=== PATIENT | female | born 1950 | race Caucasian/White ===

== ENCOUNTER 2017-11-01 16:57 | Observation (INO) | payer MEDICARE, OTHER ==
[2017-11-01] MEDS ORDERED: ASPIRIN 81 MG PO STA (17:28)
[2017-11-01] MEDS ORDERED: NITROGLYCERIN OINT 1 INCH/GM PACKET TOPICAL STA (17:28)
--- NOTE | 2017-11-01 17:31 | ED ---
General Adult HPI - General Chief complaint: Chest Pain Stated complaint: Chest Pain x 2 days Time Seen by Provider: 11/01/17 17:06 Source: patient, RN notes reviewed Mode of arrival: wheelchair Limitations: no limitations - History of Present Illness Initial comments: Patient is a pleasant 66-year-old female presenting to the emergency Department with chest discomfort. Symptoms have been asked and waning over the past 2 days. Discomfort is mild at this time. Discomfort is somewhat positional however also get somewhat worse with exertion. No associated dyspnea, nausea, or diaphoresis. No history of similar symptoms previously. Discomfort is described as dull. Discomfort is left sternal region. There is occasional radiation towards the sternum. - Related Data Home Medications Medication Instructions Recorded Confirmed Rosuvastatin Calcium [Crestor] 5 mg PO MOWEFR 08/02/14 11/01/17 Ascorbic Acid [Vitamin C] 500 mg PO DAILY 11/01/17 11/01/17 Aspirin [Adult Low Dose Aspirin EC] 81 mg PO HS 11/01/17 11/01/17 Cholecalciferol (Vitamin D3) 2,000 unit PO HS 11/01/17 11/01/17 [Vitamin D3] Dapagliflozin Propanediol [Farxiga] 10 mg PO DAILY 11/01/17 11/01/17 Glimepiride [Amaryl] 1 mg PO HS 11/01/17 11/01/17 Hydrochlorothiazide [Hydrodiuril] 25 mg PO DAILY 11/01/17 11/01/17 Linagliptin [Tradjenta] 5 mg PO DAILY 11/01/17 11/01/17 Ubidecarenone [Co Q-10] 100 mg PO BID 11/01/17 11/01/17 metFORMIN HCL 1,000 mg PO BID 11/01/17 11/01/17 Allergies Allergy/AdvReac Type Severity Reaction Status Date / Time canagliflozin [From Invokana] AdvReac Unknown Verified 11/01/17 17:28 hydromorphone HCl AdvReac Nausea Verified 11/01/17 17:10 [From Dilaudid] sulfamethoxazole AdvReac Nausea & Verified 11/01/17 17:28 [From Bactrim] Vomiting trimethoprim [From Bactrim] AdvReac Nausea & Verified 11/01/17 17:28 Vomiting Review of Systems ROS Statement: Those systems with pertinent positive or pertinent negative responses have been documented in the HPI. ROS Other: All systems not noted in ROS Statement are negative. Constitutional: Denies: fever Eyes: Denies: eye pain ENT: Denies: ear pain Respiratory: Denies: cough, dyspnea Cardiovascular: Reports: chest pain Endocrine: Denies: fatigue Gastrointestinal: Denies: abdominal pain Genitourinary: Denies: dysuria Musculoskeletal: Denies: back pain Skin: Denies: rash Neurological: Denies: weakness Past Medical History Past Medical History: Diabetes Mellitus, Hyperlipidemia, Hypertension, Osteoarthritis (OA) History of Any Multi-Drug Resistant Organisms: None Reported Past Surgical History: Hysterectomy, Tonsillectomy Additional Past Surgical History / Comment(s): enterocele Past Psychological History: No Psychological Hx Reported Smoking Status: Never smoker Past Alcohol Use History: Rare Past Drug Use History: None Reported General Exam Limitations: no limitations General appearance: alert, in no apparent distress Head exam: Present: atraumatic Eye exam: Present: normal appearance, PERRL ENT exam: Present: normal oropharynx Neck exam: Present: normal inspection Respiratory exam: Present: normal lung sounds bilaterally. Absent: chest wall tenderness Cardiovascular Exam: Present: regular rate, normal rhythm Expanded Peripheral pulses: 2+: Radial (R), Radial (L), Dorsalis Pedis (R), Dorsalis Pedis (L) GI/Abdominal exam: Present: soft. Absent: tenderness Extremities exam: Present: normal inspection. Absent: pedal edema, calf tenderness Neurological exam: Present: alert Psychiatric exam: Present: normal affect, normal mood Skin exam: Present: normal color Course Vital Signs 11/01/17 11/01/17 11/01/17 17:07 18:42 19:07 Temperature 97.8 F Pulse Rate 91 78 85 Respiratory 18 16 16 Rate Blood Pressure 174/91 182/84 159/97 O2 Sat by Pulse 95 98 98 Oximetry EKG Findings - EKG Comments: EKG Findings:: Normal sinus rhythm 90. MS 136. QRS 84. QT 354. QTC 433. Normal axis. Inferior Q waves. No acute ST change. Medical Decision Making - Medical Decision Making Patient reevaluated and resting comfortably in bed. Patient updated on results and plan. Case was discussed in detail with Dr. Turner, who will admit for Dr. Corbett. - Lab Data Result diagrams: 11/01/17 17:20 11/01/17 17:20 Lab Results 11/01/17 11/01/17 11/01/17 Range/Units 17:20 17:20 17:20 WBC 10.3 (3.8-10.6) k/uL RBC 5.36 (3.80-5.40) m/uL Hgb 14.7 (11.4-16.0) gm/dL Hct 46.3 H (34.0-46.0) % MCV 86.4 (80.0-100.0) fL MCH 27.5 (25.0-35.0) pg MCHC 31.8 (31.0-37.0) g/dL RDW 13.5 (11.5-15.5) % Plt Count 312 (150-450) k/uL Neutrophils % 59 % Lymphocytes % 32 % Monocytes % 7 % Eosinophils % 2 % Basophils % 0 % Neutrophils # 6.0 (1.3-7.7) k/uL Lymphocytes # 3.3 (1.0-4.8) k/uL Monocytes # 0.7 (0-1.0) k/uL Eosinophils # 0.2 (0-0.7) k/uL Basophils # 0.0 (0-0.2) k/uL PT (9.0-12.0) sec INR (<1.2) APTT (22.0-30.0) sec Sodium 138 (137-145) mmol/L Potassium 3.7 (3.5-5.1) mmol/L Chloride 96 L (98-107) mmol/L Carbon Dioxide 29 (22-30) mmol/L Anion Gap 13 mmol/L BUN 16 (7-17) mg/dL Creatinine 0.63 (0.52-1.04) mg/dL Est GFR (CKD-EPI)AfAm >90 (>60 ml/min/1.73 sqM) Est GFR (CKD-EPI)NonAf >90 (>60 ml/min/1.73 sqM) Glucose 115 H (74-99) mg/dL Calcium 10.0 (8.4-10.2) mg/dL Magnesium 1.8 (1.6-2.3) mg/dL Total Bilirubin 0.6 (0.2-1.3) mg/dL AST 19 (14-36) U/L ALT 30 (9-52) U/L Alkaline Phosphatase 87 (38-126) U/L Total Creatine Kinase 39 (30-135) U/L CK-MB (CK-2) 0.4 (0.0-2.4) ng/mL CK-MB (CK-2) Rel Index 1.0 Troponin I <0.012 (0.000-0.034) ng/mL Total Protein 6.7 (6.3-8.2) g/dL Albumin 4.2 (3.5-5.0) g/dL 11/01/17 Range/Units 17:20 WBC (3.8-10.6) k/uL RBC (3.80-5.40) m/uL Hgb (11.4-16.0) gm/dL Hct (34.0-46.0) % MCV (80.0-100.0) fL MCH (25.0-35.0) pg MCHC (31.0-37.0) g/dL RDW (11.5-15.5) % Plt Count (150-450) k/uL Neutrophils % % Lymphocytes % % Monocytes % % Eosinophils % % Basophils % % Neutrophils # (1.3-7.7) k/uL Lymphocytes # (1.0-4.8) k/uL Monocytes # (0-1.0) k/uL Eosinophils # (0-0.7) k/uL Basophils # (0-0.2) k/uL PT 9.9 (9.0-12.0) sec INR 1.0 (<1.2) APTT 22.5 (22.0-30.0) sec Sodium (137-145) mmol/L Potassium (3.5-5.1) mmol/L Chloride (98-107) mmol/L Carbon Dioxide (22-30) mmol/L Anion Gap mmol/L BUN (7-17) mg/dL Creatinine (0.52-1.04) mg/dL Est GFR (CKD-EPI)AfAm (>60 ml/min/1.73 sqM) Est GFR (CKD-EPI)NonAf (>60 ml/min/1.73 sqM) Glucose (74-99) mg/dL Calcium (8.4-10.2) mg/dL Magnesium (1.6-2.3) mg/dL Total Bilirubin (0.2-1.3) mg/dL AST (14-36) U/L ALT (9-52) U/L Alkaline Phosphatase (38-126) U/L Total Creatine Kinase (30-135) U/L CK-MB (CK-2) (0.0-2.4) ng/mL CK-MB (CK-2) Rel Index Troponin I (0.000-0.034) ng/mL Total Protein (6.3-8.2) g/dL Albumin (3.5-5.0) g/dL - Radiology Data Radiology results: image reviewed (Chest x-ray shows no acute process.) Disposition Clinical Impression: Chest pain Disposition: ADMITTED IP TO THIS HOSP Referrals: Sandrine Corbett MD [Primary Care Provider] - 1-2 days Decision Time: 19:55
[2017-11-01 17:47] LABS: Basophils % (A) 0 %; Eosinophils # (A) 0.2 k/uL (0-0.7); Eosinophils % (A) 2 %; HCT 46.3 % (34.0-46.0); HGB 14.7 gm/dL (11.4-16.0); Lymphocytes # (A) 3.3 k/uL (1.0-4.8); Lymphocytes % (A) 32 %; MCH 27.5 pg (25.0-35.0); MCHC 31.8 g/dL (31.0-37.0); MCV 86.4 fL (80.0-100.0); Monocytes # (A) 0.7 k/uL (0-1.0); Monocytes % (A) 7 %; Neutrophils % (A) 59 %; Platelet Count 312 k/uL (150-450); RBC 5.36 m/uL (3.80-5.40); RDW 13.5 % (11.5-15.5); WBC 10.3 k/uL (3.8-10.6)
--- NOTE | 2017-11-01 17:52 | XR ---
EXAMINATION TYPE: XR chest 2V DATE OF EXAM: 11/01/2017 COMPARISON: 08/02/2014 HISTORY: Shortness of breath TECHNIQUE: Frontal and lateral views of the chest are obtained. FINDINGS: Scattered senescent parenchymal changes noted. No evidence for infiltrate. No evidence for atelectasis. Heart size is stable. Mediastinal structures are stable and grossly unremarkable. No evidence for hilar prominence. Degenerative changes dorsal spine. IMPRESSION: 1. No evidence for acute pulmonary disease.
[2017-11-01 17:57] LABS: Partial Thromboplastin Time 22.5 sec (22.0-30.0); Prothrombin Time 9.9 sec (9.0-12.0)
[2017-11-01 18:00] LABS: ALT 30 U/L (9-52); AST 19 U/L (14-36); Albumin 4.2 g/dL (3.5-5.0); Alkaline Phosphatase 87 U/L (38-126); Anion Gap 13 mmol/L; Blood Urea Nitrogen 16 mg/dL (7-17); Carbon Dioxide 29 mmol/L (22-30); Chloride 96 mmol/L (98-107); Glucose 115 mg/dL (74-99); Magnesium 1.8 mg/dL (1.6-2.3); Potassium 3.7 mmol/L (3.5-5.1); Sodium 138 mmol/L (137-145); Total Bilirubin 0.6 mg/dL (0.2-1.3); Total Protein 6.7 g/dL (6.3-8.2)
[2017-11-01 18:34] LABS: Creatine Kinase 39 U/L (30-135)
[2017-11-01 18:47] LABS: Creatine Kinase MB 0.4 ng/mL (0.0-2.4); Troponin I <0.012 ng/mL (0.000-0.034)
[2017-11-01] MEDS ORDERED: NITROGLYCERIN SL TABS 0.4 MG TAB SUBLINGUAL PRN (19:55)
[2017-11-01 20:51] LABS: Glucose,Whole Blood 195 mg/dL (75-99)
[2017-11-01 21:06] VITALS: BMI 31.8
[2017-11-01] MEDS ORDERED: NON-FORMULARY DRUG (Ubidecarenone [Co Q-10] 100 MG) PO SCH (21:30)
[2017-11-01] MEDS ORDERED: CHOLECALCIFEROL 1,000 UNIT TAB PO SCH (21:30)
[2017-11-01] MEDS: NITROGLYCERIN OINT 1 INCH/GM PACKET TOPICAL SCH (23:49)
[2017-11-01 23:58] LABS: Creatine Kinase 34 U/L (30-135)
[2017-11-02 00:11] LABS: Creatine Kinase MB 0.4 ng/mL (0.0-2.4); Troponin I <0.012 ng/mL (0.000-0.034)
[2017-11-02] MEDS: NITROGLYCERIN OINT 1 INCH/GM PACKET TOPICAL SCH ×3 (05:50→17:43)
[2017-11-02 06:21] LABS: Glucose,Whole Blood 132 mg/dL (75-99)
[2017-11-02 06:45] LABS: Cholesterol 160 mg/dL (<200); HDL Cholesterol 47 mg/dL (40-60); LDL Cholesterol,Calculated 80 mg/dL (0-99); Triglycerides 164 mg/dL (<150)
[2017-11-02 07:03] LABS: Creatine Kinase 30 U/L (30-135)
[2017-11-02 07:15] LABS: Creatine Kinase MB 0.2 ng/mL (0.0-2.4); Troponin I <0.012 ng/mL (0.000-0.034)
[2017-11-02] MEDS ORDERED: LINAGLIPTIN 5 MG TABLET PO SCH (09:00)
[2017-11-02] MEDS ORDERED: ASCORBIC ACID 500 MG TAB PO SCH (09:00)
[2017-11-02] MEDS ORDERED: ASPIRIN 325 MG TAB PO SCH (09:00)
[2017-11-02] MEDS ORDERED: ATORVASTATIN 10 MG TAB PO SCH (09:00)
[2017-11-02 09:29] VITALS: TEMP 98.1
--- NOTE | 2017-11-02 10:53 | P.HPIM ---
History of Present Illness H&P Date: 11/02/17 Chief Complaint: Chest pain This is a 66-year-old female, patient of Dr. Corbett. She has a known past medical history of diabetes mellitus, hyperlipidemia, hypertension, vertigo and osteoarthritis. Over the last 4 days patient has had symptoms of chest pain on the left side of her chest and under the left breast. She reports relief in the symptoms with changing positions. The pain has been consistent for the past 4 days. She reports the pain is mild. She denies any shortness of breath , nausea, diaphoresis, dizziness or lightheadedness. Patient reports that she went to her PCP yesterday and PCP did an EKG in the office. She's patient was told that there was no new changes on EKG. However, PCP encouraged her to go to the emergency room. EKG in the ER shows a normal sinus rhythm inferior infarct age undetermined. Troponins are negative 3 sets. Cardiology has been consulted. Patient has had no improvement with chest pain with the nitro patch or aspirin. Last stress test was in July 2016 and was negative. Patient also reports that she has brothers and sisters with known heart disease. She is scheduled for a stress echo today. Patient denies any cough, fever, chills, sweats. Denies any nausea or vomiting. Denies any bowel movement changes or urinary symptoms. Denies any heartburn or indigestion. She does report that the pain sometimes moves to the epigastric area. Amylase and lipase have been ordered. LFTs are normal. Review of Systems Please refer to HPI otherwise unremarkable Past Medical History Past Medical History: Diabetes Mellitus, Hyperlipidemia, Hypertension, Osteoarthritis (OA) Additional Past Medical History / Comment(s): vertigo History of Any Multi-Drug Resistant Organisms: None Reported Past Surgical History: Hysterectomy, Tonsillectomy Additional Past Surgical History / Comment(s): enterocele Past Psychological History: No Psychological Hx Reported Smoking Status: Never smoker Past Alcohol Use History: Rare Past Drug Use History: None Reported Medications and Allergies Home Medications Medication Instructions Recorded Confirmed Type Rosuvastatin Calcium [Crestor] 5 mg PO MOWEFR 08/02/14 11/01/17 History Ascorbic Acid [Vitamin C] 500 mg PO DAILY 11/01/17 11/01/17 History Aspirin [Adult Low Dose Aspirin EC] 81 mg PO HS 11/01/17 11/01/17 History Cholecalciferol (Vitamin D3) 2,000 unit PO HS 11/01/17 11/01/17 History [Vitamin D3] Dapagliflozin Propanediol [Farxiga] 10 mg PO DAILY 11/01/17 11/01/17 History Glimepiride [Amaryl] 1 mg PO HS 11/01/17 11/01/17 History Hydrochlorothiazide [Hydrodiuril] 25 mg PO DAILY 11/01/17 11/01/17 History Linagliptin [Tradjenta] 5 mg PO DAILY 11/01/17 11/01/17 History Ubidecarenone [Co Q-10] 100 mg PO BID 11/01/17 11/01/17 History metFORMIN HCL 1,000 mg PO BID 11/01/17 11/01/17 History Allergies Allergy/AdvReac Type Severity Reaction Status Date / Time canagliflozin [From Invokana] AdvReac Unknown Verified 11/01/17 17:28 hydromorphone HCl AdvReac Nausea Verified 11/01/17 17:10 [From Dilaudid] sulfamethoxazole AdvReac Nausea & Verified 11/01/17 17:28 [From Bactrim] Vomiting trimethoprim [From Bactrim] AdvReac Nausea & Verified 11/01/17 17:28 Vomiting Physical Exam Vitals: Vital Signs Temp Pulse Pulse Resp BP BP Pulse Ox 11/02/17 08:00 98.1 F 81 16 144/70 95 11/02/17 04:00 97.9 F 89 18 124/70 96 11/02/17 00:00 97.7 F 82 18 135/74 99 11/01/17 20:50 97.9 F 90 19 144/72 96 11/01/17 20:30 97.9 F 90 19 144/72 96 11/01/17 20:20 85 16 149/71 95 11/01/17 20:01 89 18 166/90 96 11/01/17 19:07 85 16 159/97 98 11/01/17 18:42 78 16 182/84 98 11/01/17 17:07 97.8 F 91 18 174/91 95 Intake and Output 11/01/17 11/02/17 11/02/17 22:59 06:59 14:59 Intake Total 100 300 10 Balance 100 300 10 Intake: IV 10 Invasive Line 1 10 Oral 100 300 0 Other: Voiding Method Toilet Toilet Toilet # Voids 1 Weight 69 kg 69.2 kg Head normocephalic Neck supple Lungs clear to auscultation bilaterally no wheezing or crackles Heart regular rate and rhythm S1-S2, no rub or gallop. No tenderness to palpation of the chest wall no rashes or lesions noted. Abdomen is soft nontender nondistended positive bowel sounds no hepatosplenomegaly Extremities no edema Neuro alert and orientated to 3 Results CBC & Chem 7: 11/01/17 17:20 11/01/17 17:20 Labs: Abnormal Lab Results - Last 24 Hours (Table) 11/01/17 11/01/17 11/01/17 Range/Units 17:20 17:20 20:49 Hct 46.3 H (34.0-46.0) % Chloride 96 L (98-107) mmol/L Glucose 115 H (74-99) mg/dL POC Glucose (mg/dL) 195 H (75-99) mg/dL Triglycerides (<150) mg/dL 11/02/17 11/02/17 Range/Units 05:24 06:19 Hct (34.0-46.0) % Chloride (98-107) mmol/L Glucose (74-99) mg/dL POC Glucose (mg/dL) 132 H (75-99) mg/dL Triglycerides 164 H (<150) mg/dL Thrombosis Risk Factor Assmnt - Choose All That Apply Any of the Below Risk Factors Present?: Yes Each Factor Represents 1 point: Obesity (BMI >25) Other Risk Factors: Yes Each Risk Factor Represents 2 Points: Age 61-74 years Thrombosis Risk Factor Assessment Total Risk Factor Score: 3 Thrombosis Risk Factor Assessment Level: Moderate Risk Assessment and Plan Assessment: 1. Chest pain: EKG showing a normal sinus rhythm with inferior infarct age undetermined. Troponins are negative 3 sets. Chest x-ray negative. Cardiology consulted patient scheduled for a stress echo today. Also will check an amylase and lipase. Patient reports that sometimes the pain had moved to the epigastric area 2. Diabetes mellitus type 2: Resume patient's Tradjenta add sliding scale coverage 3. Essential hypertension: Patient had evidence of accelerated hypertension on admission. Blood pressures have shown improvement. Resume hydrochlorothiazide 4. Hyperlipidemia: Resume Crestor GI prophylaxis Pepcid and DVT prophylaxis subcu heparin Time with Patient: Greater than 30 (Greater than 50% of the total time spent in counseling and coordination of care.I performed an examination of the patient and discussed their management with the physician Litigation Claim Representative. I have reviewed the Physician Litigation Claim Representative's notes and agree with the documented findings and plan of care)
--- NOTE | 2017-11-02 10:56 | CONS ---
CONSULTATION CHIEF COMPLAINT: Chest pain. Silvia is a 66-year-old lady with multiple coronary risk factors including hypertension, diabetes, and dyslipidemia who presents to hospital complaining of chest discomfort. Her chest pain is sharp, precordial, located in 1 place, mild intensity that has been going on for the last several days. It gets worse with movement and is reproducible. It has been on and off for the last several days. At the time of my evaluation, she appears comfortable at rest and is free of symptoms. EKG on her shows sinus rhythm with evidence of prior inferior wall myocardial infarction. Patient had a negative stress test in July of 2016 that showed normal myocardial perfusion and function. There is no prior history of coronary artery disease or congestive heart failure. PAST MEDICAL HISTORY: Significant for hypertension, diabetes, dyslipidemia. MEDICATIONS: Include Crestor, aspirin, metformin, Co-Q10, HydroDIURIL, Amaryl, Tradjenta, vitamin C. ALLERGIES: HYDROMORPHONE, SULFAMETHOXAZOLE, BACTRIM, and INVOKANA. FAMILY HISTORY: Significant for premature coronary artery disease in her sisters and brothers. SOCIAL HISTORY: Negative for smoking, EtOH use or drug abuse. REVIEW OF SYSTEMS: HEENT is unremarkable. CARDIAC: As described above. RESPIRATORY: Negative. GI: Negative. GENITOURINARY: Negative. ALLERGY/IMMUNOLOGY: Negative. SKIN: Negative. MUSCULOSKELETAL: Significant for arthritis. PSYCHOSOCIAL: Negative. ENDOCRINE: Negative. DERM: Negative. CONSTITUTIONAL: Negative. ONCOLOGICAL: Negative. The rest of the system review is not relevant. PHYSICAL EXAM: Comfortable at rest. Vital signs are stable. There is no jugular venous distention. Carotid upstroke is normal. There is no bruit. Chest exam reveals good air entry bilaterally. Heart exam reveals first and second heart sounds. No gallop. No murmur. No rub. Abdomen is soft, nontender. Exam of extremities did not reveal edema. Peripheral pulses are felt. LABS: Show a hemoglobin of 14.7, platelet count is 312. Potassium is 3.7, creatinine is 0.6. Three sets of troponins are negative. LDL cholesterol is 80. EKG does not reveal acute ischemic changes. ASSESSMENT: 1. Chest pain is atypical, probably noncardiac. 2. Hypertension. 3. diabetes. PLAN: Given the multiple coronary risk factors, I am going to obtain a stress echo on this patient. If this is abnormal, I will consider cardiac catheterization. If not, she will continue with medical therapy and will have workup for her musculoskeletal pain through Dr. Corbett in the outpatient setting. Thank you for allowing us to participate in this pleasant lady. NAIDA / RORO: [id number] /
[2017-11-02 11:08] LABS: Amylase 44 U/L (30-110); Lipase 89 U/L (23-300)
--- NOTE | 2017-11-02 11:26 | ECHOF ---
Referral Reason:chest pain MEASUREMENTS -------- HEIGHT: 147.3 cm WEIGHT: 68.9 kg BP: 124/70 RVIDd: 2.5 cm (< 3.3) IVSd: 1.2 cm (0.6 - 1.1) LVIDd: 4.0 cm (3.9 - 5.3) LVPWd: 1.0 cm (0.6 - 1.1) IVSs: 1.5 cm LVIDs: 2.6 cm LVPWs: 1.3 cm LA Diam: 3.0 cm (2.7 - 3.8) LAESV Index (A-L): 17.32 ml/m Ao Diam: 2.9 cm (2.0 - 3.7) AV Cusp: 1.9 cm (1.5 - 2.6) MV EXCURSION: 14.273 mm (> 18.000) MV EF SLOPE: 14 mm/s (70 - 150) EPSS: 0.1 cm MV E Christiano: 0.59 m/s MV DecT: 268 ms MV A Christiano: 0.86 m/s MV E/A Ratio: 0.69 FINDINGS -------- Sinus rhythm. This was a technically adequate study. The left ventricular size is normal. There is borderline concentric left ventricular hypertrophy. Overall left ventricular systolic function is normal with, an EF between 55 - 60 %. The right ventricle is normal in size. Normal LA size by volume 22+/-6 ml/m2. The right atrium is normal in size. The aortic valve is trileaflet and appears structurally normal. The mitral valve leaflets are mildly thickened. The tricuspid valve appears structurally normal. The pulmonic valve was not well visualized. The aortic root size is normal. IVC Not well visulized. There is no pericardial effusion. CONCLUSIONS -------- 1. Sinus rhythm. 2. This was a technically adequate study. 3. The left ventricular size is normal. 4. There is borderline concentric left ventricular hypertrophy. 5. Overall left ventricular systolic function is normal with, an EF between 55 - 60 %. 6. The right ventricle is normal in size. 7. Normal LA size by volume 22+/-6 ml/m2. 8. The right atrium is normal in size. 9. The aortic valve is trileaflet and appears structurally normal. 10. The mitral valve leaflets are mildly thickened. 11. The tricuspid valve appears structurally normal. 12. The pulmonic valve was not well visualized. 13. The aortic root size is normal. 14. IVC Not well visulized. 15. There is no pericardial effusion. CONCRETE BUCKET HOOKER: Brielle Brown RDCS
[2017-11-02 12:29] LABS: Glucose,Whole Blood 156 mg/dL (75-99)
[2017-11-02] MEDS: INSULIN ASPART 100 UNIT/ML 1 ML 10 ML VIAL SQ SCH ×2 (12:30→17:38)
--- NOTE | 2017-11-02 12:47 | ECHOS ---
STRESS ECHOCARDIOGRAM INDICATIONS: Chest pain. BASELINE HEART RATE: 103 BASELINE BLOOD PRESSURE: 131/79 MAXIMUM HEART RATE: 153 MAXIMUM BLOOD PRESSURE: 177/86 85% MPHR: 132 100% MPHR: 155 METS: 8.5 MAXIMUM STAGE REACHED: 3 TOTAL EXERCISE TIME: 7:00 CLINICAL INFORMATION: Baseline EKG revealed normal sinus rhythm without significant ST-T changes. Patient walked on standard Delfino protocol for 7 minutes, achieved a maximal heart rate of 153 beats per minute which is well above 85% of predicted maximal. She developed fatigue and shortness of breath and therefore stress test was stopped. By EKG criteria, this is a negative stress test with fair exercise capacity. Baseline echo images were suboptimal. Lumason was injected to improve echo contrast. Baseline echo images revealed normal wall motion and wall thickening of all segments. At peak exercise, there was good augmentation of left ventricular wall motion and wall thickening of all segments. However, this is an overall suboptimal stress echo because of inadequate images even with contrast administration. IMPRESSION: 1. Limited exercise capacity with a negative stress test by EKG criteria. 2. Normal stress echocardiogram with somewhat suboptimal images. MMODL / IJN: [id number] /
[2017-11-02 16:33] LABS: Glucose,Whole Blood 122 mg/dL (75-99)
[2017-11-02 17:01] VITALS: BP 130/70; PULSE 99; RESP 18
[2017-11-02 18:47] LABS: Hemoglobin A1C 6.9 % (4.0-6.0)
[2017-11-02] MEDS ORDERED: HEPARIN SODIUM,PORCINE 5,000 UNIT/ML 1 ML VIAL SQ SCH (21:00)
[2017-11-02] MEDS ORDERED: ASPIRIN 81 MG PO SCH (21:00)
[2017-11-03] MEDS ORDERED: HYDROCHLOROTHIAZIDE 25 MG TAB PO SCH (09:00)
[2017-11-03] MEDS ORDERED: FAMOTIDINE 20 MG TAB PO SCH (09:00)
== END 2017-11-02 18:28 | disposition home or self-care (01) ==
LOC: EC 16:57 → 6SEL 19:55
PROVIDERS: ADMIT Internal Medicine; ATTEND Internal Medicine
DX: R07.89 Other chest pain (principal); I10 Essential (primary) hypertension; E11.9 Type 2 diabetes mellitus without complications; E78.5 Hyperlipidemia, unspecified; M19.90 Unspecified osteoarthritis, unspecified site; E66.9 Obesity, unspecified; I25.2 Old myocardial infarction; Z68.31 Body mass index [BMI] 31.0-31.9, adult; Z79.82 Long term (current) use of aspirin; Z79.84 Long term (current) use of oral hypoglycemic drugs; Z79.899 Other long term (current) drug therapy; Z88.1 Allergy status to other antibiotic agents; Z88.2 Allergy status to sulfonamides; Z88.5 Allergy status to narcotic agent; Z88.8 Allergy status to other drugs, medicaments and biological substances; Z82.49 Family history of ischemic heart disease and other diseases of the circulatory system; R42 Dizziness and giddiness
CPT/HCPCS: 99285 ×2; 36415; 93005; 93017; 93306; 80061; 80053; 82150; 82550 ×2; 82553 ×2; 83690; 83735; 84484 ×2; 85025; 85610; 85730; 83036; 71046; G0378 ×2; C8928; Q9950; 93350

== ENCOUNTER 2019-10-31 11:19 | Emergency (ER) | payer MEDICARE, OTHER ==
[2019-10-31] MEDS ORDERED: HYDROmorphone 0.5 MG/0.5 ML SYRINGE IVP STA (11:29)
[2019-10-31] MEDS ORDERED: PANTOPRAZOLE 40 MG/10 ML VIAL IVP STA (11:29)
[2019-10-31] MEDS ORDERED: ONDANSETRON 4 MG/2 ML VIAL IVP STA (11:29)
[2019-10-31] MEDS ORDERED: SODIUM CHLORIDE 0.9% 1,000 ML IV STA (11:29)
[2019-10-31 11:33] VITALS: RESP 18
[2019-10-31 12:04] LABS: Basophils % (A) 0 %; Eosinophils # (A) 0.2 k/uL (0-0.7); Eosinophils % (A) 1 %; HCT 48.5 % (34.0-46.0); HGB 15.8 gm/dL (11.4-16.0); Lymphocytes # (A) 0.8 k/uL (1.0-4.8); Lymphocytes % (A) 4 %; MCH 29.1 pg (25.0-35.0); MCHC 32.6 g/dL (31.0-37.0); MCV 89.3 fL (80.0-100.0); Mean Platelet Volume 7.8; Monocytes # (A) 0.7 k/uL (0-1.0); Monocytes % (A) 4 %; Neutrophils # (A) 17.2 k/uL (1.3-7.7); Neutrophils % (A) 90 %; Platelet Count 300 k/uL (150-450); RBC 5.43 m/uL (3.80-5.40); RDW 13.3 % (11.5-15.5); WBC 19.1 k/uL (3.8-10.6)
[2019-10-31 12:17] LABS: ALT 28 U/L (4-34); AST 25 U/L (14-36); African American GFR (CKD) >90 (>60 ml/min/1.73 sqM); Albumin 4.1 g/dL (3.5-5.0); Alkaline Phosphatase 93 U/L (38-126); Amylase 62 U/L (30-110); Anion Gap 9 mmol/L; Blood Urea Nitrogen 16 mg/dL (7-17); Calcium 9.8 mg/dL (8.4-10.2); Carbon Dioxide 25 mmol/L (22-30); Chloride 105 mmol/L (98-107); Glucose 192 mg/dL (74-99); Non-African American GFR(CKD) >90 (>60 ml/min/1.73 sqM); Potassium 4.3 mmol/L (3.5-5.1); Sodium 139 mmol/L (137-145); Total Bilirubin 0.7 mg/dL (0.2-1.3); Total Protein 6.9 g/dL (6.3-8.2)
--- NOTE | 2019-10-31 12:20 | ED ---
Abdominal Pain HPI - General Chief Complaint: Abdominal Pain Stated Complaint: abd pain Source: patient, EMS Mode of arrival: EMS Limitations: no limitations - History of Present Illness Initial Comments: Patient is 68-year-old female presenting to emergency Department with chief complaint of abdominal pain. Patient reports symptoms began early this morning and epigastric region that have now migrated to the lower abdomen. Patient does report nausea with several episodes of nonbilious, nonbloody vomiting. Patient does report irregular bowel movements but states that is her baseline. States the pain alternates between dull and sharp and is constant. Not related to by mouth intake. Denies any urinary or vaginal symptoms. Denies any fever or chills. Denies any chest pain or shortness of breath headaches. Does report history of intestinal adhesions after a hysterectomy. Denies any alleviating or aggravating factors. Denies hematuria, hematochezia or melena. - Related Data Home Medications Medication Instructions Recorded Confirmed Rosuvastatin Calcium [Crestor] 5 mg PO MOWEFR 08/02/14 11/01/17 Ascorbic Acid [Vitamin C] 500 mg PO DAILY 11/01/17 11/01/17 Aspirin [Adult Low Dose Aspirin EC] 81 mg PO HS 11/01/17 11/01/17 Cholecalciferol (Vitamin D3) 2,000 unit PO HS 11/01/17 11/01/17 [Vitamin D3] Dapagliflozin Propanediol [Farxiga] 10 mg PO DAILY 11/01/17 11/01/17 Glimepiride [Amaryl] 1 mg PO HS 11/01/17 11/01/17 Hydrochlorothiazide [Hydrodiuril] 25 mg PO DAILY 11/01/17 11/01/17 Linagliptin [Tradjenta] 5 mg PO DAILY 11/01/17 11/01/17 Ubidecarenone [Co Q-10] 100 mg PO BID 11/01/17 11/01/17 metFORMIN HCL 1,000 mg PO BID 11/01/17 11/01/17 Previous Rx's Medication Instructions Recorded Ondansetron Odt [Zofran Odt] 4 mg PO Q8HR PRN #20 tab 10/31/19 Allergies Allergy/AdvReac Type Severity Reaction Status Date / Time canagliflozin [From Invokana] AdvReac Unknown Verified 11/01/17 17:28 hydromorphone HCl AdvReac Nausea Verified 11/01/17 17:10 [From Dilaudid] sulfamethoxazole AdvReac Nausea & Verified 11/01/17 17:28 [From Bactrim] Vomiting trimethoprim [From Bactrim] AdvReac Nausea & Verified 11/01/17 17:28 Vomiting Review of Systems ROS Statement: Those systems with pertinent positive or pertinent negative responses have been documented in the HPI. ROS Other: All systems not noted in ROS Statement are negative. Past Medical History Past Medical History: Diabetes Mellitus, Hyperlipidemia, Hypertension, Osteoarthritis (OA) Additional Past Medical History / Comment(s): vertigo History of Any Multi-Drug Resistant Organisms: None Reported Past Surgical History: Hysterectomy, Tonsillectomy Additional Past Surgical History / Comment(s): enterocele Past Psychological History: No Psychological Hx Reported Smoking Status: Never smoker Past Alcohol Use History: Rare Past Drug Use History: None Reported General Exam Limitations: no limitations General appearance: alert, in no apparent distress, obese Head exam: Present: atraumatic, normocephalic, normal inspection Eye exam: Present: normal appearance, EOMI Pupils: Present: normal accommodation ENT exam: Present: normal exam Neck exam: Present: normal inspection, full ROM Respiratory exam: Present: normal lung sounds bilaterally Cardiovascular Exam: Present: regular rate, normal rhythm, normal heart sounds GI/Abdominal exam: Present: soft, tenderness (Right lower quadrant. Suprapubic. Positive McBurney point tenderness. Negative psoas, Rovsing or obturator.). Absent: distended, guarding, rebound Extremities exam: Present: normal inspection, full ROM Back exam: Present: normal inspection, full ROM Neurological exam: Present: alert, oriented X3 Psychiatric exam: Present: normal affect, normal mood Skin exam: Present: warm, dry, intact, normal color Course Vital Signs 10/31/19 10/31/19 10/31/19 11:22 13:08 14:00 Temperature 98.1 F Pulse Rate 112 H 94 Respiratory 18 18 Rate Blood Pressure 160/97 152/83 O2 Sat by Pulse 93 L 94 L Oximetry Medical Decision Making - Medical Decision Making Patient is 68-year-old male presenting to emergency Department with a chief complaint abdominal pain. Patient brought to the ED via EMS. On exam patient does have lower abdominal tenderness with positive McBurney point. Patient does have leukocytosis of 19,000 which I suspect this is from the multiple episodes of vomiting. UA showing plus for glucose and +2 ketones. I suspect the patient is dehydrated. Patient was given antibiotics, fluids and analgesia. CT abdomen and pelvis reveals enteritis, diverticulosis without diverticulitis. On reevaluation patient reports improvement in symptoms and states she is ready go home. Patient given antibiotics to go home. Patient advised to drink fluids. Return parameters thoroughly discussed with patient was up standing agreeable. Case discussed with physician. - Lab Data Result diagrams: 10/31/19 11:50 10/31/19 11:50 Lab Results 10/31/19 10/31/19 10/31/19 Range/Units 11:50 11:50 13:21 WBC 19.1 H (3.8-10.6) k/uL RBC 5.43 H (3.80-5.40) m/uL Hgb 15.8 (11.4-16.0) gm/dL Hct 48.5 H (34.0-46.0) % MCV 89.3 (80.0-100.0) fL MCH 29.1 (25.0-35.0) pg MCHC 32.6 (31.0-37.0) g/dL RDW 13.3 (11.5-15.5) % Plt Count 300 (150-450) k/uL Neutrophils % 90 % Lymphocytes % 4 % Monocytes % 4 % Eosinophils % 1 % Basophils % 0 % Neutrophils # 17.2 H (1.3-7.7) k/uL Lymphocytes # 0.8 L (1.0-4.8) k/uL Monocytes # 0.7 (0-1.0) k/uL Eosinophils # 0.2 (0-0.7) k/uL Basophils # 0.0 (0-0.2) k/uL Sodium 139 (137-145) mmol/L Potassium 4.3 (3.5-5.1) mmol/L Chloride 105 (98-107) mmol/L Carbon Dioxide 25 (22-30) mmol/L Anion Gap 9 mmol/L BUN 16 (7-17) mg/dL Creatinine 0.61 (0.52-1.04) mg/dL Est GFR (CKD-EPI)AfAm >90 (>60 ml/min/1.73 sqM) Est GFR (CKD-EPI)NonAf >90 (>60 ml/min/1.73 sqM) Glucose 192 H (74-99) mg/dL Calcium 9.8 (8.4-10.2) mg/dL Total Bilirubin 0.7 (0.2-1.3) mg/dL AST 25 (14-36) U/L ALT 28 (4-34) U/L Alkaline Phosphatase 93 (38-126) U/L Total Protein 6.9 (6.3-8.2) g/dL Albumin 4.1 (3.5-5.0) g/dL Amylase 62 (30-110) U/L Lipase 105 (23-300) U/L Urine Color Yellow Urine Appearance Clear (Clear) Urine pH 7.0 (5.0-8.0) Ur Specific [place] 1.040 H (1.001-1.035) Urine Protein Negative (Negative) Urine Glucose (UA) 4+ H (Negative) Urine Ketones 2+ H (Negative) Urine Blood Negative (Negative) Urine Nitrite Negative (Negative) Urine Bilirubin Negative (Negative) Urine Urobilinogen <2.0 (<2.0) mg/dL Ur Leukocyte Esterase Negative (Negative) Disposition Clinical Impression: Abdominal pain, Enteritis, Nausea & vomiting Disposition: HOME SELF-CARE Condition: Stable Instructions (If sedation given, give patient instructions): Enteritis (ED) Additional Instructions: Please take prescribed medication as directed. Make sure to drink a lot of fluids. Return to emergency department if symptoms worsen. Follow-up with primary care. Prescriptions: Ondansetron Odt [Zofran Odt] 4 mg PO Q8HR PRN #20 tab PRN Reason: Nausea Is patient prescribed a controlled substance at d/c from ED?: No Referrals: Sandrine Corbett MD [Primary Care Provider] - 1-2 days Time of Disposition: 14:42
[2019-10-31 13:08] VITALS: TEMP 98.1
[2019-10-31 13:39] LABS: Appearance,Urine Clear (Clear); Bilirubin,Urine Negative (Negative); Blood,Urine Negative (Negative); Color,Urine Yellow; Glucose,Urine (UA) 4+ (Negative); Leukocyte Esterase,Urine Negative (Negative); Nitrite,Urine Negative (Negative); Protein,Urine Negative (Negative); Urobilinogen,Urine <2.0 mg/dL (<2.0)
[2019-10-31 13:45] LABS: Ketones,Urine 2+ (Negative)
[2019-10-31 14:01] VITALS: BP 152/83; PULSE 94
--- NOTE | 2019-10-31 14:05 | CT ---
EXAMINATION TYPE: CT abdomen pelvis w con DATE OF EXAM: 10/31/2019 COMPARISON: HISTORY: RLQ pain with nausea, vomiting and diarrhea CT DLP: 1049.1 mGycm Automated exposure control for dose reduction was used. TECHNIQUE: Helical acquisition of images from the lung bases through the pelvis have been completed. CONTRAST: Performed without Oral Contrast and with IV Contrast, patient injected with 100 mL of Isovue 300. FINDINGS: Small hiatal hernia present LUNG BASES: There is some dependent atelectatic changes. AORTA: No significant abnormality is appreciated. LIVER/GB: Liver shows low attenuation likely due to hepatic steatosis. Gallbladder is normal. PANCREAS: No significant abnormality is seen. SPLEEN: No significant abnormality is seen. ADRENALS: No significant abnormality is seen. KIDNEYS: No significant interval change is seen, bilateral parapelvic cysts are present, there are bi lateral cortical cysts, punctate 2 mm lower pole nonobstructive calculus associated with the left kid dell is again noted. REPRODUCTIVE ORGANS: Uterus is not seen, suspect ovaries are present along the pelvic sidewalls BOWEL: There is abnormal inflammatory change associated with jejunum towards the inferior midline ne ar the level of the aortic bifurcation, inflammatory changes with increased density within the mesent gabriella fat at this level, extensive diverticular changes are present within the colon The appendix is n ormal. FREE AIR: No Free Air visible. ASCITES: None visible. PELVIC ADENOPATHY: None visualized. RETROPERITONEAL ADENOPATHY: No Retroperitoneal Adenopathy visible. URINARY BLADDER: No significant abnormality is seen. OSSEOUS STRUCTURES: No significant abnormality is seen. IMPRESSION: NONSPECIFIC INFLAMMATORY CHANGE IS PRESENT WITHIN THE JEJUNUM, CORRELATE FOR ENTERITIS, FOLLOW-UP INDICATED. DIVERTICULOSIS AND POSTOP CHANGES. HEPATIC STEATOSIS. ADDITIONAL FINDINGS ABOVE.
[2019-10-31] MEDS ORDERED: ONDANSETRON 4 MG ODT STARTER PACK 2 TAB BTL PO STA (14:41)
== END 2019-10-31 14:52 | disposition home or self-care (01) ==
LOC: EC 11:19
DX: K52.9 Noninfective gastroenteritis and colitis, unspecified (principal); D72.829 Elevated white blood cell count, unspecified; K57.90 Diverticulosis of intestine, part unspecified, without perforation or abscess without bleeding; E11.9 Type 2 diabetes mellitus without complications; E78.5 Hyperlipidemia, unspecified; I10 Essential (primary) hypertension; Z90.710 Acquired absence of both cervix and uterus; Z79.82 Long term (current) use of aspirin; Z79.84 Long term (current) use of oral hypoglycemic drugs; Z79.899 Other long term (current) drug therapy; Z88.5 Allergy status to narcotic agent; Z88.2 Allergy status to sulfonamides; Z88.8 Allergy status to other drugs, medicaments and biological substances
CPT/HCPCS: 36415; 80053; 82150; 83690; 85025; 81003; 74177; 99284; 96374; 96375 ×2; 96361; J2405; S0119; C9113; J1170; Q9967

== ENCOUNTER → 2020-02-04 | Outpatient (CLI) | payer MEDICARE, OTHER ==
--- NOTE | 2020-02-05 10:55 | MM ---
Reason for exam: screening (asymptomatic). Last mammogram was performed 3 years and 7 months ago. History: Patient is postmenopausal. Physical Findings: A clinical breast exam by your physician is recommended on an annual basis and results should be correlated with mammographic findings. MG 3D Screening Mammo W/Cad Bilateral CC and MLO view(s) were taken. Prior study comparison: June 28, 2016, bilateral MG 3d screening mammo w/cad. April 03, 2014, mammogram, performed at [facility]. There are scattered fibroglandular densities. There is chronic nodularity in the left breast. Focal asymmetry right upper outer quadrant is stable. No significant changes when compared with prior studies. ASSESSMENT: Benign, BI-RAD 2 RECOMMENDATION: Routine screening mammogram of both breasts in 1 year. Manage on a clinical basis with regard to right axillay lump. Consider ultrasound.
== END | disposition home or self-care (01) ==
LOC: RADMAMWWP 14:49
PROVIDERS: ATTEND Family Medicine
DX: Z12.31 Encounter for screening mammogram for malignant neoplasm of breast (principal)
CPT/HCPCS: 77063; 77067

== ENCOUNTER 2020-06-26 21:15 | Observation (INO) | payer MEDICARE, OTHER ==
[2020-06-26] MEDS ORDERED: ACETAMINOPHEN TAB 500 MG TAB PO STA (22:20)
[2020-06-26] MEDS ORDERED: SODIUM CHLORIDE 0.9% 1,000 ML IV STA (22:20)
[2020-06-26 22:51] LABS: Basophils # (A) 0.1 k/uL (0-0.2); Basophils % (A) 1 %; Eosinophils % (A) 0 %; HCT 43.2 % (34.0-46.0); HGB 14.6 gm/dL (11.4-16.0); Lymphocytes # (A) 0.5 k/uL (1.0-4.8); Lymphocytes % (A) 6 %; MCHC 33.8 g/dL (31.0-37.0); MCV 88.7 fL (80.0-100.0); Mean Platelet Volume 7.9; Monocytes # (A) 0.3 k/uL (0-1.0); Monocytes % (A) 4 %; Neutrophils % (A) 88 %; Platelet Count 230 k/uL (150-450); RBC 4.87 m/uL (3.80-5.40); RDW 13.3 % (11.5-15.5)
--- NOTE | 2020-06-26 23:03 | XR ---
EXAMINATION TYPE: XR chest 2V DATE OF EXAM: 06/26/2020 COMPARISON: 11/01/2017 HISTORY: Fever TECHNIQUE: FINDINGS: There is a mild infiltrate in the right upper lobe that is interstitial. The other lung fie lds are fairly clear. There is no heart failure. Heart size is normal. There are chest leads. Bony th orax is intact. There is no pleural effusion. IMPRESSION: There is a new minimal infiltrate right upper lobe compared to old exam.
[2020-06-26 23:08] LABS: Partial Thromboplastin Time 24.5 sec (22.0-30.0)
[2020-06-26 23:13] LABS: ALT 25 U/L (4-34); AST 34 U/L (14-36); African American GFR (CKD) >90 (>60 ml/min/1.73 sqM); Albumin 3.6 g/dL (3.5-5.0); Alkaline Phosphatase 73 U/L (38-126); Anion Gap 10 mmol/L; Blood Urea Nitrogen 15 mg/dL (7-17); Calcium 8.6 mg/dL (8.4-10.2); Carbon Dioxide 20 mmol/L (22-30); Chloride 106 mmol/L (98-107); Glucose 235 mg/dL (74-99); Lipase 91 U/L (23-300); Non-African American GFR(CKD) >90 (>60 ml/min/1.73 sqM); Potassium 4.1 mmol/L (3.5-5.1); Sodium 136 mmol/L (137-145); Total Bilirubin 0.5 mg/dL (0.2-1.3); Total Protein 6.3 g/dL (6.3-8.2)
[2020-06-26 23:23] LABS: Appearance,Urine Clear (Clear); Bilirubin,Urine Negative (Negative); Blood,Urine Negative (Negative); Color,Urine Yellow; Glucose,Urine (UA) 4+ (Negative); Leukocyte Esterase,Urine Negative (Negative); Nitrite,Urine Negative (Negative); Protein,Urine Trace (Negative); Specific Gravity,Urine 1.041 (1.001-1.035); Urobilinogen,Urine <2.0 mg/dL (<2.0)
--- NOTE | 2020-06-26 23:26 | ED ---
Fever HPI - General Chief Complaint: Fever Stated Complaint: Fever Time Seen by Provider: 06/26/20 21:45 Source: patient, EMS Mode of arrival: EMS Limitations: no limitations - History of Present Illness Initial Comments: Patient is a 61-year-old female past medical history of diabetes who presents emergency room with reported weakness, nausea and decreased oral intake for the past 4 days. Patient states that she's had diffuse body aches. Denies any sick contacts or recent travel. Admits to a mild nonproductive cough. No Chest pain. No abdominal pain. She was found to be febrile upon presentation to the emergency room. Due to the persistence of her symptoms she came in to the emergency room for further evaluation - Related Data Home Medications Medication Instructions Recorded Confirmed Ascorbic Acid [Vitamin C] 500 mg PO DAILY 11/01/17 07/01/20 Cholecalciferol (Vitamin D3) 2,000 unit PO HS 11/01/17 07/01/20 [Vitamin D3] Dapagliflozin Propanediol [Farxiga] 10 mg PO DAILY 11/01/17 07/01/20 Linagliptin [Tradjenta] 5 mg PO HS 11/01/17 07/01/20 metFORMIN HCL 1,000 mg PO BID 11/01/17 07/01/20 Cyanocobalamin (Vitamin B-12) 1,000 mcg PO DAILY 06/27/20 07/01/20 [Vitamin B-12] Glimepiride [Amaryl] 2 mg PO [id number] 06/27/20 07/01/20 Allergies Allergy/AdvReac Type Severity Reaction Status Date / Time canagliflozin [From Invokana] AdvReac Unknown Verified 07/01/20 11:11 hydromorphone HCl AdvReac Nausea Verified 07/01/20 11:11 [From Dilaudid] sulfamethoxazole AdvReac Nausea & Verified 07/01/20 11:11 [From Bactrim] Vomiting trimethoprim [From Bactrim] AdvReac Nausea & Verified 07/01/20 11:11 Vomiting Review of Systems ROS Statement: Those systems with pertinent positive or pertinent negative responses have been documented in the HPI. ROS Other: All systems not noted in ROS Statement are negative. Past Medical History Past Medical History: Diabetes Mellitus, Hyperlipidemia, Hypertension, Osteoarthritis (OA) Additional Past Medical History / Comment(s): vertigo History of Any Multi-Drug Resistant Organisms: None Reported Past Surgical History: Hysterectomy, Tonsillectomy Additional Past Surgical History / Comment(s): enterocele Past Psychological History: No Psychological Hx Reported Smoking Status: Former smoker Past Alcohol Use History: Rare Past Drug Use History: None Reported General Exam Limitations: no limitations General appearance: alert, in no apparent distress Head exam: Present: atraumatic, normocephalic, normal inspection Eye exam: Present: normal appearance, PERRL, EOMI. Absent: scleral icterus, conjunctival injection, periorbital swelling ENT exam: Present: normal exam, mucous membranes moist Neck exam: Present: normal inspection. Absent: tenderness, meningismus, lymphadenopathy Respiratory exam: Present: normal lung sounds bilaterally. Absent: respiratory distress, wheezes, rales, rhonchi, stridor Cardiovascular Exam: Present: regular rate, normal rhythm, normal heart sounds. Absent: systolic murmur, diastolic murmur, rubs, gallop, clicks GI/Abdominal exam: Present: soft, normal bowel sounds. Absent: distended, tenderness, guarding, rebound, rigid Extremities exam: Present: normal inspection, full ROM, normal capillary refill. Absent: tenderness, pedal edema, joint swelling, calf tenderness Back exam: Present: normal inspection Neurological exam: Present: alert, oriented X3, CN II-XII intact Psychiatric exam: Present: normal affect, normal mood Skin exam: Present: warm, dry, intact, normal color. Absent: rash Course Vital Signs 06/26/20 06/26/20 06/27/20 21:45 23:00 00:00 Temperature 100.3 F H 97.9 F Pulse Rate 90 87 89 Respiratory 20 18 18 Rate Blood Pressure 146/56 177/91 175/98 O2 Sat by Pulse 92 L 96 97 Oximetry 06/27/20 00:34 Temperature Pulse Rate Respiratory Rate Blood Pressure 135/82 O2 Sat by Pulse Oximetry Medical Decision Making - Medical Decision Making Upon arrival patient is placed into room 3. A thorough history and physical exam was performed. Peripheral IV is established. Patient was given a liter bolus of normal saline. Laboratory studies were conducted. Patient is positive for 4+ ketones. Coronavirus is also detected. Chest x-ray was performed which demonstrates an infiltrate in the right upper lobe. Results are discussed with the patient. Due to her profound dehydration I did recommend hospital admission for which patient did agree to. Patient is admitted [facility]. She remained in stable condition awaiting a bed on the floor - Lab Data Result diagrams: 06/27/20 06:41 06/27/20 06:41 Lab Results 06/26/20 06/26/20 06/26/20 Range/Units 22:35 22:35 22:35 WBC 8.0 (3.8-10.6) k/uL RBC 4.87 (3.80-5.40) m/uL Hgb 14.6 (11.4-16.0) gm/dL Hct 43.2 (34.0-46.0) % MCV 88.7 (80.0-100.0) fL MCH 30.0 (25.0-35.0) pg MCHC 33.8 (31.0-37.0) g/dL RDW 13.3 (11.5-15.5) % Plt Count 230 (150-450) k/uL MPV 7.9 Neutrophils % 88 % Lymphocytes % 6 % Monocytes % 4 % Eosinophils % 0 % Basophils % 1 % Neutrophils # 7.0 (1.3-7.7) k/uL Lymphocytes # 0.5 L (1.0-4.8) k/uL Monocytes # 0.3 (0-1.0) k/uL Eosinophils # 0.0 (0-0.7) k/uL Basophils # 0.1 (0-0.2) k/uL PT (9.0-12.0) sec INR (<1.2) APTT (22.0-30.0) sec Sodium 136 L (137-145) mmol/L Potassium 4.1 (3.5-5.1) mmol/L Chloride 106 (98-107) mmol/L Carbon Dioxide 20 L (22-30) mmol/L Anion Gap 10 mmol/L BUN 15 (7-17) mg/dL Creatinine 0.48 L (0.52-1.04) mg/dL Est GFR (CKD-EPI)AfAm >90 (>60 ml/min/1.73 sqM) Est GFR (CKD-EPI)NonAf >90 (>60 ml/min/1.73 sqM) Glucose 235 H (74-99) mg/dL Plasma Lactic Acid John (0.7-2.0) mmol/L Calcium 8.6 (8.4-10.2) mg/dL Total Bilirubin 0.5 (0.2-1.3) mg/dL AST 34 (14-36) U/L ALT 25 (4-34) U/L Alkaline Phosphatase 73 (38-126) U/L Troponin I (0.000-0.034) ng/mL Total Protein 6.3 (6.3-8.2) g/dL Albumin 3.6 (3.5-5.0) g/dL Lipase 91 (23-300) U/L Urine Color Yellow Urine Appearance Clear (Clear) Urine pH 5.0 (5.0-8.0) Ur Specific [place] 1.041 H (1.001-1.035) Urine Protein Trace H (Negative) Urine Glucose (UA) 4+ H (Negative) Urine Ketones 4+ H (Negative) Urine Blood Negative (Negative) Urine Nitrite Negative (Negative) Urine Bilirubin Negative (Negative) Urine Urobilinogen <2.0 (<2.0) mg/dL Ur Leukocyte Esterase Negative (Negative) Coronavirus (PCR) (Not Detectd) Influenza Type A RNA (Not Detectd) Influenza Type B (PCR) (Not Detectd) 06/26/20 06/26/20 06/26/20 Range/Units 22:35 22:35 22:35 WBC (3.8-10.6) k/uL RBC (3.80-5.40) m/uL Hgb (11.4-16.0) gm/dL Hct (34.0-46.0) % MCV (80.0-100.0) fL MCH (25.0-35.0) pg MCHC (31.0-37.0) g/dL RDW (11.5-15.5) % Plt Count (150-450) k/uL MPV Neutrophils % % Lymphocytes % % Monocytes % % Eosinophils % % Basophils % % Neutrophils # (1.3-7.7) k/uL Lymphocytes # (1.0-4.8) k/uL Monocytes # (0-1.0) k/uL Eosinophils # (0-0.7) k/uL Basophils # (0-0.2) k/uL PT (9.0-12.0) sec INR (<1.2) APTT (22.0-30.0) sec Sodium (137-145) mmol/L Potassium (3.5-5.1) mmol/L Chloride (98-107) mmol/L Carbon Dioxide (22-30) mmol/L Anion Gap mmol/L BUN (7-17) mg/dL Creatinine (0.52-1.04) mg/dL Est GFR (CKD-EPI)AfAm (>60 ml/min/1.73 sqM) Est GFR (CKD-EPI)NonAf (>60 ml/min/1.73 sqM) Glucose (74-99) mg/dL Plasma Lactic Acid John 0.8 (0.7-2.0) mmol/L Calcium (8.4-10.2) mg/dL Total Bilirubin (0.2-1.3) mg/dL AST (14-36) U/L ALT (4-34) U/L Alkaline Phosphatase (38-126) U/L Troponin I (0.000-0.034) ng/mL Total Protein (6.3-8.2) g/dL Albumin (3.5-5.0) g/dL Lipase (23-300) U/L Urine Color Urine Appearance (Clear) Urine pH (5.0-8.0) Ur Specific [place] (1.001-1.035) Urine Protein (Negative) Urine Glucose (UA) (Negative) Urine Ketones (Negative) Urine Blood (Negative) Urine Nitrite (Negative) Urine Bilirubin (Negative) Urine Urobilinogen (<2.0) mg/dL Ur Leukocyte Esterase (Negative) Coronavirus (PCR) Detected A (Not Detectd) Influenza Type A RNA Not Detected (Not Detectd) Influenza Type B (PCR) Not Detected (Not Detectd) 06/26/20 06/26/20 Range/Units 22:35 22:35 WBC (3.8-10.6) k/uL RBC (3.80-5.40) m/uL Hgb (11.4-16.0) gm/dL Hct (34.0-46.0) % MCV (80.0-100.0) fL MCH (25.0-35.0) pg MCHC (31.0-37.0) g/dL RDW (11.5-15.5) % Plt Count (150-450) k/uL MPV Neutrophils % % Lymphocytes % % Monocytes % % Eosinophils % % Basophils % % Neutrophils # (1.3-7.7) k/uL Lymphocytes # (1.0-4.8) k/uL Monocytes # (0-1.0) k/uL Eosinophils # (0-0.7) k/uL Basophils # (0-0.2) k/uL PT 10.0 (9.0-12.0) sec INR 1.0 (<1.2) APTT 24.5 (22.0-30.0) sec Sodium (137-145) mmol/L Potassium (3.5-5.1) mmol/L Chloride (98-107) mmol/L Carbon Dioxide (22-30) mmol/L Anion Gap mmol/L BUN (7-17) mg/dL Creatinine (0.52-1.04) mg/dL Est GFR (CKD-EPI)AfAm (>60 ml/min/1.73 sqM) Est GFR (CKD-EPI)NonAf (>60 ml/min/1.73 sqM) Glucose (74-99) mg/dL Plasma Lactic Acid John (0.7-2.0) mmol/L Calcium (8.4-10.2) mg/dL Total Bilirubin (0.2-1.3) mg/dL AST (14-36) U/L ALT (4-34) U/L Alkaline Phosphatase (38-126) U/L Troponin I 0.025 (0.000-0.034) ng/mL Total Protein (6.3-8.2) g/dL Albumin (3.5-5.0) g/dL Lipase (23-300) U/L Urine Color Urine Appearance (Clear) Urine pH (5.0-8.0) Ur Specific [place] (1.001-1.035) Urine Protein (Negative) Urine Glucose (UA) (Negative) Urine Ketones (Negative) Urine Blood (Negative) Urine Nitrite (Negative) Urine Bilirubin (Negative) Urine Urobilinogen (<2.0) mg/dL Ur Leukocyte Esterase (Negative) Coronavirus (PCR) (Not Detectd) Influenza Type A RNA (Not Detectd) Influenza Type B (PCR) (Not Detectd) - EKG Data EKG Comments: EKG demonstrates normal sinus rhythm with a ventricular rate of 88. IN interval 132. QRS 76. QTC 457. No acute ST segment elevations or depressions con cerning for ischemic changes Disposition Clinical Impression: Shortness of breath, Fever Disposition: ADMITTED IP TO THIS HOSP Condition: Stable Is patient prescribed a controlled substance at d/c from ED?: No Decision to Admit Reason: Admit from EC Decision Date: 06/26/20 Decision Time: 23:49
[2020-06-26 23:31] LABS: Ketones,Urine 4+ (Negative)
[2020-06-26] MEDS ORDERED: ONDANSETRON 4 MG/2 ML VIAL IVP PRN (23:50)
[2020-06-26] MEDS ORDERED: ACETAMINOPHEN TAB 325 MG TAB PO PRN (23:50)
[2020-06-26] MEDS ORDERED: NALOXONE 0.4 MG/ML 1 ML VIAL IV PRN (23:50)
[2020-06-26] MEDS ORDERED: IBUPROFEN 400 MG TAB PO PRN (23:50)
[2020-06-26] MEDS ORDERED: AZITHROMYCIN 500 MG in SODIUM CHLORIDE 0.9% 250 ML IVPB STA (23:51)
[2020-06-26] MEDS ORDERED: cefTRIAXone IN SWFI 1,000 MG/10 ML SYRINGE IVP STA (23:51)
[2020-06-27 00:02] LABS: Glucose,Whole Blood 213 mg/dL (75-99)
[2020-06-27] MEDS: SODIUM CHLORIDE 0.9% 1,000 ML IV SCH ×2 (00:18→08:04)
[2020-06-27 06:47] LABS: Glucose,Whole Blood 166 mg/dL (75-99)
[2020-06-27 07:13] LABS: Basophils % (A) 0 %; Eosinophils % (A) 0 %; HCT 40.7 % (34.0-46.0); HGB 13.4 gm/dL (11.4-16.0); Lymphocytes # (A) 1.6 k/uL (1.0-4.8); Lymphocytes % (A) 28 %; MCH 29.5 pg (25.0-35.0); MCHC 32.9 g/dL (31.0-37.0); MCV 89.8 fL (80.0-100.0); Mean Platelet Volume 7.8; Monocytes # (A) 0.4 k/uL (0-1.0); Monocytes % (A) 7 %; Neutrophils # (A) 3.6 k/uL (1.3-7.7); Neutrophils % (A) 63 %; Platelet Count 210 k/uL (150-450); RBC 4.53 m/uL (3.80-5.40); RDW 13.4 % (11.5-15.5); WBC 5.7 k/uL (3.8-10.6)
[2020-06-27 07:25] LABS: African American GFR (CKD) >90 (>60 ml/min/1.73 sqM); Anion Gap 5 mmol/L; Blood Urea Nitrogen 15 mg/dL (7-17); Calcium 8.4 mg/dL (8.4-10.2); Carbon Dioxide 25 mmol/L (22-30); Chloride 108 mmol/L (98-107); Glucose 174 mg/dL (74-99); Non-African American GFR(CKD) >90 (>60 ml/min/1.73 sqM); Potassium 3.9 mmol/L (3.5-5.1); Sodium 138 mmol/L (137-145)
[2020-06-27] MEDS: INSULIN ASPART (NovoLOG) 100 UNIT/ML VIAL SQ SCH ×2 (08:03→12:29)
[2020-06-27 08:27] VITALS: BP 138/62; PULSE 65; RESP 14; TEMP 98.3
[2020-06-27 11:57] LABS: Glucose,Whole Blood 187 mg/dL (75-99)
--- NOTE | 2020-06-27 12:01 | P.HPIM ---
History of Present Illness 61-year-old female past medical history of diabetes who presents emergency room with reported weakness, nausea and decreased oral intake for the past 5 days. Patient states that she's had diffuse body aches. Denies any sick contacts or recent travel. Admits to a mild nonproductive cough. No Chest pain. No abdominal pain. She was found to be febrile upon presentation to the emergency room. Due to the persistence of her symptoms she came in to the emergency room for further evaluation. Patient doesn't have any significant shortness of breath today still having some body aches still having some headache. Review of Systems REVIEW OF SYSTEMS: CONSTITUTIONAL: As mentioned in HPI HEENT: No recent visual problems or hearing problems. Denied any sore throat. CARDIOVASCULAR: No chest pain, orthopnea, PND, no palpitations, no syncope. PULMONARY: No shortness of breath, no cough, no hemoptysis. GASTROINTESTINAL: No diarrhea, no nausea, no vomiting, no abdominal pain. NEUROLOGICAL: No headaches, no weakness, no numbness. HEMATOLOGICAL: Denies any bleeding or petechiae. GENITOURINARY: Denies any burning micturition, frequency, or urgency. MUSCULOSKELETAL/RHEUMATOLOGICAL: Denies any joint pain, swelling, or any muscle pain. ENDOCRINE: Denies any polyuria or polydipsia. The rest of the 14-point review of systems is negative. Past Medical History Past Medical History: Diabetes Mellitus, Hyperlipidemia, Hypertension, Osteoarthritis (OA) Additional Past Medical History / Comment(s): vertigo History of Any Multi-Drug Resistant Organisms: None Reported Past Surgical History: Hysterectomy, Tonsillectomy Additional Past Surgical History / Comment(s): enterocele Past Anesthesia/Blood Transfusion Reactions: No Reported Reaction Past Psychological History: No Psychological Hx Reported Smoking Status: Former smoker Past Alcohol Use History: Rare Past Drug Use History: None Reported Medications and Allergies Home Medications Medication Instructions Recorded Confirmed Type Ascorbic Acid [Vitamin C] 500 mg PO DAILY 11/01/17 06/27/20 History Cholecalciferol (Vitamin D3) 2,000 unit PO HS 11/01/17 06/27/20 History [Vitamin D3] Dapagliflozin Propanediol [Farxiga] 10 mg PO DAILY 11/01/17 06/27/20 History Linagliptin [Tradjenta] 5 mg PO HS 11/01/17 06/27/20 History metFORMIN HCL 1,000 mg PO BID 11/01/17 06/27/20 History Cyanocobalamin (Vitamin B-12) 1,000 mcg PO DAILY 06/27/20 06/27/20 History [Vitamin B-12] Glimepiride [Amaryl] 2 mg PO AC-BRKFST 06/27/20 06/27/20 History Allergies Allergy/AdvReac Type Severity Reaction Status Date / Time canagliflozin [From Invokana] AdvReac Unknown Verified 06/27/20 09:07 hydromorphone HCl AdvReac Nausea Verified 06/27/20 09:07 [From Dilaudid] sulfamethoxazole AdvReac Nausea & Verified 06/27/20 09:07 [From Bactrim] Vomiting trimethoprim [From Bactrim] AdvReac Nausea & Verified 06/27/20 09:07 Vomiting Physical Exam Vitals: Vital Signs Temp Pulse Pulse Resp BP BP Pulse Ox 06/27/20 08:25 98.3 F 65 14 138/62 95 06/27/20 01:30 98.4 F 78 16 112/60 95 06/27/20 00:34 135/82 06/27/20 00:00 97.9 F 89 18 175/98 97 06/26/20 23:00 87 18 177/91 96 06/26/20 21:45 100.3 F H 90 20 146/56 92 L Intake and Output 06/26/20 06/27/20 06/27/20 22:59 06:59 14:59 Intake Total 250 Balance 250 Intake: Intake, IV Titration 250 Amount Azithromycin 500 mg In 250 Sodium Chloride 0.9% 250 ml @ 250 mls/hr IVPB ONCE STA Rx#:[id number] Other: Voiding Method Toilet Weight 62.596 kg 62.596 kg PHYSICAL EXAMINATION: GENERAL: The patient is alert and oriented x3, not in any acute distress. Well developed, well nourished. HEENT: Pupils are round and equally reacting to light. EOMI. No scleral icterus. No conjunctival pallor. Normocephalic, atraumatic. No pharyngeal erythema. No thyromegaly. CARDIOVASCULAR: S1 and S2 present. No murmurs, rubs, or gallops. PULMONARY: Chest is clear to auscultation, no wheezing or crackles. ABDOMEN: Soft, nontender, nondistended, normoactive bowel sounds. No palpable organomegaly. MUSCULOSKELETAL: No joint swelling or deformity. EXTREMITIES: No cyanosis, clubbing, or pedal edema. NEUROLOGICAL: Gross neurological examination did not reveal any focal deficits. SKIN: No rashes. Note: Because of COVID 19 isolation, some of the history and physical exam findings are indirect and obtained from nursing staff, and other physician examinations to avoid unnecessary contact with the patient. Results CBC & Chem 7: 06/27/20 06:41 06/27/20 06:41 Labs: Abnormal Lab Results - Last 24 Hours (Table) 06/26/20 06/26/20 06/26/20 Range/Units 22:35 22:35 22:35 Lymphocytes # 0.5 L (1.0-4.8) k/uL Sodium 136 L (137-145) mmol/L Chloride (98-107) mmol/L Carbon Dioxide 20 L (22-30) mmol/L Creatinine 0.48 L (0.52-1.04) mg/dL Glucose 235 H (74-99) mg/dL POC Glucose (mg/dL) (75-99) mg/dL Ur Specific [place] 1.041 H (1.001-1.035) Urine Protein Trace H (Negative) Urine Glucose (UA) 4+ H (Negative) Urine Ketones 4+ H (Negative) Coronavirus (PCR) (Not Detectd) 06/26/20 06/27/20 06/27/20 Range/Units 22:35 00:01 06:41 Lymphocytes # (1.0-4.8) k/uL Sodium (137-145) mmol/L Chloride 108 H (98-107) mmol/L Carbon Dioxide (22-30) mmol/L Creatinine 0.49 L (0.52-1.04) mg/dL Glucose 174 H (74-99) mg/dL POC Glucose (mg/dL) 213 H (75-99) mg/dL Ur Specific [place] (1.001-1.035) Urine Protein (Negative) Urine Glucose (UA) (Negative) Urine Ketones (Negative) Coronavirus (PCR) Detected A (Not Detectd) 06/27/20 06/27/20 Range/Units 06:46 11:47 Lymphocytes # (1.0-4.8) k/uL Sodium (137-145) mmol/L Chloride (98-107) mmol/L Carbon Dioxide (22-30) mmol/L Creatinine (0.52-1.04) mg/dL Glucose (74-99) mg/dL POC Glucose (mg/dL) 166 H 187 H (75-99) mg/dL Ur Specific [place] (1.001-1.035) Urine Protein (Negative) Urine Glucose (UA) (Negative) Urine Ketones (Negative) Coronavirus (PCR) (Not Detectd) Thrombosis Risk Factor Assmnt - Choose All That Apply Any of the Below Risk Factors Present?: Yes Each Factor Represents 1 point: Obesity (BMI >25) Other Risk Factors: Yes Each Risk Factor Represents 2 Points: Age 61-74 years Other congenital or acquired thrombophilia - If yes, enter type in comment: No Thrombosis Risk Factor Assessment Total Risk Factor Score: 3 Thrombosis Risk Factor Assessment Level: Moderate Risk Assessment and Plan Plan: -Covid 19 pneumonia: The patient is not hypoxic at this time not requiring any oxygen patient will be discharged today symptomatic treatment at home. If patient the has worsening symptoms patient was asked to come back to the hospital. -Type 2 diabetes mellitus -Hypertension Hyperlipidemia Because of her mild clinical dehydration and holding off on hydrochlorothiazide.
--- NOTE | 2020-06-27 12:01 | P.DS ---
Providers Date of admission: 06/26/20 23:50 Attending physician: Tamia Spears Primary care physician: Sandrine Corbett [place] [facility] Course: Please refer to my hpi further details Patient Condition at Discharge: Stable Plan - Discharge Summary New Discharge Prescriptions: Continue Ascorbic Acid [Vitamin C] 500 mg PO DAILY Linagliptin [Tradjenta] 5 mg PO HS metFORMIN HCL 1,000 mg PO BID Dapagliflozin Propanediol [Farxiga] 10 mg PO DAILY Cholecalciferol (Vitamin D3) [Vitamin D3] 2,000 unit PO HS Cyanocobalamin (Vitamin B-12) [Vitamin B-12] 1,000 mcg PO DAILY Discontinued hydroCHLOROthiazide [Hydrodiuril] 25 mg PO DAILY No Action Glimepiride [Amaryl] 2 mg PO AC-BRKFST Discharge Medication List Ascorbic Acid [Vitamin C] 500 mg PO DAILY 11/01/17 [History] Cholecalciferol (Vitamin D3) [Vitamin D3] 2,000 unit PO HS 11/01/17 [History] Dapagliflozin Propanediol [Farxiga] 10 mg PO DAILY 11/01/17 [History] Linagliptin [Tradjenta] 5 mg PO HS 11/01/17 [History] metFORMIN HCL 1,000 mg PO BID 11/01/17 [History] Cyanocobalamin (Vitamin B-12) [Vitamin B-12] 1,000 mcg PO DAILY 06/27/20 [History] Glimepiride [Amaryl] 2 mg PO AC-BRKFST 06/27/20 [History] Follow up Appointment(s)/Referral(s): Sandrine Corbett MD [Primary Care Provider] - 3 Days Patient Instructions/Handouts: Dehydration (DC) Activity/Diet/Wound Care/Special Instructions: activity as tolerated consistent carb diet as tolerated follow CDC recommendations Discharge Disposition: HOME SELF-CARE
== END 2020-06-27 14:22 | disposition home or self-care (01) ==
LOC: EC 21:15 → 1SOBS 23:50
PROVIDERS: ADMIT Hospitalist; ATTEND Hospitalist
DX: U07.1 COVID-19 (principal); R50.9 Fever, unspecified; R05 Cough; E86.0 Dehydration; R53.1 Weakness; R11.0 Nausea; R63.8 Other symptoms and signs concerning food and fluid intake; E11.9 Type 2 diabetes mellitus without complications; E78.5 Hyperlipidemia, unspecified; I10 Essential (primary) hypertension; M19.90 Unspecified osteoarthritis, unspecified site; R42 Dizziness and giddiness; Z90.710 Acquired absence of both cervix and uterus; Z98.890 Other specified postprocedural states; Z87.891 Personal history of nicotine dependence; Z79.84 Long term (current) use of oral hypoglycemic drugs; Z88.5 Allergy status to narcotic agent; Z88.2 Allergy status to sulfonamides; Z88.8 Allergy status to other drugs, medicaments and biological substances
CPT/HCPCS: 96361 ×2; 96365; 96375; 99285; 36415 ×2; 93005; 80053; 80048; 83605; 83690; 84484; 85025 ×2; 85610; 85730; 81003; 87040; 87502; 87635; 71046; G0378; J0456; J0696

== ENCOUNTER 2020-07-01 09:49 | Inpatient (IN) | payer MEDICARE, OTHER ==
[2020-07-01] MEDS ORDERED: ACETAMINOPHEN TAB 325 MG TAB PO STA (10:45)
--- NOTE | 2020-07-01 10:45 | ED ---
Weakness HPI - General Source: patient, EMS Mode of arrival: EMS <Ariadne Abdullahi - Last Filed: 07/01/20 12:58> <Kira Horton Rafaela - Last Filed: 07/03/20 12:45> - General Chief complaint: Weakness Stated complaint: [place] Fever+Covid Time Seen by Provider: 07/01/20 10:00 - History of Present Illness Initial comments: 61-year-old female presenting for nausea fevers, sob x 1-2 days. Patient states that she recently tested positive approximately 5 days ago for [place] 19 she states her symptoms started the day prior. She states she had generalized weakness and fatigue. Patient denies any significant cough states she has had worsening shortness of breath as well as chest pains on and off none currently. described as sharp, aching. Patient denies hemoptysis, leg swelling. Denies blood in stools or vomit. Patient appears in no respiratory distress on arrival (Ariadne Abdullahi) - Related Data Home Medications Medication Instructions Recorded Confirmed Ascorbic Acid [Vitamin C] 500 mg PO DAILY 11/01/17 07/01/20 Cholecalciferol (Vitamin D3) 2,000 unit PO HS 11/01/17 07/01/20 [Vitamin D3] Dapagliflozin Propanediol [Farxiga] 10 mg PO DAILY 11/01/17 07/01/20 Linagliptin [Tradjenta] 5 mg PO HS 11/01/17 07/01/20 metFORMIN HCL 1,000 mg PO BID 11/01/17 07/01/20 Cyanocobalamin (Vitamin B-12) 1,000 mcg PO DAILY 06/27/20 07/01/20 [Vitamin B-12] Glimepiride [Amaryl] 2 mg PO AC-BRKFST 06/27/20 07/01/20 Allergies Allergy/AdvReac Type Severity Reaction Status Date / Time canagliflozin [From Invokana] AdvReac Unknown Verified 07/01/20 11:11 hydromorphone HCl AdvReac Nausea Verified 07/01/20 11:11 [From Dilaudid] sulfamethoxazole AdvReac Nausea & Verified 07/01/20 11:11 [From Bactrim] Vomiting trimethoprim [From Bactrim] AdvReac Nausea & Verified 07/01/20 11:11 Vomiting Review of Systems ROS Other: All systems not noted in ROS Statement are negative. <Ariadne Abdullahi - Last Filed: 07/01/20 12:58> ROS Other: All systems not noted in ROS Statement are negative. <Kira Horton - Last Filed: 07/03/20 12:45> ROS Statement: Those systems with pertinent positive or pertinent negative responses have been documented in the HPI. Past Medical History Past Medical History: Diabetes Mellitus, Hyperlipidemia, Hypertension, Osteoarthritis (OA) Additional Past Medical History / Comment(s): vertigo History of Any Multi-Drug Resistant Organisms: None Reported Past Surgical History: Hysterectomy, Tonsillectomy Additional Past Surgical History / Comment(s): enterocele Past Anesthesia/Blood Transfusion Reactions: No Reported Reaction Past Psychological History: No Psychological Hx Reported Smoking Status: Former smoker Past Alcohol Use History: Rare Past Drug Use History: None Reported <Ariadne Abdullahi - Last Filed: 07/01/20 12:58> General Exam <[email or web address] L - Last Filed: 07/01/20 12:58> - General Exam Comments Initial Comments: General: The patient is awake and alert, in no distress Eye: Pupils are equal, round and reactive to light, extra-ocular movements are intact. No nystagmus. There is normal conjunctiva bilaterally. No signs of icterus. Ears, nose, mouth and throat: There are moist mucous membranes and no oral lesions. Neck: The neck is supple, there is no tenderness or JVD. Cardiovascular: There is a regular rate and rhythm. No murmur, rub or gallop is appreciated. Respiratory: Respirations are non-labored, breath sounds are equal. No wheezes, stridor. Rhonchi and rales appreciated throughout. Gastrointestinal: Soft, non-distended, non-tender abdomen without masses or organomegaly noted. There is no rebound or guarding present Musculoskeletal: Normal ROM, no tenderness. Strength 5/5. Sensation intact. Radial pulses equal bilaterally 2+. Neurological: A&O x 3. CN II-XII intact, There are no obvious motor or sensory deficits. Coordination appears grossly intact. Speech is normal. Skin: Skin is warm and dry and no rashes or lesions are noted. No calf pain or LE edema. Psychiatric: Cooperative, appropriate mood & affect, normal judgment. (Ariadne Abdullahi) Course Vital Signs 07/01/20 07/01/20 07/01/20 09:57 12:50 13:28 Temperature 100.5 F H 98.9 F Pulse Rate 92 69 Respiratory 20 18 Rate Blood Pressure 150/68 149/81 O2 Sat by Pulse 92 L 100 Oximetry Medical Decision Making - Lab Data Result diagrams: 07/01/20 11:00 07/01/20 11:00 <Ariadne Abdullahi - Last Filed: 07/01/20 12:58> - Lab Data Result diagrams: 07/01/20 11:00 07/01/20 11:00 <Kira Horton - Last Filed: 07/03/20 12:45> - Medical Decision Making 69yo covid pt. presented hypoxic. patient complaining of occasional chest pain, SOB. CTA (-). PE EKG no acute changed.Patient has no current pain. Patietn has a covid pnuemonia. Patient is agreeable to admission for oxygen saturation monitoring and hydration. Dr. Horton agreeable to care plan. (Ariadne Abdullahi) I was available for consultation in the emergency department. The history and physical exam were done by the midlevel provider. I was consulted for this patients care. I reviewed the case with the midlevel provider and based on their presentation of the patient, I agree with the assessment, medical decision making and plan of care as documented. Chart was dictated using [employer] dictation software. Attempts were made to correct any dictation errors however some typographical errors may persist. Patient was seen during a national state of emergency due to the Covid-19 pandemic. (Kira Horton) - Lab Data Lab Results 07/01/20 07/01/20 07/01/20 Range/Units 11:00 11:00 11:00 WBC 4.6 (3.8-10.6) k/uL RBC 4.88 (3.80-5.40) m/uL Hgb 14.2 (11.4-16.0) gm/dL Hct 42.7 (34.0-46.0) % MCV 87.6 (80.0-100.0) fL MCH 29.2 (25.0-35.0) pg MCHC 33.3 (31.0-37.0) g/dL RDW 12.8 (11.5-15.5) % Plt Count 262 (150-450) k/uL MPV 7.9 Neutrophils % 74 % Lymphocytes % 18 % Monocytes % 5 % Eosinophils % 0 % Basophils % 1 % Neutrophils # 3.4 (1.3-7.7) k/uL Lymphocytes # 0.8 L (1.0-4.8) k/uL Monocytes # 0.3 (0-1.0) k/uL Eosinophils # 0.0 (0-0.7) k/uL Basophils # 0.1 (0-0.2) k/uL PT 9.7 (9.0-12.0) sec INR 0.9 (<1.2) APTT 19.8 L (22.0-30.0) sec D-Dimer 0.61 H (<0.60) mg/L FEU Sodium 137 (137-145) mmol/L Potassium 3.9 (3.5-5.1) mmol/L Chloride 105 (98-107) mmol/L Carbon Dioxide 24 (22-30) mmol/L Anion Gap 8 mmol/L BUN 14 (7-17) mg/dL Creatinine 0.42 L (0.52-1.04) mg/dL Est GFR (CKD-EPI)AfAm >90 (>60 ml/min/1.73 sqM) Est GFR (CKD-EPI)NonAf >90 (>60 ml/min/1.73 sqM) Glucose 282 H (74-99) mg/dL Plasma Lactic Acid John (0.7-2.0) mmol/L Calcium 8.9 (8.4-10.2) mg/dL Magnesium 1.8 (1.6-2.3) mg/dL Ferritin 367.5 H (10.0-291.0) ng/mL Total Bilirubin 0.5 (0.2-1.3) mg/dL AST 35 (14-36) U/L ALT 19 (4-34) U/L Alkaline Phosphatase 70 (38-126) U/L Lactate Dehydrogenase 834 H (313-618) U/L C-Reactive Protein 170.1 H (<10.0) mg/L Total Protein 5.9 L (6.3-8.2) g/dL Albumin 3.1 L (3.5-5.0) g/dL Procalcitonin (0.02-0.09) ng/mL 07/01/20 07/01/20 Range/Units 11:00 11:00 WBC (3.8-10.6) k/uL RBC (3.80-5.40) m/uL Hgb (11.4-16.0) gm/dL Hct (34.0-46.0) % MCV (80.0-100.0) fL MCH (25.0-35.0) pg MCHC (31.0-37.0) g/dL RDW (11.5-15.5) % Plt Count (150-450) k/uL MPV Neutrophils % % Lymphocytes % % Monocytes % % Eosinophils % % Basophils % % Neutrophils # (1.3-7.7) k/uL Lymphocytes # (1.0-4.8) k/uL Monocytes # (0-1.0) k/uL Eosinophils # (0-0.7) k/uL Basophils # (0-0.2) k/uL PT (9.0-12.0) sec INR (<1.2) APTT (22.0-30.0) sec D-Dimer (<0.60) mg/L FEU Sodium (137-145) mmol/L Potassium (3.5-5.1) mmol/L Chloride (98-107) mmol/L Carbon Dioxide (22-30) mmol/L Anion Gap mmol/L BUN (7-17) mg/dL Creatinine (0.52-1.04) mg/dL Est GFR (CKD-EPI)AfAm (>60 ml/min/1.73 sqM) Est GFR (CKD-EPI)NonAf (>60 ml/min/1.73 sqM) Glucose (74-99) mg/dL Plasma Lactic Acid John 1.0 (0.7-2.0) mmol/L Calcium (8.4-10.2) mg/dL Magnesium (1.6-2.3) mg/dL Ferritin (10.0-291.0) ng/mL Total Bilirubin (0.2-1.3) mg/dL AST (14-36) U/L ALT (4-34) U/L Alkaline Phosphatase (38-126) U/L Lactate Dehydrogenase (313-618) U/L C-Reactive Protein (<10.0) mg/L Total Protein (6.3-8.2) g/dL Albumin (3.5-5.0) g/dL Procalcitonin 0.10 H (0.02-0.09) ng/mL Disposition Is patient prescribed a controlled substance at d/c from ED?: No Time of Disposition: 12:58 Decision to Admit Reason: Admit from EC Decision Date: 07/01/20 Decision Time: 12:58 <Ariadne Abdullahi - Last Filed: 07/01/20 12:58> <Kira Horton - Last Filed: 07/03/20 12:45> Clinical Impression: COVID-19, Hypoxia, Dyspnea Disposition: ADMITTED IP TO THIS HOSP Condition: Stable
[2020-07-01 11:13] LABS: Basophils # (A) 0.1 k/uL (0-0.2); Basophils % (A) 1 %; Eosinophils % (A) 0 %; HCT 42.7 % (34.0-46.0); HGB 14.2 gm/dL (11.4-16.0); Lymphocytes # (A) 0.8 k/uL (1.0-4.8); Lymphocytes % (A) 18 %; MCH 29.2 pg (25.0-35.0); MCHC 33.3 g/dL (31.0-37.0); MCV 87.6 fL (80.0-100.0); Mean Platelet Volume 7.9; Monocytes # (A) 0.3 k/uL (0-1.0); Monocytes % (A) 5 %; Neutrophils # (A) 3.4 k/uL (1.3-7.7); Neutrophils % (A) 74 %; Platelet Count 262 k/uL (150-450); RBC 4.88 m/uL (3.80-5.40); RDW 12.8 % (11.5-15.5); WBC 4.6 k/uL (3.8-10.6)
[2020-07-01 11:28] LABS: ALT 19 U/L (4-34); AST 35 U/L (14-36); African American GFR (CKD) >90 (>60 ml/min/1.73 sqM); Albumin 3.1 g/dL (3.5-5.0); Alkaline Phosphatase 70 U/L (38-126); Anion Gap 8 mmol/L; Blood Urea Nitrogen 14 mg/dL (7-17); Calcium 8.9 mg/dL (8.4-10.2); Carbon Dioxide 24 mmol/L (22-30); Chloride 105 mmol/L (98-107); Glucose 282 mg/dL (74-99); LDH 834 U/L (313-618); Magnesium 1.8 mg/dL (1.6-2.3); Non-African American GFR(CKD) >90 (>60 ml/min/1.73 sqM); Potassium 3.9 mmol/L (3.5-5.1); Sodium 137 mmol/L (137-145); Total Bilirubin 0.5 mg/dL (0.2-1.3); Total Protein 5.9 g/dL (6.3-8.2)
[2020-07-01 11:40] LABS: C Reactive Protein 170.1 mg/L (<10.0)
--- NOTE | 2020-07-01 11:41 | XR ---
EXAMINATION TYPE: XR chest 1V portable DATE OF EXAM: 07/01/2020 COMPARISON: 06/26/2020 HISTORY: Chest pain and shortness of breath TECHNIQUE: Single frontal view of the chest is obtained. FINDINGS: Multifocal areas of infiltrate. Heart size normal. No pleural effusion or pneumothorax. Ar thropathy of the shoulders. IMPRESSION: Multifocal areas of infiltrate correlate for pneumonia.
[2020-07-01 12:06] LABS: INR 0.9 (<1.2)
[2020-07-01 12:07] LABS: Prothrombin Time 9.7 sec (9.0-12.0)
[2020-07-01 12:12] LABS: Partial Thromboplastin Time 19.8 sec (22.0-30.0)
[2020-07-01 12:15] LABS: D-Dimer 0.61 mg/L FEU (<0.60)
--- NOTE | 2020-07-01 12:23 | CT ---
CT CHEST FOR PULMONARY EMBOLISM. EXAMINATION TYPE: CT chest angio for PE DATE OF EXAM: 07/01/2020 INDICATION: chest pain CT DLP: 315.3 mGycm, Automated exposure control for dose reduction was used. CONTRAST: Patient injected with 100 mL of Isovue 300. COMPARISON: None TECHNIQUE: CT of the chest is performed on a spiral scan at 2 mm thick sections. Study is performed with intravenous contrast timed for evaluation for pulmonary embolism. This will limit additional po rtions of the evaluation. 3-D MIP images reconstructed by the technologist are reviewed on the compu ter in the coronal and sagittal planes. FINDINGS: No persistent filling defects are evident to suggest an acute pulmonary embolism. No right heart stra in. No mediastinal or hilar adenopathy enlarged by CT criteria is evident. The ascending aorta diameter at the level of the main pulmonary artery is 3.1 cm. The main pulmonary artery diameter at the bifur cation is 2.0 cm. Right apical thickening is present. Scattered bilateral lung infiltrates are present greater on the r ight. Findings are nonspecific. Atypical pneumonia such as Covid [address] considered[address] Limited CT section through the upper abdomen. There may be mild fatty infiltration the liver. Cyst in the posterior superior pole right kidney measuring 1.8 cm and 2 Hounsfield units IMPRESSIONS: 1. Scattered infiltrates greater on the right compatible with reported Covid pneumonia. 2. No acute pulmonary embolism
[2020-07-01] MEDS ORDERED: NALOXONE 0.4 MG/ML 1 ML VIAL IV PRN (12:41)
[2020-07-01] MEDS ORDERED: SODIUM CHLORIDE 0.9% 500 ML 500 ML IV ONE (12:45)
[2020-07-01] MEDS: SODIUM CHLORIDE 0.9% 1,000 ML IV SCH ×3 (13:27→22:31)
[2020-07-01 16:44] LABS: Glucose,Whole Blood 201 mg/dL (75-99)
[2020-07-01] MEDS: dexAMETHasone 2 MG TAB PO SCH (17:56)
[2020-07-01] MEDS: ASCORBIC ACID 500 MG TAB PO SCH (17:56)
[2020-07-01 19:56] LABS: Ferritin 367.5 ng/mL (10.0-291.0)
[2020-07-01 20:32] LABS: Glucose,Whole Blood 326 mg/dL (75-99)
[2020-07-01] MEDS: CHOLECALCIFEROL 1,000 UNIT TAB PO SCH (20:52)
[2020-07-01] MEDS: ACETAMINOPHEN TAB 325 MG TAB PO PRN (20:52)
[2020-07-01] MEDS: LINAGLIPTIN 5 MG TABLET PO SCH (20:53)
[2020-07-01] MEDS: INSULIN ASPART (NovoLOG) 100 UNIT/ML VIAL SQ SCH (20:53)
--- NOTE | 2020-07-01 21:37 | P.HPIM ---
History of Present Illness H&P Date: 07/01/20 Chief Complaint: Weakness Patient is a 69-year-old female with a known history of hypertension, diabetes type 2 tji-ripndgz-mvvwogoqk, osteoarthritis who was recently seen at [facility] on 06/26/2020 with Covid pneumonia came to hospital with the complaints of generalized weakness. Patient says that he has been having fevers and exertional dyspnea for the past 1 to 2 days. Patient was tested positive for COVID-19 virus approximately 5 days ago. For the past 2 days patient has been having generalized weakness and fatigue. No diarrhea no vomiting. Patient does have cough without sputum production and has been having worsening shortness of breath. On and off chest pains as well. Sharp aching type without any radiation. Denied any leg swelling or palpitations. No hematemesis or melena. Chest x-ray showed multifocal areas of infiltrate correlate for pneumonia CT angiogram showed scattered infiltrates greater on the right compatible with reported Covid pneumonia. No acute pulmonary embolism. Laboratory data showed D-dimer 0.61, lymphocyte 0.8, ferritin 367.5, LDH 834, CRP 170, procalcitonin 0.1 On admission T-max 100.3 and pulse ox 92% on 2 L oxygen. Review of Systems Constitutional: Patient Does have fever, no chills. Generalized weakness. Abdomen: Patient denied nausea vomiting and diarrhea and abdominal pain. Cardiovascular: Patient denies any chest pain or short of breath no palpitations. Respiratory: patient does have with no sputum production. +shortness of breath Neurologic: Patient denied any numbness or tingling headache. Musculoskeletal: Patient denies any complaints of joint swelling or deformity. Skin: Negative Psychiatric: Negative Endocrine: No heat or cold intolerance. No recent weight gain. Genitourinary: No dysuria or hematuria. All other 14 point ROS negative except the above Past Medical History Past Medical History: Diabetes Mellitus, Hyperlipidemia, Hypertension, Osteoarthritis (OA) Additional Past Medical History / Comment(s): Pt recently admitted to [facility] on 06/26/20 with covid pneumonia/dehydration. Pt states her hydrochlorothiazide was placed on hold during that stay. Other hx: NIDDM type II, vertigo, arthritis bilateral hands, chronic low back pain, headaches, past head injury-no deficits, bronchitis, anemia, sinus problems/seasonal allergies, diverticular disease, hemorrhoids, past L lower leg cellulitis d/t cat bite. History of Any Multi-Drug Resistant Organisms: None Reported Past Surgical History: Hysterectomy, Tonsillectomy Additional Past Surgical History / Comment(s): Rectocele, interstinal cyst removed along with adhesions, colonoscopy, bilateral cataract removals, Past Anesthesia/Blood Transfusion Reactions: Postoperative Nausea & Vomiting (PONV) Smoking Status: Never smoker - Past Family History Mother Family Medical History: Diabetes Mellitus Additional Family Medical History / Comment(s): IDDM. Mother is . Father Family Medical History: Diabetes Mellitus Additional Family Medical History / Comment(s): IDDM. Father is . Medications and Allergies Home Medications Medication Instructions Recorded Confirmed Type Ascorbic Acid [Vitamin C] 500 mg PO DAILY 11/01/17 07/01/20 History Cholecalciferol (Vitamin D3) 2,000 unit PO HS 11/01/17 07/01/20 History [Vitamin D3] Dapagliflozin Propanediol [Farxiga] 10 mg PO DAILY 11/01/17 07/01/20 History Linagliptin [Tradjenta] 5 mg PO HS 11/01/17 07/01/20 History metFORMIN HCL 1,000 mg PO BID 11/01/17 07/01/20 History Cyanocobalamin (Vitamin B-12) 1,000 mcg PO DAILY 06/27/20 07/01/20 History [Vitamin B-12] Glimepiride [Amaryl] 2 mg PO AC-BRKFST 06/27/20 07/01/20 History Allergies Allergy/AdvReac Type Severity Reaction Status Date / Time canagliflozin [From Invokana] AdvReac Unknown Verified 07/01/20 11:11 hydromorphone HCl AdvReac Nausea Verified 07/01/20 11:11 [From Dilaudid] sulfamethoxazole AdvReac Nausea & Verified 07/01/20 11:11 [From Bactrim] Vomiting trimethoprim [From Bactrim] AdvReac Nausea & Verified 07/01/20 11:11 Vomiting Physical Exam Vitals: Vital Signs Temp Pulse Pulse Resp BP BP Pulse Ox 07/01/20 14:28 98.3 F 66 16 128/77 96 07/01/20 13:28 69 18 149/81 100 07/01/20 12:50 98.9 F 07/01/20 09:57 100.5 F H 92 20 150/68 92 L Intake and Output 07/01/20 07/01/20 07/01/20 06:59 14:59 22:59 Intake Total 300 Balance 300 Intake: Oral 300 Other: Weight 50.8 kg PHYSICAL EXAMINATION: Patient is lying in the bed comfortably, no acute distress, awake alert and oriented.. HEENT: Normocephalic. Neck is supple. Pupils reactive. Nostrils clear. Oral cavity is moist. Ears reveal no drainage. Neck reveals no JVD, carotid bruits, or thyromegaly. CHEST EXAMINATION: Trachea is central. Symmetrical expansion. Lung storey clear to auscultation and percussion. CARDIAC: Normal S1, S2 with no gallops. No murmurs ABDOMEN: Soft. Bowel sounds normal. No organomegaly. No abdominal bruits. Extremities: reveal no edema. No clubbing or cyanosis Neurologically awake, alert, oriented x3 with well-coordinated movements. No focal deficits noted Skin: No rash or skin lesions. Psychiatric: Coperative. Nonsuicidal Musculoskeletal: No joint swelling or deformity. Normal range of motion. Results CBC & Chem 7: 07/01/20 11:00 07/01/20 11:00 Labs: Abnormal Lab Results - Last 24 Hours (Table) 07/01/20 07/01/20 07/01/20 Range/Units 11:00 11:00 11:00 Lymphocytes # 0.8 L (1.0-4.8) k/uL APTT 19.8 L (22.0-30.0) sec D-Dimer 0.61 H (<0.60) mg/L FEU Creatinine 0.42 L (0.52-1.04) mg/dL Glucose 282 H (74-99) mg/dL Lactate Dehydrogenase 834 H (313-618) U/L C-Reactive Protein 170.1 H (<10.0) mg/L Total Protein 5.9 L (6.3-8.2) g/dL Albumin 3.1 L (3.5-5.0) g/dL Thrombosis Risk Factor Assmnt - DVT/VTE Prophylaxis DVT/VTE Prophylaxis: Pharmacologic Prophylaxis ordered - Choose All That Apply Any of the Below Risk Factors Present?: Yes Each Factor Represents 1 point: Serious lung disease incl. pneumonia (< 1month) Other Risk Factors: Yes Each Risk Factor Represents 2 Points: Age 61-74 years Other congenital or acquired thrombophilia - If yes, enter type in comment: No Thrombosis Risk Factor Assessment Total Risk Factor Score: 3 Thrombosis Risk Factor Assessment Level: Moderate Risk Assessment and Plan Assessment: Acute COVID-19 viral infection. Acute hypoxic respiratory failure secondary to above Elevated inflammatory markers Hyperglycemia with uncontrolled diabetes type 2 Hypertension Osteoarthritis History of hemorrhoids and diverticular disease. DVT prophylaxis Plan: Patient will be continued oxygen therapy and will start on dexamethasone and Lovenox. Pulmonary will be consulted. Continue with contact and droplet precautions. We will add Levemir 15 units at bedtime along with insulin sliding scale and oral hypoglycemics. Continue to follow closely and further recommendations based on the clinical course. Time with Patient: Greater than 30
[2020-07-01] MEDS: INSULIN DETEMIR (LEVEMIR) 100 UNIT/ML SYR SQ SCH (22:30)
[2020-07-01] MEDS: FAMOTIDINE 20 MG TAB PO SCH (22:30)
[2020-07-02 06:58] LABS: Glucose,Whole Blood 257 mg/dL (75-99)
[2020-07-02] MEDS: INSULIN ASPART (NovoLOG) 100 UNIT/ML VIAL SQ SCH ×4 (07:04→21:27)
[2020-07-02] MEDS: ASCORBIC ACID 500 MG TAB PO SCH (07:05)
[2020-07-02] MEDS: CYANOCOBALAMIN 500 MCG TAB PO SCH (07:05)
[2020-07-02] MEDS: GLIMEPIRIDE 2 MG TAB PO SCH (07:05)
[2020-07-02] MEDS: FAMOTIDINE 20 MG TAB PO SCH ×2 (07:05→21:27)
[2020-07-02] MEDS: ZINC SULFATE 220 MG CAP PO SCH (07:06)
[2020-07-02] MEDS: dexAMETHasone 2 MG TAB PO SCH (07:07)
[2020-07-02] MEDS: ENOXAPARIN 40 MG/0.4 ML SYRINGE SQ SCH (07:07)
[2020-07-02] MEDS: SODIUM CHLORIDE 0.9% 1,000 ML IV SCH ×2 (07:07→17:05)
[2020-07-02 11:28] LABS: Glucose,Whole Blood 295 mg/dL (75-99)
[2020-07-02] MEDS ORDERED: REMDESIVIR 200 MG in SODIUM CHLORIDE 0.9% 250 ML IVPB ONE (13:00)
[2020-07-02 13:49] VITALS: BMI 24.2
--- NOTE | 2020-07-02 16:45 | P.CNPUL ---
History of Present Illness Consult date: 07/02/20 Reason for consult: dyspnea, hypoxemia History of present illness: A 69-year-old female patient coming in for an acute cold in 19 related pneumon ia. The patient is diabetic and she has hypertension and she is also known to have hyperlipidemia. The patient was having fevers and some shortness of breath along with generalized weakness of a few days' duration. The patient tested positive for grover virus COVID 19 infection on 06/26/2020. Over the past 2 days, the patient was feeling more weak and fatigued. No nausea. No vomiting. No diarrhea. No abdominal pain. She had some increased cough. She came into the hospital and a chest x-ray done showed multifocal areas of pulmonary infiltrates consistent with pneumonia and a computed tomography scan of the chest showed scattered bilateral pulmonary infiltrates compatible with her co pilar virus Covid 19 infection. There was no evidence of any pulmonary embolism. The patient was febrile. The patient was hypoxic pH was placed on 2 L of oxygen by nasal cannula. T-max was 100.3. White cell count was normal and the patient had lymphopenia. D-dimer was 0.61. LDH was 834 with a CRP of 170 and the Pronestyl level of 0.1. Ferritin level was 367. The patient was hospitalized. Review of Systems Constitutional: Reports fatigue, Reports lethargy, Reports weakness Eyes: denies as per HPI, denies blurred vision, denies bulging eye, denies decreased vision, denies diplopia, denies discharge, denies dry eye, denies irritation, denies itching, denies pain, denies photophobia, denies loss of peripheral vision, denies loss of vision, denies tunnel vision/blind spots Ears: deny: decreased hearing, ear discharge, earache, tinnitus Ears, nose, mouth and throat: Reports as per HPI Breasts: absent: as per HPI, change in shape, gynecomastia, masses, nipple discharge, pain, skin changes, swelling Cardiovascular: Reports as per HPI, Reports dyspnea on exertion Respiratory: Reports dyspnea Gastrointestinal: Reports as per HPI Genitourinary: Reports as per HPI Menstruation: Reports as per HPI Musculoskeletal: Reports as per HPI Musculoskeletal: absent: ankle pain, ankle stiffness, ankle swelling Integumentary: Reports as per HPI Neurological: Reports as per HPI, Reports weakness Psychiatric: Reports as per HPI Endocrine: Reports as per HPI, Reports fatigue Hematologic/Lymphatic: Reports as per HPI Allergic/Immunologic: Reports as per HPI Past Medical History Past Medical History: Diabetes Mellitus, Hyperlipidemia, Hypertension, Osteoarthritis (OA) Additional Past Medical History / Comment(s): Pt recently admitted to [facility] on 06/26/20 with covid pneumonia/dehydration. Pt states her hydrochlorothiazide was placed on hold during that stay. Other hx: NIDDM type II, vertigo, arthritis bilateral hands, chronic low back pain, headaches, past head injury-no deficits, bronchitis, anemia, sinus problems/seasonal allergies, diverticular disease, hemorrhoids, past L lower leg cellulitis d/t cat bite. History of Any Multi-Drug Resistant Organisms: None Reported Past Surgical History: Hysterectomy, Tonsillectomy Additional Past Surgical History / Comment(s): Rectocele, interstinal cyst removed along with adhesions, colonoscopy, bilateral cataract removals, Past Anesthesia/Blood Transfusion Reactions: Postoperative Nausea & Vomiting (PONV) Smoking Status: Never smoker - Past Family History Mother Family Medical History: Diabetes Mellitus Additional Family Medical History / Comment(s): IDDM. Mother is . Father Family Medical History: Diabetes Mellitus Additional Family Medical History / Comment(s): IDDM. Father is . Medications and Allergies Home Medications Medication Instructions Recorded Confirmed Type Ascorbic Acid [Vitamin C] 500 mg PO DAILY 11/01/17 07/01/20 History Cholecalciferol (Vitamin D3) 2,000 unit PO HS 11/01/17 07/01/20 History [Vitamin D3] Dapagliflozin Propanediol [Farxiga] 10 mg PO DAILY 11/01/17 07/01/20 History Linagliptin [Tradjenta] 5 mg PO HS 11/01/17 07/01/20 History metFORMIN HCL 1,000 mg PO BID 11/01/17 07/01/20 History Cyanocobalamin (Vitamin B-12) 1,000 mcg PO DAILY 06/27/20 07/01/20 History [Vitamin B-12] Glimepiride [Amaryl] 2 mg PO AC-BRKFST 06/27/20 07/01/20 History Allergies Allergy/AdvReac Type Severity Reaction Status Date / Time canagliflozin [From Invokana] AdvReac Unknown Verified 07/01/20 11:11 hydromorphone HCl AdvReac Nausea Verified 07/01/20 11:11 [From Dilaudid] sulfamethoxazole AdvReac Nausea & Verified 07/01/20 11:11 [From Bactrim] Vomiting trimethoprim [From Bactrim] AdvReac Nausea & Verified 07/01/20 11:11 Vomiting Physical Exam Vitals: Vital Signs Temp Pulse Resp BP Pulse Ox 07/02/20 14:00 98.5 F 62 152/79 94 L 07/02/20 09:54 98.1 F 59 L 176/77 93 L 07/02/20 05:25 97.7 F 63 20 138/81 95 07/02/20 02:00 98.3 F 55 L 18 124/77 96 07/01/20 22:00 99.1 F 72 18 152/84 93 L 07/01/20 17:58 98.9 F 79 17 167/84 90 L Intake and Output 07/02/20 07/02/20 07/02/20 06:59 14:59 22:59 Intake Total 1160 Balance 1160 Intake: Intake, IV Titration 1040 Amount Sodium Chloride 0.9% 1, 1040 000 ml @ 130 mls/hr IV . Q7H42M COUNTS INCLUDE 234 BEDS AT THE [facility] Rx#:[id number] Oral 120 Other: # Voids 2 1 Weight 50.8 kg The patient appeared well nourished and normally developed. Vital signs as docum ented. Head exam is unremarkable. No scleral icterus or corneal arcus noted. Neck is without jugular venous distension, thyromegaly, or carotid bruits. Carotid upstrokes are brisk bilaterally. Lungs are clear to auscultation and percussion. Cardiac exam reveals the PMI to be normally sized and situated. Rhythm is regular. First and second heart sounds normal. No murmurs, rubs or gallops. Abdominal exam reveals normal bowel sounds, no masses, no organomegaly and no aortic enlargement. Extremities are nonedematous and both femoral and pedal pulses are normal.Examination of the skin revealed no evidence of significant rashes, suspicious appearing nevi or other concerning lesions.Neurologically, the patient is awake and alert and the patient does not have any focal neurological deficit. Cranial nerves are essentially intact. Results - Laboratory Findings CBC and BMP: 07/01/20 11:00 07/01/20 11:00 PT/INR, D-dimer PT 9.7 sec (9.0-12.0) 07/01/20 11:00 INR 0.9 (<1.2) 07/01/20 11:00 D-Dimer 0.61 mg/L FEU (<0.60) H 07/01/20 11:00 Abnormal lab findings: Abnormal Labs 07/01/20 07/01/20 07/01/20 11:00 11:00 11:00 Lymphocytes # 0.8 L APTT 19.8 L D-Dimer 0.61 H Creatinine 0.42 L Glucose 282 H POC Glucose (mg/dL) Ferritin 367.5 H Lactate Dehydrogenase 834 H C-Reactive Protein 170.1 H Total Protein 5.9 L Albumin 3.1 L Procalcitonin 07/01/20 07/01/20 07/01/20 11:00 16:40 20:29 Lymphocytes # APTT D-Dimer Creatinine Glucose POC Glucose (mg/dL) 201 H 326 H Ferritin Lactate Dehydrogenase C-Reactive Protein Total Protein Albumin Procalcitonin 0.10 H 07/02/20 07/02/20 06:57 11:26 Lymphocytes # APTT D-Dimer Creatinine Glucose POC Glucose (mg/dL) 257 H 295 H Ferritin Lactate Dehydrogenase C-Reactive Protein Total Protein Albumin Procalcitonin - Diagnostic Findings Chest x-ray: image reviewed CT scan - chest: image reviewed Assessment and Plan Plan: 1 acute Covid 19 related pneumonia. The patient was diagnosed with ear infection on 06/26/2020. Over the past 2 days, the patient developed worsening symptoms in addition to dyspnea and hypoxemia and cough and for that reason the patient was admitted to the hospital. She is currently on 2 L of oxygen by nasal cannula 2 acute hypoxic respiratory failure secondary to above 3 fever secondary to above 4 constitutional symptoms secondary to above 5 elevated inflammatory markers secondary to above 6 hypertension 7 hyperlipidemia 8 diabetes mellitus with elevated blood sugar 9 diverticular disease 10 osteoarthritis Plan We'll start the patient on a combination of Decadron and Remdesivir per protocol in addition to zinc sulfate, Pepcid and vitamin C supplements. Monitor oxygenation Monitor inflammatory markers IV fluids with normal state rate of 130s's an hour Lovenox for DVT prophylaxis 40 mg subcu every 24 hours Monitor the blood sugar and put the patient on sliding scale coverage in addition to Levemir 15 units at bedtime and hold oral hypoglycemic medications We'll continue to follow
[2020-07-02 16:49] LABS: Glucose,Whole Blood 293 mg/dL (75-99)
[2020-07-02 20:32] LABS: Glucose,Whole Blood 327 mg/dL (75-99)
[2020-07-02] MEDS: LINAGLIPTIN 5 MG TABLET PO SCH (21:27)
[2020-07-02] MEDS: CHOLECALCIFEROL 1,000 UNIT TAB PO SCH (21:27)
[2020-07-02] MEDS: INSULIN DETEMIR (LEVEMIR) 100 UNIT/ML SYR SQ SCH (21:28)
[2020-07-03] MEDS: ACETAMINOPHEN TAB 325 MG TAB PO PRN (06:15)
[2020-07-03 06:56] LABS: Glucose,Whole Blood 176 mg/dL (75-99)
[2020-07-03] MEDS: SODIUM CHLORIDE 0.9% 1,000 ML IV SCH ×3 (07:49→21:29)
[2020-07-03] MEDS: dexAMETHasone 2 MG TAB PO SCH (07:56)
[2020-07-03] MEDS: ASCORBIC ACID 500 MG TAB PO SCH (07:56)
[2020-07-03] MEDS: INSULIN ASPART (NovoLOG) 100 UNIT/ML VIAL SQ SCH ×7 (07:57→21:29)
[2020-07-03] MEDS: CYANOCOBALAMIN 500 MCG TAB PO SCH (07:57)
[2020-07-03] MEDS: FAMOTIDINE 20 MG TAB PO SCH ×2 (07:57→21:29)
[2020-07-03] MEDS: GLIMEPIRIDE 2 MG TAB PO SCH (07:57)
[2020-07-03] MEDS: ZINC SULFATE 220 MG CAP PO SCH (07:58)
[2020-07-03] MEDS: ENOXAPARIN 40 MG/0.4 ML SYRINGE SQ SCH (07:58)
[2020-07-03 11:57] LABS: Glucose,Whole Blood 99 mg/dL (75-99)
[2020-07-03] MEDS: REMDESIVIR 100 MG in SODIUM CHLORIDE 0.9% 250 ML IVPB SCH (12:45)
[2020-07-03 16:13] LABS: Glucose,Whole Blood 142 mg/dL (75-99)
--- NOTE | 2020-07-03 16:57 | P.PN ---
Subjective Progress Note Date: 07/03/20 Principal diagnosis: Acute CoVID 19 pneumonia A 69-year-old female patient coming in for an acute cold in 19 related pneumonia. The patient is diabetic and she has hypertension and she is also known to have hyperlipidemia. The patient was having fevers and some shortness of breath along with generalized weakness of a few days' duration. The patient tested positive for grover virus COVID 19 infection on 06/26/2020. Over the past 2 days, the patient was feeling more weak and fatigued. No nausea. No vomiting. No diarrhea. No abdominal pain. She had some increased cough. She came into the hospital and a chest x-ray done showed multifocal areas of pulmonary infiltrates consistent with pneumonia and a computed tomography scan of the chest showed scattered bilateral pulmonary infiltrates compatible with her grover virus Covid 19 infection. There was no evidence of any pulmonary embolism. The patient was febrile. The patient was hypoxic pH was placed on 2 L of oxygen by nasal cannula. T-max was 100.3. White cell count was normal and the patient had lymphopenia. D-dimer was 0.61. LDH was 834 with a CRP of 170 and the Pronestyl level of 0.1. Ferritin level was 367. The patient was hospitalized. The patient is seen today 07/03/2020 in follow-up on the regular medical floor. She is currently sitting up in bed. Awake and alert in no acute distress. She is maintaining O2 saturation in the low 90s on 2 L/m per nasal cannula. Currently afebrile. Hemodynamically stable. Blood glucose 142. This is day #2 of Remdesivir. She remains on dexamethasone, Lovenox, Pepcid, vitamin C, vitamin D, zinc. Objective - Vital Signs Vital signs: Vital Signs Temp 98.3 F 07/03/20 14:00 Pulse 67 07/03/20 14:00 Resp 20 07/03/20 14:00 BP 128/75 07/03/20 14:00 Pulse Ox 92 L 07/03/20 14:00 Intake & Output 07/02/20 07/03/20 07/03/20 18:59 06:59 18:59 Weight 50.8 kg Other: # Voids 1 2 2 - Exam The patient appeared well nourished and normally developed. Vital signs as documented. Head exam is unremarkable. No scleral icterus or corneal arcus noted. Neck is without jugular venous distension, thyromegaly, or carotid bruits. Carotid upstrokes are brisk bilaterally. Lungs are clear to auscultation and percussion. Cardiac exam reveals the PMI to be normally sized and situated. Rhythm is regular. First and second heart sounds normal. No murmurs, rubs or gallops. Abdominal exam reveals normal bowel sounds, no masses, no organomegaly and no aortic enlargement. Extremities are nonedematous and both femoral and ped al pulses are normal.Examination of the skin revealed no evidence of significant rashes, suspicious appearing nevi or other concerning lesions.Neurologically, the patient is awake and alert and the patient does not have any focal neurological deficit. Cranial nerves are essentially intact. - Labs CBC & Chem 7: 07/01/20 11:00 07/01/20 11:00 Labs: Abnormal Lab Results - Last 24 Hours (Table) 07/02/20 07/03/20 07/03/20 Range/Units 20:30 06:55 16:11 POC Glucose (mg/dL) 327 H 176 H 142 H (75-99) mg/dL Microbiology - Last 24 Hours (Table) 07/01/20 11:00 Blood Culture - Preliminary Blood No Growth after 48 hours Assessment and Plan Assessment: 1 acute Covid 19 related pneumonia. The patient was diagnosed with ear infection on 06/26/2020. Over the past 2 days, the patient developed worsening symptoms in addition to dyspnea and hypoxemia and cough and for that reason the patient was admitted to the hospital. She is currently on 2 L of oxygen by nasal cannula 2 acute hypoxic respiratory failure secondary to above 3 fever secondary to above 4 constitutional symptoms secondary to above 5 elevated inflammatory markers secondary to above 6 hypertension 7 hyperlipidemia 8 diabetes mellitus with elevated blood sugar 9 diverticular disease 10 osteoarthritis Plan The patient was seen and evaluated by Dr. Plascencia Currently stable from the pulmonary standpoint Continue Remdesivir Continue Decadron, Lovenox, vitamin supplements We'll continue to follow I, the cosigning physician, performed a history & physical examination of the patient. Lungs sounds are clear. Maintaining good O2 saturations in the 90s on 2 L/m per nasal cannula. I discussed the assessment and plan of care with my nurse practitioner, Rebecca Glaser. I attest to the above note as dictated by her.
[2020-07-03 20:36] LABS: Glucose,Whole Blood 240 mg/dL (75-99)
[2020-07-03] MEDS: INSULIN DETEMIR (LEVEMIR) 100 UNIT/ML SYR SQ SCH (21:29)
[2020-07-03] MEDS: CHOLECALCIFEROL 1,000 UNIT TAB PO SCH (21:29)
[2020-07-03] MEDS: LINAGLIPTIN 5 MG TABLET PO SCH (21:29)
[2020-07-04] MEDS: SODIUM CHLORIDE 0.9% 1,000 ML IV SCH ×3 (04:11→22:23)
[2020-07-04] MEDS: ACETAMINOPHEN TAB 325 MG TAB PO PRN ×2 (05:44→21:10)
[2020-07-04 07:21] LABS: Glucose,Whole Blood 112 mg/dL (75-99)
[2020-07-04] MEDS: INSULIN ASPART (NovoLOG) 100 UNIT/ML VIAL SQ SCH ×7 (07:25→21:07)
[2020-07-04] MEDS: ENOXAPARIN 40 MG/0.4 ML SYRINGE SQ SCH (07:34)
[2020-07-04] MEDS: ASCORBIC ACID 500 MG TAB PO SCH (07:35)
[2020-07-04] MEDS: dexAMETHasone 2 MG TAB PO SCH (07:35)
[2020-07-04] MEDS: CYANOCOBALAMIN 500 MCG TAB PO SCH (07:35)
[2020-07-04] MEDS: GLIMEPIRIDE 2 MG TAB PO SCH (07:35)
[2020-07-04] MEDS: FAMOTIDINE 20 MG TAB PO SCH ×2 (07:35→21:10)
[2020-07-04] MEDS: ZINC SULFATE 220 MG CAP PO SCH (07:35)
--- NOTE | 2020-07-04 11:08 | P.PN ---
Subjective Progress Note Date: 07/02/20 Principal diagnosis: Acute covid 19 pneumonia Patient is a 69-year-old female with a known history of hypertension, diabetes type 2 tqi-vupgoyd-ppugzynvl, osteoarthritis who was recently seen at [facility] on 06/26/2020 with Covid pneumonia came to hospital with the complaints of generalized weakness. Patient says that he has been having fevers and exertional dyspnea for the past 1 to 2 days. Patient was tested positive for COVID-19 virus approximately 5 days ago. For the past 2 days patient has been having generalized weakness and fatigue. No diarrhea no vomiting. Patient does have cough without sputum production and has been having worsening short ness of breath. On and off chest pains as well. Sharp aching type without any radiation. Denied any leg swelling or palpitations. No hematemesis or melena. Chest x-ray showed multifocal areas of infiltrate correlate for pneumonia CT angiogram showed scattered infiltrates greater on the right compatible with reported Covid pneumonia. No acute pulmonary embolism. Laboratory data showed D-dimer 0.61, lymphocyte 0.8, ferritin 367.5, LDH 834, CRP 170, procalcitonin 0.1 On admission T-max 100.3 and pulse ox 92% on 2 L oxygen. 07/02/2029 patient is currently lying in the bed comfortably. No complaints of chest pain or worsening shortness of breath. Patient says that she feels better today. Patient is being continued on Decadron and Lovenox. Insulin was started for better sugar control. Preprandial dose was added. Continued on oxygen therapy and follow closely. current medications reviewed. Objective - Vital Signs Vital signs: Vital Signs Temp 98.5 F 07/02/20 14:00 Pulse 62 07/02/20 14:00 Resp 20 07/02/20 05:25 BP 152/79 07/02/20 14:00 Pulse Ox 94 L 07/02/20 14:00 Intake & Output 07/01/20 07/02/20 07/02/20 18:59 06:59 18:59 Intake Total 300 1550 Balance 300 1550 Weight 50.8 kg 50.8 kg Intake: Intake, IV Titration 1430 Amount Sodium Chloride 0.9% 1, 1430 000 ml @ 130 mls/hr IV . Q7H42M [facility] Rx#:[id number] Oral 300 120 Other: # Voids 2 1 - Exam PHYSICAL EXAMINATION: Patient is lying in the bed comfortably, no acute distress, awake alert and oriented.. HEENT: Normocephalic. Neck is supple. Pupils reactive. Nostrils clear. Oral cavity is moist. Ears reveal no drainage. Neck reveals no JVD, carotid bruits, or thyromegaly. CHEST EXAMINATION: Trachea is central. Symmetrical expansion. Lung storey clear to auscultation and percussion. CARDIAC: Normal S1, S2 with no gallops. No murmurs ABDOMEN: Soft. Bowel sounds normal. No organomegaly. No abdominal bruits. Extremities: reveal no edema. No clubbing or cyanosis Neurologically awake, alert, oriented x3 with well-coordinated movements. No focal deficits noted Skin: No rash or skin lesions. Psychiatric: Coperative. Nonsuicidal Musculoskeletal: No joint swelling or deformity. Normal range of motion. - Labs CBC & Chem 7: 07/01/20 11:00 07/01/20 11:00 Labs: Abnormal Lab Results - Last 24 Hours (Table) 07/01/20 07/01/20 07/01/20 Range/Units 11:00 11:00 16:40 POC Glucose (mg/dL) 201 H (75-99) mg/dL Ferritin 367.5 H (10.0-291.0) ng/mL Procalcitonin 0.10 H (0.02-0.09) ng/mL 07/01/20 07/02/20 07/02/20 Range/Units 20:29 06:57 11:26 POC Glucose (mg/dL) 326 H 257 H 295 H (75-99) mg/dL Ferritin (10.0-291.0) ng/mL Procalcitonin (0.02-0.09) ng/mL Microbiology - Last 24 Hours (Table) 07/01/20 11:00 Blood Culture - Preliminary Blood No Growth after 24 hours Assessment and Plan Assessment: Acute COVID-19 viral infection. Acute hypoxic respiratory failure secondary to above Elevated inflammatory markers Hyperglycemia with uncontrolled diabetes type 2 Hypertension Osteoarthritis History of hemorrhoids and diverticular disease. DVT prophylaxis Plan: Patient will be continued oxygen therapy and will start on dexamethasone and Lovenox. Pulmonary is following. Continue with contact and droplet precautions. We will add Levemir 15 units at bedtime along with insulin sliding scale and oral hypoglycemics. Added preprandial insulin. Continue to follow closely and further recommendations based on the clinical course. Time with Patient: Greater than 30
--- NOTE | 2020-07-04 11:10 | P.PN ---
Subjective Progress Note Date: 07/03/20 Principal diagnosis: Acute covid 19 pneumonia Patient is a 69-year-old female with a known history of hypertension, diabetes type 2 [id number], osteoarthritis who was recently seen at [facility] on 06/26/2020 with Covid pneumonia came to hospital with the complaints of generalized weakness. Patient says that he has been having fevers and exertional dyspnea for the past 1 to 2 days. Patient was tested positive for COVID-19 virus approximately 5 days ago. For the past 2 days patient has been having generalized weakness and fatigue. No diarrhea no vomiting. Patient does have cough without sputum production and has been having worsening short ness of breath. On and off chest pains as well. Sharp aching type without any radiation. Denied any leg swelling or palpitations. No hematemesis or melena. Chest x-ray showed multifocal areas of infiltrate correlate for pneumonia CT angiogram showed scattered infiltrates greater on the right compatible with reported Covid pneumonia. No acute pulmonary embolism. Laboratory data showed D-dimer 0.61, lymphocyte 0.8, ferritin 367.5, LDH 834, CRP 170, procalcitonin 0.1 On admission T-max 100.3 and pulse ox 92% on 2 L oxygen. 07/02/2029 patient is currently lying in the bed comfortably. No complaints of chest pain or worsening shortness of breath. Patient says that she feels better today. Patient is being continued on Decadron and Lovenox. Insulin was started for better sugar control. Preprandial dose was added. Continued on oxygen therapy and follow closely. 07/03/2020 Patient is currently awake alert oriented 3. Lying in the bed comfortably. Still occurring oxygen at 3-4 L when asked cannula. Patient has been afebrile. continued on her Remdesivir. Continue on dexamethasone Lovenox and vitamin supplementation. Pulmonary is following. Current medications reviewed. Objective - Vital Signs Vital signs: Vital Signs Temp 98.3 F 07/03/20 17:38 Pulse 60 07/03/20 17:38 Resp 20 07/03/20 17:38 BP 146/71 07/03/20 17:38 Pulse Ox 91 L 07/03/20 17:38 Intake & Output 07/03/20 07/03/20 07/04/20 06:59 18:59 06:59 Other: # Voids 2 2 - Exam PHYSICAL EXAMINATION: Patient is lying in the bed comfortably, no acute distress, awake alert and oriented.. HEENT: Normocephalic. Neck is supple. Pupils reactive. Nostrils clear. Oral cavity is moist. Ears reveal no drainage. Neck reveals no JVD, carotid bruits, or thyromegaly. CHEST EXAMINATION: Trachea is central. Symmetrical expansion. Lung storey clear to auscultation and percussion. CARDIAC: Normal S1, S2 with no gallops. No murmurs ABDOMEN: Soft. Bowel sounds normal. No organomegaly. No abdominal bruits. Extremities: reveal no edema. No clubbing or cyanosis Neurologically awake, alert, oriented x3 with well-coordinated movements. No focal deficits noted Skin: No rash or skin lesions. Psychiatric: Coperative. Nonsuicidal Musculoskeletal: No joint swelling or deformity. Normal range of motion. - Labs CBC & Chem 7: 07/01/20 11:00 07/01/20 11:00 Labs: Abnormal Lab Results - Last 24 Hours (Table) 07/03/20 07/03/20 07/03/20 Range/Units 06:55 16:11 20:29 POC Glucose (mg/dL) 176 H 142 H 240 H (75-99) mg/dL Microbiology - Last 24 Hours (Table) 07/01/20 11:00 Blood Culture - Preliminary Blood No Growth after 48 hours Assessment and Plan Assessment: Acute COVID-19 viral pneumonia. Acute hypoxic respiratory failure secondary to above Elevated inflammatory markers Hyperglycemia with uncontrolled diabetes type 2 Hypertension Osteoarthritis History of hemorrhoids and diverticular disease. DVT prophylaxis Plan: Patient will be continued oxygen therapy and will start on dexamethasone and Lovenox. Pulmonary is following. Remdesivir day 2. Continue with contact and droplet precautions. We will add Levemir 15 units at bedtime along with insulin sliding scale and oral hypoglycemics. Added preprandial insulin. Continue to follow closely and further recommendations based on the clinical course. Time with Patient: Greater than 30
[2020-07-04 11:33] LABS: Glucose,Whole Blood 110 mg/dL (75-99)
[2020-07-04 12:17] LABS: Basophils % (A) 0 %; Eosinophils % (A) 0 %; HCT 42.2 % (34.0-46.0); HGB 13.8 gm/dL (11.4-16.0); Lymphocytes # (A) 0.9 k/uL (1.0-4.8); Lymphocytes % (A) 7 %; MCH 28.8 pg (25.0-35.0); MCHC 32.8 g/dL (31.0-37.0); MCV 87.8 fL (80.0-100.0); Mean Platelet Volume 8.5; Monocytes # (A) 0.2 k/uL (0-1.0); Monocytes % (A) 2 %; Neutrophils # (A) 11.9 k/uL (1.3-7.7); Neutrophils % (A) 90 %; Platelet Count 380 k/uL (150-450); RBC 4.81 m/uL (3.80-5.40); RDW 13.7 % (11.5-15.5); WBC 13.2 k/uL (3.8-10.6)
[2020-07-04] MEDS: REMDESIVIR 100 MG in SODIUM CHLORIDE 0.9% 250 ML IVPB SCH (12:36)
--- NOTE | 2020-07-04 15:37 | P.PN ---
Subjective Progress Note Date: 07/04/20 Principal diagnosis: Acute CoVID 19 pneumonia A 69-year-old female patient coming in for an acute cold in 19 related pneumonia. The patient is diabetic and she has hypertension and she is also known to have hyperlipidemia. The patient was having fevers and some shortness of breath along with generalized weakness of a few days' duration. The patient tested positive for grover virus COVID 19 infection on 06/26/2020. Over the past 2 days, the patient was feeling more weak and fatigued. No nausea. No vomiting. No diarrhea. No abdominal pain. She had some increased cough. She came into the hospital and a chest x-ray done showed multifocal areas of pulmonary infiltrates consistent with pneumonia and a computed tomography scan of the chest showed scattered bilateral pulmonary infiltrates compatible with her grover virus Covid 19 infection. There was no evidence of any pulmonary embolism. The patient was febrile. The patient was hypoxic pH was placed on 2 L of oxygen by nasal cannula. T-max was 100.3. White cell count was normal and the patient had lymphopenia. D-dimer was 0.61. LDH was 834 with a CRP of 170 and the Pronestyl level of 0.1. Ferritin level was 367. The patient was hospitalized. The patient is seen today 07/03/2020 in follow-up on the regular medical floor. She is currently sitting up in bed. Awake and alert in no acute distress. She is maintaining O2 saturation in the low 90s on 2 L/m per nasal cannula. Currently afebrile. Hemodynamically stable. Blood glucose 142. This is day #2 of Remdesivir. She remains on dexamethasone, Lovenox, Pepcid, vitamin C, vitamin D, zinc. The patient is seen today 07/04/2020 in follow-up on the medical floor. She is awake and alert in no acute distress. Maintaining O2 saturations in the low 90s on 5 L nasal cannula. Currently afebrile. Blood culture reveals no growth. White count 13.2. Hemoglobin 13.8. Lymphocytes 0.9. She has received her third dose of Remdesivir today. Objective - Vital Signs Vital signs: Vital Signs Temp 98.1 F 07/04/20 14:00 Pulse 62 07/04/20 14:00 Resp 17 07/04/20 14:00 BP 156/80 07/04/20 14:00 Pulse Ox 94 L 07/04/20 14:00 Intake & Output 07/03/20 07/04/20 07/04/20 18:59 06:59 18:59 Intake Total 250 Balance 250 Intake: Oral 250 Other: Voiding Method Toilet # Voids 2 3 2 - Exam The patient appeared well nourished and normally developed. Vital signs as documented. Head exam is unremarkable. No scleral icterus or corneal arcus noted. Neck is without jugular venous distension, thyromegaly, or carotid bruits. Carotid upstrokes are brisk bilaterally. Lungs are clear to auscultation and percussion. Cardiac exam reveals the PMI to be normally sized and situated. Rhythm is regular. First and second heart sounds normal. No murmurs, rubs or gallops. Abdominal exam reveals normal bowel sounds, no masses, no organomegaly and no aortic enlargement. Extremities are nonedematous and both femoral and pedal pulses are normal.Examination of the skin revealed no evidence of significant rashes, suspicious appearing nevi or other concerning lesions.Neurologically, the patient is awake and alert and the patient does not have any focal neurological deficit. Cranial nerves are essentially intact. - Labs CBC & Chem 7: 07/04/20 11:52 07/01/20 11:00 Labs: Abnormal Lab Results - Last 24 Hours (Table) 07/03/20 07/03/20 07/04/20 Range/Units 16:11 20:29 07:20 WBC (3.8-10.6) k/uL Neutrophils # (1.3-7.7) k/uL Lymphocytes # (1.0-4.8) k/uL POC Glucose (mg/dL) 142 H 240 H 112 H (75-99) mg/dL 07/04/20 07/04/20 Range/Units 11:31 11:52 WBC 13.2 H (3.8-10.6) k/uL Neutrophils # 11.9 H (1.3-7.7) k/uL Lymphocytes # 0.9 L (1.0-4.8) k/uL POC Glucose (mg/dL) 110 H (75-99) mg/dL Microbiology - Last 24 Hours (Table) 07/01/20 11:00 Blood Culture - Preliminary Blood No Growth after 72 hours Assessment and Plan Assessment: 1 acute Covid 19 related pneumonia. The patient was diagnosed with ear infection on 06/26/2020. The patient developed worsening symptoms in addition to dyspnea and hypoxemia and cough and for that reason the patient was admitted to the hospital. She is currently on 5 L of oxygen by nasal cannula 2 acute hypoxic respiratory failure secondary to above 3 fever secondary to above 4 constitutional symptoms secondary to above 5 elevated inflammatory markers secondary to above 6 hypertension 7 hyperlipidemia 8 diabetes mellitus with elevated blood sugar 9 diverticular disease 10 osteoarthritis Plan The patient was seen and evaluated by Dr. Plascencia Continue Remdesivir Continue Decadron, Lovenox, vitamin supplements Requiring higher oxygen requirements currently at 5 L Add convalescent plasma Follow-up chest x-ray in a.m. We'll continue to follow I, the cosigning physician, performed a history & physical examination of the patient. Lungs sounds are clear. Maintaining good O2 saturations in the 90s on 5 L/m per nasal cannula. I discussed the assessment and plan of care with my nurse practitioner, Rebecca Glaser. I attest to the above note as dictated by her.
[2020-07-04 16:47] LABS: Glucose,Whole Blood 179 mg/dL (75-99)
[2020-07-04 17:11] LABS: Anion Gap 8.6 mmol/L (4.00-12.00); C Reactive Protein 11.1 mg/dL (0.0-0.8); Calcium 8.9 mg/dL (8.7-10.3); Carbon Dioxide 26.4 mmol/L (21.6-31.8); Potassium 3.5 mmol/L (3.5-5.5)
[2020-07-04 21:04] LABS: Glucose,Whole Blood 138 mg/dL (75-99)
[2020-07-04] MEDS: CHOLECALCIFEROL 1,000 UNIT TAB PO SCH (21:10)
[2020-07-04] MEDS: LINAGLIPTIN 5 MG TABLET PO SCH (21:11)
[2020-07-04] MEDS: INSULIN DETEMIR (LEVEMIR) 100 UNIT/ML SYR SQ SCH (21:11)
--- NOTE | 2020-07-05 00:29 | P.PN ---
Subjective Progress Note Date: 07/04/20 Principal diagnosis: Acute covid 19 pneumonia Patient is a 69-year-old female with a known history of hypertension, diabetes type 2 [id number], osteoarthritis who was recently seen at [facility] on 06/26/2020 with Covid pneumonia came to hospital with the complaints of generalized weakness. Patient says that he has been having fevers and exertional dyspnea for the past 1 to 2 days. Patient was tested positive for COVID-19 virus approximately 5 days ago. For the past 2 days patient has been having generalized weakness and fatigue. No diarrhea no vomiting. Patient does have cough without sputum production and has been having worsening short ness of breath. On and off chest pains as well. Sharp aching type without any radiation. Denied any leg swelling or palpitations. No hematemesis or melena. Chest x-ray showed multifocal areas of infiltrate correlate for pneumonia CT angiogram showed scattered infiltrates greater on the right compatible with reported Covid pneumonia. No acute pulmonary embolism. Laboratory data showed D-dimer 0.61, lymphocyte 0.8, ferritin 367.5, LDH 834, CRP 170, procalcitonin 0.1 On admission T-max 100.3 and pulse ox 92% on 2 L oxygen. 07/02/2029 patient is currently lying in the bed comfortably. No complaints of chest pain or worsening shortness of breath. Patient says that she feels better today. Patient is being continued on Decadron and Lovenox. Insulin was started for better sugar control. Preprandial dose was added. Continued on oxygen therapy and follow closely. 07/03/2020 Patient is currently awake alert oriented 3. Lying in the bed comfortably. Still occurring oxygen at 3-4 L when asked cannula. Patient has been afebrile. continued on her Remdesivir. Continue on dexamethasone Lovenox and vitamin supplementation. Pulmonary is following. 07/04/2020 Patient is awake alert oriented x3. Still requiring oxygen at 4 L via nasal cannula. Saturating around 90%. Otherwise patient states that she feels better. Currently afebrile. Blood cultures have been negative. Continued on remdesivir therapy Laboratory data showed WBC 13.1 hemoglobin 13.8 and neutrophils 11.9 CRP 11.1 and LDH is 429 Current medications reviewed. Objective - Vital Signs Vital signs: Vital Signs Temp 98.1 F 07/04/20 14:00 Pulse 62 07/04/20 14:00 Resp 17 07/04/20 14:00 BP 156/80 07/04/20 14:00 Pulse Ox 94 L 07/04/20 14:00 Intake & Output 07/03/20 07/04/20 07/04/20 18:59 06:59 18:59 Intake Total 250 Balance 250 Intake: Oral 250 Other: Voiding Method Toilet # Voids 2 3 2 - Exam PHYSICAL EXAMINATION: Patient is lying in the bed comfortably, no acute distress, awake alert and oriented.. HEENT: Normocephalic. Neck is supple. Pupils reactive. Nostrils clear. Oral cavity is moist. Ears reveal no drainage. Neck reveals no JVD, carotid bruits, or thyromegaly. CHEST EXAMINATION: Trachea is central. Symmetrical expansion. Lung storey clear to auscultation and percussion. CARDIAC: Normal S1, S2 with no gallops. No murmurs ABDOMEN: Soft. Bowel sounds normal. No organomegaly. No abdominal bruits. Extremities: reveal no edema. No clubbing or cyanosis Neurologically awake, alert, oriented x3 with well-coordinated movements. No focal deficits noted Skin: No rash or skin lesions. Psychiatric: Coperative. Nonsuicidal Musculoskeletal: No joint swelling or deformity. Normal range of motion. - Labs CBC & Chem 7: 07/04/20 11:52 07/04/20 11:52 Labs: Abnormal Lab Results - Last 24 Hours (Table) 07/03/20 07/04/20 07/04/20 Range/Units 20:29 07:20 11:31 WBC (3.8-10.6) k/uL Neutrophils # (1.3-7.7) k/uL Lymphocytes # (1.0-4.8) k/uL POC Glucose (mg/dL) 240 H 112 H 110 H (75-99) mg/dL 07/04/20 07/04/20 Range/Units 11:52 16:45 WBC 13.2 H (3.8-10.6) k/uL Neutrophils # 11.9 H (1.3-7.7) k/uL Lymphocytes # 0.9 L (1.0-4.8) k/uL POC Glucose (mg/dL) 179 H (75-99) mg/dL Microbiology - Last 24 Hours (Table) 07/01/20 11:00 Blood Culture - Preliminary Blood No Growth after 72 hours Assessment and Plan Assessment: Acute COVID-19 viral pneumonia. Acute hypoxic respiratory failure secondary to above Elevated inflammatory markers Hyperglycemia with uncontrolled diabetes type 2 Hypertension Osteoarthritis History of hemorrhoids and diverticular disease. DVT prophylaxis Plan: Patient will be continued oxygen therapy and will start on dexamethasone and Lovenox. Pulmonary is following. on Remdesivir. Continue with contact and droplet precautions. We will add Levemir 15 units at bedtime along with insulin sliding scale and oral hypoglycemics. Added preprandial insulin. Continue to follow closely and further recommendations based on the clinical course. Time with Patient: Greater than 30
[2020-07-05 07:09] LABS: Glucose,Whole Blood 151 mg/dL (75-99)
[2020-07-05] MEDS: SODIUM CHLORIDE 0.9% 1,000 ML IV SCH ×2 (07:20→16:44)
[2020-07-05] MEDS: INSULIN ASPART (NovoLOG) 100 UNIT/ML VIAL SQ SCH ×7 (07:24→20:46)
[2020-07-05 07:25] LABS: Basophils % (A) 0 %; Eosinophils % (A) 0 %; HCT 40.7 % (34.0-46.0); HGB 13.9 gm/dL (11.4-16.0); Lymphocytes # (A) 0.8 k/uL (1.0-4.8); Lymphocytes % (A) 7 %; MCH 29.6 pg (25.0-35.0); MCHC 34.2 g/dL (31.0-37.0); MCV 86.5 fL (80.0-100.0); Mean Platelet Volume 9.1; Monocytes # (A) 0.3 k/uL (0-1.0); Monocytes % (A) 3 %; Neutrophils # (A) 10.1 k/uL (1.3-7.7); Neutrophils % (A) 89 %; Platelet Count 348 k/uL (150-450); RDW 13.2 % (11.5-15.5); WBC 11.3 k/uL (3.8-10.6)
[2020-07-05] MEDS: dexAMETHasone 2 MG TAB PO SCH (07:25)
[2020-07-05] MEDS: ENOXAPARIN 40 MG/0.4 ML SYRINGE SQ SCH (07:25)
[2020-07-05] MEDS: FAMOTIDINE 20 MG TAB PO SCH ×2 (07:26→20:46)
[2020-07-05] MEDS: CYANOCOBALAMIN 500 MCG TAB PO SCH (07:26)
[2020-07-05] MEDS: GLIMEPIRIDE 2 MG TAB PO SCH (07:26)
[2020-07-05] MEDS: ASCORBIC ACID 500 MG TAB PO SCH (07:26)
[2020-07-05] MEDS: ZINC SULFATE 220 MG CAP PO SCH (07:27)
--- NOTE | 2020-07-05 09:30 | P.PN ---
Subjective From records Patient is a 69-year-old female with a known history of hypertension, diabetes type 2 hsv-ocbjvbl-sxuscxktz, osteoarthritis who was recently seen at [facility] on 06/26/2020 with Covid pneumonia came to hospital with the complaints of generalized weakness. Patient says that he has been having fevers and exertional dyspnea for the past 1 to 2 days. Patient was tested positive for COVID-19 virus approximately 5 days ago. For the past 2 days patient has been having generalized weakness and fatigue. No diarrhea no vomiting. Patient does have cough without sputum production and has been having worsening shortnes s of breath. On and off chest pains as well. Sharp aching type without any radiation. Denied any leg swelling or palpitations. No hematemesis or melena. Chest x-ray showed multifocal areas of infiltrate correlate for pneumonia CT angiogram showed scattered infiltrates greater on the right compatible with reported Covid pneumonia. No acute pulmonary embolism. Laboratory data showed D-dimer 0.61, lymphocyte 0.8, ferritin 367.5, LDH 834, CRP 170, procalcitonin 0.1 On admission T-max 100.3 and pulse ox 92% on 2 L oxygen. 07/02/2029 patient is currently lying in the bed comfortably. No complaints of chest pain or worsening shortness of breath. Patient says that she feels better today. Patient is being continued on Decadron and Lovenox. Insulin was started for better sugar control. Preprandial dose was added. Continued on oxygen therapy and follow closely. 07/03/2020 Patient is currently awake alert oriented 3. Lying in the bed comfortably. Still occurring oxygen at 3-4 L when asked cannula. Patient has been afebrile. continued on her Remdesivir. Continue on dexamethasone Lovenox and vitamin supplementation. Pulmonary is following. 07/04/2020 Patient is awake alert oriented x3. Still requiring oxygen at 4 L via nasal cannula. Saturating around 90%. Otherwise patient states that she feels better. Currently afebrile. Blood cultures have been negative. Continued on remdesivir therapy Laboratory data showed WBC 13.1 hemoglobin 13.8 and neutrophils 11.9 CRP 11.1 and LDH is 429 Subjective: This is the present taking care of the patient 07/05/2020 This is a pleasant 69 years old female who presents with Covid pneumonia and acute hypoxic respiratory failure. Patient is followed closely by pulmonary service. Patient is currently on dexamethasone 6 mg orally daily and Remdesivir, also she is on zinc and vitamin C and normal saline at 80 milliliters per hour. She is saturating 90% on 67 L via nasal cannula. Patient is afebrile for more than 48 hours. She is slightly tachypneic at 20 breaths per minute. Blood pressure 161/90, heart rate 63 Leukocytosis improvement to 11.3, glucose is controlled. BMP is unremarkable from yesterday. Increased inflammatory markers of lactate dehydrogenase and C-reactive protein CONSTITUTIONAL: No fever, no malaise, no fatigue. HEENT: No recent visual problems or hearing problems. Denied any sore throat. CARDIOVASCULAR: No orthopnea, PND, no palpitations, no syncope. PULMONARY: No chest wall tenderness, no hemoptysis. GASTROINTESTINAL: No diarrhea, no nausea, no vomiting, no abdominal pain. Normoactive bowel sounds. NEUROLOGICAL: No headaches, no weakness, no numbness. Active Medications Generic Name Dose Route Start Last Admin Trade Name Oliverq PRN Reason Stop Dose Admin Acetaminophen 650 mg 07/01/20 20:46 07/04/20 21:10 Acetaminophen Tab 325 Mg Tab PO 650 mg Q6HR PRN Administration Fever and/ or Pain Ascorbic Acid 500 mg 07/01/20 17:00 07/05/20 07:26 Ascorbic Acid 500 Mg Tab PO 500 mg DAILY TURNER Administration Cholecalciferol 2,000 unit 07/01/20 21:00 07/04/20 21:10 Cholecalciferol 1,000 Unit Tab PO 2,000 unit HS TURNER Administration Cyanocobalamin 1,000 mcg 07/02/20 09:00 07/05/20 07:26 Cyanocobalamin 500 Mcg Tab PO 1,000 mcg DAILY TURNER Administration Dexamethasone 6 mg 07/01/20 17:00 07/05/20 07:25 Dexamethasone 2 Mg Tab PO 6 mg DAILY TURNER Administration Enoxaparin Sodium 40 mg 07/02/20 09:00 07/05/20 07:25 Enoxaparin 40 Mg/0.4 Ml Syringe SQ 40 mg DAILY TURNER Administration Famotidine 20 mg 07/01/20 21:45 07/05/20 07:26 Famotidine 20 Mg Tab PO 20 mg BID TURNER Administration Glimepiride 2 mg 07/02/20 07:30 07/05/20 07:26 Glimepiride 2 Mg Tab PO 2 mg [id number] TURNER Administration Sodium Chloride 1,000 mls @ 50 mls/hr 07/01/20 12:45 07/05/20 07:20 Saline 0.9% IV Not Given .Q20H TURNER Remdesivir 100 mg/ Sodium 250 mls @ 250 mls/hr 07/03/20 13:00 07/04/20 12:36 Chloride IVPB 07/06/20 13:59 250 mls/hr DAILY@1300 TURNER Administration Insulin Aspart 0 unit 07/01/20 21:00 07/05/20 07:24 Insulin Aspart (Novolog) 100 Unit/Ml Vial SQ 1 unit ACHS TURNER Administration Protocol Insulin Aspart 5 unit 07/03/20 07:30 07/05/20 07:25 Insulin Aspart (Novolog) 100 Unit/Ml Vial SQ 5 unit AC-TID TURNER Administration Insulin Detemir 15 unit 07/01/20 21:45 07/04/20 21:11 Insulin Detemir (Levemir) 100 Unit/Ml Syr SQ 15 unit HS TURNER Administration Linagliptin 5 mg 07/01/20 21:00 07/04/20 21:11 Linagliptin 5 Mg Tablet PO 5 mg HS TURNER Administration Naloxone HCl 0.2 mg 07/01/20 12:41 Naloxone 0.4 Mg/Ml 1 Ml Vial IV Q2M PRN Opioid Reversal Zinc Sulfate 220 mg 07/02/20 09:00 07/05/20 07:27 Zinc Sulfate 220 Mg Cap PO 220 mg DAILY TURNER Administration Objective - Vital Signs Vital signs: Vital Signs Temp 97.6 F 07/05/20 05:23 Pulse 63 07/05/20 05:23 Resp 20 07/05/20 07:15 BP 161/90 07/05/20 05:23 Pulse Ox 90 L 07/05/20 05:23 Intake & Output 07/04/20 07/05/20 07/05/20 18:59 06:59 18:59 Intake Total 1066 Balance 1066 Intake: Intake, IV Titration 640 Amount Sodium Chloride 0.9% 1, 640 000 ml @ 80 mls/hr IV . [id number] [facility] Rx#:[id number] Blood Product 426 Ffp Pher Conval Covid19 213 Acda 3 Unit [id number] Other: Voiding Method Toilet # Voids 2 1 - Exam GENERAL: The patient is alert and oriented x3, not in any acute distress. Well developed, well nourished. HEENT: Pupils are round and equally reacting to light. EOMI. No scleral icterus. No conjunctival pallor. Normocephalic, atraumatic. No pharyngeal erythema. No thyromegaly. CARDIOVASCULAR: S1 and S2 present. No murmurs, rubs, or gallops. PULMONARY: Chest is clear to auscultation, no wheezing or crackles. ABDOMEN: Soft, nontender, nondistended, normoactive bowel sounds. No palpable organomegaly. MUSCULOSKELETAL: No joint swelling or deformity. EXTREMITIES: No cyanosis, clubbing, or pedal edema. NEUROLOGICAL: Gross neurological examination did not reveal any focal deficits. SKIN: No rashes. no petechiae. - Labs CBC & Chem 7: 07/05/20 06:09 07/04/20 11:52 Labs: Abnormal Lab Results - Last 24 Hours (Table) 07/04/20 07/04/20 07/04/20 Range/Units 11:31 11:52 11:52 WBC 13.2 H (3.8-10.6) k/uL Neutrophils # 11.9 H (1.3-7.7) k/uL Lymphocytes # 0.9 L (1.0-4.8) k/uL Creatinine 0.4 L (0.6-1.5) mg/dL BUN/Creatinine Ratio 50.00 H (12.00-20.00) Ratio Glucose 124 H (70-110) mg/dL POC Glucose (mg/dL) 110 H (75-99) mg/dL Lactate Dehydrogenase 429 H (120-246) U/L C-Reactive Protein 11.1 H (0.0-0.8) mg/dL 07/04/20 07/04/20 07/05/20 Range/Units 16:45 21:03 06:09 WBC 11.3 H (3.8-10.6) k/uL Neutrophils # 10.1 H (1.3-7.7) k/uL Lymphocytes # 0.8 L (1.0-4.8) k/uL Creatinine (0.6-1.5) mg/dL BUN/Creatinine Ratio (12.00-20.00) Ratio Glucose (70-110) mg/dL POC Glucose (mg/dL) 179 H 138 H (75-99) mg/dL Lactate Dehydrogenase (120-246) U/L C-Reactive Protein (0.0-0.8) mg/dL 07/05/20 Range/Units 07:04 WBC (3.8-10.6) k/uL Neutrophils # (1.3-7.7) k/uL Lymphocytes # (1.0-4.8) k/uL Creatinine (0.6-1.5) mg/dL BUN/Creatinine Ratio (12.00-20.00) Ratio Glucose (70-110) mg/dL POC Glucose (mg/dL) 151 H (75-99) mg/dL Lactate Dehydrogenase (120-246) U/L C-Reactive Protein (0.0-0.8) mg/dL Microbiology - Last 24 Hours (Table) 07/01/20 11:00 Blood Culture - Preliminary Blood No Growth after 72 hours Assessment and Plan Assessment: Acute COVID-19 viral pneumonia. Acute hypoxic respiratory failure secondary to above Elevated inflammatory markers Hyperglycemia with uncontrolled diabetes type 2. Better controlled now Hypertension Osteoarthritis History of hemorrhoids and diverticular disease. Plan: This is a pleasant 69 years old female who presents with acute Covid pneumonia. Continue with oxygen as needed. Continue with dexamethasone and Remdesivir, continue with zinc and vitamin C. Follow-up recommendation by pulmonary service. Continue with diabetes medications including Levemir, NovoLog, Amaryl and linaglipitin and. Follow-up labs Labs and medication were reviewed.. Continue same treatment. Continue with symptomatic treatment. Resume home medication. Monitor lytes and vitals. DVT and GI prophylaxis. Further recommendationsas per clinical course of the patient DVT prophylaxis: Subcutaneous Lovenox GI Prophylaxis: Pepcid Prognosis is guarded
--- NOTE | 2020-07-05 09:49 | XR ---
EXAMINATION TYPE: XR chest 1V portable DATE OF EXAM: 07/05/2020 CLINICAL HISTORY: Covid pneumonia. TECHNIQUE: Portable frontal view of the chest. COMPARISON: 07/01/2020 chest radiograph. 07/01/2020 CTA chest. FINDINGS: Multifocal diffuse patchy airspace opacities of the bilateral lungs are moderately increas ed versus 07/01/2020. No pleural effusion or pneumothorax. The cardiomediastinal silhouette is within normal limits for size. IMPRESSION: Diffuse multifocal opacities are moderately increased versus 07/01/2020. Findings are co nsistent with Covid 19 viral infection.
[2020-07-05 11:42] LABS: Glucose,Whole Blood 82 mg/dL (75-99)
[2020-07-05] MEDS ORDERED: ONDANSETRON 4 MG/2 ML VIAL IVP PRN (12:16)
[2020-07-05] MEDS: REMDESIVIR 100 MG in SODIUM CHLORIDE 0.9% 250 ML IVPB SCH (12:41)
--- NOTE | 2020-07-05 16:06 | P.PN ---
Subjective Progress Note Date: 07/05/20 Principal diagnosis: COVID 19 pneumonia A 69-year-old female patient coming in for an acute cold in 19 related pneumonia. The patient is diabetic and she has hypertension and she is also known to have hyperlipidemia. The patient was having fevers and some shortness of breath along with generalized weakness of a few days' duration. The patient tested positive for grover virus COVID 19 infection on 06/26/2020. Over the past 2 days, the patient was feeling more weak and fatigued. No nausea. No vomiting. No diarrhea. No abdominal pain. She had some increased cough. She came into the hospital and a chest x-ray done showed multifocal areas of pulmonary infiltrates consistent with pneumonia and a computed tomography scan of the chest showed scattered bilateral pulmonary infiltrates compatible with her grover virus Covid 19 infection. There was no evidence of any pulmonary embolism. The patient was febrile. The patient was hypoxic pH was placed on 2 L of oxygen by nasal cannula. T-max was 100.3. White cell count was normal and the patient had lymphopenia. D-dimer was 0.61. LDH was 834 with a CRP of 170 and the Pronestyl level of 0.1. Ferritin level was 367. The patient was hospitalized. The patient is seen today 07/03/2020 in follow-up on the regular medical floor. She is currently sitting up in bed. Awake and alert in no acute distress. She is maintaining O2 saturation in the low 90s on 2 L/m per nasal cannula. Currently afebrile. Hemodynamically stable. Blood glucose 142. This is day #2 of Remdesivir. She remains on dexamethasone, Lovenox, Pepcid, vitamin C, vitamin D, zinc. The patient is seen today 07/04/2020 in follow-up on the medical floor. She is awake and alert in no acute distress. Maintaining O2 saturations in the low 90s on 5 L nasal cannula. Currently afebrile. Blood culture reveals no growth. White count 13.2. Hemoglobin 13.8. Lymphocytes 0.9. She has received her third dose of Remdesivir today. On 07/05/2020 patient seen in follow-up on the general medical surgical floor, she remains on high flow oxygen, currently on the 6-7 L with a pulse ox of 91%, she is status post 1 unit of convalescent plasma, she is finishing her Remdesivir course today and a supposed to get her last dose. She states she is feeling weak, but overall feeling significantly better since admission. She's been afebrile, her vital signs have been stable, she does get exertional dyspnea, but no acute distress. Today's chest x-ray shows a diffuse multifocal opacities moderately increased since the previous chest x-ray, overall her inflammatory markers were improving on yesterday's labs since admission. Patient remains on prophylactic doses of Lovenox, Pepcid, oral Decadron, vitamin C and zinc supplement. She has had no acute events overnight Objective - Vital Signs Vital signs: Vital Signs Temp 97.8 F 07/05/20 13:56 Pulse 67 07/05/20 13:56 Resp 18 07/05/20 13:56 BP 130/77 07/05/20 13:56 Pulse Ox 93 L 07/05/20 13:56 Intake & Output 07/04/20 07/05/20 07/05/20 18:59 06:59 18:59 Intake Total 1066 Balance 1066 Intake: Intake, IV Titration 640 Amount Sodium Chloride 0.9% 1, 640 000 ml @ 50 mls/hr IV . Q20H [facility] Rx#:[id number] Blood Product 426 Ffp Pher Conval Covid19 213 Acda 3 Unit [id number] Other: Voiding Method Toilet # Voids 2 1 2 - Exam GENERAL EXAM: Alert, very pleasant, white female on 6-7 L of oxygen with pulse ox of 91% comfortable in no apparent distress. HEAD: Normocephalic/atraumatic. EYES: Normal reaction of pupils, equal size. Conjunctiva pink, sclera white. NOSE: Clear with pink turbinates. THROAT: No erythema or exudates. NECK: No masses, no JVD, no thyroid enlargement, no adenopathy. CHEST: No chest wall deformity. Symmetrical expansion. LUNGS: Equal air entry with no crackles, wheeze, rhonchi or dullness. CVS: Regular rate and rhythm, normal S1 and S2, no gallops, no murmurs, no rubs ABDOMEN: Soft, nontender. No hepatosplenomegaly, normal bowel sounds, no guarding or rigidity. EXTREMITIES: No clubbing, no edema, no cyanosis, 2+ pulses and upper and lower extremities. MUSCULOSKELETAL: Muscle strength and tone normal. SPINE: No scoliosis or deformity SKIN: No rashes CENTRAL NERVOUS SYSTEM: Alert and oriented -3. No focal deficits, tone is n ormal in all 4 extremities. PSYCHIATRIC: Alert and oriented -3. Appropriate affect. Intact judgment and insight. - Labs CBC & Chem 7: 07/05/20 06:09 07/04/20 11:52 Labs: Abnormal Lab Results - Last 24 Hours (Table) 07/04/20 07/04/20 07/04/20 Range/Units 11:52 16:45 21:03 WBC (3.8-10.6) k/uL Neutrophils # (1.3-7.7) k/uL Lymphocytes # (1.0-4.8) k/uL Creatinine 0.4 L (0.6-1.5) mg/dL BUN/Creatinine Ratio 50.00 H (12.00-20.00) Ratio Glucose 124 H (70-110) mg/dL POC Glucose (mg/dL) 179 H 138 H (75-99) mg/dL Lactate Dehydrogenase 429 H (120-246) U/L C-Reactive Protein 11.1 H (0.0-0.8) mg/dL 07/05/20 07/05/20 Range/Units 06:09 07:04 WBC 11.3 H (3.8-10.6) k/uL Neutrophils # 10.1 H (1.3-7.7) k/uL Lymphocytes # 0.8 L (1.0-4.8) k/uL Creatinine (0.6-1.5) mg/dL BUN/Creatinine Ratio (12.00-20.00) Ratio Glucose (70-110) mg/dL POC Glucose (mg/dL) 151 H (75-99) mg/dL Lactate Dehydrogenase (120-246) U/L C-Reactive Protein (0.0-0.8) mg/dL Microbiology - Last 24 Hours (Table) 07/01/20 11:00 Blood Culture - Preliminary Blood No Growth after 96 hours Assessment and Plan Plan: Assessment 1 acute Covid 19 related pneumonia. The patient was diagnosed with ear infection on 06/26/2020. The patient developed worsening symptoms in addition to dyspnea and hypoxemia and cough and for that reason the patient was admitted to the hospital. She is currently on 6 L of oxygen by nasal cannula, with a pulse ox of 91%, patient will finish her course of Remdesivir today on 07/05/2020, and she status post transfusion of one unit of convalescent plasma 2 acute hypoxic respiratory failure secondary to above 3 fever secondary to above 4 constitutional symptoms secondary to above 5 elevated inflammatory markers secondary to above 6 hypertension 7 hyperlipidemia 8 diabetes mellitus with elevated blood sugar 9 diverticular disease 10 osteoarthritis Plan: Patient is finishing her Remdesivir treatment today, she status post convalescent plasma, inflammatory markers were improving, however patient continues to require high flow oxygen, currently at 6 L. Overall she states she is feeling better since admission, although still feeling weak. We'll continue with current medical treatment, continue prophylactic dose Lovenox, vitamin C, zinc supplement, continue to monitor her febrile pattern and oxygenation pattern. I performed a history & physical examination of the patient and discussed their management with my nurse practitioner, Gisselle Ceron. I reviewed the nurse practitioner's note and agree with the documented findings and plan of care. Lung sounds are positive for basilar crackles. The findings and the impression was discussed with the patient. I attest to the documentation by the nurse practitioner. Time with Patient: Less than 30
[2020-07-05 16:24] LABS: C Reactive Protein 7.3 mg/dL (0.0-0.8); Ferritin 521.2 ng/mL (10.0-291.0)
[2020-07-05 16:31] LABS: Glucose,Whole Blood 282 mg/dL (75-99)
[2020-07-05 20:37] LABS: Glucose,Whole Blood 143 mg/dL (75-99)
[2020-07-05] MEDS: LINAGLIPTIN 5 MG TABLET PO SCH (20:46)
[2020-07-05] MEDS: CHOLECALCIFEROL 1,000 UNIT TAB PO SCH (20:46)
[2020-07-05] MEDS: INSULIN DETEMIR (LEVEMIR) 100 UNIT/ML SYR SQ SCH (20:46)
[2020-07-06 06:43] LABS: Glucose,Whole Blood 69 mg/dL (75-99)
[2020-07-06 07:12] LABS: C Reactive Protein 53.9 mg/L (<10.0)
[2020-07-06] MEDS: FAMOTIDINE 20 MG TAB PO SCH ×2 (08:18→20:25)
[2020-07-06] MEDS: CYANOCOBALAMIN 500 MCG TAB PO SCH (08:18)
[2020-07-06] MEDS: dexAMETHasone 2 MG TAB PO SCH (08:18)
[2020-07-06] MEDS: ENOXAPARIN 40 MG/0.4 ML SYRINGE SQ SCH (08:18)
[2020-07-06] MEDS: ASCORBIC ACID 500 MG TAB PO SCH (08:18)
[2020-07-06] MEDS: ZINC SULFATE 220 MG CAP PO SCH (08:18)
[2020-07-06] MEDS: INSULIN ASPART (NovoLOG) 100 UNIT/ML VIAL SQ SCH ×7 (08:20→20:25)
[2020-07-06] MEDS: GLIMEPIRIDE 2 MG TAB PO SCH (08:20)
[2020-07-06 11:50] LABS: Glucose,Whole Blood 139 mg/dL (75-99)
[2020-07-06] MEDS: REMDESIVIR 100 MG in SODIUM CHLORIDE 0.9% 250 ML IVPB SCH (11:59)
[2020-07-06 12:14] LABS: Basophils % (A) 0 %; Eosinophils % (A) 0 %; HCT 39.9 % (34.0-46.0); HGB 13.1 gm/dL (11.4-16.0); Lymphocytes # (A) 0.6 k/uL (1.0-4.8); Lymphocytes % (A) 5 %; MCH 28.6 pg (25.0-35.0); MCHC 32.7 g/dL (31.0-37.0); MCV 87.3 fL (80.0-100.0); Mean Platelet Volume 8.8; Monocytes # (A) 0.4 k/uL (0-1.0); Monocytes % (A) 3 %; Neutrophils # (A) 12.3 k/uL (1.3-7.7); Neutrophils % (A) 91 %; Platelet Count 426 k/uL (150-450); RBC 4.58 m/uL (3.80-5.40); RDW 13.7 % (11.5-15.5); WBC 13.4 k/uL (3.8-10.6)
[2020-07-06 16:43] LABS: Glucose,Whole Blood 299 mg/dL (75-99)
--- NOTE | 2020-07-06 19:58 | P.PN ---
Subjective Progress Note Date: 07/06/20 Principal diagnosis: Acute covid 19 pneumonitis. A 69-year-old female patient coming in for an acute cold in 19 related pneumonia. The patient is diabetic and she has hypertension and she is also known to have hyperlipidemia. The patient was having fevers and some shortness of breath along with generalized weakness of a few days' duration. The patient tested positive for grover virus COVID 19 infection on 06/26/2020. Over the past 2 days, the patient was feeling more weak and fatigued. No nausea. No vomiting. No diarrhea. No abdominal pain. She had some increased cough. She came into the hospital and a chest x-ray done showed multifocal areas of pulmonary infiltrates consistent with pneumonia and a computed tomography scan of the chest showed scattered bilateral pulmonary infiltrates compatible with her grover virus Covid 19 infection. There was no evidence of any pulmonary embolism. The patient was febrile. The patient was hypoxic pH was placed on 2 L of oxygen by nasal cannula. T-max was 100.3. White cell count was normal and the patient had lymphopenia. D-dimer was 0.61. LDH was 834 with a CRP of 170 and the Pronestyl level of 0.1. Ferritin level was 367. The patient was hospitalized. The patient is seen today 07/03/2020 in follow-up on the regular medical floor. She is currently sitting up in bed. Awake and alert in no acute distress. She is maintaining O2 saturation in the low 90s on 2 L/m per nasal cannula. Currently afebrile. Hemodynamically stable. Blood glucose 142. This is day #2 of Remdesivir. She remains on dexamethasone, Lovenox, Pepcid, vitamin C, vitamin D, zinc. The patient is seen today 07/04/2020 in follow-up on the medical floor. She is awake and alert in no acute distress. Maintaining O2 saturations in the low 90s on 5 L nasal cannula. Currently afebrile. Blood culture reveals no growth. White count 13.2. Hemoglobin 13.8. Lymphocytes 0.9. She has received her third dose of Remdesivir today. On 07/05/2020 patient seen in follow-up on the general medical surgical floor, she remains on high flow oxygen, currently on the 6-7 L with a pulse ox of 91%, she is status post 1 unit of convalescent plasma, she is finishing her Remdesivir course today and a supposed to get her last dose. She states she is feeling weak, but overall feeling significantly better since admission. She's been afebrile, her vital signs have been stable, she does get exertional dyspnea, but no acute distress. Today's chest x-ray shows a diffuse multifocal opacities moderately increased since the previous chest x-ray, overall her inflammatory markers were improving on yesterday's labs since admission. Opal coulter remains on prophylactic doses of Lovenox, Pepcid, oral Decadron, vitamin C and zinc supplement. She has had no acute events overnight Patient was reevaluated today on 07/06/20, surprisingly, the patient is doing better than expected clinically, remains on 7 L nasal cannula, and her O2 saturations 90%. Her temp is 98 1, blood pressure is 125/81, patient is relatively asymptomatic except for feeling generally weak, and she has intermittent cough. She does have some vague aches and pains. Chest x-ray from yesterday continues to show diffuse multifocal opacities bilaterally. Labs today were reviewed, WBC count is 13.4 hemoglobin is 13.1. D-dimer is 2.54. Inflammatory markers were noted with LDH of 1225 and C-reactive protein is 53.9, significantly higher compared to yesterday. Objective - Vital Signs Vital signs: Vital Signs Temp 98.1 F 07/06/20 17:46 Pulse 74 07/06/20 17:46 Resp 20 07/06/20 17:46 BP 125/81 07/06/20 17:46 Pulse Ox 90 L 07/06/20 17:46 Intake & Output 07/06/20 07/06/20 07/07/20 06:59 18:59 06:59 Intake Total 550 250 Balance 550 250 Weight 50.8 kg Intake: Intake, IV Titration 550 250 Amount Remdesivir (Eua) 100 mg 250 In Sodium Chloride 0.9% 250 ml @ 250 mls/hr IVPB DAILY@1300 [facility] Rx#: [id number] Sodium Chloride 0.9% 1, 550 000 ml @ 50 mls/hr IV . Q20H [facility] Rx#:[id number] Other: Voiding Method Toilet Toilet Toilet # Voids 1 - Exam Physical Exam: Revealed a 69-year-old female sitting in a chair at bedside, on 7 L nasal cannula. Head: Atraumatic, normocephalic. HEENT:[Neck is supple.] [No neck masses.] [No thyromegaly.] [No JVD.] Chest: [Symmetrical chest expansion, crackles at the bases bilaterally. No rhonchi and no wheezes. Cardiac Exam: [Normal S1 and S2, no S3 gallop, no murmur.] Abdomen: [Soft, nontender, no megaly, no rebound, no guarding, normal bowel sounds.] Extremities: [No clubbing, no edema, no cyanosis.] Neurological Exam: [No focal neurologic deficit.] Alert and oriented 3. Psychiatric: Normal mood, affect and normal mental status examination. Skin: No rashes. - Labs CBC & Chem 7: 07/06/20 11:07 07/04/20 11:52 Labs: Abnormal Lab Results - Last 24 Hours (Table) 07/05/20 07/06/20 07/06/20 Range/Units 20:35 05:21 05:34 WBC (3.8-10.6) k/uL Neutrophils # (1.3-7.7) k/uL Lymphocytes # (1.0-4.8) k/uL D-Dimer 2.54 H (<0.60) mg/L FEU POC Glucose (mg/dL) 143 H (75-99) mg/dL Ferritin (10.0-291.0) ng/mL Lactate Dehydrogenase 1225 H (313-618) U/L C-Reactive Protein 53.9 H (<10.0) mg/L 07/06/20 07/06/20 07/06/20 Range/Units 06:41 11:07 11:07 WBC 13.4 H (3.8-10.6) k/uL Neutrophils # 12.3 H (1.3-7.7) k/uL Lymphocytes # 0.6 L (1.0-4.8) k/uL D-Dimer (<0.60) mg/L FEU POC Glucose (mg/dL) 69 L (75-99) mg/dL Ferritin 498.5 H (10.0-291.0) ng/mL Lactate Dehydrogenase (313-618) U/L C-Reactive Protein (<10.0) mg/L 07/06/20 07/06/20 Range/Units 11:48 16:40 WBC (3.8-10.6) k/uL Neutrophils # (1.3-7.7) k/uL Lymphocytes # (1.0-4.8) k/uL D-Dimer (<0.60) mg/L FEU POC Glucose (mg/dL) 139 H 299 H (75-99) mg/dL Ferritin (10.0-291.0) ng/mL Lactate Dehydrogenase (313-618) U/L C-Reactive Protein (<10.0) mg/L Microbiology - Last 24 Hours (Table) 07/01/20 11:00 Blood Culture - Preliminary Blood No Growth after 120 hours Assessment and Plan Assessment: 1 acute Covid 19 related pneumonia. The patient was diagnosed with ear infection on 06/26/2020. The patient developed worsening symptoms in addition to dyspnea and hypoxemia and cough and for that reason the patient was admitted to the hospital. She is currently on 6 L of oxygen by nasal cannula, with a pulse ox of 91%, patient will finish her course of Remdesivir today on 07/05/2020, and she status post transfusion of one unit of convalescent plasma 2 acute hypoxic respiratory failure secondary to above 3 fever secondary to above 4 constitutional symptoms secondary to above 5 elevated inflammatory markers secondary to above 6 hypertension 7 hyperlipidemia 8 diabetes mellitus with elevated blood sugar 9 diverticular disease 10 osteoarthritis Recommendation: Continue present supportive care measures, patient received remdesivir, nonetheless and plasma, Decadron, Lovenox, vitamin C, zinc, and prognosis remains guarded. Continue to titrate oxygen, maintaining O2 saturation above 90%. Not ready for any discharge planning, we'll continue to follow. Prognosis remains guarded Time with Patient: Less than 30
[2020-07-06 20:19] LABS: Glucose,Whole Blood 285 mg/dL (75-99)
[2020-07-06] MEDS: CHOLECALCIFEROL 1,000 UNIT TAB PO SCH (20:25)
[2020-07-06] MEDS: LINAGLIPTIN 5 MG TABLET PO SCH (20:26)
[2020-07-06] MEDS: INSULIN DETEMIR (LEVEMIR) 100 UNIT/ML SYR SQ SCH (20:26)
[2020-07-06] MEDS ORDERED: ENOXAPARIN 40 MG/0.4 ML SYRINGE SQ SCH (21:00)
[2020-07-06] MEDS: SODIUM CHLORIDE 0.9% 1,000 ML IV SCH (22:10)
--- NOTE | 2020-07-06 22:30 | P.PN ---
Subjective From records Patient is a 69-year-old female with a known history of hypertension, diabetes type 2 [id number], osteoarthritis who was recently seen at [facility] on 06/26/2020 with Covid pneumonia came to hospital with the complaints of generalized weakness. Patient says that he has been having fevers and exertional dyspnea for the past 1 to 2 days. Patient was tested positive for COVID-19 virus approximately 5 days ago. For the past 2 days patient has been having generalized weakness and fatigue. No diarrhea no vomiting. Patient does have cough without sputum production and has been having worsening shortnes s of breath. On and off chest pains as well. Sharp aching type without any radiation. Denied any leg swelling or palpitations. No hematemesis or melena. Chest x-ray showed multifocal areas of infiltrate correlate for pneumonia CT angiogram showed scattered infiltrates greater on the right compatible with reported Covid pneumonia. No acute pulmonary embolism. Laboratory data showed D-dimer 0.61, lymphocyte 0.8, ferritin 367.5, LDH 834, CRP 170, procalcitonin 0.1 On admission T-max 100.3 and pulse ox 92% on 2 L oxygen. 07/02/2029 patient is currently lying in the bed comfortably. No complaints of chest pain or worsening shortness of breath. Patient says that she feels better today. Patient is being continued on Decadron and Lovenox. Insulin was started for better sugar control. Preprandial dose was added. Continued on oxygen therapy and follow closely. 07/03/2020 Patient is currently awake alert oriented 3. Lying in the bed comfortably. Still occurring oxygen at 3-4 L when asked cannula. Patient has been afebrile. continued on her Remdesivir. Continue on dexamethasone Lovenox and vitamin supplementation. Pulmonary is following. 07/04/2020 Patient is awake alert oriented x3. Still requiring oxygen at 4 L via nasal cannula. Saturating around 90%. Otherwise patient states that she feels better. Currently afebrile. Blood cultures have been negative. Continued on remdesivir therapy Laboratory data showed WBC 13.1 hemoglobin 13.8 and neutrophils 11.9 CRP 11.1 and LDH is 429 Subjective: 07/05/2020 This is a pleasant 69 years old female who presents with Covid pneumonia and acute hypoxic respiratory failure. Patient is followed closely by pulmonary service. Patient is currently on dexamethasone 6 mg orally daily and Remdesivir, also she is on zinc and vitamin C and normal saline at 80 milliliters per hour. She is saturating 90% on 67 L via nasal cannula. Patient is afebrile for more than 48 hours. She is slightly tachypneic at 20 breaths p er minute. Blood pressure 161/90, heart rate 63 Leukocytosis improvement to 11.3, glucose is controlled. BMP is unremarkable from yesterday. Increased inflammatory markers of lactate dehydrogenase and C-reactive protein 07/06/2020 pt is still with Covid pneumonia. Yesterday her oxygen requirement went up from 5 to 7 mL per min . Her oxygen requirement today's looks the same. She is slightly tachypneic. Patient is afebrile WBC 13.4 K. D-dimer increased from 0.6 up to 2.5 so we will increase her Lovenox from 40 mg daily to twice a day, lactate dehydrogenase and C-reactive proteins are both significantly worse. Her glucose was 69 this morning and he lowered her Levemir from 15 down to 10 units She is currently on normal saline at 50 mL per hour as well she remains on dexamethasone, Remdesivir, zinc and vitamin C. Pulmonary team on the case Review of systems CONSTITUTIONAL: No fever, no malaise, no fatigue. HEENT: No recent visual problems or hearing problems. Denied any sore throat. CARDIOVASCULAR: No orthopnea, PND, no palpitations, no syncope. PULMONARY: No chest wall tenderness, no hemoptysis. GASTROINTESTINAL: No diarrhea, no nausea, no vomiting, no abdominal pain. Normoactive bowel sounds. NEUROLOGICAL: No headaches, no weakness, no numbness. Active Medications Generic Name Dose Route Start Last Admin Trade Name Oliverq PRN Reason Stop Dose Admin Acetaminophen 650 mg 07/01/20 20:46 07/04/20 21:10 Acetaminophen Tab 325 Mg Tab PO 650 mg Q6HR PRN Administration Fever and/ or Pain Ascorbic Acid 500 mg 07/01/20 17:00 07/06/20 08:18 Ascorbic Acid 500 Mg Tab PO 500 mg DAILY [facility] Administration Cholecalciferol 2,000 unit 07/01/20 21:00 07/05/20 20:46 Cholecalciferol 1,000 Unit Tab PO 2,000 unit HS [facility] Administration Cyanocobalamin 1,000 mcg 07/02/20 09:00 07/06/20 08:18 Cyanocobalamin 500 Mcg Tab PO 1,000 mcg DAILY [facility] Administration Dexamethasone 6 mg 07/01/20 17:00 07/06/20 08:18 Dexamethasone 2 Mg Tab PO 6 mg DAILY [facility] Administration Enoxaparin Sodium 40 mg 07/02/20 09:00 07/06/20 08:18 Enoxaparin 40 Mg/0.4 Ml Syringe SQ 40 mg DAILY [facility] Administration Famotidine 20 mg 07/01/20 21:45 07/06/20 08:18 Famotidine 20 Mg Tab PO 20 mg BID [facility] Administration Glimepiride 2 mg 07/02/20 07:30 07/06/20 08:20 Glimepiride 2 Mg Tab PO Not Given AC-BRKFST [facility] Sodium Chloride 1,000 mls @ 50 mls/hr 07/01/20 12:45 07/05/20 16:44 Saline 0.9% IV Not Given .Q20H [facility] Remdesivir 100 mg/ Sodium 250 mls @ 250 mls/hr 07/03/20 13:00 07/06/20 11:59 Chloride IVPB 07/06/20 13:59 250 mls/hr DAILY@1300 [facility] Administration Insulin Aspart 0 unit 07/01/20 21:00 07/06/20 11:59 Insulin Aspart (Novolog) 100 Unit/Ml Vial SQ 1 unit ACHS [facility] Administration Protocol Insulin Aspart 5 unit 07/03/20 07:30 07/06/20 12:00 Insulin Aspart (Novolog) 100 Unit/Ml Vial SQ Not Given AC-TID [facility] Insulin Detemir 10 unit 07/06/20 21:00 Insulin Detemir (Levemir) 100 Unit/Ml Syr SQ HS [facility] Linagliptin 5 mg 07/01/20 21:00 07/05/20 20:46 Linagliptin 5 Mg Tablet PO 5 mg HS [facility] Administration Naloxone HCl 0.2 mg 07/01/20 12:41 Naloxone 0.4 Mg/Ml 1 Ml Vial IV Q2M PRN Opioid Reversal Ondansetron HCl 4 mg 07/05/20 12:16 07/05/20 12:41 Ondansetron 4 Mg/2 Ml Vial IVP 4 mg Q6HR PRN Administration Nausea And Vomiting Zinc Sulfate 220 mg 07/02/20 09:00 07/06/20 08:18 Zinc Sulfate 220 Mg Cap PO 220 mg DAILY [facility] Administration Objective - Vital Signs Vital signs: Vital Signs Temp 98.5 F 07/06/20 09:49 Pulse 62 07/06/20 09:49 Resp 16 07/06/20 09:49 BP 158/75 07/06/20 09:49 Pulse Ox 94 L 07/06/20 09:49 Intake & Output 07/05/20 07/06/20 07/06/20 18:59 06:59 18:59 Intake Total 550 Balance 550 Intake: Intake, IV Titration 550 Amount Sodium Chloride 0.9% 1, 550 000 ml @ 50 mls/hr IV . Q20H [facility] Rx#:[id number] Other: Voiding Method Toilet Toilet # Voids 2 1 - Exam GENERAL: The patient is alert and oriented x3, not in any acute distress. Well developed, well nourished. HEENT: Pupils are round and equally reacting to light. EOMI. No scleral icterus. No conjunctival pallor. Normocephalic, atraumatic. No pharyngeal erythema. No thyromegaly. CARDIOVASCULAR: S1 and S2 present. No murmurs, rubs, or gallops. PULMONARY: Chest is clear to auscultation, no wheezing or crackles. ABDOMEN: Soft, nontender, nondistended, normoactive bowel sounds. No palpable organomegaly. MUSCULOSKELETAL: No joint swelling or deformity. EXTREMITIES: No cyanosis, clubbing, or pedal edema. NEUROLOGICAL: Gross neurological examination did not reveal any focal deficits. SKIN: No rashes. no petechiae. - Labs CBC & Chem 7: 07/06/20 11:07 07/04/20 11:52 Labs: Abnormal Lab Results - Last 24 Hours (Table) 07/05/20 07/05/20 07/05/20 Range/Units 09:26 16:29 20:35 WBC (3.8-10.6) k/uL Neutrophils # (1.3-7.7) k/uL Lymphocytes # (1.0-4.8) k/uL D-Dimer (<0.60) mg/L FEU POC Glucose (mg/dL) 282 H 143 H (75-99) mg/dL Ferritin 521.2 H (10.0-291.0) ng/mL Lactate Dehydrogenase 412 H (120-246) U/L C-Reactive Protein 7.3 H (0.0-0.8) mg/dL 07/06/20 07/06/20 07/06/20 Range/Units 05:21 05:34 06:41 WBC (3.8-10.6) k/uL Neutrophils # (1.3-7.7) k/uL Lymphocytes # (1.0-4.8) k/uL D-Dimer 2.54 H (<0.60) mg/L FEU POC Glucose (mg/dL) 69 L (75-99) mg/dL Ferritin (10.0-291.0) ng/mL Lactate Dehydrogenase 1225 H (120-246) U/L C-Reactive Protein 53.9 H (0.0-0.8) mg/dL 07/06/20 07/06/20 Range/Units 11:07 11:48 WBC 13.4 H (3.8-10.6) k/uL Neutrophils # 12.3 H (1.3-7.7) k/uL Lymphocytes # 0.6 L (1.0-4.8) k/uL D-Dimer (<0.60) mg/L FEU POC Glucose (mg/dL) 139 H (75-99) mg/dL Ferritin (10.0-291.0) ng/mL Lactate Dehydrogenase (120-246) U/L C-Reactive Protein (0.0-0.8) mg/dL Microbiology - Last 24 Hours (Table) 07/01/20 11:00 Blood Culture - Preliminary Blood No Growth after 96 hours Assessment and Plan Assessment: Acute COVID-19 viral pneumonia. Acute hypoxic respiratory failure secondary to above Elevated inflammatory markers Hyperglycemia with uncontrolled diabetes type 2. Better controlled now Hypertension Osteoarthritis History of hemorrhoids and diverticular disease. Plan: This is a pleasant 69 years old female who presents with acute Covid pneumonia. Continue with oxygen as needed. Continue with dexamethasone and Remdesivir, continue with zinc and vitamin C. Follow-up recommendation by pulmonary ser vice. Continue with diabetes medications including Levemir, NovoLog, Amaryl and linaglipitin and. Follow-up labs Labs and medication were reviewed.. Continue same treatment. Continue with symptomatic treatment. Resume home medication. Monitor lytes and vitals. DVT and GI prophylaxis. Further recommendationsas per clinical course of the patient DVT prophylaxis: Subcutaneous Lovenox GI Prophylaxis: Pepcid Prognosis is guarded
[2020-07-06 23:26] LABS: Glucose,Whole Blood 304 mg/dL (75-99)
[2020-07-06 23:31] LABS: HCT 30.4 % (34.0-46.0); MCH 28.2 pg (25.0-35.0); MCHC 32.3 g/dL (31.0-37.0); MCV 87.3 fL (80.0-100.0); Mean Platelet Volume 9.4; Platelet Count 419 k/uL (150-450); RBC 3.49 m/uL (3.80-5.40); RDW 13.8 % (11.5-15.5); WBC 7.7 k/uL (3.8-10.6)
[2020-07-06 23:34] LABS: HGB 9.8 gm/dL (11.4-16.0)
[2020-07-06] MEDS ORDERED: SODIUM CHLORIDE 0.9% 1,000 ML IV ONE (23:46)
[2020-07-06] MEDS: PANTOPRAZOLE 40 MG/10 ML VIAL IVP SCH (23:55)
[2020-07-07 05:58] LABS: Glucose,Whole Blood 362 mg/dL (75-99)
[2020-07-07] MEDS: INSULIN ASPART (NovoLOG) 100 UNIT/ML VIAL SQ SCH ×7 (06:26→22:23)
[2020-07-07] MEDS: SODIUM CHLORIDE 0.9% 1,000 ML IV SCH (07:51)
[2020-07-07] MEDS: PANTOPRAZOLE 40 MG/10 ML VIAL IVP SCH ×2 (09:29→21:59)
[2020-07-07 09:33] LABS: Glucose,Whole Blood 342 mg/dL (75-99)
[2020-07-07] MEDS ORDERED: SODIUM CHLORIDE 0.9% 500 ML 500 ML IV ONE (09:40)
[2020-07-07 10:34] LABS: African American GFR (CKD) >90 (>60 ml/min/1.73 sqM); Anion Gap 0 mmol/L; Blood Urea Nitrogen 39 mg/dL (7-17); Carbon Dioxide 24 mmol/L (22-30); Chloride 115 mmol/L (98-107); Glucose 234 mg/dL (74-99); Non-African American GFR(CKD) >90 (>60 ml/min/1.73 sqM); Sodium 139 mmol/L (137-145)
[2020-07-07 10:39] LABS: Basophils % (A) 0 %; Eosinophils % (A) 0 %; Lymphocytes # (A) 0.9 k/uL (1.0-4.8); Lymphocytes % (A) 8 %; MCH 29.2 pg (25.0-35.0); MCHC 32.3 g/dL (31.0-37.0); MCV 90.2 fL (80.0-100.0); Monocytes # (A) 0.4 k/uL (0-1.0); Monocytes % (A) 4 %; Neutrophils # (A) 8.8 k/uL (1.3-7.7); Neutrophils % (A) 86 %; Platelet Count 371 k/uL (150-450); RBC 2.13 m/uL (3.80-5.40); WBC 10.3 k/uL (3.8-10.6)
--- NOTE | 2020-07-07 10:39 | CT ---
EXAMINATION TYPE: CODE STROKE: CT brain wo contr DATE OF EXAM: 07/07/2020 HISTORY: AMS, unable to speak. CT DLP: 1099.4 mGycm. Automated Exposure Control for Dose Reduction was Utilized. TECHNIQUE: CT scan of the head is performed without contrast. COMPARISON: None FINDINGS: There is no acute intracranial hemorrhage, midline shift, or mass effect identified. Diffuse volume l oss. Patchy white matter hypodensities likely sequela of chronic microvascular ischemic change. The ventricles, sulci, and cisterns are normal in size and configuration. No extra-axial fluid collection. Bones and extracranial soft tissues are intact. The globes are gross ly symmetric. Visualized sinuses and mastoid air cells are clear. IMPRESSION: No acute intracranial hemorrhage, midline shift, or mass effect. A [place] critical message alert has been initiated for Tamia Spears MD via the [employer] on 07/07/2020 10:35 AM. This message alert has been sent to Tamia Spears MD v ia the preferences provided by the clinician for the receipt of Radiology Critical Findings. Message ID [id number]. Dr. Balbina Bautista discussed findings with Remedios Hess RN via the phone on 07/07/2020 at 10:3 4 AM, and results were acknowledged.
[2020-07-07 10:43] LABS: HCT 19.2 % (34.0-46.0); HGB 6.2 gm/dL (11.4-16.0)
[2020-07-07 11:23] LABS: Glucose,Whole Blood 285 mg/dL (75-99)
--- NOTE | 2020-07-07 11:50 | CT ---
EXAMINATION TYPE: CODE STROKE: CTA head neck DATE OF EXAM: 07/07/2020 HISTORY: Code stroke. Unable to speak COMPARISON: NONE CT DLP: 406.4 mGycm. Automated Exposure Control for Dose Reduction was Utilized. TECHNIQUE: CTA scan of the head and neck are performed with IV Contrast, patient injected with 65 mL of Isovue 370, axial images are obtained, coronal and sagittal reformatted images are reviewed. Thre e-D reconstructed images are created on an independent workstation and reviewed. FINDINGS: Carotid/Vascular Structures: Normal three-vessel origin from aortic arch. Right common carotid artery shows normal origin from right brachiocephalic artery. No significant plaque or stenosis of right co mmon or internal carotid artery including carotid bulb. Similar finding on left. No significant steno sis or plaque in the external carotid arteries bilaterally. Moderate calcified plaque petrous and sup raclinoid segment distal internal carotid arteries bilaterally. There is hypoplastic left A1 segment with filling of the A2 segment due to patent anterior communicating artery. No focal aneurysm is seen . Posterior circulation showed codominant vertebrobasilar system. There are hypoplastic bilateral pos terior communicating artery seen. Other: Underlying scoliosis is present. Moderate spurring and disc space narrowing C5-C6 and C6-C7 le vels. Visualized lungs show partial visualization of at least tiny bilateral pleural effusions and groundgl ass opacities with reticulation bilaterally consistent with known covid 19 infection IMPRESSION: 1. No significant stenosis in common or internal carotid arteries bilaterally. 2. No significant stenosis or aneurysmal change at level of [place] [facility] [place].
[2020-07-07] MEDS: GLIMEPIRIDE 2 MG TAB PO SCH (11:51)
[2020-07-07] MEDS: dexAMETHasone 2 MG TAB PO SCH (11:52)
[2020-07-07] MEDS: ZINC SULFATE 220 MG CAP PO SCH (11:52)
[2020-07-07] MEDS: CYANOCOBALAMIN 500 MCG TAB PO SCH (11:52)
[2020-07-07] MEDS: ASCORBIC ACID 500 MG TAB PO SCH (11:52)
[2020-07-07 12:04] LABS: C Reactive Protein 33.8 mg/L (<10.0)
[2020-07-07] MEDS ORDERED: Potassium Replacement Protocol 1 EACH MISC MISCELLANE PRN (12:04)
[2020-07-07] MEDS ORDERED: CALCIUM GLUCONATE 2 GM in SODIUM CHLORIDE 0.9% 100 ML IVPB ONE (12:15)
--- NOTE | 2020-07-07 12:49 | XR ---
EXAMINATION TYPE: XR chest 1V portable DATE OF EXAM: 07/07/2020 CLINICAL HISTORY: covid 19. TECHNIQUE: Portable frontal view of the chest. COMPARISON: 07/05/2020 chest radiograph FINDINGS: The cardiomediastinal silhouette is within normal limits for size. Multifocal diffuse airs pace opacities of the bilateral lungs are unchanged versus 07/05/2020. No pleural effusion or pneumot horax seen. IMPRESSION: Diffuse multifocal airspace opacities are unchanged versus 07/05/2020. Findings are cons istent with Covid 19 viral infection.
[2020-07-07 12:55] LABS: INR 1.6 (<1.2); Prothrombin Time 15.5 sec (9.0-12.0)
--- NOTE | 2020-07-07 13:01 | P.CNNES ---
History of Present Illness Consult date: 07/07/20 Requesting physician: Felicitas Castanon Reason for Consult: altered mental status and concern for stroke History of Present Illness: This is a 39-year-old woman with medical history of acute covid 19 positive, diabetes, hypertension, hyperlipidemia presented emergency department on 07/01/2020 after having a result of Covid 19 the infection on 06/26/2020 and she presented to the hospital with tonus of breath fever and generalized weakness. Neurology is consulted for altered mental status and concern for stroke. Today (07/07/20) around 8:00 in the morning the patient's nurse noticed that the patient was a not verbally responsive with the left eye gaze deviation. Upon seeing the patient that she was not verbalizing or follow commands. So history is obtained from medical records and nursing staff. Stroke pager was activated. Unknown last normal. On presentation the hospital the patient was the awake talking and moving all extremities and verbally responsive. Also noted that the patient's hemoglobin is 6.2 today while yesterday was 9.8. On presentation on 07/01/2020 patient's hemoglobin was 14.0. Hematocrit is today is 19.20 the yesterday was 30.4. And per nurse patient is having the lower GI bleed. P atient was on Lovenox 40 mg a subcu twice a day. Work-up in the hospital CT of the head that was done on 07/07/2020 was reported as no acute intracranial hemorrhage, midline shift or mass effect. CT angiography of the head and neck was reported as no significant stenosis in the common or internal carotid arteries bilaterally. No significant stenosis or aneurysm changes at the level [place]. NIH per the stroke team nurse was 20. IV TPA was not given since unknown last normal and because of the acute bleeds. Patient vitals at 1151 today were: Blood pressure of 87/58, heart rate of 72, respiratory of 18, temperature of 96.9 Fahrenheit axillary and pulse ox of 92 L. Platelets is 371. She had an EKG on 07/01/2020 was reported as normal sinus rhythm. Normal EKG at. Per the patient's nurse, stroke attending recommended the patient to be transferred to ICU and to receive a transfusion, make sure that systolic blood pressure is more than 20 and if needed the use vasopressors. Review of Systems Review of system is limited but the prone positive and negative per HPI. Past Medical History Past Medical History: Diabetes Mellitus, Hyperlipidemia, Hypertension, Osteoarthritis (OA) Additional Past Medical History / Comment(s): Pt recently admitted to [facility] on 06/26/20 with covid pneumonia/dehydration. Pt states her hydrochlorothiazide was placed on hold during that stay. Other hx: NIDDM type II, vertigo, arthritis bilateral hands, chronic low back pain, headaches, past head injury-no deficits, bronchitis, anemia, sinus problems/seasonal allergies, diverticular disease, hemorrhoids, past L lower leg cellulitis d/t cat bite. History of Any Multi-Drug Resistant Organisms: None Reported Past Surgical History: Hysterectomy, Tonsillectomy Additional Past Surgical History / Comment(s): Rectocele, interstinal cyst removed along with adhesions, colonoscopy, bilateral cataract removals, Past Anesthesia/Blood Transfusion Reactions: Postoperative Nausea & Vomiting (PONV) Smoking Status: Never smoker - Past Family History Mother Family Medical History: Diabetes Mellitus Additional Family Medical History / Comment(s): IDDM. Mother is . Father Family Medical History: Diabetes Mellitus Additional Family Medical History / Comment(s): IDDM. Father is . Medications and Allergies Home Medications Medication Instructions Recorded Confirmed Type Ascorbic Acid [Vitamin C] 500 mg PO DAILY 11/01/17 07/01/20 History Cholecalciferol (Vitamin D3) 2,000 unit PO HS 11/01/17 07/01/20 History [Vitamin D3] Dapagliflozin Propanediol [Farxiga] 10 mg PO DAILY 11/01/17 07/01/20 History Linagliptin [Tradjenta] 5 mg PO HS 11/01/17 07/01/20 History metFORMIN HCL 1,000 mg PO BID 11/01/17 07/01/20 History Cyanocobalamin (Vitamin B-12) 1,000 mcg PO DAILY 06/27/20 07/01/20 History [Vitamin B-12] Glimepiride [Amaryl] 2 mg PO [id number]-[id number] 06/27/20 07/01/20 History Allergies Allergy/AdvReac Type Severity Reaction Status Date / Time canagliflozin [From Invokana] AdvReac Unknown Verified 07/01/20 11:11 hydromorphone HCl AdvReac Nausea Verified 07/01/20 11:11 [From Dilaudid] sulfamethoxazole AdvReac Nausea & Verified 07/01/20 11:11 [From Bactrim] Vomiting trimethoprim [From Bactrim] AdvReac Nausea & Verified 07/01/20 11:11 Vomiting Physical Examination - Vital Signs Vital Signs: Vital Signs Temp Pulse Pulse Resp BP BP BP 07/07/20 12:15 07/07/20 12:01 96.9 F L 75 18 98/40 07/07/20 12:00 07/07/20 11:51 96.9 F L 72 18 87/57 07/07/20 11:30 07/07/20 11:28 07/07/20 11:15 07/07/20 11:00 07/07/20 10:45 07/07/20 10:30 07/07/20 09:30 86 07/07/20 09:28 97.6 F 86 16 72/40 07/07/20 03:01 82 20 07/07/20 02:55 97.6 F 82 20 94/50 07/07/20 02:14 74 97/67 07/07/20 00:35 75 96/63 07/07/20 00:20 77 90/56 07/07/20 00:05 76 94/56 07/06/20 23:05 72 108/70 07/06/20 23:00 81 98/63 07/06/20 22:51 07/06/20 22:45 80 76/52 07/06/20 21:15 97.5 F L 65 18 126/66 07/06/20 17:46 98.1 F 74 20 125/81 07/06/20 14:00 97.8 F 76 20 139/74 Pulse Ox 07/07/20 12:15 97 07/07/20 12:01 90 L 07/07/20 12:00 96 07/07/20 11:51 92 L 07/07/20 11:30 96 07/07/20 11:28 97 07/07/20 11:15 97 07/07/20 11:00 97 07/07/20 10:45 97 07/07/20 10:30 97 07/07/20 09:30 07/07/20 09:28 92 L 07/07/20 03:01 07/07/20 02:55 98 07/07/20 02:14 93 L 07/07/20 00:35 07/07/20 00:20 07/07/20 00:05 07/06/20 23:05 90 L 07/06/20 23:00 90 L 07/06/20 22:51 89 L 07/06/20 22:45 88 L 07/06/20 21:15 95 07/06/20 17:46 90 L 07/06/20 14:00 90 L Intake and Output 07/06/20 07/07/20 07/07/20 22:59 06:59 14:59 Intake Total 250 0 Balance 250 0 Intake: Intake, IV Titration 250 Amount Sodium Chloride 0.9% 1, 250 000 ml @ 50 mls/hr IV . Q20H [facility] Rx#:[id number] Blood Product 0 Rc As-1 Unit 0 [id number] Other: Voiding Method Toilet Indwelling Catheter Indwelling Catheter # Voids 1 # Bowel Movements 1 Weight 60.5 kg GENERAL: The patient is lying in bed and seemed slightly restless. CHEST: The heart rate is regular rate rhythm. No murmurs to auscultation. No carotid bruit bilaterally. LUNG: Clear to auscultation bilaterally no wheezing noted throughout. Not labored breathing. NEUROLOGICAL: Limited because of patient's condition. Higher mental function: The patient is awake but not verbally responsive or following commands. Patient only says "outch". Otherwise she is mute. . Cranial nerves: The pupils are round,about 3-4mm equal and reactive to light. She has left gaze deviation but does not cross to the right side. Visual storey unable to assess on confrontation. Extraocular movement is unable to assess. i Facial sensation unable to assess. The facial strength is mild right lower facial weakness. Hearing is unable to assess. . Motor:Gait is unable to assess. The strength is unable to assess but to painful stimuli she is able to withdrawl all extremities, At few times she is withdrawing and lifting left sided more the than right side. Normal tone and bulk. Cerebellum: Unable to assess. Sensation: Sensation to light touch is unable to assess. But has intact to painful stimuli throughout. Reflexes (right/left): 1+ throughout. Plantars are downgoing bilaterally. Results Calcium of 6.0. Sodium was 139. Glucose has been in the range of 200s to 300. - Laboratory Findings CBC and BMP: 07/07/20 10:11 07/07/20 10:13 Abnormal Lab Findings: Abnormal Labs 07/01/20 07/01/20 07/01/20 11:00 11:00 11:00 WBC RBC Hgb Hct Neutrophils # Lymphocytes # 0.8 L APTT 19.8 L D-Dimer 0.61 H Potassium Chloride BUN Creatinine 0.42 L BUN/Creatinine Ratio Glucose 282 H POC Glucose (mg/dL) Calcium Ferritin 367.5 H Lactate Dehydrogenase 834 H C-Reactive Protein 170.1 H Total Protein 5.9 L Albumin 3.1 L Procalcitonin Crossmatch 07/01/20 07/01/20 07/01/20 11:00 16:40 20:29 WBC RBC Hgb Hct Neutrophils # Lymphocytes # APTT D-Dimer Potassium Chloride BUN Creatinine BUN/Creatinine Ratio Glucose POC Glucose (mg/dL) 201 H 326 H Calcium Ferritin Lactate Dehydrogenase C-Reactive Protein Total Protein Albumin Procalcitonin 0.10 H Crossmatch 07/02/20 07/02/20 07/02/20 06:57 11:26 16:47 WBC RBC Hgb Hct Neutrophils # Lymphocytes # APTT D-Dimer Potassium Chloride BUN Creatinine BUN/Creatinine Ratio Glucose POC Glucose (mg/dL) 257 H 295 H 293 H Calcium Ferritin Lactate Dehydrogenase C-Reactive Protein Total Protein Albumin Procalcitonin Crossmatch 07/02/20 07/03/20 07/03/20 20:30 06:55 16:11 WBC RBC Hgb Hct Neutrophils # Lymphocytes # APTT D-Dimer Potassium Chloride BUN Creatinine BUN/Creatinine Ratio Glucose POC Glucose (mg/dL) 327 H 176 H 142 H Calcium Ferritin Lactate Dehydrogenase C-Reactive Protein Total Protein Albumin Procalcitonin Crossmatch 07/03/20 07/04/20 07/04/20 20:29 07:20 11:31 WBC RBC Hgb Hct Neutrophils # Lymphocytes # APTT D-Dimer Potassium Chloride BUN Creatinine BUN/Creatinine Ratio Glucose POC Glucose (mg/dL) 240 H 112 H 110 H Calcium Ferritin Lactate Dehydrogenase C-Reactive Protein Total Protein Albumin Procalcitonin Crossmatch 07/04/20 07/04/20 07/04/20 11:52 11:52 16:06 WBC 13.2 H RBC Hgb Hct Neutrophils # 11.9 H Lymphocytes # 0.9 L APTT D-Dimer Potassium Chloride BUN Creatinine 0.4 L BUN/Creatinine Ratio 50.00 H Glucose 124 H POC Glucose (mg/dL) Calcium Ferritin Lactate Dehydrogenase 429 H C-Reactive Protein 11.1 H Total Protein Albumin Procalcitonin Crossmatch See Detail 07/04/20 07/04/20 07/05/20 16:45 21:03 06:09 WBC 11.3 H RBC Hgb Hct Neutrophils # 10.1 H Lymphocytes # 0.8 L APTT D-Dimer Potassium Chloride BUN Creatinine BUN/Creatinine Ratio Glucose POC Glucose (mg/dL) 179 H 138 H Calcium Ferritin Lactate Dehydrogenase C-Reactive Protein Total Protein Albumin Procalcitonin Crossmatch 07/05/20 07/05/20 07/05/20 07:04 09:26 16:29 WBC RBC Hgb Hct Neutrophils # Lymphocytes # APTT D-Dimer Potassium Chloride BUN Creatinine BUN/Creatinine Ratio Glucose POC Glucose (mg/dL) 151 H 282 H Calcium Ferritin 521.2 H Lactate Dehydrogenase 412 H C-Reactive Protein 7.3 H Total Protein Albumin Procalcitonin Crossmatch 07/05/20 07/06/20 07/06/20 20:35 05:21 05:34 WBC RBC Hgb Hct Neutrophils # Lymphocytes # APTT D-Dimer 2.54 H Potassium Chloride BUN Creatinine BUN/Creatinine Ratio Glucose POC Glucose (mg/dL) 143 H Calcium Ferritin Lactate Dehydrogenase 1225 H C-Reactive Protein 53.9 H Total Protein Albumin Procalcitonin Crossmatch 07/06/20 07/06/20 07/06/20 06:41 11:07 11:07 WBC 13.4 H RBC Hgb Hct Neutrophils # 12.3 H Lymphocytes # 0.6 L APTT D-Dimer Potassium Chloride BUN Creatinine BUN/Creatinine Ratio Glucose POC Glucose (mg/dL) 69 L Calcium Ferritin 498.5 H Lactate Dehydrogenase C-Reactive Protein Total Protein Albumin Procalcitonin Crossmatch 07/06/20 07/06/20 07/06/20 11:48 16:40 20:16 WBC RBC Hgb Hct Neutrophils # Lymphocytes # APTT D-Dimer Potassium Chloride BUN Creatinine BUN/Creatinine Ratio Glucose POC Glucose (mg/dL) 139 H 299 H 285 H Calcium Ferritin Lactate Dehydrogenase C-Reactive Protein Total Protein Albumin Procalcitonin Crossmatch 07/06/20 07/06/20 07/07/20 23:01 23:25 05:56 WBC RBC 3.49 L Hgb 9.8 L D Hct 30.4 L Neutrophils # Lymphocytes # APTT D-Dimer Potassium Chloride BUN Creatinine BUN/Creatinine Ratio Glucose POC Glucose (mg/dL) 304 H 362 H Calcium Ferritin Lactate Dehydrogenase C-Reactive Protein Total Protein Albumin Procalcitonin Crossmatch 07/07/20 07/07/20 07/07/20 09:30 10:11 10:11 WBC RBC Hgb Hct Neutrophils # Lymphocytes # APTT D-Dimer 0.66 H Potassium Chloride BUN Creatinine BUN/Creatinine Ratio Glucose POC Glucose (mg/dL) 342 H Calcium Ferritin Lactate Dehydrogenase C-Reactive Protein 33.8 H Total Protein Albumin Procalcitonin Crossmatch 07/07/20 07/07/20 07/07/20 10:11 10:13 11:19 WBC RBC 2.13 L Hgb 6.2 L* D Hct 19.2 L* Neutrophils # 8.8 H Lymphocytes # 0.9 L APTT D-Dimer Potassium 3.0 L Chloride 115 H BUN 39 H Creatinine BUN/Creatinine Ratio Glucose 234 H POC Glucose (mg/dL) 285 H Calcium 6.0 L* Ferritin Lactate Dehydrogenase C-Reactive Protein Total Protein Albumin Procalcitonin Crossmatch Assessment and Plan Assessment: This is a 39-year-old woman with medical history of acute covid 19 positive (06/26/2020) that presented to the hospital on 07/01/2020 with shortness of breath fever and generalized weakness. Neurologist consulted for stroke like symptoms on 07/07/2020 noticed at around 8:00 and on known normal. Per the pat ient nurse NIH up with 20. No IV TPA because of ongoing last normal and that because of the significant the bleed. Left gaze deviation, mute, right facial droop is likely acute ischemic stroke. Possibly wateshed infarct from hypoxia from anemia and hypotension. On Lovenox Acute Anemia likely lower GI bleed Hypotension likely due to GI bleed Positive Covid 19 Diabetes Hypertension Hyperlipidemia Plan: We'll get a repeat CT of the head tomorrow in the morning to delineate the the stroke on the CT. I initially wanted to get MRI but I will hold off especially the patient is currently 19 positive. I ordered 2-D echo Cardiac monitoring. Recommend the systolic blood pressure to be between 120 and 140. Use vasopressors as blood pressure drops less than that. We'll hold off on any antiplatelets at this time because of the significant anemia from the GI bleed. Once the patient's the hemoglobin/hematocrit as well as the GI bleed is stabilized we'll start the patient on aspirin 81 mg. Regarding the use of statin I'll also hold off because of the GI hemorrhage which there is a controversy whether statins increased risk of GI bleed or not. Once the patient GI bleed and hemoglobin hematocrit is controlled I'll place the patient on Lipitor 40 mg. Consulted the physical therapy, occupational therapy and FIRE INSPECTOR. Recommend the neuro checks every 2 hours I ordered hemoglobin A1c, TSH. Ordered lipid profile Patient is currently getting blood transfusion for a significant anemia. I notified the patient nurse that the blood pressure goal systolic is between and the to use vasopressors. I'll defer the management of anemia to a collar tacker. Regarding the management of patient covert 19/respiratory symptoms all deferred to the ICU/back tender paper machine. Guarding the rest of the medical management defer to the primary team. Thank you for the consultation. Edmund Trejo M.D. Neuro-hospitalist
[2020-07-07] MEDS: POTASSIUM CHLORIDE 10 MEQ in WATER FOR INJECTION 1 100ML.BAG IVPB SCH ×3 (13:10→16:37)
[2020-07-07 13:29] LABS: HDL Cholesterol 13 mg/dL (40-60); LDL Cholesterol,Calculated 17 mg/dL (0-99); Triglycerides 99 mg/dL (<150)
[2020-07-07 14:35] LABS: Cholesterol <50 mg/dL (<200)
[2020-07-07 14:59] LABS: T4, Free (Free Thyroxine) 1.82 ng/dL (0.78-2.19)
--- NOTE | 2020-07-07 15:06 | P.PN ---
Subjective Progress Note Date: 07/07/20 Principal diagnosis: Acute covid 19 pneumonitis. A 69-year-old female patient coming in for an acute cold in 19 related pneumonia. The patient is diabetic and she has hypertension and she is also known to have hyperlipidemia. The patient was having fevers and some shortness of breath along with generalized weakness of a few days' duration. The patient tested positive for grover virus COVID 19 infection on 06/26/2020. Over the past 2 days, the patient was feeling more weak and fatigued. No nausea. No vomiting. No diarrhea. No abdominal pain. She had some increased cough. She came into the hospital and a chest x-ray done showed multifocal areas of pulmonary infiltrates consistent with pneumonia and a computed tomography scan of the chest showed scattered bilateral pulmonary infiltrates compatible with her grover virus Covid 19 infection. There was no evidence of any pulmonary embolism. The patient was febrile. The patient was hypoxic pH was placed on 2 L of oxygen by nasal cannula. T-max was 100.3. White cell count was normal and the patient had lymphopenia. D-dimer was 0.61. LDH was 834 with a CRP of 170 and the Pronestyl level of 0.1. Ferritin level was 367. The patient was hospitalized. The patient is seen today 07/03/2020 in follow-up on the regular medical floor. She is currently sitting up in bed. Awake and alert in no acute distress. She is maintaining O2 saturation in the low 90s on 2 L/m per nasal cannula. Currently afebrile. Hemodynamically stable. Blood glucose 142. This is day #2 of Remdesivir. She remains on dexamethasone, Lovenox, Pepcid, vitamin C, vitamin D, zinc. The patient is seen today 07/04/2020 in follow-up on the medical floor. She is awake and alert in no acute distress. Maintaining O2 saturations in the low 90s on 5 L nasal cannula. Currently afebrile. Blood culture reveals no growth. White count 13.2. Hemoglobin 13.8. Lymphocytes 0.9. She has received her third dose of Remdesivir today. On 07/05/2020 patient seen in follow-up on the general medical surgical floor, she remains on high flow oxygen, currently on the 6-7 L with a pulse ox of 91%, she is status post 1 unit of convalescent plasma, she is finishing her Remdesivir course today and a supposed to get her last dose. She states she is feeling weak, but overall feeling significantly better since admission. She's been afebrile, her vital signs have been stable, she does get exertional dyspnea, but no acute distress. Today's chest x-ray shows a diffuse multifocal opacities moderately increased since the previous chest x-ray, overall her inflammatory markers were improving on yesterday's labs since admission. Opal coulter remains on prophylactic doses of Lovenox, Pepcid, oral Decadron, vitamin C and zinc supplement. She has had no acute events overnight Patient was reevaluated today on 07/06/20, surprisingly, the patient is doing better than expected clinically, remains on 7 L nasal cannula, and her O2 saturations 90%. Her temp is 98 1, blood pressure is 125/81, patient is relatively asymptomatic except for feeling generally weak, and she has intermittent cough. She does have some vague aches and pains. Chest x-ray from yesterday continues to show diffuse multifocal opacities bilaterally. Labs today were reviewed, WBC count is 13.4 hemoglobin is 13.1. D-dimer is 2.54. Inflammatory markers were noted with LDH of 1225 and C-reactive protein is 53.9, significantly higher compared to yesterday. Patient was reevaluated today on 07/07/20, I saw this patient on the medical floor, however the rapid response team was assessing the patient on the floor for possible transfer to the ICU. Apparently the patient developed sudden mental status change this morning, with left-sided weakness, this was noted around 8 AM by the morning nurse were the patient was not verbally responsive, and she was noted to have left a gaze deviation. Patient is not verbalizing or follow any instructions. And she was noted to have some right-sided weakness. Hemoglobin dropped this morning down to 6.2, it was 9.8 yesterday, and it was 13.0 on admission. Patient had episodes of lower GI bleeding, she used to be on Lovenox which I have discontinued yesterday. Patient was on Lovenox because of her Covid 19 pneumonitis. And elevated d-dimer. GI was also consulted. Considering the GI bleeding, considering the mental status change and possible CVA, arrangements were made to transfer the patient immediately to the ICU this morning. In the meantime the patient is to receive a blood transfusion as soon as possible, hemoglobin now is 6.2, d-dimer is 0.66 INR is 1.6 electrolytes are normal WBC count is 10.3 And inflammatory markers are trending down. Objective - Vital Signs Vital signs: Vital Signs Temp 96.6 F L 07/07/20 13:55 Pulse 67 07/07/20 13:55 Resp 18 07/07/20 13:55 BP 108/55 07/07/20 13:55 Pulse Ox 99 07/07/20 13:55 Intake & Output 07/06/20 07/07/20 07/07/20 18:59 06:59 18:59 Intake Total 250 250 435 Output Total 125 Balance 250 250 310 Weight 50.8 kg 60.5 kg Intake: IV 125 Sodium Chloride 0.9% 1, 125 000 ml @ 100 mls/hr IV . Q10H [facility] Rx#:[id number] Intake, IV Titration 250 250 Amount Remdesivir (Eua) 100 mg 250 In Sodium Chloride 0.9% 250 ml @ 250 mls/hr IVPB DAILY@1300 [facility] Rx#: [id number] Sodium Chloride 0.9% 1, 250 000 ml @ 100 mls/hr IV . Q10H [facility] Rx#:[id number] Blood Product 310 Rc As-1 Unit 310 [id number] Rc As-1 Unit 0 [id number] Output: Urine 125 Other: Voiding Method Toilet Indwelling Catheter Indwelling Catheter # Voids 1 # Bowel Movements 1 - Exam Physical Exam: Revealed a 69-year-old female in bed, not verbal, not following any instructions, afebrile, and vital signs are stable, Head: Atraumatic, normocephalic. HEENT:[Neck is supple.] [No neck masses.] [No thyromegaly.] [No JVD.] Chest: [Symmetrical chest expansion, crackles at the bases bilaterally. No rhonchi and no wheezes. Cardiac Exam: [Normal S1 and S2, no S3 gallop, no murmur.] Abdomen: [Soft, nontender, no megaly, no rebound, no guarding, normal bowel sounds.] Extremities: [No clubbing, no edema, no cyanosis.] Neurological Exam: Patient is awake, not verbally responsive, not follow any instructions, left gaze deviation is noted, patient seems to be ignoring the right side completely. Reflexes 1+ throughout. Plantars are downgoing bilaterally. Psychiatric: Blunted mood and affect. Confused. Skin: No rashes. - Labs CBC & Chem 7: 07/07/20 10:11 07/07/20 10:13 Labs: Abnormal Lab Results - Last 24 Hours (Table) 07/04/20 07/06/20 07/06/20 Range/Units 16:06 11:07 16:40 RBC (3.80-5.40) m/uL Hgb (11.4-16.0) gm/dL Hct (34.0-46.0) % Neutrophils # (1.3-7.7) k/uL Lymphocytes # (1.0-4.8) k/uL PT (9.0-12.0) sec INR (<1.2) APTT (22.0-30.0) sec D-Dimer (<0.60) mg/L FEU Potassium (3.5-5.1) mmol/L Chloride (98-107) mmol/L BUN (7-17) mg/dL Glucose (74-99) mg/dL POC Glucose (mg/dL) 299 H (75-99) mg/dL Calcium (8.4-10.2) mg/dL Ferritin 498.5 H (10.0-291.0) ng/mL C-Reactive Protein (<10.0) mg/L HDL Cholesterol (40-60) mg/dL TSH (0.465-4.680) mIU/L Crossmatch See Detail 07/06/20 07/06/20 07/06/20 Range/Units 20:16 23:01 23:25 RBC 3.49 L (3.80-5.40) m/uL Hgb 9.8 L D (11.4-16.0) gm/dL Hct 30.4 L (34.0-46.0) % Neutrophils # (1.3-7.7) k/uL Lymphocytes # (1.0-4.8) k/uL PT (9.0-12.0) sec INR (<1.2) APTT (22.0-30.0) sec D-Dimer (<0.60) mg/L FEU Potassium (3.5-5.1) mmol/L Chloride (98-107) mmol/L BUN (7-17) mg/dL Glucose (74-99) mg/dL POC Glucose (mg/dL) 285 H 304 H (75-99) mg/dL Calcium (8.4-10.2) mg/dL Ferritin (10.0-291.0) ng/mL C-Reactive Protein (<10.0) mg/L HDL Cholesterol (40-60) mg/dL TSH (0.465-4.680) mIU/L Crossmatch 07/07/20 07/07/20 07/07/20 Range/Units 05:56 09:30 10:11 RBC (3.80-5.40) m/uL Hgb (11.4-16.0) gm/dL Hct (34.0-46.0) % Neutrophils # (1.3-7.7) k/uL Lymphocytes # (1.0-4.8) k/uL PT (9.0-12.0) sec INR (<1.2) APTT (22.0-30.0) sec D-Dimer 0.66 H (<0.60) mg/L FEU Potassium (3.5-5.1) mmol/L Chloride (98-107) mmol/L BUN (7-17) mg/dL Glucose (74-99) mg/dL POC Glucose (mg/dL) 362 H 342 H (75-99) mg/dL Calcium (8.4-10.2) mg/dL Ferritin (10.0-291.0) ng/mL C-Reactive Protein (<10.0) mg/L HDL Cholesterol (40-60) mg/dL TSH (0.465-4.680) mIU/L Crossmatch 07/07/20 07/07/20 07/07/20 Range/Units 10:11 10:11 10:11 RBC 2.13 L (3.80-5.40) m/uL Hgb 6.2 L* D (11.4-16.0) gm/dL Hct 19.2 L* (34.0-46.0) % Neutrophils # 8.8 H (1.3-7.7) k/uL Lymphocytes # 0.9 L (1.0-4.8) k/uL PT 15.5 H (9.0-12.0) sec INR 1.6 H (<1.2) APTT 31.0 H (22.0-30.0) sec D-Dimer (<0.60) mg/L FEU Potassium (3.5-5.1) mmol/L Chloride (98-107) mmol/L BUN (7-17) mg/dL Glucose (74-99) mg/dL POC Glucose (mg/dL) (75-99) mg/dL Calcium (8.4-10.2) mg/dL Ferritin (10.0-291.0) ng/mL C-Reactive Protein 33.8 H (<10.0) mg/L HDL Cholesterol (40-60) mg/dL TSH (0.465-4.680) mIU/L Crossmatch 07/07/20 07/07/20 07/07/20 Range/Units 10:11 10:13 11:19 RBC (3.80-5.40) m/uL Hgb (11.4-16.0) gm/dL Hct (34.0-46.0) % Neutrophils # (1.3-7.7) k/uL Lymphocytes # (1.0-4.8) k/uL PT (9.0-12.0) sec INR (<1.2) APTT (22.0-30.0) sec D-Dimer (<0.60) mg/L FEU Potassium 3.0 L (3.5-5.1) mmol/L Chloride 115 H (98-107) mmol/L BUN 39 H (7-17) mg/dL Glucose 234 H (74-99) mg/dL POC Glucose (mg/dL) 285 H (75-99) mg/dL Calcium 6.0 L* (8.4-10.2) mg/dL Ferritin (10.0-291.0) ng/mL C-Reactive Protein (<10.0) mg/L HDL Cholesterol 13 L (40-60) mg/dL TSH 0.091 L (0.465-4.680) mIU/L Crossmatch Microbiology - Last 24 Hours (Table) 07/01/20 11:00 Blood Culture - Final Blood No Growth after 144 hours Assessment and Plan Assessment: 1 acute Covid 19 related pneumonia. The patient was diagnosed with ear infection on 06/26/2020. The patient developed worsening symptoms in addition to dyspnea and hypoxemia and cough and for that reason the patient was admitted to the hospital. She is currently on 6 L of oxygen by nasal cannula, with a pulse ox of 91%, patient will finish her course of Remdesivir today on 07/05/2020, and she status post transfusion of one unit of convalescent plasma 2 acute hypoxic respiratory failure secondary to above 3 fever secondary to above 4 constitutional symptoms secondary to above 5 elevated inflammatory markers secondary to above 6 hypertension 7 hyperlipidemia 8 diabetes mellitus with elevated blood sugar 9 diverticular disease 10 osteoarthritis 11 acute blood loss anemia secondary to GI bleeding exact source of the bleeding is not clear, GI was consulted, patient will receive a unit of packed RBCs, will hold Lovenox, and continue Protonix. 12 left gaze deviation possible acute ischemic stroke. Or could be watershed infarct from anemia and poor cerebral perfusion. CT of the brain is nondiagnostic. Neurology was consulted. Recommendation: Transferred to ICU. Transfuse with at least one or possibly 2 units of packed RBCs immediately. Continue to hold Lovenox. Continue droplet isolation/precautions Neurology to see on consultation, I verbally communicated with the neurologist to evaluate. Close monitoring of hemoglobin and hematocrit GI to see on consultation. Continue Protonix. IV push 40 mg twice a day. Continue the cocktail for Covid 19 pneumonitis. We will continue to follow the patient in the ICU after transfer. Critical care time is 33 minutes. Time with Patient: Greater than 30 (1111)
--- NOTE | 2020-07-07 16:03 | P.CONS ---
History of Present Illness - Reason for Consult Consult date: 07/07/20 GI bleed Requesting physician: Tamia Spears - Chief Complaint Weakness, shortness of breath - History of Present Illness Of note consultation was performed via telephone conference with the patient's nurse for a total of 8 minutes as the patient is currently positive for the grover virus, and unable to provide history due to altered mentation. 69-year-old female with multiple medical comorbidities including diabetes, hypertension, hyperlipidemia who had presented to the hospital due to weakness and shortness of breath. The patient was found to be positive for Covid 19 and was being treated on the medical floor for such. The patient had been doing well until last night when the patient had a large bloody bowel movement. No reported history of prior GI bleeding. Unclear if the patient was experiencing pain prior to the bleeding. Patient was found to have an acute fall in her hemoglobin from 9.8 down to 6.2. She was transferred to the ICU where she was t hen noted to have altered mental status and gaze deviation with concern for an ischemic stroke. As per the nursing staff there are been no further signs or symptoms of GI bleeding with no bloody bowel movements or hematemesis since being brought to the ICU. Review of Systems Unable to obtain due to altered mental status. ROS unobtainable: due to mental status Past Medical History Past Medical History: Diabetes Mellitus, Hyperlipidemia, Hypertension, Osteoarthritis (OA) Additional Past Medical History / Comment(s): Pt recently admitted to [facility] on 06/26/20 with covid pneumonia/dehydration. Pt states her hydrochlorothiazide was placed on hold during that stay. Other hx: NIDDM type II, vertigo, arthritis bilateral hands, chronic low back pain, headaches, past head injury-no deficits, bronchitis, anemia, sinus problems/seasonal allergies, diverticular disease, hemorrhoids, past L lower leg cellulitis d/t cat bite. History of Any Multi-Drug Resistant Organisms: None Reported Past Surgical History: Hysterectomy, Tonsillectomy Additional Past Surgical History / Comment(s): Rectocele, interstinal cyst removed along with adhesions, colonoscopy, bilateral cataract removals, Past Anesthesia/Blood Transfusion Reactions: Postoperative Nausea & Vomiting (PONV) Smoking Status: Never smoker - Past Family History Mother Family Medical History: Diabetes Mellitus Additional Family Medical History / Comment(s): IDDM. Mother is . Father Family Medical History: Diabetes Mellitus Additional Family Medical History / Comment(s): IDDM. Father is . Medications and Allergies Home Medications Medication Instructions Recorded Confirmed Type Ascorbic Acid [Vitamin C] 500 mg PO DAILY 11/01/17 07/01/20 History Cholecalciferol (Vitamin D3) 2,000 unit PO HS 11/01/17 07/01/20 History [Vitamin D3] Dapagliflozin Propanediol [Farxiga] 10 mg PO DAILY 11/01/17 07/01/20 History Linagliptin [Tradjenta] 5 mg PO HS 11/01/17 07/01/20 History metFORMIN HCL 1,000 mg PO BID 11/01/17 07/01/20 History Cyanocobalamin (Vitamin B-12) 1,000 mcg PO DAILY 06/27/20 07/01/20 History [Vitamin B-12] Glimepiride [Amaryl] 2 mg PO [id number] 06/27/20 07/01/20 History Allergies Allergy/AdvReac Type Severity Reaction Status Date / Time canagliflozin [From Invokana] AdvReac Unknown Verified 07/01/20 11:11 hydromorphone HCl AdvReac Nausea Verified 07/01/20 11:11 [From Dilaudid] sulfamethoxazole AdvReac Nausea & Verified 07/01/20 11:11 [From Bactrim] Vomiting trimethoprim [From Bactrim] AdvReac Nausea & Verified 07/01/20 11:11 Vomiting Physical Exam Vitals: Vital Signs Temp Pulse Resp BP BP Pulse Ox 07/07/20 11:28 97 07/07/20 09:28 97.6 F 86 16 72/40 92 L 07/07/20 03:01 82 20 07/07/20 02:55 97.6 F 82 20 94/50 98 07/07/20 02:14 74 97/67 93 L 07/07/20 00:35 75 96/63 07/07/20 00:20 77 90/56 07/07/20 00:05 76 94/56 07/06/20 23:05 72 108/70 90 L 07/06/20 23:00 81 98/63 90 L 07/06/20 22:51 89 L 07/06/20 22:45 80 76/52 88 L 07/06/20 21:15 97.5 F L 65 18 126/66 95 11/24/20 17:46 98.1 F 74 20 125/81 90 L 07/06/20 14:00 97.8 F 76 20 139/74 90 L Intake and Output 07/06/20 07/07/20 07/07/20 22:59 06:59 14:59 Intake Total 250 0 Balance 250 0 Intake: Intake, IV Titration 250 Amount Sodium Chloride 0.9% 1, 250 000 ml @ 50 mls/hr IV . Q20H [facility] Rx#:[id number] Blood Product 0 Rc As-1 Unit 0 [id number] Other: Voiding Method Toilet Indwelling Catheter # Voids 1 # Bowel Movements 1 Weight 60.5 kg Physical exam not performed due to positive Covid 19 status, we'll defer physical exam to the primary team and battery filler service. Results CBC & Chem 7: 07/07/20 10:11 07/07/20 10:13 Labs: Abnormal Lab Results - Last 24 Hours (Table) 07/04/20 07/06/20 07/06/20 Range/Units 16:06 11:07 11:07 WBC 13.4 H (3.8-10.6) k/uL RBC (3.80-5.40) m/uL Hgb (11.4-16.0) gm/dL Hct (34.0-46.0) % Neutrophils # 12.3 H (1.3-7.7) k/uL Lymphocytes # 0.6 L (1.0-4.8) k/uL D-Dimer (<0.60) mg/L FEU Potassium (3.5-5.1) mmol/L Chloride (98-107) mmol/L BUN (7-17) mg/dL Glucose (74-99) mg/dL POC Glucose (mg/dL) (75-99) mg/dL Calcium (8.4-10.2) mg/dL Ferritin 498.5 H (10.0-291.0) ng/mL Crossmatch See Detail 07/06/20 07/06/20 07/06/20 Range/Units 16:40 20:16 23:01 WBC (3.8-10.6) k/uL RBC 3.49 L (3.80-5.40) m/uL Hgb 9.8 L D (11.4-16.0) gm/dL Hct 30.4 L (34.0-46.0) % Neutrophils # (1.3-7.7) k/uL Lymphocytes # (1.0-4.8) k/uL D-Dimer (<0.60) mg/L FEU Potassium (3.5-5.1) mmol/L Chloride (98-107) mmol/L BUN (7-17) mg/dL Glucose (74-99) mg/dL POC Glucose (mg/dL) 299 H 285 H (75-99) mg/dL Calcium (8.4-10.2) mg/dL Ferritin (10.0-291.0) ng/mL Crossmatch 07/06/20 07/07/20 07/07/20 Range/Units 23:25 05:56 09:30 WBC (3.8-10.6) k/uL RBC (3.80-5.40) m/uL Hgb (11.4-16.0) gm/dL Hct (34.0-46.0) % Neutrophils # (1.3-7.7) k/uL Lymphocytes # (1.0-4.8) k/uL D-Dimer (<0.60) mg/L FEU Potassium (3.5-5.1) mmol/L Chloride (98-107) mmol/L BUN (7-17) mg/dL Glucose (74-99) mg/dL POC Glucose (mg/dL) 304 H 362 H 342 H (75-99) mg/dL Calcium (8.4-10.2) mg/dL Ferritin (10.0-291.0) ng/mL Crossmatch 07/07/20 07/07/20 07/07/20 Range/Units 10:11 10:11 10:13 WBC (3.8-10.6) k/uL RBC 2.13 L (3.80-5.40) m/uL Hgb 6.2 L* D (11.4-16.0) gm/dL Hct 19.2 L* (34.0-46.0) % Neutrophils # 8.8 H (1.3-7.7) k/uL Lymphocytes # 0.9 L (1.0-4.8) k/uL D-Dimer 0.66 H (<0.60) mg/L FEU Potassium 3.0 L (3.5-5.1) mmol/L Chloride 115 H (98-107) mmol/L BUN 39 H (7-17) mg/dL Glucose 234 H (74-99) mg/dL POC Glucose (mg/dL) (75-99) mg/dL Calcium 6.0 L* (8.4-10.2) mg/dL Ferritin (10.0-291.0) ng/mL Crossmatch 07/07/20 Range/Units 11:19 WBC (3.8-10.6) k/uL RBC (3.80-5.40) m/uL Hgb (11.4-16.0) gm/dL Hct (34.0-46.0) % Neutrophils # (1.3-7.7) k/uL Lymphocytes # (1.0-4.8) k/uL D-Dimer (<0.60) mg/L FEU Potassium (3.5-5.1) mmol/L Chloride (98-107) mmol/L BUN (7-17) mg/dL Glucose (74-99) mg/dL POC Glucose (mg/dL) 285 H (75-99) mg/dL Calcium (8.4-10.2) mg/dL Ferritin (10.0-291.0) ng/mL Crossmatch Microbiology - Last 24 Hours (Table) 07/01/20 11:00 Blood Culture - Preliminary Blood No Growth after 120 hours Assessment and Plan (1) Lower GI bleed Narrative/Plan: 69-year-old female with multiple comorbidities who presented for weakness and shortness of breath and was found to have positive testing for Covid 19 for which she was receiving appropriate therapy. Last night the patient had a large bloody bowel movement and has subsequently had a fall in her hemoglobin from 9.8 yesterday down to 6.2 today. No further bleeding since that time. Patient's has been noted to have altered mentation and gaze deviation and there is concern for an ischemic stroke at this time. Unclear etiology of bleeding, given thromboembolic nature of the grover virus infection this may be ischemic in nature, diverticular, or other etiology. Current Visit: Yes Status: Acute Code(s): K92.2 - GASTROINTESTINAL HEMORRHAGE, UNSPECIFIED SNOMED Code(s): 98108078 (2) Anemia associated with acute blood loss Current Visit: Yes Status: Acute Code(s): D62 - ACUTE POSTHEMORRHAGIC ANEMIA SNOMED Code(s): 466619236 (3) COVID-19 Current Visit: Yes Status: Acute Code(s): U07.1 - COVID-19 SNOMED Code(s): 562540595 Plan: Supportive care Continue IV Protonix twice a day Continue to monitor hemoglobin and hematocrit and transfuse as needed Continue to monitor for signs or symptoms of GI bleeding Given multiple complex medical problems patient would be extremely high risk for endoscopic evaluation at this time, there've been no further signs of GI bleeding since the patient was transferred to the ICU and we'll continue medical management at this time Appreciate recommendations and management from the battery filler service in the neurology service Thank you for allowing us to participate in the care of the patient we will continue to follow
[2020-07-07 18:45] LABS: Glucose,Whole Blood 247 mg/dL (75-99)
[2020-07-07 19:04] LABS: Ferritin 341.2 ng/mL (10.0-291.0)
--- NOTE | 2020-07-07 21:31 | P.PN ---
Subjective From records Patient is a 69-year-old female with a known history of hypertension, diabetes type 2 [id number], osteoarthritis who was recently seen at [facility] on 06/26/2020 with Covid pneumonia came to hospital with the complaints of generalized weakness. Patient says that he has been having fevers and exertional dyspnea for the past 1 to 2 days. Patient was tested positive for COVID-19 virus approximately 5 days ago. For the past 2 days patient has been having generalized weakness and fatigue. No diarrhea no vomiting. Patient does have cough without sputum production and has been having worsening shortnes s of breath. On and off chest pains as well. Sharp aching type without any radiation. Denied any leg swelling or palpitations. No hematemesis or melena. Chest x-ray showed multifocal areas of infiltrate correlate for pneumonia CT angiogram showed scattered infiltrates greater on the right compatible with reported Covid pneumonia. No acute pulmonary embolism. Laboratory data showed D-dimer 0.61, lymphocyte 0.8, ferritin 367.5, LDH 834, CRP 170, procalcitonin 0.1 On admission T-max 100.3 and pulse ox 92% on 2 L oxygen. 07/02/2029 patient is currently lying in the bed comfortably. No complaints of chest pain or worsening shortness of breath. Patient says that she feels better today. Patient is being continued on Decadron and Lovenox. Insulin was started for better sugar control. Preprandial dose was added. Continued on oxygen therapy and follow closely. 07/03/2020 Patient is currently awake alert oriented 3. Lying in the bed comfortably. Still occurring oxygen at 3-4 L when asked cannula. Patient has been afebrile. continued on her Remdesivir. Continue on dexamethasone Lovenox and vitamin supplementation. Pulmonary is following. 07/04/2020 Patient is awake alert oriented x3. Still requiring oxygen at 4 L via nasal cannula. Saturating around 90%. Otherwise patient states that she feels better. Currently afebrile. Blood cultures have been negative. Continued on remdesivir therapy Laboratory data showed WBC 13.1 hemoglobin 13.8 and neutrophils 11.9 CRP 11.1 and LDH is 429 Subjective: 07/05/2020 This is a pleasant 69 years old female who presents with Covid pneumonia and acute hypoxic respiratory failure. Patient is followed closely by pulmonary service. Patient is currently on dexamethasone 6 mg orally daily and Remdesivir, also she is on zinc and vitamin C and normal saline at 80 milliliters per hour. She is saturating 90% on 67 L via nasal cannula. Patient is afebrile for more than 48 hours. She is slightly tachypneic at 20 breaths p er minute. Blood pressure 161/90, heart rate 63 Leukocytosis improvement to 11.3, glucose is controlled. BMP is unremarkable from yesterday. Increased inflammatory markers of lactate dehydrogenase and C-reactive protein 07/06/2020 pt is still with Covid pneumonia. Yesterday her oxygen requirement went up from 5 to 7 mL per min . Her oxygen requirement today's looks the same. She is slightly tachypneic. Patient is afebrile WBC 13.4 K. D-dimer increased from 0.6 up to 2.5 so we will increase her Lovenox from 40 mg daily to twice a day, lactate dehydrogenase and C-reactive proteins are both significantly worse. Her glucose was 69 this morning and he lowered her Levemir from 15 down to 10 units She is currently on normal saline at 50 mL per hour as well she remains on dexamethasone, Remdesivir, zinc and vitamin C. Pulmonary team on the case 07/07/2020 Patient today was getting worse. While she was still treated for Covid pneumonia she developed a drop in hemoglobin last evening and in the morning, From 13.1 down to 9.8 yesterday night and 6.2 this morning. While WBC was within the reference range today at 10.3 and normal platelets at 370 1K. INR at 1.6. Her d-dimer actually was trending down this morning from 2.5 down to 0.6 which makes the possibility of DIC unlikely. Last night patient was found on the floor lying on her left side with large dark red blood was noted in the toilet, patient denies head trauma at that time and she remained alert and oriented Lovenox for discontinued (Patient was on Lovenox for worsening d-dimer and needed higher dose of oxygen from 7 up to 15 L/m secondary to her Covid pneumonia) and she was anxious to get 3 units of blood is provided for the patient. Protonix twice a day was added. And GI team were consulted And recom mended to continue with supportive care. Patient is high-risk for endoscopic evaluation or intervention at this time. Also there was drop in blood pressure and patient received on 1.5 liter of normal saline, her blood pressure improved now with systolic 120s to 130s. Patient was sent to the ICU with close monitoring as pressors might be indicated to support her blood pressure Also patient earlier today became mute with gaze palsy and inability to follow commands with some weakness on the right arm. Code stroke was called.. CT of the brain was done: No acute intracranial hemorrhage, midline shift or mass effect. CTA of the head and neck: No significant stenosis or aneurysm changes in the carotid arteries or [place]. Neurologist was consulted, He recommended to repeat the CAT scan of the head tomorrow for follow-up , as possible acute stroke Also recommended to keep her blood pressure goal between 120-140 and continue with Neuro-Check Review of systems: n/a Active Medications Generic Name Dose Route Start Last Admin Trade Name Freq PRN Reason Stop Dose Admin Acetaminophen 650 mg 07/01/20 20:46 07/04/20 21:10 Acetaminophen Tab 325 Mg Tab PO 650 mg Q6HR PRN Administration Fever and/ or Pain Ascorbic Acid 500 mg 07/01/20 17:00 07/07/20 11:52 Ascorbic Acid 500 Mg Tab PO Not Given DAILY T[facility] Cholecalciferol 2,000 unit 07/01/20 21:00 07/06/20 20:25 Cholecalciferol 1,000 Unit Tab PO 2,000 unit HS TURNER Administration Cyanocobalamin 1,000 mcg 07/02/20 09:00 07/07/20 11:52 Cyanocobalamin 500 Mcg Tab PO Not Given DAILY [facility] Dexamethasone 6 mg 07/01/20 17:00 07/07/20 11:52 Dexamethasone 2 Mg Tab PO Not Given DAILY [facility] Glimepiride 2 mg 07/02/20 07:30 07/07/20 11:51 Glimepiride 2 Mg Tab PO Not Given AC-BRKFST TURNER Sodium Chloride 1,000 mls @ 100 mls/hr 07/01/20 12:45 07/07/20 07:51 Saline 0.9% IV Not Given .Q10H [facility] Insulin Aspart 0 unit 07/01/20 21:00 07/07/20 18:51 Insulin Aspart (Novolog) 100 Unit/Ml Vial SQ 4 unit ACHS T[facility]NER Administration Protocol Insulin Aspart 5 unit 07/03/20 07:30 07/07/20 18:48 Insulin Aspart (Novolog) 100 Unit/Ml Vial SQ Not Given AC-TID [facility] Insulin Detemir 10 unit 07/06/20 21:00 07/06/20 20:26 Insulin Detemir (Levemir) 100 Unit/Ml Syr SQ 10 unit HS T[facility]NER Administration Linagliptin 5 mg 07/01/20 21:00 07/06/20 20:26 Linagliptin 5 Mg Tablet PO 5 mg HS TURNER Administration Miscellaneous Information 1 each 07/07/20 12:04 Potassium Replacement Protocol 1 Each Misc MISCELLANE DAILY PRN Per Protocol Protocol Naloxone HCl 0.2 mg 07/01/20 12:41 Naloxone 0.4 Mg/Ml 1 Ml Vial IV Q2M PRN Opioid Reversal Ondansetron HCl 4 mg 07/05/20 12:16 07/05/20 12:41 Ondansetron 4 Mg/2 Ml Vial IVP 4 mg Q6HR PRN Administration Nausea And Vomiting Pantoprazole Sodium 40 mg 07/06/20 23:45 07/07/20 09:29 Pantoprazole 40 Mg/10 Ml Vial IVP 40 mg BID T[facility] Administration Zinc Sulfate 220 mg 07/02/20 09:00 07/07/20 11:52 Zinc Sulfate 220 Mg Cap PO Not Given DAILY T[facility] Objective - Vital Signs Vital signs: Vital Signs Temp 97.6 F 07/07/20 16:37 Pulse 70 07/07/20 19:00 Resp 16 07/07/20 19:00 BP 110/62 07/07/20 19:00 Pulse Ox 97 07/07/20 20:54 Intake & Output 07/07/20 07/07/20 07/08/20 06:59 18:59 06:59 Intake Total 250 1680 125 Output Total 450 75 Balance 250 1230 50 Weight 60.5 kg Intake: IV 750 125 Sodium Chloride 0.9% 1, 750 125 000 ml @ 100 mls/hr IV . Q10H [facility] Rx#:[id number] Intake, IV Titration 250 Amount Sodium Chloride 0.9% 1, 250 000 ml @ 100 mls/hr IV . Q10H [facility] Rx#:[id number] Blood Product 930 Rc As-1 Unit 310 [id number] Rc As-1 Unit 310 [id number] Rc As-1 Unit 310 [id number] Output: Urine 450 75 Other: Voiding Method Indwelling Catheter Indwelling Catheter # Voids 1 # Bowel Movements 1 - Exam -GENERAL: The patient is mute, does not follow command HEENT: Pupils are round and equally reacting to light. EOMI. No scleral icterus. No conjunctival pallor. Normocephalic, atraumatic. No pharyngeal erythema. No thyromegaly. CARDIOVASCULAR: S1 and S2 present. No murmurs, rubs, or gallops. PULMONARY: Chest is clear to auscultation, no wheezing or crackles. ABDOMEN: Soft, nontender, nondistended, normoactive bowel sounds. No palpable organomegaly. MUSCULOSKELETAL: No joint swelling or deformity. EXTREMITIES: No cyanosis, clubbing, or pedal edema. -NEUROLOGICAL: Patient is mute, with right facial droop and left gaze deviation. With some weakness on the right side SKIN: No rashes. no petechiae. - Labs CBC & Chem 7: 07/07/20 10:11 07/07/20 10:13 Labs: Abnormal Lab Results - Last 24 Hours (Table) 07/04/20 07/06/20 07/06/20 Range/Units 16:06 23:01 23:25 RBC 3.49 L (3.80-5.40) m/uL Hgb 9.8 L D (11.4-16.0) gm/dL Hct 30.4 L (34.0-46.0) % Neutrophils # (1.3-7.7) k/uL Lymphocytes # (1.0-4.8) k/uL PT (9.0-12.0) sec INR (<1.2) APTT (22.0-30.0) sec D-Dimer (<0.60) mg/L FEU Potassium (3.5-5.1) mmol/L Chloride (98-107) mmol/L BUN (7-17) mg/dL Glucose (74-99) mg/dL POC Glucose (mg/dL) 304 H (75-99) mg/dL Calcium (8.4-10.2) mg/dL Ferritin (10.0-291.0) ng/mL C-Reactive Protein (<10.0) mg/L HDL Cholesterol (40-60) mg/dL TSH (0.465-4.680) mIU/L Crossmatch See Detail 07/07/20 07/07/20 07/07/20 Range/Units 05:56 09:30 10:11 RBC (3.80-5.40) m/uL Hgb (11.4-16.0) gm/dL Hct (34.0-46.0) % Neutrophils # (1.3-7.7) k/uL Lymphocytes # (1.0-4.8) k/uL PT (9.0-12.0) sec INR (<1.2) APTT (22.0-30.0) sec D-Dimer 0.66 H (<0.60) mg/L FEU Potassium (3.5-5.1) mmol/L Chloride (98-107) mmol/L BUN (7-17) mg/dL Glucose (74-99) mg/dL POC Glucose (mg/dL) 362 H 342 H (75-99) mg/dL Calcium (8.4-10.2) mg/dL Ferritin (10.0-291.0) ng/mL C-Reactive Protein (<10.0) mg/L HDL Cholesterol (40-60) mg/dL TSH (0.465-4.680) mIU/L Crossmatch 07/07/20 07/07/20 07/07/20 Range/Units 10:11 10:11 10:11 RBC 2.13 L (3.80-5.40) m/uL Hgb 6.2 L* D (11.4-16.0) gm/dL Hct 19.2 L* (34.0-46.0) % Neutrophils # 8.8 H (1.3-7.7) k/uL Lymphocytes # 0.9 L (1.0-4.8) k/uL PT 15.5 H (9.0-12.0) sec INR 1.6 H (<1.2) APTT 31.0 H (22.0-30.0) sec D-Dimer (<0.60) mg/L FEU Potassium (3.5-5.1) mmol/L Chloride (98-107) mmol/L BUN (7-17) mg/dL Glucose (74-99) mg/dL POC Glucose (mg/dL) (75-99) mg/dL Calcium (8.4-10.2) mg/dL Ferritin 341.2 H (10.0-291.0) ng/mL C-Reactive Protein 33.8 H (<10.0) mg/L HDL Cholesterol (40-60) mg/dL TSH (0.465-4.680) mIU/L Crossmatch 07/07/20 07/07/20 07/07/20 Range/Units 10:11 10:13 11:19 RBC (3.80-5.40) m/uL Hgb (11.4-16.0) gm/dL Hct (34.0-46.0) % Neutrophils # (1.3-7.7) k/uL Lymphocytes # (1.0-4.8) k/uL PT (9.0-12.0) sec INR (<1.2) APTT (22.0-30.0) sec D-Dimer (<0.60) mg/L FEU Potassium 3.0 L (3.5-5.1) mmol/L Chloride 115 H (98-107) mmol/L BUN 39 H (7-17) mg/dL Glucose 234 H (74-99) mg/dL POC Glucose (mg/dL) 285 H (75-99) mg/dL Calcium 6.0 L* (8.4-10.2) mg/dL Ferritin (10.0-291.0) ng/mL C-Reactive Protein (<10.0) mg/L HDL Cholesterol 13 L (40-60) mg/dL TSH 0.091 L (0.465-4.680) mIU/L Crossmatch 07/07/20 Range/Units 18:34 RBC (3.80-5.40) m/uL Hgb (11.4-16.0) gm/dL Hct (34.0-46.0) % Neutrophils # (1.3-7.7) k/uL Lymphocytes # (1.0-4.8) k/uL PT (9.0-12.0) sec INR (<1.2) APTT (22.0-30.0) sec D-Dimer (<0.60) mg/L FEU Potassium (3.5-5.1) mmol/L Chloride (98-107) mmol/L BUN (7-17) mg/dL Glucose (74-99) mg/dL POC Glucose (mg/dL) 247 H (75-99) mg/dL Calcium (8.4-10.2) mg/dL Ferritin (10.0-291.0) ng/mL C-Reactive Protein (<10.0) mg/L HDL Cholesterol (40-60) mg/dL TSH (0.465-4.680) mIU/L Crossmatch Microbiology - Last 24 Hours (Table) 07/01/20 11:00 Blood Culture - Final Blood No Growth after 144 hours Assessment and Plan Assessment: Acute COVID-19 viral pneumonia. Acute hypoxic respiratory failure secondary to above Elevated inflammatory markers Acute GI bleed Acute blood loss anemia Possible acute stroke with right hemiparesis and left gaze deviation Hyperglycemia with uncontrolled diabetes type 2. Better controlled now Hypertension Osteoarthritis History of hemorrhoids and diverticular disease. Plan: This is a pleasant 69 years old female who presents with acute Covid pneumonia. Continue with oxygen Continue with dexamethasone and Remdesivir, continue with zinc and vitamin C. Follow-up recommendation by pulmonary service. discontinue lovenox and continue with protonix. Agree with blood transfusion and monitor hemoglobin closely. Monitor vitals closely and keep systolic blood pressure 120-140. Follow-up recommendation by GI team. Follow-up recommendation by neurologist, repeat CT of the brain. His recommendation. Labs and medication were reviewed.. Continue same treatment. Continue with symptomatic treatment. Resume home medication. Monitor lytes and vitals. DVT and GI prophylaxis. Further recommendationsas per clinical course of the patient DVT prophylaxis: No anticoagulation in view of GI bleed GI Prophylaxis: Protonix Prognosis is guarded
[2020-07-07] MEDS: CHOLECALCIFEROL 1,000 UNIT TAB PO SCH (21:59)
[2020-07-07 22:00] LABS: Basophils # (A) 0.1 k/uL (0-0.2); Basophils % (A) 1 %; Eosinophils # (A) 0.1 k/uL (0-0.7); Eosinophils % (A) 1 %; HCT 34.9 % (34.0-46.0); Lymphocytes # (A) 1.3 k/uL (1.0-4.8); Lymphocytes % (A) 12 %; MCH 29.3 pg (25.0-35.0); MCHC 34.2 g/dL (31.0-37.0); MCV 85.7 fL (80.0-100.0); Monocytes # (A) 0.6 k/uL (0-1.0); Monocytes % (A) 5 %; Neutrophils # (A) 8.9 k/uL (1.3-7.7); Neutrophils % (A) 80 %; Platelet Count 269 k/uL (150-450); RBC 4.07 m/uL (3.80-5.40); RDW 13.8 % (11.5-15.5); WBC 11.1 k/uL (3.8-10.6)
[2020-07-07] MEDS: INSULIN DETEMIR (LEVEMIR) 100 UNIT/ML SYR SQ SCH (22:00)
[2020-07-07 22:04] LABS: HGB 11.9 gm/dL (11.4-16.0)
[2020-07-07 22:20] LABS: Glucose,Whole Blood 182 mg/dL (75-99)
[2020-07-07 22:28] LABS: Hemoglobin A1C 8.4 % (4.0-6.0)
[2020-07-07] MEDS: LINAGLIPTIN 5 MG TABLET PO SCH (23:18)
[2020-07-08] MEDS: SODIUM CHLORIDE 0.9% 1,000 ML IV SCH ×3 (02:00→20:18)
--- NOTE | 2020-07-08 05:40 | CT ---
EXAM: CT Head Without Intravenous Contrast CLINICAL HISTORY: stroke: left gaze deviation, right facial droop. TECHNIQUE: Axial computed tomography images of the head/brain without intravenous contrast. CTDI is 50.8 mGy and DLP is 1095.4 mGy-cm. This CT exam was performed using one or more of the following dose reduction techniques: automated exposure control, adjustment of the mA and/or kV according to patient size, and/or use of iterative reconstruction technique. COMPARISON: 07/07/2020 FINDINGS: Brain: There is no evidence of an acute transcortical infarct or acute intracranial hemorrhage. No significant white matter disease. Ventricles: Unremarkable. No ventriculomegaly. Bones/joints: Unremarkable. No acute fracture. Soft tissues: Unremarkable. Sinuses: Unremarkable as visualized. No acute sinusitis. Mastoid air cells: Unremarkable as visualized. No mastoid effusion. IMPRESSION: No CT evidence of acute intracranial pathology without significant interval change. If clinical suspicion remains, consider MRI of the brain.
[2020-07-08 06:45] LABS: Basophils % (A) 0 %; Eosinophils # (A) 0.3 k/uL (0-0.7); Eosinophils % (A) 2 %; HGB 12.3 gm/dL (11.4-16.0); Lymphocytes # (A) 1.4 k/uL (1.0-4.8); Lymphocytes % (A) 13 %; MCH 29.2 pg (25.0-35.0); MCHC 33.4 g/dL (31.0-37.0); MCV 87.6 fL (80.0-100.0); Mean Platelet Volume 9.2; Monocytes # (A) 0.5 k/uL (0-1.0); Monocytes % (A) 5 %; Neutrophils # (A) 8.4 k/uL (1.3-7.7); Neutrophils % (A) 79 %; Platelet Count 267 k/uL (150-450); RBC 4.23 m/uL (3.80-5.40); RDW 14.3 % (11.5-15.5); WBC 10.7 k/uL (3.8-10.6)
--- NOTE | 2020-07-08 07:06 | XR ---
EXAMINATION TYPE: XR chest 1V portable DATE OF EXAM: 07/08/2020 HISTORY: Shortness of breath. COMPARISON: 07/07/2020 TECHNIQUE: Single view of the chest is submitted. FINDINGS: Demonstrated are scattered senescent parenchymal change. Progressive diffuse bilateral airspace infiltrates are noted. The heart is stable. Hilar and mediastinal structures are within normal limits. Degenerative changes are seen of the dorsal spine. IMPRESSION: 1. Progressive diffuse bilateral airspace infiltrates are noted.
[2020-07-08 07:10] LABS: Glucose,Whole Blood 85 mg/dL (75-99)
[2020-07-08] MEDS: GLIMEPIRIDE 2 MG TAB PO SCH (07:11)
[2020-07-08] MEDS: INSULIN ASPART (NovoLOG) 100 UNIT/ML VIAL SQ SCH ×7 (07:12→20:17)
[2020-07-08] MEDS: PANTOPRAZOLE 40 MG/10 ML VIAL IVP SCH ×2 (08:15→20:17)
[2020-07-08] MEDS: ASCORBIC ACID 500 MG TAB PO SCH (08:15)
[2020-07-08] MEDS: dexAMETHasone 2 MG TAB PO SCH (08:15)
[2020-07-08] MEDS: CYANOCOBALAMIN 500 MCG TAB PO SCH (08:15)
[2020-07-08] MEDS: ZINC SULFATE 220 MG CAP PO SCH (08:16)
[2020-07-08 09:43] LABS: African American GFR (CKD) >90 (>60 ml/min/1.73 sqM); Anion Gap 1 mmol/L; Blood Urea Nitrogen 29 mg/dL (7-17); C Reactive Protein 27.4 mg/L (<10.0); Carbon Dioxide 25 mmol/L (22-30); Chloride 117 mmol/L (98-107); Glucose 70 mg/dL (74-99); LDH 917 U/L (313-618); Non-African American GFR(CKD) >90 (>60 ml/min/1.73 sqM); Potassium 4.1 mmol/L (3.5-5.1); Sodium 143 mmol/L (137-145)
[2020-07-08 12:11] LABS: Glucose,Whole Blood 214 mg/dL (75-99)
--- NOTE | 2020-07-08 13:08 | P.PN ---
Subjective Progress Note Date: 07/08/20 Patient was seen at bedside and she is sitting at the side of the bed. Per the patient's nurse her symptoms resolved and she is back to normal. Upon seeing the patient the she said that she's doing extremely much better today compared to yesterday. Unsure how long the episode of her deficit that lasted for. Patient received 3 units of blood transfusion yesterday. Her hemoglobin yesterday was 6.2 and repeat today is 12.3. Platelet count is a 267. Systolic blood pressure has been in the range predominantly in the 120s over 50 to 60s. There are episode that the systolic blood pressure is in the 102 episodes in the 90s but predominantly it's 120s. Objective - Vital Signs Vital signs: Vital Signs Temp 97.9 F 07/08/20 08:00 Pulse 70 07/08/20 09:00 Resp 18 07/08/20 09:00 BP 125/59 07/08/20 09:00 Pulse Ox 95 07/08/20 09:00 Intake & Output 07/07/20 07/08/20 07/08/20 18:59 06:59 18:59 Intake Total 1680 1500 200 Output Total 450 630 150 Balance 1230 870 50 Weight 61.3 kg Intake: IV 750 1500 200 Sodium Chloride 0.9% 1, 750 1500 200 000 ml @ 100 mls/hr IV . Q10H [facility] Rx#:[id number] Blood Product 930 Rc As-1 Unit 310 [id number] Rc As-1 Unit 310 [id number] Rc As-1 Unit 310 [id number] Output: Urine 450 630 150 Other: Voiding Method Indwelling Catheter Indwelling Catheter Indwelling Catheter - Exam GENERAL: The patient is lying in bed and is not in acute distress. CHEST: The heart rate is regular rate rhythm. No murmurs to auscultation. No carotid bruit bilaterally. NEUROLOGICAL: Higher mental function: The patient is awake, alert, oriented to self, place and time. Patient is following commands. No aphasia and no neglect. Cranial nerves: The pupils are round (3-4mm), equal and reactive to light and accommodation. Visual storey are full to confrontation throughout. Extraocular movement is intact no nystagmus is noted. Facial sensation is normal to touch throughout. The facial strength is normal throughout. Hearing is normal bilaterally to hand rub. Tongue is midline and moved [id number] without any difficulty. No dysarthria is noted. Shoulder shrug is normal bilaterally. Motor: The strength is 5 over 5 throughout. Normal tone and bulk. Cerebellum: Normal finger to nose heel to chin bilaterally. Sensation: Sensation is normal to touch throughout. Reflexes (right/left): 2+ throughout. Plantars are downgoing bilaterally. - Labs CBC & Chem 7: 07/08/20 06:17 07/08/20 08:05 Labs: Abnormal Lab Results - Last 24 Hours (Table) 07/04/20 07/07/20 07/07/20 Range/Units 16:06 10:11 10:11 WBC (3.8-10.6) k/uL Neutrophils # (1.3-7.7) k/uL PT (9.0-12.0) sec INR (<1.2) APTT (22.0-30.0) sec D-Dimer 0.66 H (<0.60) mg/L FEU Potassium (3.5-5.1) mmol/L Chloride (98-107) mmol/L BUN (7-17) mg/dL Creatinine (0.52-1.04) mg/dL Glucose (74-99) mg/dL POC Glucose (mg/dL) (75-99) mg/dL Hemoglobin A1c (4.0-6.0) % Calcium (8.4-10.2) mg/dL Ferritin 341.2 H (10.0-291.0) ng/mL Lactate Dehydrogenase (313-618) U/L C-Reactive Protein 33.8 H (<10.0) mg/L HDL Cholesterol (40-60) mg/dL TSH (0.465-4.680) mIU/L Crossmatch See Detail 07/07/20 07/07/20 07/07/20 Range/Units 10:11 10:11 10:11 WBC (3.8-10.6) k/uL Neutrophils # (1.3-7.7) k/uL PT 15.5 H (9.0-12.0) sec INR 1.6 H (<1.2) APTT 31.0 H (22.0-30.0) sec D-Dimer (<0.60) mg/L FEU Potassium (3.5-5.1) mmol/L Chloride (98-107) mmol/L BUN (7-17) mg/dL Creatinine (0.52-1.04) mg/dL Glucose (74-99) mg/dL POC Glucose (mg/dL) (75-99) mg/dL Hemoglobin A1c 8.4 H (4.0-6.0) % Calcium (8.4-10.2) mg/dL Ferritin (10.0-291.0) ng/mL Lactate Dehydrogenase (313-618) U/L C-Reactive Protein (<10.0) mg/L HDL Cholesterol 13 L (40-60) mg/dL TSH 0.091 L (0.465-4.680) mIU/L Crossmatch 07/07/20 07/07/20 07/07/20 Range/Units 10:13 11:19 18:34 WBC (3.8-10.6) k/uL Neutrophils # (1.3-7.7) k/uL PT (9.0-12.0) sec INR (<1.2) APTT (22.0-30.0) sec D-Dimer (<0.60) mg/L FEU Potassium 3.0 L (3.5-5.1) mmol/L Chloride 115 H (98-107) mmol/L BUN 39 H (7-17) mg/dL Creatinine (0.52-1.04) mg/dL Glucose 234 H (74-99) mg/dL POC Glucose (mg/dL) 285 H 247 H (75-99) mg/dL Hemoglobin A1c (4.0-6.0) % Calcium 6.0 L* (8.4-10.2) mg/dL Ferritin (10.0-291.0) ng/mL Lactate Dehydrogenase (313-618) U/L C-Reactive Protein (<10.0) mg/L HDL Cholesterol (40-60) mg/dL TSH (0.465-4.680) mIU/L Crossmatch 07/07/20 07/07/20 07/08/20 Range/Units 21:53 22:18 06:17 WBC 11.1 H 10.7 H (3.8-10.6) k/uL Neutrophils # 8.9 H 8.4 H (1.3-7.7) k/uL PT (9.0-12.0) sec INR (<1.2) APTT (22.0-30.0) sec D-Dimer (<0.60) mg/L FEU Potassium (3.5-5.1) mmol/L Chloride (98-107) mmol/L BUN (7-17) mg/dL Creatinine (0.52-1.04) mg/dL Glucose (74-99) mg/dL POC Glucose (mg/dL) 182 H (75-99) mg/dL Hemoglobin A1c (4.0-6.0) % Calcium (8.4-10.2) mg/dL Ferritin (10.0-291.0) ng/mL Lactate Dehydrogenase (313-618) U/L C-Reactive Protein (<10.0) mg/L HDL Cholesterol (40-60) mg/dL TSH (0.465-4.680) mIU/L Crossmatch 07/08/20 Range/Units 08:05 WBC (3.8-10.6) k/uL Neutrophils # (1.3-7.7) k/uL PT (9.0-12.0) sec INR (<1.2) APTT (22.0-30.0) sec D-Dimer (<0.60) mg/L FEU Potassium (3.5-5.1) mmol/L Chloride 117 H (98-107) mmol/L BUN 29 H (7-17) mg/dL Creatinine 0.45 L (0.52-1.04) mg/dL Glucose 70 L (74-99) mg/dL POC Glucose (mg/dL) (75-99) mg/dL Hemoglobin A1c (4.0-6.0) % Calcium 8.0 L (8.4-10.2) mg/dL Ferritin (10.0-291.0) ng/mL Lactate Dehydrogenase 917 H (313-618) U/L C-Reactive Protein 27.4 H (<10.0) mg/L HDL Cholesterol (40-60) mg/dL TSH (0.465-4.680) mIU/L Crossmatch Microbiology - Last 24 Hours (Table) 07/01/20 11:00 Blood Culture - Final Blood No Growth after 144 hours Assessment and Plan Assessment: This is a 39-year-old woman with medical history of acute covid 19 positive (06/26/2020) that presented to the hospital on 07/01/2020 with shortness of breath fever and generalized weakness. Neurologist consulted for stroke like symptoms on 07/07/2020 noticed at around 8:00 and on known normal. Per the patient nurse NIH up with 20. No IV TPA because of ongoing last normal and that because of the significant the bleed. Transient Ischemic attack: Left gaze deviation, mute, right facial from hypotension and anemia from GI bleed. Acute Anemia likely lower GI bleed---resolved Hypotension likely due to GI bleed--resolved Lower GI bleed Positive Covid 19 Diabetes Hypertension Hyperlipidemia Plan: Repeat CT of the head on 07/08/2020 was reported as no CT evidence of acute intracranial pathology without significant interval change. Anesthetic local suspicion remains consider MRI of the brain. 2-D echo: pending Continue Cardiac monitoring. Regarding the use of antiplatelet such as aspirin I recommend that if it's the safe, GI perspective would recommend that for the patient to be on aspirin 81 mg. I will start the patient on Lipitor 40 mg daily. Consulted the physical therapy, occupational therapy and [employer]. Recommend the neuro checks every 2 hours hemoglobin A1c: 8.4, TSH 0.0 91Y the free T4 is 1.8 to the free T4 is normal. lipid panel: pending. Continue maintaining blood pressure goal systolic between 120-140 and if needed use vasopressors. I'll defer the management of anemia to a telegraph installer. Regarding the management of patient COVID 19 and respiratory symptoms all deferred to the ICU/qualification engineer. Regarding the rest of the medical management defer to the primary team. The plan was discussed with the patient as well as the ICU nurse. Will continue to follow Edmund Trejo M.D. Neuro-hospitalist Time with Patient: Less than 30
--- NOTE | 2020-07-08 13:32 | P.PN ---
Subjective Progress Note Date: 07/08/20 Principal diagnosis: Lower GI bleed, anemia of acute blood loss Patient to tested positive for coronavirus, patient was not seen. Case discussed with the nursing staff with no further signs or symptoms of GI bleeding. Mentation has improved. Objective - Vital Signs Vital signs: Vital Signs Temp 97.9 F 07/08/20 08:00 Pulse 70 07/08/20 09:00 Resp 18 07/08/20 09:00 BP 125/59 07/08/20 09:00 Pulse Ox 95 07/08/20 09:00 Intake & Output 07/07/20 07/08/20 07/08/20 18:59 06:59 18:59 Intake Total 1680 1500 200 Output Total 450 630 150 Balance 1230 870 50 Weight 61.3 kg Intake: IV 750 1500 200 Sodium Chloride 0.9% 1, 750 1500 200 000 ml @ 100 mls/hr IV . Q10H [facility] Rx#:[id number] Blood Product 930 Rc As-1 Unit 310 [id number] Rc As-1 Unit 310 [id number] Rc As-1 Unit 310 [id number] Output: Urine 450 630 150 Other: Voiding Method Indwelling Catheter Indwelling Catheter Indwelling Catheter - Exam Defer physical exam to the primary team and the patient to tested positive for coronavirus - Labs CBC & Chem 7: 07/08/20 06:17 07/08/20 08:05 Labs: Abnormal Lab Results - Last 24 Hours (Table) 07/04/20 07/07/20 07/07/20 Range/Units 16:06 10:11 10:11 WBC (3.8-10.6) k/uL Neutrophils # (1.3-7.7) k/uL PT 15.5 H (9.0-12.0) sec INR 1.6 H (<1.2) APTT 31.0 H (22.0-30.0) sec Potassium (3.5-5.1) mmol/L Chloride (98-107) mmol/L BUN (7-17) mg/dL Creatinine (0.52-1.04) mg/dL Glucose (74-99) mg/dL POC Glucose (mg/dL) (75-99) mg/dL Hemoglobin A1c (4.0-6.0) % Calcium (8.4-10.2) mg/dL Ferritin 341.2 H (10.0-291.0) ng/mL Lactate Dehydrogenase (313-618) U/L C-Reactive Protein 33.8 H (<10.0) mg/L HDL Cholesterol (40-60) mg/dL TSH (0.465-4.680) mIU/L Crossmatch See Detail 07/07/20 07/07/20 07/07/20 Range/Units 10:11 10:11 10:13 WBC (3.8-10.6) k/uL Neutrophils # (1.3-7.7) k/uL PT (9.0-12.0) sec INR (<1.2) APTT (22.0-30.0) sec Potassium 3.0 L (3.5-5.1) mmol/L Chloride 115 H (98-107) mmol/L BUN 39 H (7-17) mg/dL Creatinine (0.52-1.04) mg/dL Glucose 234 H (74-99) mg/dL POC Glucose (mg/dL) (75-99) mg/dL Hemoglobin A1c 8.4 H (4.0-6.0) % Calcium 6.0 L* (8.4-10.2) mg/dL Ferritin (10.0-291.0) ng/mL Lactate Dehydrogenase (313-618) U/L C-Reactive Protein (<10.0) mg/L HDL Cholesterol 13 L (40-60) mg/dL TSH 0.091 L (0.465-4.680) mIU/L Crossmatch 07/07/20 07/07/20 07/07/20 Range/Units 11:19 18:34 21:53 WBC 11.1 H (3.8-10.6) k/uL Neutrophils # 8.9 H (1.3-7.7) k/uL PT (9.0-12.0) sec INR (<1.2) APTT (22.0-30.0) sec Potassium (3.5-5.1) mmol/L Chloride (98-107) mmol/L BUN (7-17) mg/dL Creatinine (0.52-1.04) mg/dL Glucose (74-99) mg/dL POC Glucose (mg/dL) 285 H 247 H (75-99) mg/dL Hemoglobin A1c (4.0-6.0) % Calcium (8.4-10.2) mg/dL Ferritin (10.0-291.0) ng/mL Lactate Dehydrogenase (313-618) U/L C-Reactive Protein (<10.0) mg/L HDL Cholesterol (40-60) mg/dL TSH (0.465-4.680) mIU/L Crossmatch 07/07/20 07/08/20 07/08/20 Range/Units 22:18 06:17 08:05 WBC 10.7 H (3.8-10.6) k/uL Neutrophils # 8.4 H (1.3-7.7) k/uL PT (9.0-12.0) sec INR (<1.2) APTT (22.0-30.0) sec Potassium (3.5-5.1) mmol/L Chloride 117 H (98-107) mmol/L BUN 29 H (7-17) mg/dL Creatinine 0.45 L (0.52-1.04) mg/dL Glucose 70 L (74-99) mg/dL POC Glucose (mg/dL) 182 H (75-99) mg/dL Hemoglobin A1c (4.0-6.0) % Calcium 8.0 L (8.4-10.2) mg/dL Ferritin (10.0-291.0) ng/mL Lactate Dehydrogenase 917 H (313-618) U/L C-Reactive Protein 27.4 H (<10.0) mg/L HDL Cholesterol (40-60) mg/dL TSH (0.465-4.680) mIU/L Crossmatch Microbiology - Last 24 Hours (Table) 07/01/20 11:00 Blood Culture - Final Blood No Growth after 144 hours Assessment and Plan (1) Lower GI bleed Narrative/Plan: 69-year-old female with multiple comorbidities who presented for weakness and shortness of breath and was found to have positive testing for Covid 19 for which she was receiving appropriate therapy. Last night the patient had a large bloody bowel movement and has subsequently had a fall in her hemoglobin from 9.8 yesterday down to 6.2 today. No further bleeding since that time. Patient's has been noted to have altered mentation and gaze deviation and there is concern for an ischemic stroke at this time. Unclear etiology of bleeding, given thromboembolic nature of the grover virus infection this may be ischemic in nature, diverticular, or other etiology. The patient has had no further signs or symptoms of GI bleeding, with mentation improved today. Current Visit: Yes Status: Acute Code(s): K92.2 - GASTROINTESTINAL HEMORRHAGE, UNSPECIFIED SNOMED Code(s): 51571005 (2) Anemia associated with acute blood loss Current Visit: Yes Status: Acute Code(s): D62 - ACUTE POSTHEMORRHAGIC ANEMIA SNOMED Code(s): 752815078 (3) COVID-19 Current Visit: Yes Status: Acute Code(s): U07.1 - COVID-19 SNOMED Code(s): 086659137 Plan: Supportive care Continue IV Protonix twice a day Continue to monitor hemoglobin and hematocrit and transfuse as needed Continue to monitor for signs or symptoms of GI bleeding, with no further evidence of bleeding Given multiple complex medical problems patient would be extremely high risk for endoscopic evaluation at this time, there've been no further signs of GI bleeding since the patient was transferred to the ICU and we'll continue medical management at this time Appreciate recommendations and management from the buffer inflated pad service in the neurology service Okay to initiate aspirin therapy Thank you for allowing us to participate in the care of the patient we will continue to follow
--- NOTE | 2020-07-08 14:31 | P.PN ---
Subjective Progress Note Date: 07/08/20 Principal diagnosis: Acute covid 19 pneumonitis. A 69-year-old female patient coming in for an acute cold in 19 related pneumonia. The patient is diabetic and she has hypertension and she is also known to have hyperlipidemia. The patient was having fevers and some shortness of breath along with generalized weakness of a few days' duration. The patient tested positive for grover virus COVID 19 infection on 06/26/2020. Over the past 2 days, the patient was feeling more weak and fatigued. No nausea. No vomiting. No diarrhea. No abdominal pain. She had some increased cough. She came into the hospital and a chest x-ray done showed multifocal areas of pulmonary infiltrates consistent with pneumonia and a computed tomography scan of the chest showed scattered bilateral pulmonary infiltrates compatible with her grover virus Covid 19 infection. There was no evidence of any pulmonary embolism. The patient was febrile. The patient was hypoxic pH was placed on 2 L of oxygen by nasal cannula. T-max was 100.3. White cell count was normal and the patient had lymphopenia. D-dimer was 0.61. LDH was 834 with a CRP of 170 and the Pronestyl level of 0.1. Ferritin level was 367. The patient was hospitalized. The patient is seen today 07/03/2020 in follow-up on the regular medical floor. She is currently sitting up in bed. Awake and alert in no acute distress. She is maintaining O2 saturation in the low 90s on 2 L/m per nasal cannula. Currently afebrile. Hemodynamically stable. Blood glucose 142. This is day #2 of Remdesivir. She remains on dexamethasone, Lovenox, Pepcid, vitamin C, vitamin D, zinc. The patient is seen today 07/04/2020 in follow-up on the medical floor. She is awake and alert in no acute distress. Maintaining O2 saturations in the low 90s on 5 L nasal cannula. Currently afebrile. Blood culture reveals no growth. White count 13.2. Hemoglobin 13.8. Lymphocytes 0.9. She has received her third dose of Remdesivir today. On 07/05/2020 patient seen in follow-up on the general medical surgical floor, she remains on high flow oxygen, currently on the 6-7 L with a pulse ox of 91%, she is status post 1 unit of convalescent plasma, she is finishing her Remdesivir course today and a supposed to get her last dose. She states she is feeling weak, but overall feeling significantly better since admission. She's been afebrile, her vital signs have been stable, she does get exertional dyspnea, but no acute distress. Today's chest x-ray shows a diffuse multifocal opacities moderately increased since the previous chest x-ray, overall her inflammatory markers were improving on yesterday's labs since admission. Opal coulter remains on prophylactic doses of Lovenox, Pepcid, oral Decadron, vitamin C and zinc supplement. She has had no acute events overnight Patient was reevaluated today on 07/06/20, surprisingly, the patient is doing better than expected clinically, remains on 7 L nasal cannula, and her O2 saturations 90%. Her temp is 98 1, blood pressure is 125/81, patient is relatively asymptomatic except for feeling generally weak, and she has intermittent cough. She does have some vague aches and pains. Chest x-ray from yesterday continues to show diffuse multifocal opacities bilaterally. Labs today were reviewed, WBC count is 13.4 hemoglobin is 13.1. D-dimer is 2.54. Inflammatory markers were noted with LDH of 1225 and C-reactive protein is 53.9, significantly higher compared to yesterday. Patient was reevaluated today on 07/07/20, I saw this patient on the medical floor, however the rapid response team was assessing the patient on the floor for possible transfer to the ICU. Apparently the patient developed sudden mental status change this morning, with left-sided weakness, this was noted around 8 AM by the morning nurse were the patient was not verbally responsive, and she was noted to have left a gaze deviation. Patient is not verbalizing or follow any instructions. And she was noted to have some right-sided weakness. Hemoglobin dropped this morning down to 6.2, it was 9.8 yesterday, and it was 13.0 on admission. Patient had episodes of lower GI bleeding, she used to be on Lovenox which I have discontinued yesterday. Patient was on Lovenox because of her Covid 19 pneumonitis. And elevated d-dimer. GI was also consulted. Considering the GI bleeding, considering the mental status change and possible CVA, arrangements were made to transfer the patient immediately to the ICU this morning. In the meantime the patient is to receive a blood transfusion as soon as possible, hemoglobin now is 6.2, d-dimer is 0.66 INR is 1.6 electrolytes are normal WBC count is 10.3 And inflammatory markers are trending down. Patient was reevaluated today on 07/08/20, she was transferred yesterday to the ICU because of GI bleeding, and what seems to be a CVA but turned out to be a TIA since the neurological status has completely improved. And her CT of the brain twice came back negative. Patient was seen by gastroenterology, no plans to perform EGD or colonoscopy at this point, patient is being treated for presumptive lower GI bleeding. And she remains off Lovenox which we started initially because of her elevated d-dimer, and Covid 19 pneumonitis. Patient is sitting in bed, resting, in no form of distress. Again she received a total of 3 units of packed RBCs and her hemoglobin today is 12.3. D-dimer today is down to 0.66. And she is on 8 L high flow nasal cannula with O2 saturation 95% chest x-ray continues to show diffuse bilateralinfiltrates Objective - Vital Signs Vital signs: Vital Signs Temp 98.7 F 07/08/20 12:00 Pulse 70 07/08/20 12:00 Resp 17 07/08/20 12:00 BP 113/54 07/08/20 12:00 Pulse Ox 95 07/08/20 12:00 Intake & Output 07/07/20 07/08/20 07/08/20 18:59 06:59 18:59 Intake Total 1680 1500 500 Output Total 450 630 250 Balance 1230 870 250 Weight 61.3 kg Intake: IV 750 1500 500 Sodium Chloride 0.9% 1, 750 1500 500 000 ml @ 100 mls/hr IV . Q10H [facility] Rx#:[id number] Blood Product 930 Rc As-1 Unit 310 [id number] Rc As-1 Unit 310 [id number] Rc As-1 Unit 310 [id number] Output: Urine 450 630 250 Other: Voiding Method Indwelling Catheter Indwelling Catheter Indwelling Catheter - Exam Physical Exam: Revealed a 69-year-old female in no distress, maintained on high flow nasal cannula. Head: Atraumatic, normocephalic. HEENT:[Neck is supple.] [No neck masses.] [No thyromegaly.] [No JVD.] Chest: [Symmetrical chest expansion, crackles at the bases bilaterally. No rhonchi and no wheezes. Cardiac Exam: [Normal S1 and S2, no S3 gallop, no murmur.] Abdomen: [Soft, nontender, no megaly, no rebound, no guarding, normal bowel sounds.] Extremities: [No clubbing, no edema, no cyanosis.] Neurological Exam: Alert, awake, oriented 3, no gross focal deficits. Psychiatric: Blunted mood and affect. Normal mental status examination. Skin: No rashes. - Labs CBC & Chem 7: 07/08/20 06:17 07/08/20 08:05 Labs: Abnormal Lab Results - Last 24 Hours (Table) 07/04/20 07/07/20 07/07/20 Range/Units 16:06 10:11 10:11 WBC (3.8-10.6) k/uL Neutrophils # (1.3-7.7) k/uL Chloride (98-107) mmol/L BUN (7-17) mg/dL Creatinine (0.52-1.04) mg/dL Glucose (74-99) mg/dL POC Glucose (mg/dL) (75-99) mg/dL Hemoglobin A1c (4.0-6.0) % Calcium (8.4-10.2) mg/dL Ferritin 341.2 H (10.0-291.0) ng/mL Lactate Dehydrogenase (313-618) U/L C-Reactive Protein (<10.0) mg/L HDL Cholesterol 13 L (40-60) mg/dL Crossmatch See Detail 07/07/20 07/07/20 07/07/20 Range/Units 10:11 18:34 21:53 WBC 11.1 H (3.8-10.6) k/uL Neutrophils # 8.9 H (1.3-7.7) k/uL Chloride (98-107) mmol/L BUN (7-17) mg/dL Creatinine (0.52-1.04) mg/dL Glucose (74-99) mg/dL POC Glucose (mg/dL) 247 H (75-99) mg/dL Hemoglobin A1c 8.4 H (4.0-6.0) % Calcium (8.4-10.2) mg/dL Ferritin (10.0-291.0) ng/mL Lactate Dehydrogenase (313-618) U/L C-Reactive Protein (<10.0) mg/L HDL Cholesterol (40-60) mg/dL Crossmatch 07/07/20 07/08/20 07/08/20 Range/Units 22:18 06:17 08:05 WBC 10.7 H (3.8-10.6) k/uL Neutrophils # 8.4 H (1.3-7.7) k/uL Chloride 117 H (98-107) mmol/L BUN 29 H (7-17) mg/dL Creatinine 0.45 L (0.52-1.04) mg/dL Glucose 70 L (74-99) mg/dL POC Glucose (mg/dL) 182 H (75-99) mg/dL Hemoglobin A1c (4.0-6.0) % Calcium 8.0 L (8.4-10.2) mg/dL Ferritin (10.0-291.0) ng/mL Lactate Dehydrogenase 917 H (313-618) U/L C-Reactive Protein 27.4 H (<10.0) mg/L HDL Cholesterol (40-60) mg/dL Crossmatch 07/08/20 Range/Units 12:09 WBC (3.8-10.6) k/uL Neutrophils # (1.3-7.7) k/uL Chloride (98-107) mmol/L BUN (7-17) mg/dL Creatinine (0.52-1.04) mg/dL Glucose (74-99) mg/dL POC Glucose (mg/dL) 214 H (75-99) mg/dL Hemoglobin A1c (4.0-6.0) % Calcium (8.4-10.2) mg/dL Ferritin (10.0-291.0) ng/mL Lactate Dehydrogenase (313-618) U/L C-Reactive Protein (<10.0) mg/L HDL Cholesterol (40-60) mg/dL Crossmatch Microbiology - Last 24 Hours (Table) 07/01/20 11:00 Blood Culture - Final Blood No Growth after 144 hours Assessment and Plan Assessment: 1 acute Covid 19 related pneumonia. The patient was diagnosed with ear infect ion on 06/26/2020. The patient developed worsening symptoms in addition to dyspnea and hypoxemia and cough and for that reason the patient was admitted to the hospital. She is currently on 6 L of oxygen by nasal cannula, with a pulse ox of 91%, patient will finish her course of Remdesivir today on 07/05/2020, and she status post transfusion of one unit of convalescent plasma 2 acute hypoxic respiratory failure secondary to above 3 fever secondary to above 4 constitutional symptoms secondary to above 5 elevated inflammatory markers secondary to above 6 hypertension 7 hyperlipidemia 8 diabetes mellitus with elevated blood sugar 9 diverticular disease 10 osteoarthritis 11 acute blood loss anemia secondary to GI bleeding exact source of the bleeding is not clear, GI was consulted, patient will receive a unit of packed RBCs, will hold Lovenox, and continue Protonix. 12 acute TIA, her neurologic symptoms have resolved completely since yesterday. Recommendation: Continue to monitor in the ICU. No need for further transfusions at this point. Continue to hold Lovenox. Continue droplet isolation/precautions Gastroenterology will eventually decide whether the patient may or may not require EGD or colonoscopy. Continue Protonix. Continue the cocktail for Covid 19 pneumonitis. No Lovenox. Will follow. Time with Patient: Less than 30
[2020-07-08 17:10] LABS: Ferritin 348.2 ng/mL (10.0-291.0)
[2020-07-08 17:18] LABS: Glucose,Whole Blood 299 mg/dL (75-99)
[2020-07-08] MEDS: ASPIRIN 81 MG PO SCH (17:26)
[2020-07-08 20:04] LABS: Glucose,Whole Blood 303 mg/dL (75-99)
[2020-07-08] MEDS: CHOLECALCIFEROL 1,000 UNIT TAB PO SCH (20:17)
[2020-07-08] MEDS: ATORVASTATIN 40 MG TAB PO SCH (20:17)
[2020-07-08] MEDS: LINAGLIPTIN 5 MG TABLET PO SCH (20:17)
[2020-07-08] MEDS: INSULIN DETEMIR (LEVEMIR) 100 UNIT/ML SYR SQ SCH (20:17)
--- NOTE | 2020-07-08 22:39 | P.PN ---
Subjective From records Patient is a 69-year-old female with a known history of hypertension, diabetes type 2 [id number], osteoarthritis who was recently seen at [facility] on 06/26/2020 with Covid pneumonia came to hospital with the complaints of generalized weakness. Patient says that he has been having fevers and exertional dyspnea for the past 1 to 2 days. Patient was tested positive for COVID-19 virus approximately 5 days ago. For the past 2 days patient has been having generalized weakness and fatigue. No diarrhea no vomiting. Patient does have cough without sputum production and has been having worsening shortnes s of breath. On and off chest pains as well. Sharp aching type without any radiation. Denied any leg swelling or palpitations. No hematemesis or melena. Chest x-ray showed multifocal areas of infiltrate correlate for pneumonia CT angiogram showed scattered infiltrates greater on the right compatible with reported Covid pneumonia. No acute pulmonary embolism. Laboratory data showed D-dimer 0.61, lymphocyte 0.8, ferritin 367.5, LDH 834, CRP 170, procalcitonin 0.1 On admission T-max 100.3 and pulse ox 92% on 2 L oxygen. 07/02/2029 patient is currently lying in the bed comfortably. No complaints of chest pain or worsening shortness of breath. Patient says that she feels better today. Patient is being continued on Decadron and Lovenox. Insulin was started for better sugar control. Preprandial dose was added. Continued on oxygen therapy and follow closely. 07/03/2020 Patient is currently awake alert oriented 3. Lying in the bed comfortably. Still occurring oxygen at 3-4 L when asked cannula. Patient has been afebrile. continued on her Remdesivir. Continue on dexamethasone Lovenox and vitamin supplementation. Pulmonary is following. 07/04/2020 Patient is awake alert oriented x3. Still requiring oxygen at 4 L via nasal cannula. Saturating around 90%. Otherwise patient states that she feels better. Currently afebrile. Blood cultures have been negative. Continued on remdesivir therapy Laboratory data showed WBC 13.1 hemoglobin 13.8 and neutrophils 11.9 CRP 11.1 and LDH is 429 Subjective: 07/05/2020 This is a pleasant 69 years old female who presents with Covid pneumonia and acute hypoxic respiratory failure. Patient is followed closely by pulmonary service. Patient is currently on dexamethasone 6 mg orally daily and Remdesivir, also she is on zinc and vitamin C and normal saline at 80 milliliters per hour. She is saturating 90% on 67 L via nasal cannula. Patient is afebrile for more than 48 hours. She is slightly tachypneic at 20 breaths p er minute. Blood pressure 161/90, heart rate 63 Leukocytosis improvement to 11.3, glucose is controlled. BMP is unremarkable from yesterday. Increased inflammatory markers of lactate dehydrogenase and C-reactive protein 07/06/2020 pt is still with Covid pneumonia. Yesterday her oxygen requirement went up from 5 to 7 mL per min . Her oxygen requirement today's looks the same. She is slightly tachypneic. Patient is afebrile WBC 13.4 K. D-dimer increased from 0.6 up to 2.5 so we will increase her Lovenox from 40 mg daily to twice a day, lactate dehydrogenase and C-reactive proteins are both significantly worse. Her glucose was 69 this morning and he lowered her Levemir from 15 down to 10 units She is currently on normal saline at 50 mL per hour as well she remains on dexamethasone, Remdesivir, zinc and vitamin C. Pulmonary team on the case 07/07/2020 Patient today was getting worse. While she was still treated for Covid pneumonia she developed a drop in hemoglobin last evening and in the morning, From 13.1 down to 9.8 yesterday night and 6.2 this morning. While WBC was within the reference range today at 10.3 and normal platelets at 370 1K. INR at 1.6. Her d-dimer actually was trending down this morning from 2.5 down to 0.6 which makes the possibility of DIC unlikely. Last night patient was found on the floor lying on her left side with large dark red blood was noted in the toilet, patient denies head trauma at that time and she remained alert and oriented Lovenox for discontinued (Patient was on Lovenox for worsening d-dimer and needed higher dose of oxygen from 7 up to 15 L/m secondary to her Covid pneumonia) and she was anxious to get 3 units of blood is provided for the patient. Protonix twice a day was added. And GI team were consulted And recom mended to continue with supportive care. Patient is high-risk for endoscopic evaluation or intervention at this time. Also there was drop in blood pressure and patient received on 1.5 liter of normal saline, her blood pressure improved now with systolic 120s to 130s. Patient was sent to the ICU with close monitoring as pressors might be indicated to support her blood pressure Also patient earlier today became mute with gaze palsy and inability to follow commands with some weakness on the right arm. Code stroke was called.. CT of the brain was done: No acute intracranial hemorrhage, midline shift or mass effect. CTA of the head and neck: No significant stenosis or aneurysm changes in the carotid arteries or kaibab of Christopher. Neurologist was consulted, He recommended to repeat the CAT scan of the head tomorrow for follow-up , as possible acute stroke Also recommended to keep her blood pressure goal between 120-140 and continue with Neuro-Check 07/08/2020 Patient remains in the ICU to the, she is awake and oriented, her neuro deficit has resolved and she is back to her normal self., Most likely patient has TIA rather than CVA and can be related to her episode of GI bleed and hypotension with recovering after correction of the blood pressure. Other possibility is syncope secondary to hypotension which is recovered now. CAT scan of the brain were negative. Neurologist recommended aspirin and Lipitor Current hemoglobin and vitals are stable and monitored closely, GI team recommended to continue with conservative management no need for doing the endoscopy now. Patient continue with Protonix twice daily and Lovenox is on hold. Also she is in normal sinus 100 mL per hour no Her oxygen requirements looks his stable and she is on 8 L oxygen. Also pulmonary/critical care team are following the case closely and continue with dexamethasone, zinc and vitamin C. Review of systems: n/ Active Medications Generic Name Dose Route Start Last Admin Trade Name Freq PRN Reason Stop Dose Admin Acetaminophen 650 mg 07/01/20 20:46 07/04/20 21:10 Acetaminophen Tab 325 Mg Tab PO 650 mg Q6HR PRN Administration Fever and/ or Pain Ascorbic Acid 500 mg 07/01/20 17:00 07/08/20 08:15 Ascorbic Acid 500 Mg Tab PO 500 mg DAILY TURNER Administration Aspirin 81 mg 07/08/20 17:15 07/08/20 17:26 Aspirin 81 Mg PO 81 mg DAILY TURNER Administration Atorvastatin Calcium 40 mg 07/08/20 21:00 07/08/20 20:17 Atorvastatin 40 Mg Tab PO 40 mg HS TURNER Administration Cholecalciferol 2,000 unit 07/01/20 21:00 07/08/20 20:17 Cholecalciferol 1,000 Unit Tab PO 2,000 unit HS TURNER Administration Cyanocobalamin 1,000 mcg 07/02/20 09:00 07/08/20 08:15 Cyanocobalamin 500 Mcg Tab PO 1,000 mcg DAILY TURNER Administration Dexamethasone 6 mg 07/01/20 17:00 07/08/20 08:15 Dexamethasone 2 Mg Tab PO 6 mg DAILY TURNER Administration Glimepiride 2 mg 07/02/20 07:30 07/08/20 07:11 Glimepiride 2 Mg Tab PO 2 mg [id number] TURNER Administration Sodium Chloride 1,000 mls @ 100 mls/hr 07/01/20 12:45 07/08/20 20:18 Saline 0.9% IV 100 mls/hr .Q10H TURNER Administration Insulin Aspart 0 unit 07/01/20 21:00 07/08/20 20:17 Insulin Aspart (Novolog) 100 Unit/Ml Vial SQ 5 unit ACHS TURNER Administration Protocol Insulin Aspart 5 unit 07/03/20 07:30 07/08/20 17:25 Insulin Aspart (Novolog) 100 Unit/Ml Vial SQ 5 unit AC-TID TURNER Administration Insulin Detemir 10 unit 07/06/20 21:00 07/08/20 20:17 Insulin Detemir (Levemir) 100 Unit/Ml Syr SQ 10 unit HS TURNER Administration Linagliptin 5 mg 07/01/20 21:00 07/08/20 20:17 Linagliptin 5 Mg Tablet PO 5 mg HS TURNER Administration Miscellaneous Information 1 each 07/07/20 12:04 Potassium Replacement Protocol 1 Each Misc MISCELLANE DAILY PRN Per Protocol Protocol Naloxone HCl 0.2 mg 07/01/20 12:41 Naloxone 0.4 Mg/Ml 1 Ml Vial IV Q2M PRN Opioid Reversal Ondansetron HCl 4 mg 07/05/20 12:16 07/05/20 12:41 Ondansetron 4 Mg/2 Ml Vial IVP 4 mg Q6HR PRN Administration Nausea And Vomiting Pantoprazole Sodium 40 mg 07/06/20 23:45 07/08/20 20:17 Pantoprazole 40 Mg/10 Ml Vial IVP 40 mg BID TURNER Administration Zinc Sulfate 220 mg 07/02/20 09:00 07/08/20 08:16 Zinc Sulfate 220 Mg Cap PO 220 mg DAILY TURNER Administration Objective - Vital Signs Vital signs: Vital Signs Temp 98.8 F 07/08/20 20:00 Pulse 65 07/08/20 22:00 Resp 15 07/08/20 22:00 BP 110/60 07/08/20 22:00 Pulse Ox 95 07/08/20 22:00 Intake & Output 07/08/20 07/08/20 07/09/20 06:59 18:59 06:59 Intake Total 1500 1650 200 Output Total 630 865 190 Balance 870 785 10 Weight 61.3 kg Intake: IV 1500 1200 200 Sodium Chloride 0.9% 1, 1500 1200 200 000 ml @ 100 mls/hr IV . Q10H TURNER Rx#:[id number] Oral 450 Output: Urine 630 865 190 Other: Voiding Method Indwelling Catheter Indwelling Catheter Indwelling Catheter - Exam -GENERAL: The patient is awake, verbal and follow commands HEENT: Pupils are round and equally reacting to light. EOMI. No scleral icterus. No conjunctival pallor. Normocephalic, atraumatic. No pharyngeal erythema. No thyromegaly. CARDIOVASCULAR: S1 and S2 present. No murmurs, rubs, or gallops. PULMONARY: Chest is clear to auscultation, no wheezing or crackles. ABDOMEN: Soft, nontender, nondistended, normoactive bowel sounds. No palpable organomegaly. MUSCULOSKELETAL: No joint swelling or deformity. EXTREMITIES: No cyanosis, clubbing, or pedal edema. -NEUROLOGICAL: Cranial nerves are grossly intact and strength is 5/5 in all extremities. No gait abnormality SKIN: No rashes. no petechiae. - Labs CBC & Chem 7: 07/08/20 06:17 07/08/20 08:05 Labs: Abnormal Lab Results - Last 24 Hours (Table) 07/08/20 07/08/20 07/08/20 Range/Units 06:17 08:05 12:09 WBC 10.7 H (3.8-10.6) k/uL Neutrophils # 8.4 H (1.3-7.7) k/uL Chloride 117 H (98-107) mmol/L BUN 29 H (7-17) mg/dL Creatinine 0.45 L (0.52-1.04) mg/dL Glucose 70 L (74-99) mg/dL POC Glucose (mg/dL) 214 H (75-99) mg/dL Calcium 8.0 L (8.4-10.2) mg/dL Ferritin 348.2 H (10.0-291.0) ng/mL Lactate Dehydrogenase 917 H (313-618) U/L C-Reactive Protein 27.4 H (<10.0) mg/L 07/08/20 07/08/20 Range/Units 17:17 20:03 WBC (3.8-10.6) k/uL Neutrophils # (1.3-7.7) k/uL Chloride (98-107) mmol/L BUN (7-17) mg/dL Creatinine (0.52-1.04) mg/dL Glucose (74-99) mg/dL POC Glucose (mg/dL) 299 H 303 H (75-99) mg/dL Calcium (8.4-10.2) mg/dL Ferritin (10.0-291.0) ng/mL Lactate Dehydrogenase (313-618) U/L C-Reactive Protein (<10.0) mg/L Assessment and Plan Assessment: Acute COVID-19 viral pneumonia. Acute hypoxic respiratory failure secondary to above Elevated inflammatory markers Acute GI bleed Acute blood loss anemia, improved after 3 units of blood transfusion Possible TIA versus syncope related to hypotension, completely resolved Hyperglycemia with uncontrolled diabetes type 2. Better controlled now Hypertension Osteoarthritis History of hemorrhoids and diverticular disease. Plan: This is a pleasant 69 years old female who presents with acute Covid pneumonia. Continue with oxygen Continue with dexamethasone , continue with zinc and vitamin C. Follow-up recommendation by pulmonary service. discontinue lovenox and continue with protonix. and monitor hemoglobin closely. Monitor vitals closely and keep systolic blood pressure, Follow-up recommendation by GI team. Continue with conservative management with no endoscopic now for GI team Follow-up recommendation by neurologist, who recommended aspirin and Lipitor. Patient completely recovered no Labs and medication were reviewed.. Continue same treatment. Continue with symptomatic treatment. Resume home medication. Monitor lytes and vitals. DVT and GI prophylaxis. Further recommendations as per clinical course of the patient DVT prophylaxis: No anticoagulation in view of GI bleed GI Prophylaxis: Protonix Prognosis is guarded
[2020-07-09 06:36] LABS: Glucose,Whole Blood 169 mg/dL (75-99)
[2020-07-09] MEDS: INSULIN ASPART (NovoLOG) 100 UNIT/ML VIAL SQ SCH ×7 (06:41→20:55)
[2020-07-09] MEDS: GLIMEPIRIDE 2 MG TAB PO SCH (06:43)
[2020-07-09] MEDS: ASCORBIC ACID 500 MG TAB PO SCH (07:44)
[2020-07-09] MEDS: ZINC SULFATE 220 MG CAP PO SCH (07:44)
[2020-07-09] MEDS: dexAMETHasone 2 MG TAB PO SCH (07:44)
[2020-07-09] MEDS: CYANOCOBALAMIN 500 MCG TAB PO SCH (07:44)
[2020-07-09] MEDS: SODIUM CHLORIDE 0.9% 1,000 ML IV SCH ×2 (07:45→17:59)
[2020-07-09] MEDS: PANTOPRAZOLE 40 MG/10 ML VIAL IVP SCH ×2 (07:45→20:54)
[2020-07-09] MEDS: ASPIRIN 81 MG PO SCH (07:45)
--- NOTE | 2020-07-09 09:41 | P.PN ---
Subjective Progress Note Date: 07/09/20 Patient was seen at bedside and she stated that she's feeling well. Denies any further worsening of weakness, any further slurring of the speech or difficulty getting her words out. Objective - Vital Signs Vital signs: Vital Signs Temp 98.1 F 07/09/20 04:00 Pulse 63 07/09/20 07:00 Resp 14 07/09/20 07:00 BP 131/64 07/09/20 07:00 Pulse Ox 93 L 07/09/20 07:00 Intake & Output 07/08/20 07/09/20 07/09/20 18:59 06:59 18:59 Intake Total 1650 1420 Output Total 865 695 Balance 785 725 Weight 62.2 kg Intake: IV 1200 1300 Sodium Chloride 0.9% 1, 1200 1300 000 ml @ 100 mls/hr IV . Q10H [facility] Rx#:[id number] Oral 450 120 Output: Urine 865 695 Other: Voiding Method Indwelling Catheter Indwelling Catheter - Exam GENERAL: The patient is lying in bed and is not in acute distress. CHEST: The heart rate is regular rate rhythm. No murmurs to auscultation. No carotid bruit bilaterally. NEUROLOGICAL: Higher mental function: The patient is awake, alert, oriented to self, place and time. Patient is following commands. No aphasia and no neglect. Cranial nerves: The pupils are round (3-4mm), equal and reactive to light and accommodation. Visual storey are full to confrontation throughout. Extraocular movement is intact no nystagmus is noted. Facial sensation is normal to touch throughout. The facial strength is minimal right facial weakness (I made her look at herself and said this was new that was not seen on presenation to the hospital) but symmetrical to smile. Hearing is normal bilaterally to hand rub. Tongue is midline and moved [id number] without any difficulty. No dysarthria is noted. Shoulder shrug is normal bilaterally. Motor: Gait is deferred. The strength is 5 over 5 throughout. Normal tone and bulk. Cerebellum: Normal finger to nose heel to chin bilaterally. Sensation: Sensation is normal to touch throughout. Reflexes (right/left): 2+ throughout. Plantars are downgoing bilaterally. - Labs CBC & Chem 7: 07/08/20 06:17 07/08/20 08:05 Labs: Abnormal Lab Results - Last 24 Hours (Table) 07/08/20 07/08/20 07/08/20 Range/Units 08:05 12:09 17:17 Chloride 117 H (98-107) mmol/L BUN 29 H (7-17) mg/dL Creatinine 0.45 L (0.52-1.04) mg/dL Glucose 70 L (74-99) mg/dL POC Glucose (mg/dL) 214 H 299 H (75-99) mg/dL Calcium 8.0 L (8.4-10.2) mg/dL Ferritin 348.2 H (10.0-291.0) ng/mL Lactate Dehydrogenase 917 H (313-618) U/L C-Reactive Protein 27.4 H (<10.0) mg/L 07/08/20 07/09/20 Range/Units 20:03 06:34 Chloride (98-107) mmol/L BUN (7-17) mg/dL Creatinine (0.52-1.04) mg/dL Glucose (74-99) mg/dL POC Glucose (mg/dL) 303 H 169 H (75-99) mg/dL Calcium (8.4-10.2) mg/dL Ferritin (10.0-291.0) ng/mL Lactate Dehydrogenase (313-618) U/L C-Reactive Protein (<10.0) mg/L Assessment and Plan Assessment: This is a 39-year-old woman with medical history of acute covid 19 positive (06/26/2020) that presented to the hospital on 07/01/2020 with shortness of breath fever and generalized weakness. Neurologist consulted for stroke like symptoms on 07/07/2020 noticed at around 8:00 and on known normal. Per the patient nurse NIH up with 20. No IV TPA because of ongoing last normal and that because of the significant the bleed. Transient ischemic attack. Left gaze deviation, mute, right facial---resolved except mild right lower facial droop---due to ischemic stroke. From hypotension and anemia from GI bleed. Acute Anemia likely lower GI bleed---resolved Hypotension likely due to GI bleed--resolved Lower GI bleed Positive Covid 19 Diabetes Hypertension Hyperlipidemia Plan: Repeat CT of the head on 07/08/2020 was reported as no CT evidence of acute intracranial pathology without significant interval change. Repeat CT of the head 07/09/20 was reported as age-related atrophic and chronic small vessel ischemic change without acute intracranial process seen at this time. I will defer from ordering MRI Brain since she is COVID-19 positive and MRI will not change outcome of management. 2-D echo: Was reported as left ventricle systolic function is normal, ejection fraction 55-60%. Normal left atrium size. Continue Cardiac monitoring. Continue ASA 81mg daily and Lipitor 40 mg daily for secondary stroke prophylaxis. Did not place on dual antiplateletes because of recent episode of GI bleed. Physical therapy, occupational therapy and COMMERCIAL RELATIONSHIP MANAGER are on board Neuro checks every 4 hours hemoglobin A1c: 8.4, TSH 0.0 91Y the free T4 is 1.8 to the free T4 is normal. lipid panel: Triglyceride 99, cholesterol less than 50, LDL is 17 and HDL is 13. Patient is within the parameters of the LDL less than 70 for stroke/TIA recommendation. Continue maintaining blood pressure goal systolic between 120-140 and if needed use vasopressors. I'll defer the management of anemia to a anodic treater. Regarding the management of patient COVID 19 and respiratory symptoms all deferred to the ICU/oracle financial application developer. Regarding the rest of the medical management defer to the primary team. The plan was discussed with the patient as well as the ICU nurse. There is no further workup at this time from a neurology perspective. We will sign off. Please reconsult if needed. Edmund Trejo M.D. Neuro-hospitalist Time with Patient: Less than 30
--- NOTE | 2020-07-09 10:44 | XR ---
EXAMINATION TYPE: XR chest 1V portable DATE OF EXAM: 07/09/2020 CLINICAL HISTORY: COVID on oxygen. ICU. TECHNIQUE: Portable frontal view of the chest. COMPARISON: 07/08/2020 chest radiograph FINDINGS: The cardiomediastinal silhouette is within normal limits for size. Patchy multifocal airsp chance opacities of the bilateral lungs are similar to mildly increased versus 07/08/2020, and increased versus 07/07/2020. No pleural effusion. No pneumothorax. IMPRESSION: Mildly increased diffuse multifocal airspace opacities versus 07/08/2020. Findings are c onsistent with Covid 19 viral infection.
--- NOTE | 2020-07-09 11:23 | CT ---
EXAMINATION TYPE: CT brain wo con DATE OF EXAM: 07/09/2020 COMPARISON: None HISTORY: Hypoxia, stroke, mild right facial weakness CT DLP: 1036.[address] of the brain was performed. The ventricles, basal cisterns and sulci overlying the cerebral convexities demonstrate mild enlargem ent. There is no evidence for intracranial hemorrhage or sulcal effacement. There is decreased attenuation about the periventricular white matter and deep white matter of both c erebral hemispheres, compatible with chronic small vessel ischemia. Differential diagnosis does inclu de demyelination. No mass effects are seen.No midline shift. Osseous calvarium is intact. If symptoms persist consider MRI. IMPRESSION: 1. Age related atrophic and chronic small vessel ischemic change without acute intracranial process s een at this time.
[2020-07-09 11:55] LABS: Glucose,Whole Blood 190 mg/dL (75-99)
--- NOTE | 2020-07-09 14:00 | ECHOF ---
Referral Reason:stroke MEASUREMENTS -------- HEIGHT: 149.9 cm WEIGHT: 60.3 kg BP: 85/71 IVSd: 1.2 cm (0.6 - 1.1) LVIDd: 4.2 cm (3.9 - 5.3) LVPWd: 1.3 cm (0.6 - 1.1) EDV(Teich): 77 ml IVSs: 1.6 cm LVIDs: 2.3 cm LVPWs: 1.4 cm %IVS Thck: 41 % ESV(Teich): 18 ml EF(Teich): 76 % %FS: 45 % SV(Teich): 59 ml LA Diam: 2.8 cm (2.7 - 3.8) RVIDd: 2.2 cm (< 3.3) LALs A4C: 5.0 cm LAAs A4C: 12.9 cm LAESV A-L A4C: 28 ml LAESV MOD A4C: 27 ml LALs A2C: 5.0 cm LAAs A2C: 15.2 cm LAESV A-L A2C: 40 ml LAESV MOD A2C: 37 ml LAESV(A-L): 34 ml LAESV Index (A-L): 21.65 ml/m Ao Diam: 2.7 cm (2.0 - 3.7) AV Cusp: 1.6 cm (1.5 - 2.6) EPSS: 0.3 cm MV E Christiano: 1.00 m/s MV DecT: 158 ms MV Dec Greenwood: 6.3 m/s MV A Christiano: 0.90 m/s MV E/A Ratio: 1.11 MV PHT: 46 ms AV Vmax: 1.69 m/s AV maxP.46 mmHg TR Vmax: 2.81 m/s TR maxP.60 mmHg RAP: 5.00 mmHg RVSP: 36.60 mmHg MV EF SLOPE: 85.86 mm/s (70 - 150) MV EXCURSION: 15.79 mm (> 18.000) FINDINGS -------- Sinus rhythm. This was a technically adequate study. The left ventricular size is normal. There is mild concentric left ventricular hypertrophy. Overa ll left ventricular systolic function is normal with, an EF between 55 - 60 %. The right ventricle is normal in size. Normal LA size by volume 22+/-6 ml/m2. The right atrial size is normal. Interatrial and interventricular septum intact. The aortic valve is trileaflet, and appears structurally normal. No aortic stenosis or regurgitation. The mitral valve is normal. Mild mitral regurgitation is present. Mild tricuspid regurgitation present. There is mild pulmonary hypertension. The right ventricular systolic pressure, as measured by Doppler, is 36.60mmHg. There is no pulmonic regurgitation present. The aortic root size is normal. Normal inferior vena cava with normal inspiratory collapse consistent with estimated right atrial pre ssure of 5 mmHg. Echo free space indicative of a pericardial fat pad. CONCLUSIONS -------- 1. There is mild concentric left ventricular hypertrophy. 2. Overall left ventricular systolic function is normal with, an EF between 55 - 60 %. 3. Normal LA size by volume 22+/-6 ml/m2. 4. The aortic valve is trileaflet, and appears structurally normal. No aortic stenosis or regurgitati on. 5. Mild mitral regurgitation is present. 6. Mild tricuspid regurgitation present. 7. There is mild pulmonary hypertension. 8. Echo free space indicative of a pericardial fat pad. POLE SETTER: Brielle Brown RDCS
--- NOTE | 2020-07-09 16:10 | P.PN ---
Subjective Progress Note Date: 07/09/20 Principal diagnosis: Acute covid 19 pneumonitis. A 69-year-old female patient coming in for an acute cold in 19 related pneumonia. The patient is diabetic and she has hypertension and she is also known to have hyperlipidemia. The patient was having fevers and some shortness of breath along with generalized weakness of a few days' duration. The patient tested positive for grover virus COVID 19 infection on 06/26/2020. Over the past 2 days, the patient was feeling more weak and fatigued. No nausea. No vomiting. No diarrhea. No abdominal pain. She had some increased cough. She came into the hospital and a chest x-ray done showed multifocal areas of pulmonary infiltrates consistent with pneumonia and a computed tomography scan of the chest showed scattered bilateral pulmonary infiltrates compatible with her grover virus Covid 19 infection. There was no evidence of any pulmonary embolism. The patient was febrile. The patient was hypoxic pH was placed on 2 L of oxygen by nasal cannula. T-max was 100.3. White cell count was normal and the patient had lymphopenia. D-dimer was 0.61. LDH was 834 with a CRP of 170 and the Pronestyl level of 0.1. Ferritin level was 367. The patient was hospitalized. The patient is seen today 07/03/2020 in follow-up on the regular medical floor. She is currently sitting up in bed. Awake and alert in no acute distress. She is maintaining O2 saturation in the low 90s on 2 L/m per nasal cannula. Currently afebrile. Hemodynamically stable. Blood glucose 142. This is day #2 of Remdesivir. She remains on dexamethasone, Lovenox, Pepcid, vitamin C, vitamin D, zinc. The patient is seen today 07/04/2020 in follow-up on the medical floor. She is awake and alert in no acute distress. Maintaining O2 saturations in the low 90s on 5 L nasal cannula. Currently afebrile. Blood culture reveals no growth. White count 13.2. Hemoglobin 13.8. Lymphocytes 0.9. She has received her third dose of Remdesivir today. On 07/05/2020 patient seen in follow-up on the general medical surgical floor, she remains on high flow oxygen, currently on the 6-7 L with a pulse ox of 91%, she is status post 1 unit of convalescent plasma, she is finishing her Remdesivir course today and a supposed to get her last dose. She states she is feeling weak, but overall feeling significantly better since admission. She's been afebrile, her vital signs have been stable, she does get exertional dyspnea, but no acute distress. Today's chest x-ray shows a diffuse multifocal opacities moderately increased since the previous chest x-ray, overall her inflammatory markers were improving on yesterday's labs since admission. Opal coulter remains on prophylactic doses of Lovenox, Pepcid, oral Decadron, vitamin C and zinc supplement. She has had no acute events overnight Patient was reevaluated today on 07/06/20, surprisingly, the patient is doing better than expected clinically, remains on 7 L nasal cannula, and her O2 saturations 90%. Her temp is 98 1, blood pressure is 125/81, patient is relatively asymptomatic except for feeling generally weak, and she has intermittent cough. She does have some vague aches and pains. Chest x-ray from yesterday continues to show diffuse multifocal opacities bilaterally. Labs today were reviewed, WBC count is 13.4 hemoglobin is 13.1. D-dimer is 2.54. Inflammatory markers were noted with LDH of 1225 and C-reactive protein is 53.9, significantly higher compared to yesterday. Patient was reevaluated today on 07/07/20, I saw this patient on the medical floor, however the rapid response team was assessing the patient on the floor for possible transfer to the ICU. Apparently the patient developed sudden mental status change this morning, with left-sided weakness, this was noted around 8 AM by the morning nurse were the patient was not verbally responsive, and she was noted to have left a gaze deviation. Patient is not verbalizing or follow any instructions. And she was noted to have some right-sided weakness. Hemoglobin dropped this morning down to 6.2, it was 9.8 yesterday, and it was 13.0 on admission. Patient had episodes of lower GI bleeding, she used to be on Lovenox which I have discontinued yesterday. Patient was on Lovenox because of her Covid 19 pneumonitis. And elevated d-dimer. GI was also consulted. Considering the GI bleeding, considering the mental status change and possible CVA, arrangements were made to transfer the patient immediately to the ICU this morning. In the meantime the patient is to receive a blood transfusion as soon as possible, hemoglobin now is 6.2, d-dimer is 0.66 INR is 1.6 electrolytes are normal WBC count is 10.3 And inflammatory markers are trending down. Patient was reevaluated today on 07/08/20, she was transferred yesterday to the ICU because of GI bleeding, and what seems to be a CVA but turned out to be a TIA since the neurological status has completely improved. And her CT of the brain twice came back negative. Patient was seen by gastroenterology, no plans to perform EGD or colonoscopy at this point, patient is being treated for presumptive lower GI bleeding. And she remains off Lovenox which we started initially because of her elevated d-dimer, and Covid 19 pneumonitis. Patient is sitting in bed, resting, in no form of distress. Again she received a total of 3 units of packed RBCs and her hemoglobin today is 12.3. D-dimer today is down to 0.66. And she is on 8 L high flow nasal cannula with O2 saturation 95% chest x-ray continues to show diffuse bilateral infiltrates Reevaluated today on 07/09/20, patient remains in the ICU, presently on 5 L nasal cannula, mentation is basically back to normal. Patient is not in any distress, seems to be comfortable, however her chest x-ray shows worsening of multifocal airspace opacities. Brain CT shows age related atrophic and chronic vessel ischemic changes without acute intracranial process. Labs including CBC, electrolytes, renal profile, are all basically unremarkable. Objective - Vital Signs Vital signs: Vital Signs Temp 98.4 F 07/09/20 12:00 Pulse 71 07/09/20 15:00 Resp 20 07/09/20 15:00 BP 144/66 07/09/20 15:00 Pulse Ox 94 L 07/09/20 15:00 Intake & Output 07/08/20 07/09/20 07/09/20 18:59 06:59 18:59 Intake Total 1650 1420 800 Output Total 865 695 320 Balance 785 725 480 Weight 62.2 kg Intake: IV 1200 1300 800 Sodium Chloride 0.9% 1, 1200 1300 800 000 ml @ 100 mls/hr IV . Q10H [facility] Rx#:[id number] Oral 450 120 Output: Urine 865 695 320 Other: Voiding Method Indwelling Catheter Indwelling Catheter Indwelling Catheter - Exam Physical Exam: Revealed a 69-year-old female in no distress, maintained on 5 L nasal cannula. O2 saturation is 94% Head: Atraumatic, normocephalic. HEENT:[Neck is supple.] [No neck masses.] [No thyromegaly.] [No JVD.] Chest: [Symmetrical chest expansion, crackles at the bases bilaterally. No rhonchi and no wheezes. Cardiac Exam: [Normal S1 and S2, no S3 gallop, no murmur.] Abdomen: [Soft, nontender, no megaly, no rebound, no guarding, normal bowel sounds.] Extremities: [No clubbing, no edema, no cyanosis.] Neurological Exam: Alert, awake, oriented 3, no gross focal deficits. Psychiatric: Normal mood, normal.. Normal mental status examination. Skin: No rashes. - Labs CBC & Chem 7: 07/08/20 06:17 07/08/20 08:05 Labs: Abnormal Lab Results - Last 24 Hours (Table) 07/08/20 07/08/20 07/08/20 Range/Units 08:05 17:17 20:03 POC Glucose (mg/dL) 299 H 303 H (75-99) mg/dL Ferritin 348.2 H (10.0-291.0) ng/mL 07/09/20 07/09/20 Range/Units 06:34 11:52 POC Glucose (mg/dL) 169 H 190 H (75-99) mg/dL Ferritin (10.0-291.0) ng/mL Assessment and Plan Assessment: 1 acute Covid 19 related pneumonia. The patient was diagnosed with ear infect ion on 06/26/2020. The patient developed worsening symptoms in addition to dyspnea and hypoxemia and cough and for that reason the patient was admitted to the hospital. She is currently on 6 L of oxygen by nasal cannula, with a pulse ox of 91%, patient will finish her course of Remdesivir today on 07/05/2020, and she status post transfusion of one unit of convalescent plasma 2 acute hypoxic respiratory failure secondary to above 3 fever secondary to above 4 constitutional symptoms secondary to above 5 elevated inflammatory markers secondary to above 6 hypertension 7 hyperlipidemia 8 diabetes mellitus with elevated blood sugar 9 diverticular disease 10 osteoarthritis 11 acute blood loss anemia secondary to GI bleeding exact source of the bleeding is not clear, GI was consulted, patient will receive a unit of packed RBCs, will hold Lovenox, and continue Protonix. 12 acute TIA, her neurologic symptoms have resolved Recommendation: Continue to monitor in the ICU. Continue to hold Lovenox. Continue droplet isolation/precautions Gastroenterology will eventually decide whether the patient may or may not require EGD or colonoscopy. Continue Protonix. Continue the cocktail for Covid 19 pneumonitis. Resume Lovenox at a lower dose., Watch for any signs of bleeding We'll continue to follow likely transfer out of the ICU in the next 24 hours Time with Patient: Less than 30
[2020-07-09 17:18] LABS: Glucose,Whole Blood 268 mg/dL (75-99)
[2020-07-09 20:24] LABS: Glucose,Whole Blood 246 mg/dL (75-99)
[2020-07-09] MEDS: ATORVASTATIN 40 MG TAB PO SCH (20:54)
[2020-07-09] MEDS: CHOLECALCIFEROL 1,000 UNIT TAB PO SCH (20:54)
[2020-07-09] MEDS: LINAGLIPTIN 5 MG TABLET PO SCH (20:54)
[2020-07-09] MEDS: INSULIN DETEMIR (LEVEMIR) 100 UNIT/ML SYR SQ SCH (20:55)
--- NOTE | 2020-07-09 21:29 | P.PN ---
Subjective From records Patient is a 69-year-old female with a known history of hypertension, diabetes type 2 [id number], osteoarthritis who was recently seen at [facility] on 06/26/2020 with Covid pneumonia came to hospital with the complaints of generalized weakness. Patient says that he has been having fevers and exertional dyspnea for the past 1 to 2 days. Patient was tested positive for COVID-19 virus approximately 5 days ago. For the past 2 days patient has been having generalized weakness and fatigue. No diarrhea no vomiting. Patient does have cough without sputum production and has been having worsening shortnes s of breath. On and off chest pains as well. Sharp aching type without any radiation. Denied any leg swelling or palpitations. No hematemesis or melena. Chest x-ray showed multifocal areas of infiltrate correlate for pneumonia CT angiogram showed scattered infiltrates greater on the right compatible with reported Covid pneumonia. No acute pulmonary embolism. Laboratory data showed D-dimer 0.61, lymphocyte 0.8, ferritin 367.5, LDH 834, CRP 170, procalcitonin 0.1 On admission T-max 100.3 and pulse ox 92% on 2 L oxygen. 07/02/2029 patient is currently lying in the bed comfortably. No complaints of chest pain or worsening shortness of breath. Patient says that she feels better today. Patient is being continued on Decadron and Lovenox. Insulin was started for better sugar control. Preprandial dose was added. Continued on oxygen therapy and follow closely. 07/03/2020 Patient is currently awake alert oriented 3. Lying in the bed comfortably. Still occurring oxygen at 3-4 L when asked cannula. Patient has been afebrile. continued on her Remdesivir. Continue on dexamethasone Lovenox and vitamin supplementation. Pulmonary is following. 07/04/2020 Patient is awake alert oriented x3. Still requiring oxygen at 4 L via nasal cannula. Saturating around 90%. Otherwise patient states that she feels better. Currently afebrile. Blood cultures have been negative. Continued on remdesivir therapy Laboratory data showed WBC 13.1 hemoglobin 13.8 and neutrophils 11.9 CRP 11.1 and LDH is 429 Subjective: 07/05/2020 This is a pleasant 69 years old female who presents with Covid pneumonia and acute hypoxic respiratory failure. Patient is followed closely by pulmonary service. Patient is currently on dexamethasone 6 mg orally daily and Remdesivir, also she is on zinc and vitamin C and normal saline at 80 milliliters per hour. She is saturating 90% on 67 L via nasal cannula. Patient is afebrile for more than 48 hours. She is slightly tachypneic at 20 breaths p er minute. Blood pressure 161/90, heart rate 63 Leukocytosis improvement to 11.3, glucose is controlled. BMP is unremarkable from yesterday. Increased inflammatory markers of lactate dehydrogenase and C-reactive protein 07/06/2020 pt is still with Covid pneumonia. Yesterday her oxygen requirement went up from 5 to 7 mL per min . Her oxygen requirement today's looks the same. She is slightly tachypneic. Patient is afebrile WBC 13.4 K. D-dimer increased from 0.6 up to 2.5 so we will increase her Lovenox from 40 mg daily to twice a day, lactate dehydrogenase and C-reactive proteins are both significantly worse. Her glucose was 69 this morning and he lowered her Levemir from 15 down to 10 units She is currently on normal saline at 50 mL per hour as well she remains on dexamethasone, Remdesivir, zinc and vitamin C. Pulmonary team on the case 07/07/2020 Patient today was getting worse. While she was still treated for Covid pneumonia she developed a drop in hemoglobin last evening and in the morning, From 13.1 down to 9.8 yesterday night and 6.2 this morning. While WBC was within the reference range today at 10.3 and normal platelets at 370 1K. INR at 1.6. Her d-dimer actually was trending down this morning from 2.5 down to 0.6 which makes the possibility of DIC unlikely. Last night patient was found on the floor lying on her left side with large dark red blood was noted in the toilet, patient denies head trauma at that time and she remained alert and oriented Lovenox for discontinued (Patient was on Lovenox for worsening d-dimer and needed higher dose of oxygen from 7 up to 15 L/m secondary to her Covid pneumonia) and she was anxious to get 3 units of blood is provided for the patient. Protonix twice a day was added. And GI team were consulted And recom mended to continue with supportive care. Patient is high-risk for endoscopic evaluation or intervention at this time. Also there was drop in blood pressure and patient received on 1.5 liter of normal saline, her blood pressure improved now with systolic 120s to 130s. Patient was sent to the ICU with close monitoring as pressors might be indicated to support her blood pressure Also patient earlier today became mute with gaze palsy and inability to follow commands with some weakness on the right arm. Code stroke was called.. CT of the brain was done: No acute intracranial hemorrhage, midline shift or mass effect. CTA of the head and neck: No significant stenosis or aneurysm changes in the carotid arteries or huslia of Christopher. Neurologist was consulted, He recommended to repeat the CAT scan of the head tomorrow for follow-up , as possible acute stroke Also recommended to keep her blood pressure goal between 120-140 and continue with Neuro-Check 07/08/2020 Patient remains in the ICU to the, she is awake and oriented, her neuro deficit has resolved and she is back to her normal self., Most likely patient has TIA rather than CVA and can be related to her episode of GI bleed and hypotension with recovering after correction of the blood pressure. Other possibility is syncope secondary to hypotension which is recovered now. CAT scan of the brain were negative. Neurologist recommended aspirin and Lipitor Current hemoglobin and vitals are stable and monitored closely, GI team recommended to continue with conservative management no need for doing the endoscopy now. Patient continue with Protonix twice daily and Lovenox is on hold. Also she is in normal sinus 100 mL per hour no Her oxygen requirements looks his stable and she is on 8 L oxygen. Also pulmonary/critical care team are following the case closely and continue with dexamethasone, zinc and vitamin C. 07/09/2020 Patient is awake and alert and she regained her ability to talk. No weakness or confusion only she has very mild facial droop on the right side. She still been treated for Covid pneumonia and her oxygen requirement is slightly up from 4 to 5 L/m of oxygen via nasal cannula. Her inflammatory markers is slightly worse and repeat chest x-ray also showed slight worsening, therefore patient was started back on Lovenox despite her recent history of gi bleed With recommendation for gastroenterology follow-up to evaluate if she needs endoscopy or no Neurology signed off, they recommended to continue with aspirin and Lipitor. Repeat CAT scan of the head was negative today Patient is being moved out of the ICU to select unit Review of systems: n/ Active Medications Generic Name Dose Route Start Last Admin Trade Name Freq PRN Reason Stop Dose Admin Acetaminophen 650 mg 07/01/20 20:46 07/04/20 21:10 Acetaminophen Tab 325 Mg Tab PO 650 mg Q6HR PRN Administration Fever and/ or Pain Ascorbic Acid 500 mg 07/01/20 17:00 07/09/20 07:44 Ascorbic Acid 500 Mg Tab PO 500 mg DAILY [facility] Administration Aspirin 81 mg 07/08/20 17:15 07/09/20 07:45 Aspirin 81 Mg PO 81 mg DAILY [facility] Administration Atorvastatin Calcium 40 mg 07/08/20 21:00 07/09/20 20:54 Atorvastatin 40 Mg Tab PO 40 mg HS [facility] Administration Cholecalciferol 2,000 unit 07/01/20 21:00 07/09/20 20:54 Cholecalciferol 1,000 Unit Tab PO 2,000 unit HS [facility] Administration Cyanocobalamin 1,000 mcg 07/02/20 09:00 07/09/20 07:44 Cyanocobalamin 500 Mcg Tab PO 1,000 mcg DAILY [facility] Administration Dexamethasone 6 mg 07/01/20 17:00 07/09/20 07:44 Dexamethasone 2 Mg Tab PO 6 mg DAILY [facility] Administration Enoxaparin Sodium 30 mg 07/10/20 09:00 Enoxaparin 30 Mg/0.3 Ml Syringe SQ DAILY [facility] Glimepiride 2 mg 07/02/20 07:30 07/09/20 06:43 Glimepiride 2 Mg Tab PO 2 mg [id number] [facility] Administration Sodium Chloride 1,000 mls @ 100 mls/hr 07/01/20 12:45 07/09/20 17:59 Saline 0.9% IV Not Given .Q10H [facility] Insulin Aspart 0 unit 07/01/20 21:00 07/09/20 20:55 Insulin Aspart (Novolog) 100 Unit/Ml Vial SQ 4 unit ACHS [facility] Administration Protocol Insulin Aspart 5 unit 07/03/20 07:30 07/09/20 17:59 Insulin Aspart (Novolog) 100 Unit/Ml Vial SQ 5 unit AC-TID [facility] Administration Insulin Detemir 10 unit 07/06/20 21:00 07/09/20 20:55 Insulin Detemir (Levemir) 100 Unit/Ml Syr SQ 10 unit HS [facility] Administration Linagliptin 5 mg 07/01/20 21:00 07/09/20 20:54 Linagliptin 5 Mg Tablet PO 5 mg HS [facility] Administration Miscellaneous Information 1 each 07/07/20 12:04 Potassium Replacement Protocol 1 Each Misc MISCELLANE DAILY PRN Per Protocol Protocol Naloxone HCl 0.2 mg 07/01/20 12:41 Naloxone 0.4 Mg/Ml 1 Ml Vial IV Q2M PRN Opioid Reversal Ondansetron HCl 4 mg 07/05/20 12:16 07/05/20 12:41 Ondansetron 4 Mg/2 Ml Vial IVP 4 mg Q6HR PRN Administration Nausea And Vomiting Pantoprazole Sodium 40 mg 07/06/20 23:45 07/09/20 20:54 Pantoprazole 40 Mg/10 Ml Vial IVP 40 mg BID [facility] Administration Zinc Sulfate 220 mg 07/02/20 09:00 07/09/20 07:44 Zinc Sulfate 220 Mg Cap PO 220 mg DAILY [facility] Administration Objective - Vital Signs Vital signs: Vital Signs Temp 98.4 F 07/09/20 08:00 Pulse 71 07/09/20 10:00 Resp 14 07/09/20 10:00 BP 111/57 07/09/20 10:00 Pulse Ox 94 L 07/09/20 10:00 Intake & Output 07/08/20 07/09/20 07/09/20 18:59 06:59 18:59 Intake Total 1650 1420 300 Output Total 865 695 110 Balance 785 725 190 Weight 62.2 kg Intake: IV 1200 1300 300 Sodium Chloride 0.9% 1, 1200 1300 300 000 ml @ 100 mls/hr IV . Q10H [facility] Rx#:[id number] Oral 450 120 Output: Urine 865 695 110 Other: Voiding Method Indwelling Catheter Indwelling Catheter Indwelling Catheter - Exam -GENERAL: The patient is awake, verbal and follow commands HEENT: Pupils are round and equally reacting to light. EOMI. No scleral icterus. No conjunctival pallor. Normocephalic, atraumatic. No pharyngeal erythema. No thyromegaly. CARDIOVASCULAR: S1 and S2 present. No murmurs, rubs, or gallops. PULMONARY: Chest is clear to auscultation, no wheezing or crackles. ABDOMEN: Soft, nontender, nondistended, normoactive bowel sounds. No palpable organomegaly. MUSCULOSKELETAL: No joint swelling or deformity. EXTREMITIES: No cyanosis, clubbing, or pedal edema. -NEUROLOGICAL: Cranial nerves are grossly intact and strength is 5/5 in all extremities. No gait abnormality SKIN: No rashes. no petechiae. - Labs CBC & Chem 7: 07/08/20 06:17 07/08/20 08:05 Labs: Abnormal Lab Results - Last 24 Hours (Table) 07/08/20 07/08/20 07/08/20 Range/Units 08:05 12:09 17:17 POC Glucose (mg/dL) 214 H 299 H (75-99) mg/dL Ferritin 348.2 H (10.0-291.0) ng/mL 07/08/20 07/09/20 Range/Units 20:03 06:34 POC Glucose (mg/dL) 303 H 169 H (75-99) mg/dL Ferritin (10.0-291.0) ng/mL Assessment and Plan Assessment: Acute COVID-19 viral pneumonia. Acute hypoxic respiratory failure secondary to above Elevated inflammatory markers Acute GI bleed Acute blood loss anemia, improved after 3 units of blood transfusion Possible TIA versus syncope related to hypotension, completely resolved Hyperglycemia with uncontrolled diabetes type 2. Better controlled now Hypertension Osteoarthritis History of hemorrhoids and diverticular disease. Plan: This is a pleasant 69 years old female who presents with acute Covid pneumonia. Continue with oxygen Continue with dexamethasone , continue with zinc and vitamin C. Follow-up recommendation by pulmonary service. discontinue lovenox and continue with protonix. and monitor hemoglobin closely. Monitor vitals closely and keep systolic blood pressure, Follow-up recommendation by GI team. Continue with conservative management with no endoscopic now for GI team Follow-up recommendation by neurologist, who recommended aspirin and Lipitor. Patient completely recovered no Labs and medication were reviewed.. Continue same treatment. Continue with symptomatic treatment. Resume home medication. Monitor lytes and vitals. DVT and GI prophylaxis. Further recommendations as per clinical course of the patient DVT prophylaxis: No anticoagulation in view of GI bleed GI Prophylaxis: Protonix Prognosis is guarded
[2020-07-09 23:51] LABS: Glucose,Whole Blood 255 mg/dL (75-99)
[2020-07-10] MEDS ORDERED: NOREPINEPHRIN 4 MG-0.9% NS PMX 4 MG/250 ML ML IV ONE (00:35)
[2020-07-10] MEDS ORDERED: SODIUM CHLORIDE 0.9% 1,000 ML IV ONE ×2 (00:47→16:46)
[2020-07-10 00:54] LABS: MCHC 31.8 g/dL (31.0-37.0); MCV 88.1 fL (80.0-100.0); Mean Platelet Volume 9.3; Platelet Count 254 k/uL (150-450); RBC 1.67 m/uL (3.80-5.40); RDW 14.6 % (11.5-15.5); WBC 14.9 k/uL (3.8-10.6)
[2020-07-10 01:06] LABS: HCT 14.7 % (34.0-46.0); HGB 4.7 gm/dL (11.4-16.0)
[2020-07-10] MEDS ORDERED: NOREPINEPHRINE 4 MG in SODIUM CHLORIDE 0.9% 250 ML IV SCH (01:15)
[2020-07-10 01:22] LABS: D-Dimer 1.55 mg/L FEU (<0.60)
[2020-07-10] MEDS: SODIUM CHLORIDE 0.9% 1,000 ML IV SCH ×2 (01:23→14:49)
[2020-07-10 03:57] LABS: Glucose,Whole Blood 352 mg/dL (75-99)
--- NOTE | 2020-07-10 06:25 | XR ---
EXAMINATION TYPE: XR chest 1V portable DATE OF EXAM: 07/10/2020 CLINICAL HISTORY: Difficulty breathing and covid Pneumonia progress study. TECHNIQUE: Single AP portable supine view of the chest is obtained. COMPARISON: Chest x-ray from one day earlier and older studies. FINDINGS: Persistent peripheral opacities bilaterally. Cardiac silhouette size stable and upper limi ts of normal. Osseous structures are intact. IMPRESSION: Persistent bilateral peripheral multifocal acute infiltrates. No significant change from one day earlier.
[2020-07-10] MEDS: GLIMEPIRIDE 2 MG TAB PO SCH (06:43)
[2020-07-10] MEDS: INSULIN ASPART (NovoLOG) 100 UNIT/ML VIAL SQ SCH ×6 (06:53→18:55)
[2020-07-10] MEDS ORDERED: ENOXAPARIN 30 MG/0.3 ML SYRINGE SQ SCH (09:00)
[2020-07-10 09:19] LABS: ALT 10 U/L (4-34); AST 17 U/L (14-36); African American GFR (CKD) >90 (>60 ml/min/1.73 sqM); Albumin 1.4 g/dL (3.5-5.0); Alkaline Phosphatase 36 U/L (38-126); Anion Gap 1 mmol/L; Blood Urea Nitrogen 47 mg/dL (7-17); C Reactive Protein 9.4 mg/L (<10.0); Calcium 7.6 mg/dL (8.4-10.2); Carbon Dioxide 19 mmol/L (22-30); Chloride 114 mmol/L (98-107); Glucose 331 mg/dL (74-99); LDH 712 U/L (313-618); Non-African American GFR(CKD) >90 (>60 ml/min/1.73 sqM); Potassium 4.2 mmol/L (3.5-5.1); Sodium 134 mmol/L (137-145); Total Bilirubin 0.4 mg/dL (0.2-1.3); Total Protein 2.9 g/dL (6.3-8.2)
[2020-07-10 09:31] LABS: Basophils # (A) 0.1 k/uL (0-0.2); Basophils % (A) 0 %; Eosinophils % (A) 0 %; Lymphocytes # (A) 1.9 k/uL (1.0-4.8); Lymphocytes % (A) 8 %; MCH 29.4 pg (25.0-35.0); MCHC 34.2 g/dL (31.0-37.0); MCV 85.9 fL (80.0-100.0); Mean Platelet Volume 9.3; Monocytes # (A) 1.3 k/uL (0-1.0); Monocytes % (A) 5 %; Neutrophils # (A) 21.9 k/uL (1.3-7.7); Neutrophils % (A) 86 %; Platelet Count 254 k/uL (150-450); RBC 3.14 m/uL (3.80-5.40); RDW 14.3 % (11.5-15.5); WBC 25.5 k/uL (3.8-10.6)
[2020-07-10] MEDS: ASCORBIC ACID 500 MG TAB PO SCH (09:33)
[2020-07-10] MEDS: dexAMETHasone 2 MG TAB PO SCH (09:33)
[2020-07-10] MEDS: CYANOCOBALAMIN 500 MCG TAB PO SCH (09:33)
[2020-07-10] MEDS: ZINC SULFATE 220 MG CAP PO SCH (09:33)
[2020-07-10 09:42] LABS: HGB 9.2 gm/dL (11.4-16.0)
[2020-07-10] MEDS: PANTOPRAZOLE 40 MG/10 ML VIAL IVP SCH ×2 (11:37→21:18)
[2020-07-10] MEDS ORDERED: INSULIN REGULAR 100 UNIT/ML VIAL SQ SCH (12:00)
[2020-07-10] MEDS ORDERED: FUROSEMIDE 10 MG/ML 10 ML VIAL IV STA (14:31)
--- NOTE | 2020-07-10 14:44 | P.PN ---
Subjective Progress Note Date: 07/10/20 Principal diagnosis: Acute covid 19 pneumonitis. A 69-year-old female patient coming in for an acute cold in 19 related pneumonia. The patient is diabetic and she has hypertension and she is also known to have hyperlipidemia. The patient was having fevers and some shortness of breath along with generalized weakness of a few days' duration. The patient tested positive for grover virus COVID 19 infection on 06/26/2020. Over the past 2 days, the patient was feeling more weak and fatigued. No nausea. No vomiting. No diarrhea. No abdominal pain. She had some increased cough. She came into the hospital and a chest x-ray done showed multifocal areas of pulmonary infiltrates consistent with pneumonia and a computed tomography scan of the chest showed scattered bilateral pulmonary infiltrates compatible with her grover virus Covid 19 infection. There was no evidence of any pulmonary embolism. The patient was febrile. The patient was hypoxic pH was placed on 2 L of oxygen by nasal cannula. T-max was 100.3. White cell count was normal and the patient had lymphopenia. D-dimer was 0.61. LDH was 834 with a CRP of 170 and the Pronestyl level of 0.1. Ferritin level was 367. The patient was hospitalized. The patient is seen today 07/03/2020 in follow-up on the regular medical floor. She is currently sitting up in bed. Awake and alert in no acute distress. She is maintaining O2 saturation in the low 90s on 2 L/m per nasal cannula. Currently afebrile. Hemodynamically stable. Blood glucose 142. This is day #2 of Remdesivir. She remains on dexamethasone, Lovenox, Pepcid, vitamin C, vitamin D, zinc. The patient is seen today 07/04/2020 in follow-up on the medical floor. She is awake and alert in no acute distress. Maintaining O2 saturations in the low 90s on 5 L nasal cannula. Currently afebrile. Blood culture reveals no growth. White count 13.2. Hemoglobin 13.8. Lymphocytes 0.9. She has received her third dose of Remdesivir today. On 07/05/2020 patient seen in follow-up on the general medical surgical floor, she remains on high flow oxygen, currently on the 6-7 L with a pulse ox of 91%, she is status post 1 unit of convalescent plasma, she is finishing her Remdesivir course today and a supposed to get her last dose. She states she is feeling weak, but overall feeling significantly better since admission. She's been afebrile, her vital signs have been stable, she does get exertional dyspnea, but no acute distress. Today's chest x-ray shows a diffuse multifocal opacities moderately increased since the previous chest x-ray, overall her inflammatory markers were improving on yesterday's labs since admission. Opal coulter remains on prophylactic doses of Lovenox, Pepcid, oral Decadron, vitamin C and zinc supplement. She has had no acute events overnight Patient was reevaluated today on 07/06/20, surprisingly, the patient is doing better than expected clinically, remains on 7 L nasal cannula, and her O2 saturations 90%. Her temp is 98 1, blood pressure is 125/81, patient is relatively asymptomatic except for feeling generally weak, and she has intermittent cough. She does have some vague aches and pains. Chest x-ray from yesterday continues to show diffuse multifocal opacities bilaterally. Labs today were reviewed, WBC count is 13.4 hemoglobin is 13.1. D-dimer is 2.54. Inflammatory markers were noted with LDH of 1225 and C-reactive protein is 53.9, significantly higher compared to yesterday. Patient was reevaluated today on 07/07/20, I saw this patient on the medical floor, however the rapid response team was assessing the patient on the floor for possible transfer to the ICU. Apparently the patient developed sudden mental status change this morning, with left-sided weakness, this was noted around 8 AM by the morning nurse were the patient was not verbally responsive, and she was noted to have left a gaze deviation. Patient is not verbalizing or follow any instructions. And she was noted to have some right-sided weakness. Hemoglobin dropped this morning down to 6.2, it was 9.8 yesterday, and it was 13.0 on admission. Patient had episodes of lower GI bleeding, she used to be on Lovenox which I have discontinued yesterday. Patient was on Lovenox because of her Covid 19 pneumonitis. And elevated d-dimer. GI was also consulted. Considering the GI bleeding, considering the mental status change and possible CVA, arrangements were made to transfer the patient immediately to the ICU this morning. In the meantime the patient is to receive a blood transfusion as soon as possible, hemoglobin now is 6.2, d-dimer is 0.66 INR is 1.6 electrolytes are normal WBC count is 10.3 And inflammatory markers are trending down. Patient was reevaluated today on 07/08/20, she was transferred yesterday to the ICU because of GI bleeding, and what seems to be a CVA but turned out to be a TIA since the neurological status has completely improved. And her CT of the brain twice came back negative. Patient was seen by gastroenterology, no plans to perform EGD or colonoscopy at this point, patient is being treated for presumptive lower GI bleeding. And she remains off Lovenox which we started initially because of her elevated d-dimer, and Covid 19 pneumonitis. Patient is sitting in bed, resting, in no form of distress. Again she received a total of 3 units of packed RBCs and her hemoglobin today is 12.3. D-dimer today is down to 0.66. And she is on 8 L high flow nasal cannula with O2 saturation 95% chest x-ray continues to show diffuse bilateral infiltrates Reevaluated today on 07/09/20, patient remains in the ICU, presently on 5 L nasal cannula, mentation is basically back to normal. Patient is not in any distress, seems to be comfortable, however her chest x-ray shows worsening of multifocal airspace opacities. Brain CT shows age related atrophic and chronic vessel ischemic changes without acute intracranial process. Labs including CBC, electrolytes, renal profile, are all basically unremarkable. Patient was reevaluated today on 07/10/20, transferred yesterday out of the ICU, and last night patient developed another episode of GI bleeding, she also deve loped mental status change, and had to be placed back again in the ICU. Patient required blood transfusion, hemoglobin went as low as 4.7. Her hemoglobin now is 9.2. Received at least 3 units of packed RBCs for low hemoglobin. Patient's remains marginal in the ICU, went ahead and placed a right femoral triple-lumen catheter, and recommended more fluids, and also recommended norepinephrine at 0 .12 mcg/kg/m. Pulmonary-[place] the patient does not seem to be doing that bad, but her GI issues are more concerning Hence discontinued Lovenox altogether although the patient had hypercoagulable state, secondary to Covid 19 pneumonitis. D-dimer was significantly elevated at one time. Recommended gastroenterology to reevaluate the patient. Objective - Vital Signs Vital signs: Vital Signs Temp 97.9 F 07/10/20 08:00 Pulse 133 H 07/10/20 14:00 Resp 36 H 07/10/20 14:00 BP 105/72 07/10/20 14:00 Pulse Ox 96 07/10/20 14:00 Intake & Output 07/09/20 07/10/20 07/10/20 18:59 06:59 18:59 Intake Total 1022 5899.466 9002.151 Output Total 320 100 200 Balance 702 2409.558 5045.151 Weight 62 kg Intake: IV 691 463 2728 Pressure bag 15 21 Sodium Chloride 0.9% 1, 800 140 430 000 ml @ 100 mls/hr IV . Q10H [facility] Rx#:[id number] Sodium Chloride 0.9% 1, 1000 000 ml @ 999 mls/hr IV . Q1H1M [facility] Rx#:[id number] Intake, IV Titration 86.103 76.151 Amount Norepinephrine 4 mg In 86.103 76.151 Sodium Chloride 0.9% 250 ml @ 0.05 MCG/KG/MIN 11. 849 mls/hr IV .[id number] [facility] Rx#:[id number] Oral 222 Blood Product 1550 310 Rc As-1 Unit 0 310 [id number] Rc As-1 Unit 310 [id number] Rc As-1 Unit 310 [id number] Output: Urine 320 100 200 Other: Voiding Method Indwelling Catheter Indwelling Catheter ABP, PAP, CO, CI - Last Documented Arterial Blood Pressure 109/63 - Exam Physical Exam: Revealed a 69-year-old female in no distress, maintained on 5 L nasal cannula. O2 saturation is 94% Head: Atraumatic, normocephalic. HEENT:[Neck is supple.] [No neck masses.] [No thyromegaly.] [No JVD.] Chest: [Symmetrical chest expansion, crackles at the bases bilaterally. No rhonchi and no wheezes. Cardiac Exam: [Normal S1 and S2, no S3 gallop, no murmur.] Abdomen: [Soft, nontender, no megaly, no rebound, no guarding, normal bowel sounds.] Extremities: [No clubbing, no edema, no cyanosis.] Neurological Exam: Awake but slightly confused today compared to yesterday. Psychiatric: Depressed mood and blunted affect noted. And slow mentation noted Skin: No rashes. - Labs CBC & Chem 7: 07/10/20 08:45 07/10/20 08:45 Labs: Abnormal Lab Results - Last 24 Hours (Table) 07/09/20 07/09/20 07/09/20 Range/Units 17:13 20:20 23:31 WBC (3.8-10.6) k/uL RBC (3.80-5.40) m/uL Hgb (11.4-16.0) gm/dL Hct (34.0-46.0) % Neutrophils # (1.3-7.7) k/uL Monocytes # (0-1.0) k/uL Fibrinogen (200-500) mg/dL D-Dimer (<0.60) mg/L FEU Sodium (137-145) mmol/L Chloride (98-107) mmol/L Carbon Dioxide (22-30) mmol/L BUN (7-17) mg/dL Glucose (74-99) mg/dL POC Glucose (mg/dL) 268 H 246 H 255 H (75-99) mg/dL Calcium (8.4-10.2) mg/dL Alkaline Phosphatase (38-126) U/L Lactate Dehydrogenase (313-618) U/L CK-MB (CK-2) (0.0-2.4) ng/mL Total Protein (6.3-8.2) g/dL Albumin (3.5-5.0) g/dL Crossmatch 07/10/20 07/10/20 07/10/20 Range/Units 00:07 00:07 00:07 WBC 14.9 H (3.8-10.6) k/uL RBC 1.67 L (3.80-5.40) m/uL Hgb 4.7 L* D (11.4-16.0) gm/dL Hct 14.7 L* (34.0-46.0) % Neutrophils # (1.3-7.7) k/uL Monocytes # (0-1.0) k/uL Fibrinogen 100 L (200-500) mg/dL D-Dimer 1.55 H (<0.60) mg/L FEU Sodium (137-145) mmol/L Chloride (98-107) mmol/L Carbon Dioxide (22-30) mmol/L BUN (7-17) mg/dL Glucose (74-99) mg/dL POC Glucose (mg/dL) (75-99) mg/dL Calcium (8.4-10.2) mg/dL Alkaline Phosphatase (38-126) U/L Lactate Dehydrogenase (313-618) U/L CK-MB (CK-2) (0.0-2.4) ng/mL Total Protein (6.3-8.2) g/dL Albumin (3.5-5.0) g/dL Crossmatch See Detail 07/10/20 07/10/20 07/10/20 Range/Units 03:56 08:45 08:45 WBC 25.5 H (3.8-10.6) k/uL RBC 3.14 L (3.80-5.40) m/uL Hgb 9.2 L D (11.4-16.0) gm/dL Hct 27.0 L (34.0-46.0) % Neutrophils # 21.9 H (1.3-7.7) k/uL Monocytes # 1.3 H (0-1.0) k/uL Fibrinogen (200-500) mg/dL D-Dimer (<0.60) mg/L FEU Sodium 134 L (137-145) mmol/L Chloride 114 H (98-107) mmol/L Carbon Dioxide 19 L (22-30) mmol/L BUN 47 H (7-17) mg/dL Glucose 331 H (74-99) mg/dL POC Glucose (mg/dL) 352 H (75-99) mg/dL Calcium 7.6 L (8.4-10.2) mg/dL Alkaline Phosphatase 36 L (38-126) U/L Lactate Dehydrogenase 712 H (313-618) U/L CK-MB (CK-2) (0.0-2.4) ng/mL Total Protein 2.9 L (6.3-8.2) g/dL Albumin 1.4 L (3.5-5.0) g/dL Crossmatch 07/10/20 Range/Units 08:45 WBC (3.8-10.6) k/uL RBC (3.80-5.40) m/uL Hgb (11.4-16.0) gm/dL Hct (34.0-46.0) % Neutrophils # (1.3-7.7) k/uL Monocytes # (0-1.0) k/uL Fibrinogen (200-500) mg/dL D-Dimer (<0.60) mg/L FEU Sodium (137-145) mmol/L Chloride (98-107) mmol/L Carbon Dioxide (22-30) mmol/L BUN (7-17) mg/dL Glucose (74-99) mg/dL POC Glucose (mg/dL) (75-99) mg/dL Calcium (8.4-10.2) mg/dL Alkaline Phosphatase (38-126) U/L Lactate Dehydrogenase (313-618) U/L CK-MB (CK-2) 2.7 H (0.0-2.4) ng/mL Total Protein (6.3-8.2) g/dL Albumin (3.5-5.0) g/dL Crossmatch Assessment and Plan Assessment: 1 acute Covid 19 related pneumonia. The patient was diagnosed with ear infection on 06/26/2020. The patient developed worsening symptoms in addition to dyspnea and hypoxemia and cough and for that reason the patient was admitted to the hospital. She is currently on 6 L of oxygen by nasal cannula, with a pulse ox of 91%, patient will finish her course of Remdesivir today on 07/05/2020, and she status post transfusion of one unit of convalescent plasma 2 acute hypoxic respiratory failure secondary to above 3 fever secondary to above 4 constitutional symptoms secondary to above 5 elevated inflammatory markers secondary to above 6 hypertension 7 hyperlipidemia 8 diabetes mellitus with elevated blood sugar 9 diverticular disease 10 osteoarthritis 11 acute blood loss anemia secondary to GI bleeding exact source of the bleeding is not clear, GI was consulted, patient will receive a unit of packed RBCs, will hold Lovenox, and continue Protonix. 12 acute TIA, her neurologic symptoms have resolved 13 recurrent episodes of GI bleeding hence we'll continue to hold Lovenox and continue Protonix. GI to evaluate. Patient received almost 6 years of packed RBCs on this admission 3 on previous episode of GI bleeding and 3 since last night. Recommendation: Continue to monitor in the ICU. Continue to hold Lovenox. Continue droplet isolation/precautions Gastroenterology will eventually decide whether the patient may or may not require EGD or colonoscopy. Continue Protonix. Continue the cocktail for Covid 19 pneumonitis. Prognosis remains guarded, went ahead and placed a right femoral arterial line and triple lumen catheter today. Time with Patient: Less than 30
[2020-07-10] MEDS ORDERED: EPINEPHrine 10 ML SYRINGE (0.1 MG/ML) ONE (14:58)
[2020-07-10] MEDS ORDERED: SODIUM BICARB 8.4% 50 ML SYR (1 MEQ/ML) ONE ×3 (14:58→15:05)
[2020-07-10 15:10] LABS: Basophils # (A) 0.1 k/uL (0-0.2); Basophils % (A) 0 %; Eosinophils % (A) 0 %; Hypochromasia Moderate; Lymphocytes # (A) 3.2 k/uL (1.0-4.8); Lymphocytes % (A) 12 %; MCH 29.5 pg (25.0-35.0); MCHC 31.9 g/dL (31.0-37.0); Mean Platelet Volume 9.7; Monocytes # (A) 1.1 k/uL (0-1.0); Monocytes % (A) 4 %; Neutrophils # (A) 21.9 k/uL (1.3-7.7); Neutrophils % (A) 82 %; Platelet Count 210 k/uL (150-450); RBC 2.12 m/uL (3.80-5.40); WBC 26.7 k/uL (3.8-10.6)
[2020-07-10 15:27] LABS: MCV 92.6 fL (80.0-100.0)
[2020-07-10] MEDS ORDERED: propofoL 100 ML IV ONE (15:27)
[2020-07-10 15:28] LABS: HCT 19.7 % (34.0-46.0); HGB 6.3 gm/dL (11.4-16.0)
--- NOTE | 2020-07-10 15:32 | PCN ---
PROCEDURE NOTE OPERATIVE REPORT: Placement of right femoral arterial line. PREOPERATIVE DIAGNOSIS: Acute GI bleeding and hypotension. POSTOPERATIVE DIAGNOSIS: Acute gastrointestinal bleeding and hypotension. ANESTHESIA: Used none deployed. PROCEDURE DETAILS: The right femoral artery was palpated, cannulated, and a guidewire was placed. The area around the guidewire was dilated. Then a standard femoral artery catheter was used, inserted over the guidewire, the guidewire was removed. Good waveform, good blood flow noted, no evidence of any immediate complication, line was secured using 3.0 silk sutures. MMODL / IJN: [id number] /
--- NOTE | 2020-07-10 15:32 | PCN ---
PROCEDURE NOTE OPERATIVE REPORT: Placement of the right femoral triple-lumen catheter. PREOPERATIVE DIAGNOSIS: Acute GI bleeding and hypotension requiring blood transfusion. POSTOPERATIVE DIAGNOSIS: Acute gastrointestinal bleeding and hypotension requiring blood transfusion. ANESTHESIA USED: 2 mL of 1% lidocaine. PROCEDURE DETAILS: The patient was placed in the supine position, the right groin was prepared in a sterile fashion. The drapes were applied. The right femoral vein was easily cannulated, a guidewire was placed. The area around the guidewire was dilated. Then a triple-lumen catheter was inserted over the guidewire, and the guidewire was removed. Good blood flow was noted in the 3 different ports of the triple-lumen catheter. The line was secured using 3.0 silk sutures. No evidence of any complications. MMODL / IJN: [id number] /
[2020-07-10 15:54] LABS: ABG PCO2 31 mmHg (35-45); ABG PO2 310 mmHg (83-108); ABG TCO2 10 mmol/L (19-24); Allen Test Performed? Yes
[2020-07-10 15:58] LABS: ABG HCO3 9 mmol/L (21-25); ABG PH 7.05 (7.35-7.45)
--- NOTE | 2020-07-10 15:58 | XR ---
EXAMINATION TYPE: XR chest 1V portable DATE OF EXAM: 07/10/2020 COMPARISON: Today HISTORY: Respiratory failure. TECHNIQUE: FINDINGS: The endotracheal tube is in contact with the there is coarse pulmonary interstitial density throughout the lungs. There is slight blunting right costophrenic angle. There is nasogastric tube i n the stomach. There are chest leads. IMPRESSION: There is malposition of the endotracheal tube and should BE pulled back 3 to 4 cm. Advanced fibrosis. Unchanged. Heart failure not excluded.
[2020-07-10] MEDS: DEXTROSE 5% IN WATER 1,000 ML with SODIUM BICARB (1 MEQ/ML) 150 ML IV SCH (17:00)
[2020-07-10] MEDS: NOREPINEPHRINE 8 MG in SODIUM CHLORIDE 0.9% 250 ML IV SCH ×3 (17:00→22:05)
--- NOTE | 2020-07-10 17:02 | P.PN ---
Subjective Progress Note Date: 07/10/20 Principal diagnosis: GI bleed, anemia of acute blood loss Patient who tested positive for coronavirus. The patient had been doing well in the ICU yesterday with hemoglobin stable at 12.3 from 11.9 after transfusion due to GI bleed which was described as bright red blood. She had no further GI bleeding reported yesterday in the ICU and was transferred to the floor for further management. However, last night the patient developed multiple episodes of melanotic stool which have continued. Of note, after evaluation of patient she was found to be in cardia pulmonary arrest and underwent successful CPR with intubation and is currently on the vent with plan for EGD to rule out upper GI bleed.. Objective - Vital Signs Vital signs: Vital Signs Temp 97.9 F 07/10/20 08:00 Pulse 129 H 07/10/20 10:00 Resp 22 07/10/20 10:00 BP 119/58 07/10/20 10:00 Pulse Ox 96 07/10/20 10:00 Intake & Output 07/09/20 07/10/20 07/10/20 18:59 06:59 18:59 Intake Total 1022 1791.103 399.151 Output Total 320 100 25 Balance 702 1691.103 374.151 Weight 62 kg Intake: IV 800 155 13 Pressure bag 15 3 Sodium Chloride 0.9% 1, 800 140 10 000 ml @ 100 mls/hr IV . Q10H [facility] Rx#:[id number] Intake, IV Titration 86.103 76.151 Amount Norepinephrine 4 mg In 86.103 76.151 Sodium Chloride 0.9% 250 ml @ 0.05 MCG/KG/MIN 11. 849 mls/hr IV .[id number] [facility] Rx#:[id number] Oral 222 Blood Product 1550 310 Rc As-1 Unit 0 310 [id number] Rc As-1 Unit 310 [id number] Rc As-1 Unit 310 [id number] Output: Urine 320 100 25 Other: Voiding Method Indwelling Catheter Indwelling Catheter ABP, PAP, CO, CI - Last Documented Arterial Blood Pressure 116/52 - Exam On physical examination, patient appears comfortable in no apparent distress. HEAD: Normocephalic, atraumatic. EYES: No scleral icterus. No conjunctival injection. MOUTH: No lesions, tongue midline oral gastric tube in place. NECK: Trachea midline, no gross abnormalities. CHEST: Coarse respiratory noises in all lung storey. HEART: S1-S2 appreciated. ABDOMEN: Soft, obese. Bowel sounds are positive. No organomegaly. No guarding or rigidity. EXTREMITIES: No pedal edema. SKIN: No rashes, no jaundice. NEUROLOGIC: Intubated and sedated. - Labs CBC & Chem 7: 07/10/20 14:52 07/10/20 08:45 Labs: Abnormal Lab Results - Last 24 Hours (Table) 07/09/20 07/09/20 07/09/20 Range/Units 17:13 20:20 23:31 WBC (3.8-10.6) k/uL RBC (3.80-5.40) m/uL Hgb (11.4-16.0) gm/dL Hct (34.0-46.0) % Neutrophils # (1.3-7.7) k/uL Monocytes # (0-1.0) k/uL Fibrinogen (200-500) mg/dL D-Dimer (<0.60) mg/L FEU Sodium (137-145) mmol/L Chloride (98-107) mmol/L Carbon Dioxide (22-30) mmol/L BUN (7-17) mg/dL Glucose (74-99) mg/dL POC Glucose (mg/dL) 268 H 246 H 255 H (75-99) mg/dL Calcium (8.4-10.2) mg/dL Alkaline Phosphatase (38-126) U/L Lactate Dehydrogenase (313-618) U/L CK-MB (CK-2) (0.0-2.4) ng/mL Total Protein (6.3-8.2) g/dL Albumin (3.5-5.0) g/dL Crossmatch 07/10/20 07/10/20 07/10/20 Range/Units 00:07 00:07 00:07 WBC 14.9 H (3.8-10.6) k/uL RBC 1.67 L (3.80-5.40) m/uL Hgb 4.7 L* D (11.4-16.0) gm/dL Hct 14.7 L* (34.0-46.0) % Neutrophils # (1.3-7.7) k/uL Monocytes # (0-1.0) k/uL Fibrinogen 100 L (200-500) mg/dL D-Dimer 1.55 H (<0.60) mg/L FEU Sodium (137-145) mmol/L Chloride (98-107) mmol/L Carbon Dioxide (22-30) mmol/L BUN (7-17) mg/dL Glucose (74-99) mg/dL POC Glucose (mg/dL) (75-99) mg/dL Calcium (8.4-10.2) mg/dL Alkaline Phosphatase (38-126) U/L Lactate Dehydrogenase (313-618) U/L CK-MB (CK-2) (0.0-2.4) ng/mL Total Protein (6.3-8.2) g/dL Albumin (3.5-5.0) g/dL Crossmatch See Detail 07/10/20 07/10/20 07/10/20 Range/Units 03:56 08:45 08:45 WBC 25.5 H (3.8-10.6) k/uL RBC 3.14 L (3.80-5.40) m/uL Hgb 9.2 L D (11.4-16.0) gm/dL Hct 27.0 L (34.0-46.0) % Neutrophils # 21.9 H (1.3-7.7) k/uL Monocytes # 1.3 H (0-1.0) k/uL Fibrinogen (200-500) mg/dL D-Dimer (<0.60) mg/L FEU Sodium 134 L (137-145) mmol/L Chloride 114 H (98-107) mmol/L Carbon Dioxide 19 L (22-30) mmol/L BUN 47 H (7-17) mg/dL Glucose 331 H (74-99) mg/dL POC Glucose (mg/dL) 352 H (75-99) mg/dL Calcium 7.6 L (8.4-10.2) mg/dL Alkaline Phosphatase 36 L (38-126) U/L Lactate Dehydrogenase 712 H (313-618) U/L CK-MB (CK-2) (0.0-2.4) ng/mL Total Protein 2.9 L (6.3-8.2) g/dL Albumin 1.4 L (3.5-5.0) g/dL Crossmatch 07/10/20 Range/Units 08:45 WBC (3.8-10.6) k/uL RBC (3.80-5.40) m/uL Hgb (11.4-16.0) gm/dL Hct (34.0-46.0) % Neutrophils # (1.3-7.7) k/uL Monocytes # (0-1.0) k/uL Fibrinogen (200-500) mg/dL D-Dimer (<0.60) mg/L FEU Sodium (137-145) mmol/L Chloride (98-107) mmol/L Carbon Dioxide (22-30) mmol/L BUN (7-17) mg/dL Glucose (74-99) mg/dL POC Glucose (mg/dL) (75-99) mg/dL Calcium (8.4-10.2) mg/dL Alkaline Phosphatase (38-126) U/L Lactate Dehydrogenase (313-618) U/L CK-MB (CK-2) 2.7 H (0.0-2.4) ng/mL Total Protein (6.3-8.2) g/dL Albumin (3.5-5.0) g/dL Crossmatch Assessment and Plan (1) Lower GI bleed Narrative/Plan: 69-year-old female with multiple comorbidities who presented for weakness and shortness of breath and was found to have positive testing for Covid 19 for which she was receiving appropriate therapy. Last night the patient had a large bloody bowel movement and has subsequently had a fall in her hemoglobin from 9.8 yesterday down to 6.2 today. No further bleeding since that time. Patient's has been noted to have altered mentation and gaze deviation and there is concern for an ischemic stroke at this time. Unclear etiology of bleeding, given thromboembolic nature of the grover virus infection this may be ischemic in nature, diverticular, or other etiology. The patient had no further signs or symptoms of GI bleeding, with mentation improved and hemoglobin stable at 12.3 yesterday from 11.9. The patient was sent back to the medical floor for continued management and developed episodes of melanotic stool last night which have continued into today. Patient underwent cardiopulmonary arrest status post successful CPR with ROSC and is currently in the ICU receiving mechanical ventilation and pressor support. Current Visit: Yes Status: Acute Code(s): K92.2 - GASTROINTESTINAL HEMORRHAGE, UNSPECIFIED SNOMED Code(s): 67189923 (2) Anemia associated with acute blood loss Current Visit: Yes Status: Acute Code(s): D62 - ACUTE POSTHEMORRHAGIC ANEMIA SNOMED Code(s): 827551245 (3) COVID-19 Current Visit: Yes Status: Acute Code(s): U07.1 - COVID-19 SNOMED Code(s): 647042535 Plan: Supportive care Continue IV Protonix twice a day Continue to monitor hemoglobin and hematocrit and transfuse as needed Continue to monitor for signs or symptoms of GI bleeding, with no further evidence of bleeding Plan is for emergent EGD for further evaluation and to rule out active GI bleed Thank you for allowing us to participate in the care of the patient we will continue to follow
--- NOTE | 2020-07-10 17:10 | P.PCN ---
Date of Procedure: 07/10/20 Description of Procedure: BRIEF HISTORY: 69-year-old female with multiple comorbidities who presented for weakness and shortness of breath and was found to have positive testing for Covid 19 for which she was receiving appropriate therapy. Last night the patient had a large bloody bowel movement and has subsequently had a fall in her hemoglobin from 9.8 yesterday down to 6.2 today. No further bleeding since that time. Patient's has been noted to have altered mentation and gaze deviation and there is concern for an ischemic stroke at this time. The patient had no further signs or symptoms of GI bleeding, with mentation improved and hemoglobin stable at 12.3 yesterday from 11.9. The patient was sent back to the medical floor for continued management and developed episodes of melanotic stool last night which have continued into today. Patient underwent cardiopulmonary arrest status post successful CPR with ROSC and is currently in the ICU receiving mechanical ventilation and pressor support. PROCEDURE PERFORMED: Esophagogastroduodenoscopy. PREOPERATIVE DIAGNOSIS: Anemia of acute blood loss, melena. ESTIMATED BLOOD LOSS: Minimal. IV sedation per anesthesia. PROCEDURE: After informed consent was obtained, the patient was brought into the endoscopy unit. IV sedation was administered by Anesthesia under continuous monitoring. Initially the Olympus GIF-190 video endoscope was inserted into the mouth. Esophagus intubated without any difficulty. It was gradually advanced into the stomach and duodenum and carefully examined. The bulb and the second part of the duodenum appeared normal, with some old hemolyzed blood noted throughout but no active bleeding seen or pathology to explain anemia noted, complete visualization not possible secondary to blood even with extensive lavage. The scope at this time was withdrawn to the stomach, adequately insufflated with ai r, and upon careful examination, mucosa of the antrum, body, cardia and the fundus appeared extremely mottled suggestive of ischemic changes. Old blood was noted throughout the stomach with no active bleeding noted, however complete visualization was not possible due to the old blood which was extensively lavaged but able to be completely removed. The scope was then withdrawn into the esophagus. The GE junction was located at 35 cm from the incisors. The esophagus appeared normal. There were no erosions or ulcerations seen and the patient tolerated the procedure well. IMPRESSION: 1. Old blood noted in the duodenum and stomach extensively lavaged with no active bleeding or pathology to explain anemia and symptoms noted. 2. Mottling and ischemic changes of the entire stomach. RECOMMENDATIONS: The findings of this examination were discussed with the patients medical team. Patient should remain nothing by mouth. Oral gastric tube in place. Continue PPI therapy. Continue management by the process designer service. GI will continue to follow closely.
[2020-07-10 17:27] LABS: Glucose,Whole Blood 305 mg/dL (75-99)
[2020-07-10] MEDS: SODIUM CHLORIDE 0.9% 150 ML with VASOPRESSIN 60 UNIT IV SCH ×4 (17:30→19:43)
[2020-07-10] MEDS ORDERED: CHLORHEXIDINE GLUCONATE 15 ML CUP MUCOUS MEM ONE (17:30)
[2020-07-10] MEDS ORDERED: SODIUM CHLORIDE 0.9% 50 ML with VASOPRESSIN 20 UNIT IVPB SCH ×2 (17:30)
[2020-07-10 18:16] LABS: ABG Base Excess -23.2 mmol/L; ABG Oxygen Saturation 99.5 % (94-97); ABG PCO2 33 mmHg (35-45); ABG PO2 187 mmHg (83-108); ABG TCO2 9 mmol/L (19-24); Allen Test Performed? Yes
[2020-07-10 18:19] LABS: ABG HCO3 8 mmol/L (21-25)
[2020-07-10] MEDS ORDERED: SODIUM BICARB 8.4% 50 ML SYR (1 MEQ/ML) IV STA (18:29)
[2020-07-10 18:40] LABS: Ferritin 495.3 ng/mL (10.0-291.0)
--- NOTE | 2020-07-10 20:21 | P.PN ---
Subjective i talked to the son .Mr. Enzo severino on [phone] and I discussed the case with him, I updated him with the mother condition including the intubation the need for pressors and GI bleed the results of the scope done by GI team and the treatment planned for her covid infection, he verbalized understanding, his questions are answered. Clubbing of our conversation he wanted to make DO NOT RESUSCITATE for heart stops however he agrees of to continue with the all current treatment as it is, including but not limited the mechanical ventilatio n, the antibiotic, the pressors and the treatment for Covid d/w staff Objective - Vital Signs Vital signs: Vital Signs Temp 97.8 F 07/10/20 18:08 Pulse 99 07/10/20 19:30 Resp 26 H 07/10/20 19:30 BP 83/31 07/10/20 19:15 Pulse Ox 98 07/10/20 18:15 Intake & Output 07/10/20 07/10/20 07/11/20 06:59 18:59 06:59 Intake Total 9551.366 4355.151 386.594 Output Total 100 245 5 Balance 2882.888 8335.151 381.594 Weight 62 kg Intake: IV 155 2966 103 Dextrose 5% in Water 1, 300 100 000 ml @ 100 mls/hr IV . [id number] TURNER with Sodium Bicarb (1 Meq/ml) 150 ml Rx#:[id number] Pressure bag 15 36 3 Sodium Chloride 0.9% 1, 140 630 000 ml @ 100 mls/hr IV . Q10H TURNER Rx#:[id number] Sodium Chloride 0.9% 1, 2000 000 ml @ 999 mls/hr IV . Q1H1M ONE Rx#:[id number] Intake, IV Titration 86.103 76.151 283.594 Amount Norepinephrine 4 mg In 86.103 76.151 Sodium Chloride 0.9% 250 ml @ 0.05 MCG/KG/MIN 11. 849 mls/hr IV .[id number] TURNER Rx#:[id number] Norepinephrine 8 mg In 283.594 Sodium Chloride 0.9% 250 ml @ 0.05 MCG/KG/MIN 5. 999 mls/hr IV .Q24H TURNER Rx#:[id number] Blood Product 1550 620 Rc As-1 Unit 0 [id number] Rc As-1 Unit 0 310 [id number] Rc As-1 Unit 310 [id number] Rc As-1 Unit 310 [id number] Rc As-1 Unit 310 [id number] Output: Urine 100 245 5 Other: Voiding Method Indwelling Catheter Indwelling Catheter # Bowel Movements 1 ABP, PAP, CO, CI - Last Documented Arterial Blood Pressure 107/46 - Labs CBC & Chem 7: 07/10/20 14:52 07/10/20 08:45 Labs: Abnormal Lab Results - Last 24 Hours (Table) 07/09/20 07/09/20 07/10/20 Range/Units 20:20 23:31 00:07 WBC (3.8-10.6) k/uL RBC (3.80-5.40) m/uL Hgb (11.4-16.0) gm/dL Hct (34.0-46.0) % Neutrophils # (1.3-7.7) k/uL Monocytes # (0-1.0) k/uL Fibrinogen 100 L (200-500) mg/dL D-Dimer 1.55 H (<0.60) mg/L FEU ABG pH (7.35-7.45) ABG pCO2 (35-45) mmHg ABG pO2 (83-108) mmHg ABG HCO3 (21-25) mmol/L ABG Total CO2 (19-24) mmol/L ABG O2 Saturation (94-97) % Sodium (137-145) mmol/L Chloride (98-107) mmol/L Carbon Dioxide (22-30) mmol/L BUN (7-17) mg/dL Glucose (74-99) mg/dL POC Glucose (mg/dL) 246 H 255 H (75-99) mg/dL Calcium (8.4-10.2) mg/dL Ferritin (10.0-291.0) ng/mL Alkaline Phosphatase (38-126) U/L Lactate Dehydrogenase (313-618) U/L CK-MB (CK-2) (0.0-2.4) ng/mL Total Protein (6.3-8.2) g/dL Albumin (3.5-5.0) g/dL Procalcitonin (0.02-0.09) ng/mL Crossmatch 11/07/10/20 07/10/20 Range/Units 00:07 00:07 03:56 WBC 14.9 H (3.8-10.6) k/uL RBC 1.67 L (3.80-5.40) m/uL Hgb 4.7 L* D (11.4-16.0) gm/dL Hct 14.7 L* (34.0-46.0) % Neutrophils # (1.3-7.7) k/uL Monocytes # (0-1.0) k/uL Fibrinogen (200-500) mg/dL D-Dimer (<0.60) mg/L FEU ABG pH (7.35-7.45) ABG pCO2 (35-45) mmHg ABG pO2 (83-108) mmHg ABG HCO3 (21-25) mmol/L ABG Total CO2 (19-24) mmol/L ABG O2 Saturation (94-97) % Sodium (137-145) mmol/L Chloride (98-107) mmol/L Carbon Dioxide (22-30) mmol/L BUN (7-17) mg/dL Glucose (74-99) mg/dL POC Glucose (mg/dL) 352 H (75-99) mg/dL Calcium (8.4-10.2) mg/dL Ferritin (10.0-291.0) ng/mL Alkaline Phosphatase (38-126) U/L Lactate Dehydrogenase (313-618) U/L CK-MB (CK-2) (0.0-2.4) ng/mL Total Protein (6.3-8.2) g/dL Albumin (3.5-5.0) g/dL Procalcitonin (0.02-0.09) ng/mL Crossmatch See Detail 07/10/20 07/10/20 07/10/20 Range/Units 08:45 08:45 08:45 WBC 25.5 H (3.8-10.6) k/uL RBC 3.14 L (3.80-5.40) m/uL Hgb 9.2 L D (11.4-16.0) gm/dL Hct 27.0 L (34.0-46.0) % Neutrophils # 21.9 H (1.3-7.7) k/uL Monocytes # 1.3 H (0-1.0) k/uL Fibrinogen (200-500) mg/dL D-Dimer (<0.60) mg/L FEU ABG pH (7.35-7.45) ABG pCO2 (35-45) mmHg ABG pO2 (83-108) mmHg ABG HCO3 (21-25) mmol/L ABG Total CO2 (19-24) mmol/L ABG O2 Saturation (94-97) % Sodium 134 L (137-145) mmol/L Chloride 114 H (98-107) mmol/L Carbon Dioxide 19 L (22-30) mmol/L BUN 47 H (7-17) mg/dL Glucose 331 H (74-99) mg/dL POC Glucose (mg/dL) (75-99) mg/dL Calcium 7.6 L (8.4-10.2) mg/dL Ferritin 495.3 H (10.0-291.0) ng/mL Alkaline Phosphatase 36 L (38-126) U/L Lactate Dehydrogenase 712 H (313-618) U/L CK-MB (CK-2) 2.7 H (0.0-2.4) ng/mL Total Protein 2.9 L (6.3-8.2) g/dL Albumin 1.4 L (3.5-5.0) g/dL Procalcitonin (0.02-0.09) ng/mL Crossmatch 07/10/20 07/10/20 07/10/20 Range/Units 08:45 14:52 15:50 WBC 26.7 H (3.8-10.6) k/uL RBC 2.12 L (3.80-5.40) m/uL Hgb 6.3 L* D (11.4-16.0) gm/dL Hct 19.7 L* (34.0-46.0) % Neutrophils # 21.9 H (1.3-7.7) k/uL Monocytes # 1.1 H (0-1.0) k/uL Fibrinogen (200-500) mg/dL D-Dimer (<0.60) mg/L FEU ABG pH 7.05 L* (7.35-7.45) ABG pCO2 31 L (35-45) mmHg ABG pO2 310 H (83-108) mmHg ABG HCO3 9 L* (21-25) mmol/L ABG Total CO2 10 L (19-24) mmol/L ABG O2 Saturation 100.0 H (94-97) % Sodium (137-145) mmol/L Chloride (98-107) mmol/L Carbon Dioxide (22-30) mmol/L BUN (7-17) mg/dL Glucose (74-99) mg/dL POC Glucose (mg/dL) (75-99) mg/dL Calcium (8.4-10.2) mg/dL Ferritin (10.0-291.0) ng/mL Alkaline Phosphatase (38-126) U/L Lactate Dehydrogenase (313-618) U/L CK-MB (CK-2) (0.0-2.4) ng/mL Total Protein (6.3-8.2) g/dL Albumin (3.5-5.0) g/dL Procalcitonin 0.30 H (0.02-0.09) ng/mL Crossmatch 07/10/20 07/10/20 Range/Units 17:25 18:13 WBC (3.8-10.6) k/uL RBC (3.80-5.40) m/uL Hgb (11.4-16.0) gm/dL Hct (34.0-46.0) % Neutrophils # (1.3-7.7) k/uL Monocytes # (0-1.0) k/uL Fibrinogen (200-500) mg/dL D-Dimer (<0.60) mg/L FEU ABG pH 7.00 L* (7.35-7.45) ABG pCO2 33 L (35-45) mmHg ABG pO2 187 H (83-108) mmHg ABG HCO3 8 L* (21-25) mmol/L ABG Total CO2 9 L (19-24) mmol/L ABG O2 Saturation 99.5 H (94-97) % Sodium (137-145) mmol/L Chloride (98-107) mmol/L Carbon Dioxide (22-30) mmol/L BUN (7-17) mg/dL Glucose (74-99) mg/dL POC Glucose (mg/dL) 305 H (75-99) mg/dL Calcium (8.4-10.2) mg/dL Ferritin (10.0-291.0) ng/mL Alkaline Phosphatase (38-126) U/L Lactate Dehydrogenase (313-618) U/L CK-MB (CK-2) (0.0-2.4) ng/mL Total Protein (6.3-8.2) g/dL Albumin (3.5-5.0) g/dL Procalcitonin (0.02-0.09) ng/mL Crossmatch
[2020-07-10] MEDS ORDERED: ATROPINE OPHTH SOLN 1% 5ML BTL SUBLINGUAL PRN (20:49)
[2020-07-10] MEDS ORDERED: INSULIN DETEMIR (LEVEMIR) 100 UNIT/ML SYR SQ SCH (21:00)
[2020-07-10] MEDS: PIPERACILLIN-TAZOBACTAM 3.375 GM in SODIUM CHLORIDE 0.9% 100 ML IVPB SCH (21:16)
[2020-07-10] MEDS: LINAGLIPTIN 5 MG TABLET PO SCH (21:19)
[2020-07-10] MEDS: CHOLECALCIFEROL 1,000 UNIT TAB PO SCH (21:19)
[2020-07-10] MEDS: ATORVASTATIN 40 MG TAB PO SCH (21:19)
[2020-07-10] MEDS ORDERED: MORPHINE SULFATE (100 MG/2 ML) 100 MG in SODIUM CHLORIDE 0.9% 100 ML IV SCH (21:45)
[2020-07-10 23:16] LABS: HCT 35.4 % (34.0-46.0); MCH 30.5 pg (25.0-35.0); MCHC 33.9 g/dL (31.0-37.0); MCV 90.1 fL (80.0-100.0); Mean Platelet Volume 10.2; Platelet Count 128 k/uL (150-450); RBC 3.93 m/uL (3.80-5.40); RDW 14.9 % (11.5-15.5); WBC 21.3 k/uL (3.8-10.6)
[2020-07-11 00:22] LABS: Glucose,Whole Blood 330 mg/dL (75-99)
[2020-07-11] MEDS: INSULIN ASPART (NovoLOG) 100 UNIT/ML VIAL SQ SCH ×2 (00:25→00:26)
[2020-07-11] MEDS ORDERED: NOREPINEPHRINE 32 MG in SODIUM CHLORIDE 0.9% 218 ML IV SCH (00:45)
[2020-07-11] MEDS ORDERED: INSULIN REGULAR BOLUS (FROM DRIP BAG) IV PRN (02:15)
[2020-07-11] MEDS ORDERED: INSULIN REGULAR 100 UNIT in SODIUM CHLORIDE 0.9% 100 ML IV SCH (02:15)
[2020-07-11 02:48] LABS: Glucose,Whole Blood 310 mg/dL (75-99)
[2020-07-11 03:44] LABS: Glucose,Whole Blood 287 mg/dL (75-99)
[2020-07-11] MEDS: SODIUM CHLORIDE 0.9% 1,000 ML IV SCH (03:49)
[2020-07-11 04:03] LABS: Glucose,Whole Blood 248 mg/dL (75-99)
--- NOTE | 2020-07-11 04:20 | P.PN ---
Subjective From records Patient is a 69-year-old female with a known history of hypertension, diabetes type 2 [id number], osteoarthritis who was recently seen at [facility] on 06/26/2020 with Covid pneumonia came to hospital with the complaints of generalized weakness. Patient says that he has been having fevers and exertional dyspnea for the past 1 to 2 days. Patient was tested positive for COVID-19 virus approximately 5 days ago. For the past 2 days patient has been having generalized weakness and fatigue. No diarrhea no vomiting. Patient does have cough without sputum production and has been having worsening shortne ss of breath. On and off chest pains as well. Sharp aching type without any radiation. Denied any leg swelling or palpitations. No hematemesis or melena. Chest x-ray showed multifocal areas of infiltrate correlate for pneumonia CT angiogram showed scattered infiltrates greater on the right compatible with reported Covid pneumonia. No acute pulmonary embolism. Laboratory data showed D-dimer 0.61, lymphocyte 0.8, ferritin 367.5, LDH 834, CRP 170, procalcitonin 0.1 On admission T-max 100.3 and pulse ox 92% on 2 L oxygen. 07/02/2029 patient is currently lying in the bed comfortably. No complaints of chest pain or worsening shortness of breath. Patient says that she feels better today. Patient is being continued on Decadron and Lovenox. Insulin was started for better sugar control. Preprandial dose was added. Continued on oxygen therapy and follow closely. 07/03/2020 Patient is currently awake alert oriented 3. Lying in the bed comfortably. Still occurring oxygen at 3-4 L when asked cannula. Patient has been afebrile. continued on her Remdesivir. Continue on dexamethasone Lovenox and vitamin supplementation. Pulmonary is following. 07/04/2020 Patient is awake alert oriented x3. Still requiring oxygen at 4 L via nasal cannula. Saturating around 90%. Otherwise patient states that she feels better. Currently afebrile. Blood cultures have been negative. Continued on remdesivir therapy Laboratory data showed WBC 13.1 hemoglobin 13.8 and neutrophils 11.9 CRP 11.1 and LDH is 429 Subjective: 07/05/2020 This is a pleasant 69 years old female who presents with Covid pneumonia and acute hypoxic respiratory failure. Patient is followed closely by pulmonary service. Patient is currently on dexamethasone 6 mg orally daily and Remdesivir, also she is on zinc and vitamin C and normal saline at 80 milliliters per hour. She is saturating 90% on 67 L via nasal cannula. Patient is afebrile for more than 48 hours. She is slightly tachypneic at 20 breaths per minute. Blood pressure 161/90, heart rate 63 Leukocytosis improvement to 11.3, glucose is controlled. BMP is unremarkable from yesterday. Increased inflammatory markers of lactate dehydrogenase and C-reactive protein 07/06/2020 pt is still with Covid pneumonia. Yesterday her oxygen requirement went up from 5 to 7 mL per min . Her oxygen requirement today's looks the same. She is slightly tachypneic. Patient is afebrile WBC 13.4 K. D-dimer increased from 0.6 up to 2.5 so we will increase her Lovenox from 40 mg daily to twice a day, lactate dehydrogenase and C-reactive proteins are both significantly worse. Her glucose was 69 this morning and he lowered her Levemir from 15 down to 10 units She is currently on normal saline at 50 mL per hour as well she remains on dexamethasone, Remdesivir, zinc and vitamin C. Pulmonary team on the case 07/07/2020 Patient today was getting worse. While she was still treated for Covid pneumonia she developed a drop in hemoglobin last evening and in the morning, From 13.1 down to 9.8 yesterday night and 6.2 this morning. While WBC was within the reference range today at 10.3 and normal platelets at 370 1K. INR at 1.6. Her d-dimer actually was trending down this morning from 2.5 down to 0.6 which makes the possibility of DIC unlikely. Last night patient was found on the floor lying on her left side with large dark red blood was noted in the toilet, patient denies head trauma at that time and she remained alert and oriented Lovenox for discontinued (Patient was on Lovenox for worsening d-dimer and needed higher dose of oxygen from 7 up to 15 L/m secondary to her Covid pneumonia) and she was anxious to get 3 units of blood is provided for the patient. Protonix twice a day was added. And GI team were consulted And luc mmended to continue with supportive care. Patient is high-risk for endoscopic evaluation or intervention at this time. Also there was drop in blood pressure and patient received on 1.5 liter of eric l saline, her blood pressure improved now with systolic 120s to 130s. Patient was sent to the ICU with close monitoring as pressors might be indicated to support her blood pressure Also patient earlier today became mute with gaze palsy and inability to follow commands with some weakness on the right arm. Code stroke was called.. CT of the brain was done: No acute intracranial hemorrhage, midline shift or mass effect. CTA of the head and neck: No significant stenosis or aneurysm changes in the carotid arteries or [place]. Neurologist was consulted, He recommended to repeat the CAT scan of the head tomorrow for follow-up , as possible acute stroke Also recommended to keep her blood pressure goal between 120-140 and continue with Neuro-Check 07/08/2020 Patient remains in the ICU to the, she is awake and oriented, her neuro deficit has resolved and she is back to her normal self., Most likely patient has TIA rather than CVA and can be related to her episode of GI bleed and hypotension with recovering after correction of the blood pressure. Other possibility is syncope secondary to hypotension which is recovered now. CAT scan of the brain were negative. Neurologist recommended aspirin and Lipitor Current hemoglobin and vitals are stable and monitored closely, GI team recommended to continue with conservative management no need for doing the endoscopy now. Patient continue with Protonix twice daily and Lovenox is on hold. Also she is in normal sinus 100 mL per hour no Her oxygen requirements looks his stable and she is on 8 L oxygen. Also pulmonary/critical care team are following the case closely and continue with dexamethasone, zinc and vitamin C. 07/09/2020 Patient is awake and alert and she regained her ability to talk. No weakness or confusion only she has very mild facial droop on the right side. She still been treated for Covid pneumonia and her oxygen requirement is slightly up from 4 to 5 L/m of oxygen via nasal cannula. Her inflammatory markers is slightly worse and repeat chest x-ray also showed slight worsening, therefore patient was started back on Lovenox despite her recent history of gi bleed With recommendation for gastroenterology follow-up to evaluate if she needs endoscopy or no Neurology signed off, they recommended to continue with aspirin and Lipitor. Repeat CAT scan of the head was negative today Patient is being moved out of the ICU to select unit 07/10/2020 Last night patient developed another episode of GI bleed and duration and her mentation, blood pressure was low about 97/52. Patient was unresponsive. Her Lovenox and aspirin were held, 2-3 units of blood transfusion was ordered as well as normal saline boluses to keep systolic blood pressure at her level and transverse patient back to the ICU unit, later on in the afternoon patient got more worse and CODE BLUE was called, patient got resuscitated and intubated, Her hemoglobin readings were 4.7, 9.2, 6.3 and we will keep monitoring. She received several units of blood transfusion, case was discussed with GI team, she underwent emergent EGD and colonoscopy with GI team: (Old blood noted in the duodenum and stomach extensively lavaged with no active bleeding or pathology to explain anemia and symptoms noted. 2. Mottling and ischemic changes of the entire stomach.) per Report. Also pulmonary/critical care team are on the case and monitor the case tommy Closely who recommended CT of the abdomen when patient is more stable. However currently is very critical she needs to very high level of hemoglobin with and vasopressin was added and her blood pressure still borderline. her WBC and pro-calcitonin were elevated, patient was started on Zosyn, Also she continue with the treatment for Covid pneumonia Insulin coverage was started as well for better glucose control. And patient may need insulin drip if still high level we will contact the family . Review of systems:n/a Active Medications Generic Name Dose Route Start Last Admin Trade Name Freq PRN Reason Stop Dose Admin Acetaminophen 650 mg 07/01/20 20:46 07/04/20 21:10 Acetaminophen Tab 325 Mg Tab PO 650 mg Q6HR PRN Administration Fever and/ or Pain Ascorbic Acid 500 mg 07/01/20 17:00 07/10/20 09:33 Ascorbic Acid 500 Mg Tab PO Not Given DAILY TURNER Atorvastatin Calcium 40 mg 07/08/20 21:00 07/10/20 21:19 Atorvastatin 40 Mg Tab PO Not Given HS TURNER Cholecalciferol 2,000 unit 07/01/20 21:00 07/10/20 21:19 Cholecalciferol 1,000 Unit Tab PO Not Given HS TURNER Cyanocobalamin 1,000 mcg 07/02/20 09:00 07/10/20 09:33 Cyanocobalamin 500 Mcg Tab PO Not Given DAILY TURNER Dexamethasone 6 mg 07/01/20 17:00 07/10/20 09:33 Dexamethasone 2 Mg Tab PO Not Given DAILY TURNER Glimepiride 2 mg 07/02/20 07:30 07/10/20 06:43 Glimepiride 2 Mg Tab PO Not Given AC-BRKFST TURNER Sodium Chloride 1,000 mls @ 100 mls/hr 07/01/20 12:45 07/11/20 03:49 Saline 0.9% IV 100 mls/hr .Q10H TURNER Administration Sodium Bicarbonate 150 ml/ 1,150 mls @ 100 mls/hr 07/10/20 17:00 07/10/20 17:00 Dextrose/Water IV 100 mls/hr .[id number] TURNER Administration Vasopressin 60 unit/ Sodium 153 mls @ 4.59 mls/hr 07/10/20 17:30 07/10/20 19 :43 Chloride IV 4.59 mls/hr .Q24H TURNER Administration 0.03 UNITS/MIN Piperacillin Sod/Tazobactam 100 mls @ 25 mls/hr 07/11/20 00:00 07/10/20 21:16 Sod 3.375 gm/ Sodium Chloride IVPB 25 mls/hr Q8HR TURNER Administration Propofol 1,000 mg/ IV Solution 100 mls @ 0 mls/hr 07/10/20 23:00 07/10/20 23:18 IV 30 mcg/kg/min .Q0M TURNER 11.16 mls/hr Administration Protocol Titrate Norepinephrine Bitartrate 32 250 mls @ 1.453 mls/hr 07/11/20 00:45 07/11/20 03:49 mg/ Sodium Chloride IV 0.5 mcg/kg/min .Q24H TURNER 14.531 mls/hr Administration Protocol 0.05 MCG/KG/MIN Insulin Human Regular 100 unit 101 mls @ 0 mls/hr 07/11/20 02:15 07/11/20 04:08 / Sodium Chloride IV 5 units/hr .Q0M TURNER 5.05 mls/hr Titration Protocol Per Protocol Linagliptin 5 mg 07/01/20 21:00 07/10/20 21:19 Linagliptin 5 Mg Tablet PO Not Given HS [facility] Miscellaneous Information 1 each 07/07/20 12:04 Potassium Replacement Protocol 1 Each Misc MISCELLANE DAILY PRN Per Protocol Protocol Naloxone HCl 0.2 mg 07/01/20 12:41 Naloxone 0.4 Mg/Ml 1 Ml Vial IV Q2M PRN Opioid Reversal Ondansetron HCl 4 mg 07/05/20 12:16 07/05/20 12:41 Ondansetron 4 Mg/2 Ml Vial IVP 4 mg Q6HR PRN Administration Nausea And Vomiting Pantoprazole Sodium 40 mg 07/06/20 23:45 07/10/20 21:18 Pantoprazole 40 Mg/10 Ml Vial IVP 40 mg BID TURNER Administration Zinc Sulfate 220 mg 07/02/20 09:00 07/10/20 09:33 Zinc Sulfate 220 Mg Cap PO Not Given DAILY TURNER Objective - Vital Signs Vital signs: Vital Signs Temp 97.9 F 07/10/20 08:00 Pulse 129 H 07/10/20 10:00 Resp 22 07/10/20 10:00 BP 119/58 07/10/20 10:00 Pulse Ox 96 07/10/20 10:00 Intake & Output 07/09/20 07/10/20 07/10/20 18:59 06:59 18:59 Intake Total 1022 1791.103 399.151 Output Total 320 100 25 Balance 702 1691.103 374.151 Weight 62 kg Intake: IV 800 155 13 Pressure bag 15 3 Sodium Chloride 0.9% 1, 800 140 10 000 ml @ 100 mls/hr IV . Q10H [facility] Rx#:[id number] Intake, IV Titration 86.103 76.151 Amount Norepinephrine 4 mg In 86.103 76.151 Sodium Chloride 0.9% 250 ml @ 0.05 MCG/KG/MIN 11. 849 mls/hr IV .[id number] [facility] Rx#:[id number] Oral 222 Blood Product 1550 310 Rc As-1 Unit 0 310 [id number] Rc As-1 Unit 310 [id number] Rc As-1 Unit 310 [id number] Output: Urine 320 100 25 Other: Voiding Method Indwelling Catheter Indwelling Catheter ABP, PAP, CO, CI - Last Documented Arterial Blood Pressure 116/52 - Exam -GENERAL: The patient is intubated and sedated HEENT: Pupils are round and equally reacting to light. EOMI. No scleral icterus. No conjunctival pallor. Normocephalic, atraumatic. No pharyngeal erythema. No thyromegaly. CARDIOVASCULAR: S1 and S2 present. No murmurs, rubs, or gallops. PULMONARY: Chest is clear to auscultation, no wheezing or crackles. ABDOMEN: Soft, nontender, nondistended, normoactive bowel sounds. No palpable organomegaly. MUSCULOSKELETAL: No joint swelling or deformity. EXTREMITIES: No cyanosis, clubbing, or pedal edema. -NEUROLOGICAL: Cranial nerves are grossly intact and strength is 5/5 in all extremities. No gait abnormality SKIN: No rashes. no petechiae. - Labs CBC & Chem 7: 07/10/20 23:00 07/10/20 08:45 Labs: Abnormal Lab Results - Last 24 Hours (Table) 07/09/20 07/09/20 07/09/20 Range/Units 17:13 20:20 23:31 WBC (3.8-10.6) k/uL RBC (3.80-5.40) m/uL Hgb (11.4-16.0) gm/dL Hct (34.0-46.0) % Neutrophils # (1.3-7.7) k/uL Monocytes # (0-1.0) k/uL Fibrinogen (200-500) mg/dL D-Dimer (<0.60) mg/L FEU Sodium (137-145) mmol/L Chloride (98-107) mmol/L Carbon Dioxide (22-30) mmol/L BUN (7-17) mg/dL Glucose (74-99) mg/dL POC Glucose (mg/dL) 268 H 246 H 255 H (75-99) mg/dL Calcium (8.4-10.2) mg/dL Alkaline Phosphatase (38-126) U/L Lactate Dehydrogenase (313-618) U/L CK-MB (CK-2) (0.0-2.4) ng/mL Total Protein (6.3-8.2) g/dL Albumin (3.5-5.0) g/dL Crossmatch 07/10/20 07/10/20 07/10/20 Range/Units 00:07 00:07 00:07 WBC 14.9 H (3.8-10.6) k/uL RBC 1.67 L (3.80-5.40) m/uL Hgb 4.7 L* D (11.4-16.0) gm/dL Hct 14.7 L* (34.0-46.0) % Neutrophils # (1.3-7.7) k/uL Monocytes # (0-1.0) k/uL Fibrinogen 100 L (200-500) mg/dL D-Dimer 1.55 H (<0.60) mg/L FEU Sodium (137-145) mmol/L Chloride (98-107) mmol/L Carbon Dioxide (22-30) mmol/L BUN (7-17) mg/dL Glucose (74-99) mg/dL POC Glucose (mg/dL) (75-99) mg/dL Calcium (8.4-10.2) mg/dL Alkaline Phosphatase (38-126) U/L Lactate Dehydrogenase (313-618) U/L CK-MB (CK-2) (0.0-2.4) ng/mL Total Protein (6.3-8.2) g/dL Albumin (3.5-5.0) g/dL Crossmatch See Detail 07/10/20 07/10/20 07/10/20 Range/Units 03:56 08:45 08:45 WBC 25.5 H (3.8-10.6) k/uL RBC 3.14 L (3.80-5.40) m/uL Hgb 9.2 L D (11.4-16.0) gm/dL Hct 27.0 L (34.0-46.0) % Neutrophils # 21.9 H (1.3-7.7) k/uL Monocytes # 1.3 H (0-1.0) k/uL Fibrinogen (200-500) mg/dL D-Dimer (<0.60) mg/L FEU Sodium 134 L (137-145) mmol/L Chloride 114 H (98-107) mmol/L Carbon Dioxide 19 L (22-30) mmol/L BUN 47 H (7-17) mg/dL Glucose 331 H (74-99) mg/dL POC Glucose (mg/dL) 352 H (75-99) mg/dL Calcium 7.6 L (8.4-10.2) mg/dL Alkaline Phosphatase 36 L (38-126) U/L Lactate Dehydrogenase 712 H (313-618) U/L CK-MB (CK-2) (0.0-2.4) ng/mL Total Protein 2.9 L (6.3-8.2) g/dL Albumin 1.4 L (3.5-5.0) g/dL Crossmatch 07/10/20 Range/Units 08:45 WBC (3.8-10.6) k/uL RBC (3.80-5.40) m/uL Hgb (11.4-16.0) gm/dL Hct (34.0-46.0) % Neutrophils # (1.3-7.7) k/uL Monocytes # (0-1.0) k/uL Fibrinogen (200-500) mg/dL D-Dimer (<0.60) mg/L FEU Sodium (137-145) mmol/L Chloride (98-107) mmol/L Carbon Dioxide (22-30) mmol/L BUN (7-17) mg/dL Glucose (74-99) mg/dL POC Glucose (mg/dL) (75-99) mg/dL Calcium (8.4-10.2) mg/dL Alkaline Phosphatase (38-126) U/L Lactate Dehydrogenase (313-618) U/L CK-MB (CK-2) 2.7 H (0.0-2.4) ng/mL Total Protein (6.3-8.2) g/dL Albumin (3.5-5.0) g/dL Crossmatch Assessment and Plan Assessment: Acute COVID-19 viral pneumonia. Acute hypoxic respiratory failure secondary to above Elevated inflammatory markers Acute GI bleed Acute blood loss anemia, improved after 3 units of blood transfusion Possible sepsis with elevated white cell count and no source could be superimposed bacterial infection of her pneumonia versus intra-abdominal infection Possible TIA versus syncope related to hypotension, Hyperglycemia with uncontrolled diabetes type 2. Insulin drip Hypertension Osteoarthritis History of hemorrhoids and diverticular disease. Plan: This is a pleasant 69 years old female who presents with acute Covid pneumonia. Continue with oxygen Continue with dexamethasone , continue with zinc and vitamin C. Follow-up recommendation by pulmonary service. Follow-up recommendation by GI service Transfuse blood as needed for blood pressure support and to keep hemoglobin more than 8. Hold all anticoagulation discontinue lovenox and continue with protonix. and monitor hemoglobin closely. Monitor vitals closely and keep systolic blood pressure, Follow-up recommendation by GI team. Continue with pressors as per pulmonary/critical care team will also manage per meters Follow-up recommendation by neurologist, who recommended aspirin and Lipitor. Patient completely recovered no Labs and medication were reviewed.. Continue same treatment. Continue with symptomatic treatment. Resume home medication. Monitor lytes and vitals. DVT and GI prophylaxis. Further recommendations as per clinical course of the patient DVT prophylaxis: No anticoagulation in view of GI bleed GI Prophylaxis: Protonix Prognosis is guarded and poor Discussed case with the family and some
[2020-07-11] MEDS: DEXTROSE 5% IN WATER 1,000 ML with SODIUM BICARB (1 MEQ/ML) 150 ML IV SCH (04:42)
[2020-07-11 05:21] LABS: Glucose,Whole Blood 256 mg/dL (75-99)
[2020-07-11 05:24] VITALS: TEMP 97.7
[2020-07-11 05:39] LABS: ABG Base Excess -20.1 mmol/L; ABG Oxygen Saturation 97.7 % (94-97); ABG PCO2 30 mmHg (35-45); ABG PO2 110 mmHg (83-108); ABG TCO2 10 mmol/L (19-24); Allen Test Performed? Yes
[2020-07-11 06:15] LABS: Glucose,Whole Blood 260 mg/dL (75-99)
[2020-07-11] MEDS ORDERED: SODIUM BICARB 8.4% 50 ML SYR (1 MEQ/ML) IV STA (06:22)
[2020-07-11 06:29] LABS: ABG PH 7.11 (7.35-7.45)
[2020-07-11 06:30] LABS: ABG HCO3 10 mmol/L (21-25)
[2020-07-11] MEDS: GLIMEPIRIDE 2 MG TAB PO SCH (06:37)
[2020-07-11 06:49] LABS: HCT 31.8 % (34.0-46.0); HGB 10.4 gm/dL (11.4-16.0); Hypochromasia Slight; MCH 30.1 pg (25.0-35.0); MCHC 32.7 g/dL (31.0-37.0); MCV 91.9 fL (80.0-100.0); Mean Platelet Volume 12.1; Platelet Count 109 k/uL (150-450); RBC 3.46 m/uL (3.80-5.40); RDW 15.6 % (11.5-15.5); WBC 25.6 k/uL (3.8-10.6)
[2020-07-11 07:03] LABS: Glucose,Whole Blood 271 mg/dL (75-99)
--- NOTE | 2020-07-11 07:17 | XR ---
EXAMINATION TYPE: XR chest 1V portable DATE OF EXAM: 07/11/2020 CLINICAL HISTORY: Difficulty breathing progress study. TECHNIQUE: Single AP portable semiupright view of the chest is obtained. COMPARISON: Chest x-ray from one day earlier and older studies. FINDINGS: Endotracheal tube has been retracted slightly is still low-lying roughly 1 cm above nathalia , advise pulling back 3 to 4 cm to be more ideal position. Stable orogastric tube. Persistent predominantly peripheral opacities bilaterally. Background chronic pulmonary parenchymal c hange bilaterally. Cardiac silhouette size stable and upper limits of normal. Osseous structures are intact. IMPRESSION: Persistent bilateral peripheral multifocal acute infiltrates. No significant change from one day earlier.
[2020-07-11 08:03] LABS: African American GFR (CKD) 40 (>60 ml/min/1.73 sqM); Albumin 1.1 g/dL (3.5-5.0); Alkaline Phosphatase 70 U/L (38-126); Anion Gap 18 mmol/L; Blood Urea Nitrogen 52 mg/dL (7-17); C Reactive Protein 58.7 mg/L (<10.0); Calcium 6.6 mg/dL (8.4-10.2); Carbon Dioxide 10 mmol/L (22-30); Chloride 115 mmol/L (98-107); Glucose 236 mg/dL (74-99); Non-African American GFR(CKD) 35 (>60 ml/min/1.73 sqM); Potassium 4.1 mmol/L (3.5-5.1); Sodium 143 mmol/L (137-145); Total Bilirubin 0.8 mg/dL (0.2-1.3); Total Protein 2.4 g/dL (6.3-8.2)
[2020-07-11 08:17] LABS: Glucose,Whole Blood 176 mg/dL (75-99)
[2020-07-11] MEDS: ASCORBIC ACID 500 MG TAB PO SCH (08:30)
[2020-07-11] MEDS: CYANOCOBALAMIN 500 MCG TAB PO SCH (08:30)
[2020-07-11] MEDS: dexAMETHasone 2 MG TAB PO SCH (08:30)
[2020-07-11] MEDS: ZINC SULFATE 220 MG CAP PO SCH (08:30)
[2020-07-11] MEDS: PIPERACILLIN-TAZOBACTAM 3.375 GM in SODIUM CHLORIDE 0.9% 100 ML IVPB SCH (08:33)
[2020-07-11] MEDS: PANTOPRAZOLE 40 MG/10 ML VIAL IVP SCH (08:33)
[2020-07-11 08:46] LABS: ALT 3467 U/L (4-34); LDH >21500 U/L (313-618)
--- NOTE | 2020-07-11 08:47 | P.PN ---
Subjective this morning pt is not doing well, she is still intubated and needing high doses of pressers to support her blood pressure she is acidotic and her blood lactic acid is 15.4, bicarb level is 10 despite treatment case discussed with critical care team , the chances of survival is very low and prognosis is extremely poor i talked to the son Mr. Molina at [phone] and updated him with his mother situation and based upon her previous wishes he wants her to be comfort care to let her pass away peacefully which looks reasonable at this point pt is already DNR Objective - Vital Signs Vital signs: Vital Signs Temp 97.7 F 07/11/20 04:00 Pulse 105 H 07/11/20 07:00 Resp 25 H 07/11/20 07:00 BP 100/51 07/11/20 07:00 Pulse Ox 100 07/11/20 07:00 Intake & Output 07/10/20 07/11/20 07/11/20 18:59 06:59 18:59 Intake Total 3662.151 2458.415 211.923 Output Total 245 75 0 Balance 3417.151 2383.415 211.923 Weight 80.7 kg Intake: IV 2966 1336 103 Dextrose 5% in Water 1, 300 1200 100 000 ml @ 100 mls/hr IV . [id number] [facility] with Sodium Bicarb (1 Meq/ml) 150 ml Rx#:[id number] Piperacillin-Tazobactam 3 100 .375 gm In Sodium Chloride 0.9% 100 ml @ 25 mls/hr IVPB Q8HR [facility] Rx# :[id number] Pressure bag 36 36 3 Sodium Chloride 0.9% 1, 630 000 ml @ 100 mls/hr IV . Q10H [facility] Rx#:[id number] Sodium Chloride 0.9% 1, 2000 000 ml @ 999 mls/hr IV . Q1H1M ONE Rx#:[id number] Intake, IV Titration 76.151 502.415 108.923 Amount Insulin Regular 100 unit 15.672 21.875 In Sodium Chloride 0.9% 100 ml @ Per Protocol IV .Q0M [facility] Rx#:[id number] Norepinephrine 4 mg In 76.151 Sodium Chloride 0.9% 250 ml @ 0.05 MCG/KG/MIN 11. 849 mls/hr IV .[id number] [facility] Rx#:[id number] Norepinephrine 8 mg In 486.743 Sodium Chloride 0.9% 250 ml @ 0.05 MCG/KG/MIN 5. 999 mls/hr IV .Q24H [facility] Rx#:[id number] propofoL 1,000 mg In 87.048 Empty Bag 1 bag @ Titrate IV .Q0M [facility] Rx#: [id number] Blood Product 620 620 Rc As-1 Unit 0 310 [id number] Rc As-1 Unit 310 [id number] Rc As-1 Unit 310 [id number] Output: Urine 245 75 0 Other: Voiding Method Indwelling Catheter Indwelling Catheter # Bowel Movements 1 1 ABP, PAP, CO, CI - Last Documented Arterial Blood Pressure 126/61 - Labs CBC & Chem 7: 07/11/20 05:15 07/11/20 05:15 Labs: Abnormal Lab Results - Last 24 Hours (Table) 07/10/20 07/10/20 07/10/20 Range/Units 00:07 08:45 08:45 WBC 25.5 H (3.8-10.6) k/uL RBC 3.14 L (3.80-5.40) m/uL Hgb 9.2 L D (11.4-16.0) gm/dL Hct 27.0 L (34.0-46.0) % RDW (11.5-15.5) % Plt Count (150-450) k/uL Neutrophils # 21.9 H (1.3-7.7) k/uL Monocytes # 1.3 H (0-1.0) k/uL D-Dimer (<0.60) mg/L FEU ABG pH (7.35-7.45) ABG pCO2 (35-45) mmHg ABG pO2 (83-108) mmHg ABG HCO3 (21-25) mmol/L ABG Total CO2 (19-24) mmol/L ABG O2 Saturation (94-97) % ABG Lactic Acid (0.5-1.6) mmol/L Sodium 134 L (137-145) mmol/L Chloride 114 H (98-107) mmol/L Carbon Dioxide 19 L (22-30) mmol/L BUN 47 H (7-17) mg/dL Creatinine (0.52-1.04) mg/dL Glucose 331 H (74-99) mg/dL POC Glucose (mg/dL) (75-99) mg/dL Calcium 7.6 L (8.4-10.2) mg/dL Ferritin 495.3 H (10.0-291.0) ng/mL Alkaline Phosphatase 36 L (38-126) U/L Lactate Dehydrogenase 712 H (313-618) U/L CK-MB (CK-2) (0.0-2.4) ng/mL C-Reactive Protein (<10.0) mg/L Total Protein 2.9 L (6.3-8.2) g/dL Albumin 1.4 L (3.5-5.0) g/dL Procalcitonin (0.02-0.09) ng/mL Crossmatch See Detail 07/10/20 07/10/20 07/10/20 Range/Units 08:45 08:45 14:52 WBC 26.7 H (3.8-10.6) k/uL RBC 2.12 L (3.80-5.40) m/uL Hgb 6.3 L* D (11.4-16.0) gm/dL Hct 19.7 L* (34.0-46.0) % RDW (11.5-15.5) % Plt Count (150-450) k/uL Neutrophils # 21.9 H (1.3-7.7) k/uL Monocytes # 1.1 H (0-1.0) k/uL D-Dimer (<0.60) mg/L FEU ABG pH (7.35-7.45) ABG pCO2 (35-45) mmHg ABG pO2 (83-108) mmHg ABG HCO3 (21-25) mmol/L ABG Total CO2 (19-24) mmol/L ABG O2 Saturation (94-97) % ABG Lactic Acid (0.5-1.6) mmol/L Sodium (137-145) mmol/L Chloride (98-107) mmol/L Carbon Dioxide (22-30) mmol/L BUN (7-17) mg/dL Creatinine (0.52-1.04) mg/dL Glucose (74-99) mg/dL POC Glucose (mg/dL) (75-99) mg/dL Calcium (8.4-10.2) mg/dL Ferritin (10.0-291.0) ng/mL Alkaline Phosphatase (38-126) U/L Lactate Dehydrogenase (313-618) U/L CK-MB (CK-2) 2.7 H (0.0-2.4) ng/mL C-Reactive Protein (<10.0) mg/L Total Protein (6.3-8.2) g/dL Albumin (3.5-5.0) g/dL Procalcitonin 0.30 H (0.02-0.09) ng/mL Crossmatch 07/10/20 07/10/20 07/10/20 Range/Units 15:50 17:25 18:13 WBC (3.8-10.6) k/uL RBC (3.80-5.40) m/uL Hgb (11.4-16.0) gm/dL Hct (34.0-46.0) % RDW (11.5-15.5) % Plt Count (150-450) k/uL Neutrophils # (1.3-7.7) k/uL Monocytes # (0-1.0) k/uL D-Dimer (<0.60) mg/L FEU ABG pH 7.05 L* 7.00 L* (7.35-7.45) ABG pCO2 31 L 33 L (35-45) mmHg ABG pO2 310 H 187 H (83-108) mmHg ABG HCO3 9 L* 8 L* (21-25) mmol/L ABG Total CO2 10 L 9 L (19-24) mmol/L ABG O2 Saturation 100.0 H 99.5 H (94-97) % ABG Lactic Acid (0.5-1.6) mmol/L Sodium (137-145) mmol/L Chloride (98-107) mmol/L Carbon Dioxide (22-30) mmol/L BUN (7-17) mg/dL Creatinine (0.52-1.04) mg/dL Glucose (74-99) mg/dL POC Glucose (mg/dL) 305 H (75-99) mg/dL Calcium (8.4-10.2) mg/dL Ferritin (10.0-291.0) ng/mL Alkaline Phosphatase (38-126) U/L Lactate Dehydrogenase (313-618) U/L CK-MB (CK-2) (0.0-2.4) ng/mL C-Reactive Protein (<10.0) mg/L Total Protein (6.3-8.2) g/dL Albumin (3.5-5.0) g/dL Procalcitonin (0.02-0.09) ng/mL Crossmatch 07/10/20 07/11/20 07/11/20 Range/Units 23:00 00:18 02:44 WBC 21.3 H (3.8-10.6) k/uL RBC (3.80-5.40) m/uL Hgb (11.4-16.0) gm/dL Hct (34.0-46.0) % RDW (11.5-15.5) % Plt Count 128 L (150-450) k/uL Neutrophils # (1.3-7.7) k/uL Monocytes # (0-1.0) k/uL D-Dimer (<0.60) mg/L FEU ABG pH (7.35-7.45) ABG pCO2 (35-45) mmHg ABG pO2 (83-108) mmHg ABG HCO3 (21-25) mmol/L ABG Total CO2 (19-24) mmol/L ABG O2 Saturation (94-97) % ABG Lactic Acid (0.5-1.6) mmol/L Sodium (137-145) mmol/L Chloride (98-107) mmol/L Carbon Dioxide (22-30) mmol/L BUN (7-17) mg/dL Creatinine (0.52-1.04) mg/dL Glucose (74-99) mg/dL POC Glucose (mg/dL) 330 H 310 H (75-99) mg/dL Calcium (8.4-10.2) mg/dL Ferritin (10.0-291.0) ng/mL Alkaline Phosphatase (38-126) U/L Lactate Dehydrogenase (313-618) U/L CK-MB (CK-2) (0.0-2.4) ng/mL C-Reactive Protein (<10.0) mg/L Total Protein (6.3-8.2) g/dL Albumin (3.5-5.0) g/dL Procalcitonin (0.02-0.09) ng/mL Crossmatch 07/11/20 07/11/20 07/11/20 Range/Units 03:41 04:02 05:15 WBC 25.6 H (3.8-10.6) k/uL RBC 3.46 L (3.80-5.40) m/uL Hgb 10.4 L (11.4-16.0) gm/dL Hct 31.8 L (34.0-46.0) % RDW 15.6 H (11.5-15.5) % Plt Count 109 L (150-450) k/uL Neutrophils # (1.3-7.7) k/uL Monocytes # (0-1.0) k/uL D-Dimer (<0.60) mg/L FEU ABG pH (7.35-7.45) ABG pCO2 (35-45) mmHg ABG pO2 (83-108) mmHg ABG HCO3 (21-25) mmol/L ABG Total CO2 (19-24) mmol/L ABG O2 Saturation (94-97) % ABG Lactic Acid (0.5-1.6) mmol/L Sodium (137-145) mmol/L Chloride (98-107) mmol/L Carbon Dioxide (22-30) mmol/L BUN (7-17) mg/dL Creatinine (0.52-1.04) mg/dL Glucose (74-99) mg/dL POC Glucose (mg/dL) 287 H 248 H (75-99) mg/dL Calcium (8.4-10.2) mg/dL Ferritin (10.0-291.0) ng/mL Alkaline Phosphatase (38-126) U/L Lactate Dehydrogenase (313-618) U/L CK-MB (CK-2) (0.0-2.4) ng/mL C-Reactive Protein (<10.0) mg/L Total Protein (6.3-8.2) g/dL Albumin (3.5-5.0) g/dL Procalcitonin (0.02-0.09) ng/mL Crossmatch 07/11/20 07/11/20 07/11/20 Range/Units 05:15 05:15 05:15 WBC (3.8-10.6) k/uL RBC (3.80-5.40) m/uL Hgb (11.4-16.0) gm/dL Hct (34.0-46.0) % RDW (11.5-15.5) % Plt Count (150-450) k/uL Neutrophils # (1.3-7.7) k/uL Monocytes # (0-1.0) k/uL D-Dimer 5.26 H (<0.60) mg/L FEU ABG pH (7.35-7.45) ABG pCO2 (35-45) mmHg ABG pO2 (83-108) mmHg ABG HCO3 (21-25) mmol/L ABG Total CO2 (19-24) mmol/L ABG O2 Saturation (94-97) % ABG Lactic Acid 15.4 H* (0.5-1.6) mmol/L Sodium (137-145) mmol/L Chloride 115 H (98-107) mmol/L Carbon Dioxide 10 L (22-30) mmol/L BUN 52 H (7-17) mg/dL Creatinine 1.53 H (0.52-1.04) mg/dL Glucose 236 H (74-99) mg/dL POC Glucose (mg/dL) (75-99) mg/dL Calcium 6.6 L (8.4-10.2) mg/dL Ferritin (10.0-291.0) ng/mL Alkaline Phosphatase (38-126) U/L Lactate Dehydrogenase (313-618) U/L CK-MB (CK-2) (0.0-2.4) ng/mL C-Reactive Protein 58.7 H (<10.0) mg/L Total Protein 2.4 L (6.3-8.2) g/dL Albumin 1.1 L (3.5-5.0) g/dL Procalcitonin (0.02-0.09) ng/mL Crossmatch 07/11/20 07/11/20 07/11/20 Range/Units 05:15 05:20 05:45 WBC (3.8-10.6) k/uL RBC (3.80-5.40) m/uL Hgb (11.4-16.0) gm/dL Hct (34.0-46.0) % RDW (11.5-15.5) % Plt Count (150-450) k/uL Neutrophils # (1.3-7.7) k/uL Monocytes # (0-1.0) k/uL D-Dimer (<0.60) mg/L FEU ABG pH 7.11 L* (7.35-7.45) ABG pCO2 30 L (35-45) mmHg ABG pO2 110 H (83-108) mmHg ABG HCO3 10 L* (21-25) mmol/L ABG Total CO2 10 L (19-24) mmol/L ABG O2 Saturation 97.7 H (94-97) % ABG Lactic Acid (0.5-1.6) mmol/L Sodium (137-145) mmol/L Chloride (98-107) mmol/L Carbon Dioxide (22-30) mmol/L BUN (7-17) mg/dL Creatinine (0.52-1.04) mg/dL Glucose (74-99) mg/dL POC Glucose (mg/dL) 256 H (75-99) mg/dL Calcium (8.4-10.2) mg/dL Ferritin (10.0-291.0) ng/mL Alkaline Phosphatase (38-126) U/L Lactate Dehydrogenase (313-618) U/L CK-MB (CK-2) 78.9 H (0.0-2.4) ng/mL C-Reactive Protein (<10.0) mg/L Total Protein (6.3-8.2) g/dL Albumin (3.5-5.0) g/dL Procalcitonin (0.02-0.09) ng/mL Crossmatch 07/11/20 07/11/20 07/11/20 Range/Units 06:13 07:01 08:15 WBC (3.8-10.6) k/uL RBC (3.80-5.40) m/uL Hgb (11.4-16.0) gm/dL Hct (34.0-46.0) % RDW (11.5-15.5) % Plt Count (150-450) k/uL Neutrophils # (1.3-7.7) k/uL Monocytes # (0-1.0) k/uL D-Dimer (<0.60) mg/L FEU ABG pH (7.35-7.45) ABG pCO2 (35-45) mmHg ABG pO2 (83-108) mmHg ABG HCO3 (21-25) mmol/L ABG Total CO2 (19-24) mmol/L ABG O2 Saturation (94-97) % ABG Lactic Acid (0.5-1.6) mmol/L Sodium (137-145) mmol/L Chloride (98-107) mmol/L Carbon Dioxide (22-30) mmol/L BUN (7-17) mg/dL Creatinine (0.52-1.04) mg/dL Glucose (74-99) mg/dL POC Glucose (mg/dL) 260 H 271 H 176 H (75-99) mg/dL Calcium (8.4-10.2) mg/dL Ferritin (10.0-291.0) ng/mL Alkaline Phosphatase (38-126) U/L Lactate Dehydrogenase (313-618) U/L CK-MB (CK-2) (0.0-2.4) ng/mL C-Reactive Protein (<10.0) mg/L Total Protein (6.3-8.2) g/dL Albumin (3.5-5.0) g/dL Procalcitonin (0.02-0.09) ng/mL Crossmatch
[2020-07-11 08:55] LABS: AST 12258 U/L (14-36)
[2020-07-11] MEDS ORDERED: MORPHINE SULFATE 2 MG/ML SYRINGE IVP PRN (09:06)
[2020-07-11] MEDS ORDERED: MORPHINE SULFATE (100 MG/2 ML) 100 MG in SODIUM CHLORIDE 0.9% 100 ML IV SCH (09:45)
[2020-07-11 11:12] VITALS: BP 74/45; PULSE 0; RESP 0
--- NOTE | 2020-07-11 13:35 | P.PN ---
Subjective Progress Note Date: 07/11/20 Principal diagnosis: Acute covid 19 pneumonitis. A 69-year-old female patient coming in for an acute cold in 19 related pneumonia. The patient is diabetic and she has hypertension and she is also known to have hyperlipidemia. The patient was having fevers and some shortness of breath along with generalized weakness of a few days' duration. The patient tested positive for grover virus COVID 19 infection on 06/26/2020. Over the past 2 days, the patient was feeling more weak and fatigued. No nausea. No vomiting. No diarrhea. No abdominal pain. She had some increased cough. She came into the hospital and a chest x-ray done showed multifocal areas of pulmonary infiltrates consistent with pneumonia and a computed tomography scan of the chest showed scattered bilateral pulmonary infiltrates compatible with her grover virus Covid 19 infection. There was no evidence of any pulmonary embolism. The patient was febrile. The patient was hypoxic pH was placed on 2 L of oxygen by nasal cannula. T-max was 100.3. White cell count was normal and the patient had lymphopenia. D-dimer was 0.61. LDH was 834 with a CRP of 170 and the Pronestyl level of 0.1. Ferritin level was 367. The patient was hospitalized. The patient is seen today 07/03/2020 in follow-up on the regular medical floor. She is currently sitting up in bed. Awake and alert in no acute distress. She is maintaining O2 saturation in the low 90s on 2 L/m per nasal cannula. Currently afebrile. Hemodynamically stable. Blood glucose 142. This is day #2 of Remdesivir. She remains on dexamethasone, Lovenox, Pepcid, vitamin C, vitamin D, zinc. The patient is seen today 07/04/2020 in follow-up on the medical floor. She is awake and alert in no acute distress. Maintaining O2 saturations in the low 90s on 5 L nasal cannula. Currently afebrile. Blood culture reveals no growth. White count 13.2. Hemoglobin 13.8. Lymphocytes 0.9. She has received her third dose of Remdesivir today. On 07/05/2020 patient seen in follow-up on the general medical surgical floor, she remains on high flow oxygen, currently on the 6-7 L with a pulse ox of 91%, she is status post 1 unit of convalescent plasma, she is finishing her Remdesivir course today and a supposed to get her last dose. She states she is feeling weak, but overall feeling significantly better since admission. She's been afebrile, her vital signs have been stable, she does get exertional dyspnea, but no acute distress. Today's chest x-ray shows a diffuse multifocal opacities moderately increased since the previous chest x-ray, overall her inflammatory markers were improving on yesterday's labs since admission. Opal coulter remains on prophylactic doses of Lovenox, Pepcid, oral Decadron, vitamin C and zinc supplement. She has had no acute events overnight Patient was reevaluated today on 07/06/20, surprisingly, the patient is doing better than expected clinically, remains on 7 L nasal cannula, and her O2 saturations 90%. Her temp is 98 1, blood pressure is 125/81, patient is relatively asymptomatic except for feeling generally weak, and she has intermittent cough. She does have some vague aches and pains. Chest x-ray from yesterday continues to show diffuse multifocal opacities bilaterally. Labs today were reviewed, WBC count is 13.4 hemoglobin is 13.1. D-dimer is 2.54. Inflammatory markers were noted with LDH of 1225 and C-reactive protein is 53.9, significantly higher compared to yesterday. Patient was reevaluated today on 07/07/20, I saw this patient on the medical floor, however the rapid response team was assessing the patient on the floor for possible transfer to the ICU. Apparently the patient developed sudden mental status change this morning, with left-sided weakness, this was noted around 8 AM by the morning nurse were the patient was not verbally responsive, and she was noted to have left a gaze deviation. Patient is not verbalizing or follow any instructions. And she was noted to have some right-sided weakness. Hemoglobin dropped this morning down to 6.2, it was 9.8 yesterday, and it was 13.0 on admission. Patient had episodes of lower GI bleeding, she used to be on Lovenox which I have discontinued yesterday. Patient was on Lovenox because of her Covid 19 pneumonitis. And elevated d-dimer. GI was also consulted. Considering the GI bleeding, considering the mental status change and possible CVA, arrangements were made to transfer the patient immediately to the ICU this morning. In the meantime the patient is to receive a blood transfusion as soon as possible, hemoglobin now is 6.2, d-dimer is 0.66 INR is 1.6 electrolytes are normal WBC count is 10.3 And inflammatory markers are trending down. Patient was reevaluated today on 07/08/20, she was transferred yesterday to the ICU because of GI bleeding, and what seems to be a CVA but turned out to be a TIA since the neurological status has completely improved. And her CT of the brain twice came back negative. Patient was seen by gastroenterology, no plans to perform EGD or colonoscopy at this point, patient is being treated for presumptive lower GI bleeding. And she remains off Lovenox which we started initially because of her elevated d-dimer, and Covid 19 pneumonitis. Patient is sitting in bed, resting, in no form of distress. Again she received a total of 3 units of packed RBCs and her hemoglobin today is 12.3. D-dimer today is down to 0.66. And she is on 8 L high flow nasal cannula with O2 saturation 95% chest x-ray continues to show diffuse bilateral infiltrates Reevaluated today on 07/09/20, patient remains in the ICU, presently on 5 L nasal cannula, mentation is basically back to normal. Patient is not in any distress, seems to be comfortable, however her chest x-ray shows worsening of multifocal airspace opacities. Brain CT shows age related atrophic and chronic vessel ischemic changes without acute intracranial process. Labs including CBC, electrolytes, renal profile, are all basically unremarkable. Patient was reevaluated today on 07/10/20, transferred yesterday out of the ICU, and last night patient developed another episode of GI bleeding, she also deve loped mental status change, and had to be placed back again in the ICU. Patient required blood transfusion, hemoglobin went as low as 4.7. Her hemoglobin now is 9.2. Received at least 3 units of packed RBCs for low hemoglobin. Patient's remains marginal in the ICU, went ahead and placed a right femoral triple-lumen catheter, and recommended more fluids, and also recommended norepinephrine at 0 .12 mcg/kg/m. Pulmonary-[place] the patient does not seem to be doing that bad, but her GI issues are more concerning Hence discontinued Lovenox altogether although the patient had hypercoagulable state, secondary to Covid 19 pneumonitis. D-dimer was significantly elevated at one time. Recommended gastroenterology to reevaluate the patient. Patient was reevaluated today on 07/11/20, yesterday, the patient arrested and required CPR. Patient was significantly metabolically acidotic, and shortly after her code and CPR, patient received significant amount of sodium bicarb. She underwent EGD, and the findings were consistent with ischemic stomach. Patient's lactic acid was extremely high, and we felt that the patient developed ischemic bowel. Patient remains on bicarb drip, ABG today showed a pO2 of 110 pCO2 of 30 0 pH of 7.11 in spite of being on a bicarb drip, and she received lots of sodium bicarb IV push yesterday. Obviously the patient is developing worsening bowel ischemia, surgical consultation was initiated yesterday, but it was clear that the patient will not be able to tolerate any surgical intervention knowing the severity of her medical condition. Based on the EGD fi ndings, there was mottling and ischemic changes of the entire stomach. And I believe that is likely mottled and ischemic changes of the whole bowel area. Again today the overall picture, I discussed her condition with the admitting physician Dr. ha, and he conveyed the findings and the recommendations to the family, family now is requesting comfort care measures. And I think it is very appropriate. WBC count today was 25.6 hemoglobin 10.4. Liver enzymes were noted to be extremely elevated. LDH 1 up as high as 21,500. And lactic acid was over 15 this morning. Chest x-ray continues to show by basilar infiltrates, right greater than left ventilator settings are assist control rate of 2010 volume is 450 FiO2 is 80% and PEEP of 5. And the drips include propofol bicarb drip insulin norepinephrine and vasopressin Objective - Vital Signs Vital signs: Vital Signs Temp 97.7 F 07/11/20 04:00 Pulse 0 L 07/11/20 10:45 Resp 0 L 07/11/20 10:45 BP 74/45 07/11/20 10:30 Pulse Ox 99 07/11/20 10:00 Intake & Output 07/10/20 07/11/20 07/11/20 18:59 06:59 18:59 Intake Total 3662.151 2458.415 474.840 Output Total 245 75 0 Balance 3417.151 2383.415 474.840 Weight 80.7 kg Intake: IV 2966 1336 103 Dextrose 5% in Water 1, 300 1200 100 000 ml @ 100 mls/hr IV . [id number] TURNER with Sodium Bicarb (1 Meq/ml) 150 ml Rx#:[id number] Piperacillin-Tazobactam 3 100 .375 gm In Sodium Chloride 0.9% 100 ml @ 25 mls/hr IVPB Q8HR [facility] Rx# :[id number] Pressure bag 36 36 3 Sodium Chloride 0.9% 1, 630 000 ml @ 100 mls/hr IV . Q10H [facility] Rx#:[id number] Sodium Chloride 0.9% 1, 2000 000 ml @ 999 mls/hr IV . Q1H1M [facility] Rx#:[id number] Intake, IV Titration 76.151 502.415 371.840 Amount Insulin Regular 100 unit 15.672 21.875 In Sodium Chloride 0.9% 100 ml @ Per Protocol IV .Q0M [facility] Rx#:[id number] Morphine Sulfate (100 mg/ 4.917 2 ml) 100 mg In Sodium Chloride 0.9% 100 ml @ Titrate IV .Q0M [facility] Rx#: [id number] Norepinephrine 4 mg In 76.151 Sodium Chloride 0.9% 250 ml @ 0.05 MCG/KG/MIN 11. 849 mls/hr IV .[id number] [facility] Rx#:[id number] Norepinephrine 8 mg In 486.743 258 Sodium Chloride 0.9% 250 ml @ 0.05 MCG/KG/MIN 5. 999 mls/hr IV .Q24H [facility] Rx#:[id number] propofoL 1,000 mg In 87.048 Empty Bag 1 bag @ Titrate IV .Q0M [facility] Rx#: [id number] Blood Product 620 620 Rc As-1 Unit 0 310 [id number] Rc As-1 Unit 310 [id number] Rc As-1 Unit 310 [id number] Output: Urine 245 75 0 Other: Voiding Method Indwelling Catheter Indwelling Catheter # Bowel Movements 1 1 ABP, PAP, CO, CI - Last Documented Arterial Blood Pressure 02/16 - Exam Physical Exam: Revealed a 69-year-old female in no distress, intubated, sedated, on propofol, bicarb drip, norepinephrine, vasopressin, and insulin. Head: Atraumatic, normocephalic. HEENT:[Neck is supple.] [No neck masses.] [No thyromegaly.] [No JVD.] Chest: [Symmetrical chest expansion, crackles at the bases bilaterally. No rhonchi and no wheezes. Cardiac Exam: [Normal S1 and S2, no S3 gallop, no murmur.] Abdomen: [Soft, nontender, no megaly, no rebound, no guarding, normal bowel sounds.] Extremities: [No clubbing, no edema, no cyanosis.] Neurological Exam: Could not assess Psychiatric: Could not assess, patient is sedated. Skin: No rashes. - Labs CBC & Chem 7: 07/11/20 05:15 07/11/20 05:15 Labs: Abnormal Lab Results - Last 24 Hours (Table) 07/10/20 07/10/20 07/10/20 Range/Units 00:07 08:45 08:45 WBC (3.8-10.6) k/uL RBC (3.80-5.40) m/uL Hgb (11.4-16.0) gm/dL Hct (34.0-46.0) % RDW (11.5-15.5) % Plt Count (150-450) k/uL Neutrophils # (1.3-7.7) k/uL Monocytes # (0-1.0) k/uL D-Dimer (<0.60) mg/L FEU ABG pH (7.35-7.45) ABG pCO2 (35-45) mmHg ABG pO2 (83-108) mmHg ABG HCO3 (21-25) mmol/L ABG Total CO2 (19-24) mmol/L ABG O2 Saturation (94-97) % ABG Lactic Acid (0.5-1.6) mmol/L Chloride (98-107) mmol/L Carbon Dioxide (22-30) mmol/L BUN (7-17) mg/dL Creatinine (0.52-1.04) mg/dL Glucose (74-99) mg/dL POC Glucose (mg/dL) (75-99) mg/dL Calcium (8.4-10.2) mg/dL Ferritin 495.3 H (10.0-291.0) ng/mL AST (14-36) U/L ALT (4-34) U/L Lactate Dehydrogenase (313-618) U/L CK-MB (CK-2) (0.0-2.4) ng/mL C-Reactive Protein (<10.0) mg/L Total Protein (6.3-8.2) g/dL Albumin (3.5-5.0) g/dL Procalcitonin 0.30 H (0.02-0.09) ng/mL Crossmatch See Detail 07/10/20 07/10/20 07/10/20 Range/Units 14:52 15:50 17:25 WBC 26.7 H (3.8-10.6) k/uL RBC 2.12 L (3.80-5.40) m/uL Hgb 6.3 L* D (11.4-16.0) gm/dL Hct 19.7 L* (34.0-46.0) % RDW (11.5-15.5) % Plt Count (150-450) k/uL Neutrophils # 21.9 H (1.3-7.7) k/uL Monocytes # 1.1 H (0-1.0) k/uL D-Dimer (<0.60) mg/L FEU ABG pH 7.05 L* (7.35-7.45) ABG pCO2 31 L (35-45) mmHg ABG pO2 310 H (83-108) mmHg ABG HCO3 9 L* (21-25) mmol/L ABG Total CO2 10 L (19-24) mmol/L ABG O2 Saturation 100.0 H (94-97) % ABG Lactic Acid (0.5-1.6) mmol/L Chloride (98-107) mmol/L Carbon Dioxide (22-30) mmol/L BUN (7-17) mg/dL Creatinine (0.52-1.04) mg/dL Glucose (74-99) mg/dL POC Glucose (mg/dL) 305 H (75-99) mg/dL Calcium (8.4-10.2) mg/dL Ferritin (10.0-291.0) ng/mL AST (14-36) U/L ALT (4-34) U/L Lactate Dehydrogenase (313-618) U/L CK-MB (CK-2) (0.0-2.4) ng/mL C-Reactive Protein (<10.0) mg/L Total Protein (6.3-8.2) g/dL Albumin (3.5-5.0) g/dL Procalcitonin (0.02-0.09) ng/mL Crossmatch 07/10/20 07/10/20 07/11/20 Range/Units 18:13 23:00 00:18 WBC 21.3 H (3.8-10.6) k/uL RBC (3.80-5.40) m/uL Hgb (11.4-16.0) gm/dL Hct (34.0-46.0) % RDW (11.5-15.5) % Plt Count 128 L (150-450) k/uL Neutrophils # (1.3-7.7) k/uL Monocytes # (0-1.0) k/uL D-Dimer (<0.60) mg/L FEU ABG pH 7.00 L* (7.35-7.45) ABG pCO2 33 L (35-45) mmHg ABG pO2 187 H (83-108) mmHg ABG HCO3 8 L* (21-25) mmol/L ABG Total CO2 9 L (19-24) mmol/L ABG O2 Saturation 99.5 H (94-97) % ABG Lactic Acid (0.5-1.6) mmol/L Chloride (98-107) mmol/L Carbon Dioxide (22-30) mmol/L BUN (7-17) mg/dL Creatinine (0.52-1.04) mg/dL Glucose (74-99) mg/dL POC Glucose (mg/dL) 330 H (75-99) mg/dL Calcium (8.4-10.2) mg/dL Ferritin (10.0-291.0) ng/mL AST (14-36) U/L ALT (4-34) U/L Lactate Dehydrogenase (313-618) U/L CK-MB (CK-2) (0.0-2.4) ng/mL C-Reactive Protein (<10.0) mg/L Total Protein (6.3-8.2) g/dL Albumin (3.5-5.0) g/dL Procalcitonin (0.02-0.09) ng/mL Crossmatch 07/11/20 07/11/20 07/11/20 Range/Units 02:44 03:41 04:02 WBC (3.8-10.6) k/uL RBC (3.80-5.40) m/uL Hgb (11.4-16.0) gm/dL Hct (34.0-46.0) % RDW (11.5-15.5) % Plt Count (150-450) k/uL Neutrophils # (1.3-7.7) k/uL Monocytes # (0-1.0) k/uL D-Dimer (<0.60) mg/L FEU ABG pH (7.35-7.45) ABG pCO2 (35-45) mmHg ABG pO2 (83-108) mmHg ABG HCO3 (21-25) mmol/L ABG Total CO2 (19-24) mmol/L ABG O2 Saturation (94-97) % ABG Lactic Acid (0.5-1.6) mmol/L Chloride (98-107) mmol/L Carbon Dioxide (22-30) mmol/L BUN (7-17) mg/dL Creatinine (0.52-1.04) mg/dL Glucose (74-99) mg/dL POC Glucose (mg/dL) 310 H 287 H 248 H (75-99) mg/dL Calcium (8.4-10.2) mg/dL Ferritin (10.0-291.0) ng/mL AST (14-36) U/L ALT (4-34) U/L Lactate Dehydrogenase (313-618) U/L CK-MB (CK-2) (0.0-2.4) ng/mL C-Reactive Protein (<10.0) mg/L Total Protein (6.3-8.2) g/dL Albumin (3.5-5.0) g/dL Procalcitonin (0.02-0.09) ng/mL Crossmatch 07/11/20 07/11/20 07/11/20 Range/Units 05:15 05:15 05:15 WBC 25.6 H (3.8-10.6) k/uL RBC 3.46 L (3.80-5.40) m/uL Hgb 10.4 L (11.4-16.0) gm/dL Hct 31.8 L (34.0-46.0) % RDW 15.6 H (11.5-15.5) % Plt Count 109 L (150-450) k/uL Neutrophils # (1.3-7.7) k/uL Monocytes # (0-1.0) k/uL D-Dimer 5.26 H (<0.60) mg/L FEU ABG pH (7.35-7.45) ABG pCO2 (35-45) mmHg ABG pO2 (83-108) mmHg ABG HCO3 (21-25) mmol/L ABG Total CO2 (19-24) mmol/L ABG O2 Saturation (94-97) % ABG Lactic Acid 15.4 H* (0.5-1.6) mmol/L Chloride (98-107) mmol/L Carbon Dioxide (22-30) mmol/L BUN (7-17) mg/dL Creatinine (0.52-1.04) mg/dL Glucose (74-99) mg/dL POC Glucose (mg/dL) (75-99) mg/dL Calcium (8.4-10.2) mg/dL Ferritin (10.0-291.0) ng/mL AST (14-36) U/L ALT (4-34) U/L Lactate Dehydrogenase (313-618) U/L CK-MB (CK-2) (0.0-2.4) ng/mL C-Reactive Protein (<10.0) mg/L Total Protein (6.3-8.2) g/dL Albumin (3.5-5.0) g/dL Procalcitonin (0.02-0.09) ng/mL Crossmatch 07/11/20 07/11/20 07/11/20 Range/Units 05:15 05:15 05:15 WBC (3.8-10.6) k/uL RBC (3.80-5.40) m/uL Hgb (11.4-16.0) gm/dL Hct (34.0-46.0) % RDW (11.5-15.5) % Plt Count (150-450) k/uL Neutrophils # (1.3-7.7) k/uL Monocytes # (0-1.0) k/uL D-Dimer (<0.60) mg/L FEU ABG pH (7.35-7.45) ABG pCO2 (35-45) mmHg ABG pO2 (83-108) mmHg ABG HCO3 (21-25) mmol/L ABG Total CO2 (19-24) mmol/L ABG O2 Saturation (94-97) % ABG Lactic Acid (0.5-1.6) mmol/L Chloride 115 H (98-107) mmol/L Carbon Dioxide 10 L (22-30) mmol/L BUN 52 H (7-17) mg/dL Creatinine 1.53 H (0.52-1.04) mg/dL Glucose 236 H (74-99) mg/dL POC Glucose (mg/dL) (75-99) mg/dL Calcium 6.6 L (8.4-10.2) mg/dL Ferritin (10.0-291.0) ng/mL AST 52893 H (14-36) U/L ALT 3467 H (4-34) U/L Lactate Dehydrogenase >63821 H (313-618) U/L CK-MB (CK-2) 78.9 H (0.0-2.4) ng/mL C-Reactive Protein 58.7 H (<10.0) mg/L Total Protein 2.4 L (6.3-8.2) g/dL Albumin 1.1 L (3.5-5.0) g/dL Procalcitonin 9.26 H (0.02-0.09) ng/mL Crossmatch 07/11/20 07/11/20 07/11/20 Range/Units 05:20 05:45 06:13 WBC (3.8-10.6) k/uL RBC (3.80-5.40) m/uL Hgb (11.4-16.0) gm/dL Hct (34.0-46.0) % RDW (11.5-15.5) % Plt Count (150-450) k/uL Neutrophils # (1.3-7.7) k/uL Monocytes # (0-1.0) k/uL D-Dimer (<0.60) mg/L FEU ABG pH 7.11 L* (7.35-7.45) ABG pCO2 30 L (35-45) mmHg ABG pO2 110 H (83-108) mmHg ABG HCO3 10 L* (21-25) mmol/L ABG Total CO2 10 L (19-24) mmol/L ABG O2 Saturation 97.7 H (94-97) % ABG Lactic Acid (0.5-1.6) mmol/L Chloride (98-107) mmol/L Carbon Dioxide (22-30) mmol/L BUN (7-17) mg/dL Creatinine (0.52-1.04) mg/dL Glucose (74-99) mg/dL POC Glucose (mg/dL) 256 H 260 H (75-99) mg/dL Calcium (8.4-10.2) mg/dL Ferritin (10.0-291.0) ng/mL AST (14-36) U/L ALT (4-34) U/L Lactate Dehydrogenase (313-618) U/L CK-MB (CK-2) (0.0-2.4) ng/mL C-Reactive Protein (<10.0) mg/L Total Protein (6.3-8.2) g/dL Albumin (3.5-5.0) g/dL Procalcitonin (0.02-0.09) ng/mL Crossmatch 07/11/20 07/11/20 Range/Units 07:01 08:15 WBC (3.8-10.6) k/uL RBC (3.80-5.40) m/uL Hgb (11.4-16.0) gm/dL Hct (34.0-46.0) % RDW (11.5-15.5) % Plt Count (150-450) k/uL Neutrophils # (1.3-7.7) k/uL Monocytes # (0-1.0) k/uL D-Dimer (<0.60) mg/L FEU ABG pH (7.35-7.45) ABG pCO2 (35-45) mmHg ABG pO2 (83-108) mmHg ABG HCO3 (21-25) mmol/L ABG Total CO2 (19-24) mmol/L ABG O2 Saturation (94-97) % ABG Lactic Acid (0.5-1.6) mmol/L Chloride (98-107) mmol/L Carbon Dioxide (22-30) mmol/L BUN (7-17) mg/dL Creatinine (0.52-1.04) mg/dL Glucose (74-99) mg/dL POC Glucose (mg/dL) 271 H 176 H (75-99) mg/dL Calcium (8.4-10.2) mg/dL Ferritin (10.0-291.0) ng/mL AST (14-36) U/L ALT (4-34) U/L Lactate Dehydrogenase (313-618) U/L CK-MB (CK-2) (0.0-2.4) ng/mL C-Reactive Protein (<10.0) mg/L Total Protein (6.3-8.2) g/dL Albumin (3.5-5.0) g/dL Procalcitonin (0.02-0.09) ng/mL Crossmatch Assessment and Plan Assessment: 1 acute Covid 19 related pneumonia. The patient was diagnosed with ear infection on 06/26/2020. The patient developed worsening symptoms in addition to dyspnea and hypoxemia and cough and for that reason the patient was admitted to the hospital. She is currently on 6 L of oxygen by nasal cannula, with a pulse ox of 91%, patient will finish her course of Remdesivir today on 07/05/2020, and she status post transfusion of one unit of convalescent plasma 2 acute hypoxic respiratory failure secondary to above 3 fever secondary to above 4 constitutional symptoms secondary to above 5 elevated inflammatory markers secondary to above 6 hypertension 7 hyperlipidemia 8 diabetes mellitus with elevated blood sugar 9 diverticular disease 10 osteoarthritis 11 acute blood loss anemia secondary to GI bleeding and possible ischemic colitis. 12 acute TIA/resolved 13 recurrent episodes of GI bleeding hence we'll continue to hold Lovenox and continue Protonix. EGD showed evidence of mild stomach and ischemia of the s tomach. 14 severe metabolic acidosis consistent with bowel ischemia, patient is not ideal for surgical intervention. Although general surgery was consulted. 15 shocked liver based on the elevated liver enzymes, dramatically changed after CPR yesterday. 16 cardiac arrest secondary to severe metabolic acidosis requiring CPR for about 5 minutes. In-hospital cardiac arrest. Recommendation: After reviewing all the findings including all the labs and the whole history, I believe the patient has no chance of survival. I discussed her condition with the admitting physician, and I felt it would be best to proceed with comfort care measures on this patient. Mortality is extremely high, and it is best to let the patient go in peace comfort and dignity, and family should be made aware of this. Dr. Ha discussed her status with the son, and the patient was made to proceed with comfort care measures. Critical care time is over 30 minutes Time with Patient: Greater than 30
[2020-07-11 13:40] LABS: Ferritin >16500.0 ng/mL (22.0-322.0)
--- NOTE | 2020-07-14 16:59 | CDI ---
Documentation Clarification Form Date: 07/14/2020 04:42:00 PM From: Jojo Valencia CCS, CCDS Admit Date: 07/01/2020 01:15:00 PM Patient Name: Silvia Molina I Visit Number: [id number] Discharge Date: 07/11/2020 11:05:00 AM ATTENTION: The Clinical Documentation Specialists (CDI) and [facility] Coding Staff appreciate your assistance in clarifying documentation. Please respond to the clarification below the line at the bottom and electronically sign. The CDI & [facility] Coding staff will review the response and follow-up if needed. Please note: Queries are made part of the Legal Health Record. If you have any questions, please contact the author of this message via ITS. Dr. Mohan Salgado.Sheet: Per the 07/10 Attending Progress Note: "Acute blood loss anemia, improved after 3 units of blood transfusion Possible sepsis with elevated white cell count and no source could be superimposed bacterial infection of her pneumonia versus intra-abdominal infection Possible TIA versus syncope related to hypotension, Hyperglycemia with uncontrolled diabetes type 2." History/Risk Factors: Hypertension, Hyperlipidemia, DM II, OA, Former smoker. Clinical Indicators: Admit from the ED on 07/01 with COVID 19 Pneumonia, Acute Hypoxic Respiratory Failure, Uncontrolled DM II with Hyperglycemia and Elevated Inflammatory Markers. Patient developed TIA & GI bleed requiring blood transfusion and transfer to ICU on 07/07, On 07/11 the patient went into Cardiac Arrest, CPR administered, intubated, on vent <24 hours and . Admission VS 07/01: T 100.5^, P 92, R 20 (SOB), BP 150/68, PO 92 RA - 90 2Lnc VS 07/11: T 97.4*, P 103 - 130^, R 25 - 27^, BP 62/28, PO 89* on vent. LAB 07/01: WBC 4.6, Lymph 0.8*, D Dimer 0.61^, Ferritin 367.5^, Lactate Dehydrogenase 834^, CRP 170.1^, Procalcitonin 0.10^. Lactic Acid 1.0 LAB 07/04: WBC 13.2^, Neut 11.9^. Lactic Acid 07/07 1.7 07/01 Blood Culture: neg after 144 hrs. Treatment 07/01: IV fluid 1,000 mls @ 100 mls/hr, IV fluid 500 mls @ 999 mls/hr, Lovenox sq, Orazinc, IV Remdesivir started 07/02. Convalescent Plasma given on 07/07. 07/10: IV Norepinephrine, I fluid 1,000 mls @ 999 mls/hr x2, IV Na Bicarb, IV Diprivan In your professional opinion, please clarify if these findings signify one of the following conditions, whether the condition is POA, and cause, if known: Sepsis ruled out Sepsis ruled in: o With Severe Sepsis o With or Without Septic Shock Other Shock, please specify: Other, please specify Unable to determine o Present on Admission: Yes or No o Link or clarify if there is associated (due to/with): o Organ failure (Last Revision: November 2017) no sepsis when i saw pt MTDD
--- NOTE | 2020-07-14 17:06 | CDI ---
Documentation Clarification Form Date: 07/14/2020 05:00:08 PM From: Jojo Valencia CCS, CCDS Admit Date: 07/01/2020 01:15:00 PM Patient Name: Silvia Molina I Visit Number: [id number] Discharge Date: 07/11/2020 11:05:00 AM ATTENTION: The Clinical Documentation Specialists (CDI) and [facility] Coding Staff appreciate your assistance in clarifying documentation. Please respond to the clarification below the line at the bottom and electronically sign. The CDI & [facility] Coding staff will review the response and follow-up if needed. Please note: Queries are made part of the Legal Health Record. If you have any questions, please contact the author of this message via ITS. Dr. Mohan Salgado. Sheet: Per the 07/10 Attending Progress Note: "Acute blood loss anemia, improved after 3 units of blood transfusion Possible sepsis with elevated white cell count and no source could be superimposed bacterial infection of her pneumonia versus intra-abdominal infection Possible TIA versus syncope related to hypotension, Hyperglycemia with uncontrolled diabetes type 2." Per the 07/11 Pulmonary/Critical Progress Note: "Acute blood loss anemia secondary to GI bleeding and possible ischemic colitis." History/Risk Factors: Hypertension, Hyperlipidemia, DM II, OA, Former smoker. Clinical Indicators: Admit from the ED on 07/01 with COVID 19 Pneumonia, Acute Hypoxic Respiratory Failure, Uncontrolled DM II with Hyperglycemia and Elevated Inflammatory Markers. Patient developed TIA & GI bleed requiring blood transfusion and transfer to ICU on 07/07, On 07/11 the patient went into Cardiac Arrest, CPR administered, intubated, on vent <24 hours and . Admission VS 07/01: T 100.5^, P 92, R 20 (SOB), BP 150/68, PO 92 RA - 90 2Lnc VS 07/11: T 97.4*, P 103 - 130^, R 25 - 27^, BP 62/28, PO 89* on vent. LAB 07/01: WBC 4.6, Lymph 0.8*, D Dimer 0.61^, Ferritin 367.5^, Lactate Dehydrogenase 834^, CRP 170.1^, Procalcitonin 0.10^. Lactic Acid 1.0 LAB 07/04: WBC 13.2^, Neut 11.9^. Lactic Acid 07/07 1.7 07/01 Blood Culture: neg after 144 hrs. Treatment 07/01: IV fluid 1,000 mls @ 100 mls/hr, IV fluid 500 mls @ 999 mls/hr, Lovenox sq, Orazinc, IV Remdesivir started 07/02. Convalescent Plasma given on 07/07. 07/10: IV Norepinephrine, I fluid 1,000 mls @ 999 mls/hr x2, IV Na Bicarb, IV Diprivan In your professional opinion, please clarify the acuity of the documented Ischemic Colitis if known: Acute (or subacute) Ischemic Colitis Chronic Ischemic Colitis Acute on Chronic Ischemic Colitis Other, please specify: Unable to determine (Last Revision: November 2017) Unable to determine MTDD
== END 2020-07-11 11:05 | disposition expired | DRG 208 ==
LOC: EC 09:49 → 4SSUR 13:15 → 3SCARD 07-07 02:41 → 2SICU 07-07 11:15 → 3SCARD 07-09 15:41 → 2SICU 07-10 00:25
PROVIDERS: ADMIT Hospitalist; ATTEND Hospitalist
PROC: XW033E5 Introduction of Remdesivir Anti-infective into Peripheral Vein, Percutaneous Approach, New Technology Group 5 (ICD-10-PCS; 2020-07-02)
PROC: XW13325 Transfusion of Convalescent Plasma (Nonautologous) into Peripheral Vein, Percutaneous Approach, New Technology Group 5 (ICD-10-PCS; 2020-07-04)
PROC: 05HB33Z Insertion of Infusion Device into Right Basilic Vein, Percutaneous Approach (ICD-10-PCS; 2020-07-07)
PROC: 30233N1 Transfusion of Nonautologous Red Blood Cells into Peripheral Vein, Percutaneous Approach (ICD-10-PCS; 2020-07-07)
PROC: 0BH17EZ Insertion of Endotracheal Airway into Trachea, Via Natural or Artificial Opening (ICD-10-PCS; 2020-07-10)
PROC: 3E043XZ Introduction of Vasopressor into Central Vein, Percutaneous Approach (ICD-10-PCS; 2020-07-10)
PROC: 4A133J1 Monitoring of Arterial Pulse, Peripheral, Percutaneous Approach (ICD-10-PCS; 2020-07-10)
PROC: 04HY32Z Insertion of Monitoring Device into Lower Artery, Percutaneous Approach (ICD-10-PCS; 2020-07-10)
PROC: 06HM33Z Insertion of Infusion Device into Right Femoral Vein, Percutaneous Approach (ICD-10-PCS; 2020-07-10)
PROC: 5A12012 Performance of Cardiac Output, Single, Manual (ICD-10-PCS; 2020-07-10)
PROC: 4A133B1 Monitoring of Arterial Pressure, Peripheral, Percutaneous Approach (ICD-10-PCS; 2020-07-10)
PROC: 3E1G88Z Irrigation of Upper GI using Irrigating Substance, Via Natural or Artificial Opening Endoscopic (ICD-10-PCS; 2020-07-10)
PROC: 5A1935Z Respiratory Ventilation, Less than 24 Consecutive Hours (ICD-10-PCS; principal; 2020-07-10 16:05)
DX: U07.1 COVID-19 (principal); J12.89 Other viral pneumonia; J96.01 Acute respiratory failure with hypoxia; K72.00 Acute and subacute hepatic failure without coma; D68.59 Other primary thrombophilia; E87.2 Acidosis; D62 Acute posthemorrhagic anemia; G45.9 Transient cerebral ischemic attack, unspecified; K55.9 Vascular disorder of intestine, unspecified; K92.2 Gastrointestinal hemorrhage, unspecified; I95.9 Hypotension, unspecified; I46.9 Cardiac arrest, cause unspecified; E11.65 Type 2 diabetes mellitus with hyperglycemia; I11.9 Hypertensive heart disease without heart failure; Z66 Do not resuscitate; Z51.5 Encounter for palliative care; D72.810 Lymphocytopenia; E78.5 Hyperlipidemia, unspecified; M19.041 Primary osteoarthritis, right hand; M19.042 Primary osteoarthritis, left hand; K57.90 Diverticulosis of intestine, part unspecified, without perforation or abscess without bleeding; H66.90 Otitis media, unspecified, unspecified ear; M54.5 Low back pain; G89.29 Other chronic pain; Z79.84 Long term (current) use of oral hypoglycemic drugs; Z79.899 Other long term (current) drug therapy; Z87.891 Personal history of nicotine dependence; Z90.710 Acquired absence of both cervix and uterus; Z90.89 Acquired absence of other organs; Z87.42 Personal history of other diseases of the female genital tract; Z87.820 Personal history of traumatic brain injury; Z98.42 Cataract extraction status, left eye; Z98.41 Cataract extraction status, right eye; Z87.19 Personal history of other diseases of the digestive system; Z98.890 Other specified postprocedural states; Z88.5 Allergy status to narcotic agent; Z88.2 Allergy status to sulfonamides; Z88.8 Allergy status to other drugs, medicaments and biological substances; Z91.048 Other nonmedicinal substance allergy status; Z83.3 Family history of diabetes mellitus
CPT/HCPCS: 36410; 36415; 43235; 70450; 70496; 70498; 71045; 71275; 76937; 80048; 80053; 80061; 82553; 82728; 82805; 83036; 83605; 83615; 83735; 84132; 84145; 84439; 84443; 85025; 85027; 85379; 85384; 85610; 85730; 86140; 86850; 86900; 86901; 86920; 87040; 93005; 93306; 94003; 99285